=== PATIENT | female | born 1960 | race African-American/Black ===

== ENCOUNTER → 2016-05-07 | Outpatient (CLI) | payer MEDICARE, OTHER ==
[2016-04-24 11:59] VITALS: BP 148/97
[~2016-05-07] MED LIST: AMIT10TA PO; BACL10TA PO; BACL20TA PO; BUTA-14 PO; CYCL10TA2 PO; ETOD400T PO; FENT1PAT17 TD; FENT1PAT19 TP; FLUT1DIS5 IH; GABA800T2 PO; HYDR-2666 PO; IPRA4AER IH; LEVO75TA5 PO; LISI10TA2 PO; LORA10TA68 PO; ONDA8TAB12 PO; OXYC-244 PO; PANT40TA3 PO; POTA20TA4 PO; RANI150T6 PO; TIZA2CAP PO; TOPI-24 PO; VENL150C PO; ZOLP10TA PO
== END | disposition home or self-care (01) ==
LOC: PMGWOUND 13:18
PROVIDERS: ATTEND Surgery
DX: L89.153 Pressure ulcer of sacral region, stage 3 (principal); E03.9 Hypothyroidism, unspecified; J44.9 Chronic obstructive pulmonary disease, unspecified; K21.9 Gastro-esophageal reflux disease without esophagitis; F32.9 Major depressive disorder, single episode, unspecified; F17.210 Nicotine dependence, cigarettes, uncomplicated
CPT/HCPCS: 11042

== ENCOUNTER → 2016-05-14 | Outpatient (CLI) | payer MEDICARE, OTHER ==
[2016-04-24 11:59] VITALS: BP 148/97
== END | disposition home or self-care (01) ==
LOC: PMGWOUND 14:10
PROVIDERS: ATTEND Surgery
DX: L89.153 Pressure ulcer of sacral region, stage 3 (principal); E03.9 Hypothyroidism, unspecified; J44.9 Chronic obstructive pulmonary disease, unspecified; K21.9 Gastro-esophageal reflux disease without esophagitis; F32.9 Major depressive disorder, single episode, unspecified; F17.210 Nicotine dependence, cigarettes, uncomplicated
CPT/HCPCS: 97597

== ENCOUNTER → 2016-05-19 | Outpatient (CLI) | payer OTHER ==
[2016-04-24 11:59] VITALS: BP 148/97
== END | disposition home or self-care (01) ==
LOC: PMGWOUND 12:27
PROVIDERS: ATTEND Emergency Medicine Undersea and Hyperbaric Medicine
DX: L89.153 Pressure ulcer of sacral region, stage 3 (principal); E03.9 Hypothyroidism, unspecified; J44.9 Chronic obstructive pulmonary disease, unspecified; K21.9 Gastro-esophageal reflux disease without esophagitis; F32.9 Major depressive disorder, single episode, unspecified; F17.210 Nicotine dependence, cigarettes, uncomplicated
CPT/HCPCS: 11042

== ENCOUNTER → 2016-06-03 | Outpatient (CLI) | payer OTHER ==
[2016-04-24 11:59] VITALS: BP 148/97
== END | disposition home or self-care (01) ==
LOC: PMGWOUND 11:35
PROVIDERS: ATTEND Emergency Medicine Undersea and Hyperbaric Medicine
DX: L89.153 Pressure ulcer of sacral region, stage 3 (principal); E03.9 Hypothyroidism, unspecified; J44.9 Chronic obstructive pulmonary disease, unspecified; K21.9 Gastro-esophageal reflux disease without esophagitis; F32.9 Major depressive disorder, single episode, unspecified; F17.210 Nicotine dependence, cigarettes, uncomplicated
CPT/HCPCS: 11042

== ENCOUNTER → 2016-06-10 | Outpatient (CLI) | payer OTHER ==
[2016-04-24 11:59] VITALS: BP 148/97
== END | disposition home or self-care (01) ==
LOC: PMGWOUND 11:46
PROVIDERS: ATTEND Emergency Medicine Undersea and Hyperbaric Medicine
DX: L89.153 Pressure ulcer of sacral region, stage 3 (principal); E03.9 Hypothyroidism, unspecified; J44.9 Chronic obstructive pulmonary disease, unspecified; K21.9 Gastro-esophageal reflux disease without esophagitis; F32.9 Major depressive disorder, single episode, unspecified; F17.210 Nicotine dependence, cigarettes, uncomplicated
CPT/HCPCS: 11042

== ENCOUNTER → 2016-06-17 | Outpatient (CLI) | payer OTHER ==
[2016-04-24 11:59] VITALS: BP 148/97
== END | disposition home or self-care (01) ==
LOC: PMGWOUND 10:01
PROVIDERS: ATTEND Emergency Medicine Undersea and Hyperbaric Medicine
DX: L89.153 Pressure ulcer of sacral region, stage 3 (principal); J44.9 Chronic obstructive pulmonary disease, unspecified; K21.9 Gastro-esophageal reflux disease without esophagitis; E03.9 Hypothyroidism, unspecified; F32.9 Major depressive disorder, single episode, unspecified; F17.210 Nicotine dependence, cigarettes, uncomplicated; Z90.710 Acquired absence of both cervix and uterus
CPT/HCPCS: 99214

== ENCOUNTER → 2016-06-24 | Outpatient (CLI) | payer OTHER ==
[2016-04-24 11:59] VITALS: BP 148/97
== END | disposition home or self-care (01) ==
LOC: PMGWOUND 11:41
PROVIDERS: ATTEND Emergency Medicine Undersea and Hyperbaric Medicine
DX: L89.153 Pressure ulcer of sacral region, stage 3 (principal); S60.420D Blister (nonthermal) of right index finger, subsequent encounter; E03.9 Hypothyroidism, unspecified; J44.9 Chronic obstructive pulmonary disease, unspecified; K21.9 Gastro-esophageal reflux disease without esophagitis; F32.9 Major depressive disorder, single episode, unspecified; F17.210 Nicotine dependence, cigarettes, uncomplicated; Z90.710 Acquired absence of both cervix and uterus; X58.XXXD Exposure to other specified factors, subsequent encounter
CPT/HCPCS: 11042

== ENCOUNTER → 2016-07-01 | Outpatient (CLI) | payer OTHER ==
[2016-04-24 11:59] VITALS: BP 148/97
== END | disposition home or self-care (01) ==
LOC: PMGWOUND 11:46
PROVIDERS: ATTEND Emergency Medicine Undersea and Hyperbaric Medicine
DX: S61.200D Unspecified open wound of right index finger without damage to nail, subsequent encounter (principal); L89.153 Pressure ulcer of sacral region, stage 3; L03.011 Cellulitis of right finger; E03.9 Hypothyroidism, unspecified; J44.9 Chronic obstructive pulmonary disease, unspecified; K21.9 Gastro-esophageal reflux disease without esophagitis; F32.9 Major depressive disorder, single episode, unspecified; F17.210 Nicotine dependence, cigarettes, uncomplicated; X58.XXXD Exposure to other specified factors, subsequent encounter
CPT/HCPCS: 99215

== ENCOUNTER → 2016-07-08 | Outpatient (CLI) | payer OTHER ==
[2016-04-24 11:59] VITALS: BP 148/97
== END | disposition home or self-care (01) ==
LOC: PMGWOUND 11:41
PROVIDERS: ATTEND Emergency Medicine Undersea and Hyperbaric Medicine
DX: L89.153 Pressure ulcer of sacral region, stage 3 (principal); S60.420D Blister (nonthermal) of right index finger, subsequent encounter; E03.9 Hypothyroidism, unspecified; J44.9 Chronic obstructive pulmonary disease, unspecified; K21.9 Gastro-esophageal reflux disease without esophagitis; F32.9 Major depressive disorder, single episode, unspecified; F17.210 Nicotine dependence, cigarettes, uncomplicated; Z90.710 Acquired absence of both cervix and uterus; X58.XXXD Exposure to other specified factors, subsequent encounter
CPT/HCPCS: 99214

== ENCOUNTER → 2016-07-15 | Outpatient (CLI) | payer OTHER ==
[2016-04-24 11:59] VITALS: BP 148/97
== END | disposition home or self-care (01) ==
LOC: PMGWOUND 10:59
PROVIDERS: ATTEND Emergency Medicine Undersea and Hyperbaric Medicine
DX: L89.152 Pressure ulcer of sacral region, stage 2 (principal); J44.9 Chronic obstructive pulmonary disease, unspecified; K21.9 Gastro-esophageal reflux disease without esophagitis; E03.9 Hypothyroidism, unspecified; F32.9 Major depressive disorder, single episode, unspecified; F17.210 Nicotine dependence, cigarettes, uncomplicated; Z90.710 Acquired absence of both cervix and uterus
CPT/HCPCS: 99213

== ENCOUNTER 2016-07-27 17:35 | Inpatient (IN) | payer OTHER ==
[~2016-07-27] VITALS: Ht 154.9 cm; Wt 43.6 kg
[~2016-07-27 17:35] MED LIST changes: -HYDR-2666 PO; +HYDR-2758 PO; +NON FORMULARY ITEM SQ SCH; -OXYC-244 PO; +OXYC-327 PO; -TOPI-24 PO; +TOPI25TA7 PO
--- NOTE | 2016-07-27 18:15 | PHYS DOC ---
Adult General Chief Complaint Chief Complaint: SYNCOPE HPI HPI Patient is a 56 year old -[place] who presents with syncopal episode. Primary lateral sclerosis, hypothyroidism, mood disorder and lumbar stenosisAccording to her sister who takes care of her she got her out of the bathroom and cleaned her up in the prone in bed and then she turned around to leave when she started screaming in pain and then all of a sudden urinated although place and was unresponsive. She presents to ER today with tachycardia and no complaints. She denies fevers chills nausea or vomiting. Review of Systems Review of Systems Constitutional: Denies fever or chills [] Eyes: Denies change in visual acuity, redness, or eye pain [] HENT: Denies nasal congestion or sore throat [] Respiratory: Denies cough or shortness of breath [] Cardiovascular: No additional information not addressed in HPI [] GI: Denies abdominal pain, nausea, vomiting, bloody stools or diarrhea [] : Denies dysuria or hematuria [] Musculoskeletal: Denies back pain or joint pain [] Integument: Denies rash or skin lesions [] Neurologic: Denies headache, focal weakness or sensory changes [] Endocrine: Denies polyuria or polydipsia [] Current Medications Current Medications Current Medications Medications (Trade) Dose Ordered Sig/Estelle Start Time Stop Time Status Last Admin Dose Admin Aspirin (Elvis Aspirin) 325 mg 1X ONCE 07/27/16 20:45 07/27/16 20:46 Ondansetron HCl (Zofran) 4 mg PRN Q8HRS PRN 07/27/16 20:45 07/28/16 20:44 Sodium Chloride 1,000 ml @ 1,000 mls/hr 1X ONCE 07/27/16 19:15 07/27/16 20:14 DC 07/27/16 19:28 1,000 MLS/HR Allergies Allergies Allergies Coded Allergies Type Severity Reaction Last Updated Verified cefazolin Allergy Intermediate Rash 12/27/14 Yes ibuprofen Allergy Intermediate Hives 12/27/14 Yes morphine Allergy Intermediate Nausea and Vomiting 12/27/14 Yes Physical Exam Physical Exam Constitutional: Well developed, well nourished, no acute distress, non-toxic appearance. [] HENT: Normocephalic, atraumatic, bilateral external ears normal, oropharynx moist, no oral exudates, nose normal. [] Eyes: PERRLA, EOMI, conjunctiva normal, no discharge. [] Neck: Normal range of motion, no tenderness, supple, no stridor. [] Cardiovascular: Heart rate tachycardic without any murmurs Lungs & Thorax: Bilateral breath sounds clear to auscultation [] Abdomen: Bowel sounds normal, soft, no tenderness, no masses, no pulsatile masses. [] Skin: Warm, dry, no erythema, no rash. [] Back: No tenderness, no CVA tenderness. [] Extremities: Mild tendinosis palpation across the right leg, right hand noted for second digit missing with the wound being wrapped, no cyanosis, no clubbing , ROM intact, no edema. [] Neurologic: Alert and oriented X 3, normal motor function, normal sensory function, no focal deficits noted. [] Psychologic: Affect normal, judgement normal, mood normal. [] Current Patient Data Vital Signs Vital Signs Date Time Temp Pulse Resp B/P (MAP) Pulse Ox O2 Delivery O2 Flow Rate FiO2 07/27/16 18:45 124 20 88/62 (71) 100 Room Air 07/27/16 17:36 98.7 98.7 Lab Values Laboratory Tests Test 07/27/16 18:34 07/27/16 19:27 White Blood Count 10.0 x10^3/uL (4.0-11.0) Red Blood Count 3.60 x10^6/uL (3.50-5.40) Hemoglobin 11.7 g/dL (12.0-15.5) L Hematocrit 35.0 % (36.0-47.0) L Mean Corpuscular Volume 97 fL (79-100) Mean Corpuscular Hemoglobin 32 pg (25-35) Mean Corpuscular Hemoglobin Concent 33 g/dL (31-37) Red Cell Distribution Width 13.2 % (11.5-14.5) Platelet Count 215 x10^3/uL (140-400) Neutrophils (%) (Auto) 74 % (31-73) H Lymphocytes (%) (Auto) 17 % (24-48) L Monocytes (%) (Auto) 8 % (0-9) Eosinophils (%) (Auto) 1 % (0-3) Basophils (%) (Auto) 1 % (0-3) Neutrophils # (Auto) 7.4 x10^3uL (1.8-7.7) Lymphocytes # (Auto) 1.7 x10^3/uL (1.0-4.8) Monocytes # (Auto) 0.8 x10^3/uL (0.0-1.1) Eosinophils # (Auto) 0.1 x10^3/uL (0.0-0.7) Basophils # (Auto) 0.1 x10^3/uL (0.0-0.2) Sodium Level 141 mmol/L (136-145) Potassium Level 4.1 mmol/L (3.5-5.1) Chloride Level 106 mmol/L (98-107) Carbon Dioxide Level 25 mmol/L (21-32) Anion Gap 10 (6-14) Blood Urea Nitrogen 16 mg/dL (7-20) Creatinine 0.9 mg/dL (0.6-1.0) Estimated GFR (Cockcroft-Gault) 78.1 Glucose Level 116 mg/dL (70-99) H Calcium Level 8.8 mg/dL (8.5-10.1) Magnesium Level 2.1 mg/dL (1.8-2.4) Total Bilirubin 0.2 mg/dL (0.2-1.0) Direct Bilirubin 0.1 mg/dL (0.0-0.2) Aspartate Amino Transferase (AST) 18 U/L (15-37) Alanine Aminotransferase (ALT) 16 U/L (14-59) Alkaline Phosphatase 117 U/L (46-116) H Creatine Kinase 110 U/L (26-192) Creatine Kinase MB (Mass) 2.0 ng/mL (0.0-3.6) Creatine Kinase MB Relative Index 1.8 % (0-4) Troponin I Quantitative 0.449 ng/mL (0.000-0.055) PC-Xhh-G-Type Natriuretic Peptide 958 pg/mL (0-124) H Total Protein 8.1 g/dL (6.4-8.2) Albumin 3.2 g/dL (3.4-5.0) L Lipase 53 U/L (73-393) L Thyroid Stimulating Hormone (TSH) 0.885 uIU/mL (0.358-3.74) Lactic Acid Level 1.9 mmol/L (0.4-2.0) Laboratory Tests 07/27/16 18:34 Laboratory Tests 07/27/16 18:34 EKG EKG EKG shows sinus tachycardia with a rate of [address] elevations, QTC 496 ms, left axis deviation, as interpreted by me. Radiology/Procedures Radiology/Procedures One view chest x-ray did not show any focal is elevations, bony abnormalities, pneumothorax, as interpreted by me. Impressions: Syncopal episode Elevated troponin Course & Med Decision Making Course & Med Decision Making Pertinent Labs and Imaging studies reviewed. (See chart for details) Patient doesn't have an elevated lactic acid however should her troponin is 0.4. EKG doesn't show anything acute other than tachycardia. She doesn't have any chest discomfort or abdominal pain. Her white blood cell count is not elevated and she does not have a fever. Urinalysis is pending at this time. I spoke with Dr. Pratt who is agreeable to admitting the patient, however does not want antibiotics or cardiology consulted at this time. We will consult ortho -alvaro as they did the recent amputation of her second digit of her right hand. Patient has received IV fluids and her heart rate has improved slightly. Dr. Pratt noted that recently her vitals were exactly the same in her office. Patient's in stable condition at this time be admitted. I have added on a CRP and ESR and gave the patient 324 mg aspirin. Dragon Disclaimer Dragon Disclaimer This electronic medical record was generated, in whole or in part, using a voice recognition dictation system. Departure Departure Impression: Primary Impression: Elevated troponin Disposition: ADMITTED INPATIENT Admitting Physician: Evelia Pratt Condition: STABLE Referrals: EVELIA PRATT MD (PCP) MOLLY CARLSON MD Jul 27, 2016 18:14
[2016-07-27 18:41] LABS: BASO # 0.1 x10^3/uL (0.0-0.2); BASO % 1 % (0-3); EOS % 1 % (0-3); HEMOGLOBIN 11.7 g/dL (12.0-15.5); LYMPH # 1.7 x10^3/uL (1.0-4.8); LYMPH % 17 % (24-48); MEAN CORPUSCULAR HEMOGLOBIN 32 pg (25-35); MEAN CORPUSCULAR HGB CONC 33 g/dL (31-37); MEAN CORPUSCULAR VOLUME 97 fL (79-100); MONO % 8 % (0-9); NEUT % 74 % (31-73); PLATELET COUNT 215 x10^3/uL (140-400); RED CELL DISTRIBUTION WIDTH 13.2 % (11.5-14.5)
[2016-07-27 18:59] LABS: CALCIUM 8.8 mg/dL (8.5-10.1); CREATININE 0.9 mg/dL (0.6-1.0); GFR 78.1; POTASSIUM 4.1 mmol/L (3.5-5.1)
[2016-07-27 19:03] LABS: ALBUMIN 3.2 g/dL (3.4-5.0); DIRECT BILIRUBIN 0.1 mg/dL (0.0-0.2); MAGNESIUM 2.1 mg/dL (1.8-2.4); TOTAL BILIRUBIN 0.2 mg/dL (0.2-1.0); TOTAL PROTEIN 8.1 g/dL (6.4-8.2)
[2016-07-27] MEDS ORDERED: IV NORMAL SALINE 1000ML BAG 1,000 ML IV ONE (19:15)
[2016-07-27] MEDS ORDERED: ASPIRIN 325 MG TABLET PO ONE (20:45)
[2016-07-27] MEDS ORDERED: ONDANSETRON PF 4 MG/2 ML VIAL. IV PRN (20:45)
[2016-07-27 22:01] VITALS: BP 98/74
[2016-07-27] MEDS ORDERED: XOPENEX HFA15 GM IH (22:43)
[2016-07-27] MEDS ORDERED: OLAN5TAB9 PO (22:43)
[2016-07-27] MEDS ORDERED: MELO7.5T29 PO (22:43)
[2016-07-27] MEDS ORDERED: FLUT16SP NS (22:43)
[2016-07-27] MEDS ORDERED: fentaNYL 75MCG/HR PATCH 1 PATCH PATCH.TD72 TD SCH ×2 (23:00→23:30)
[2016-07-27] MEDS: GABAPENTIN 400 MG CAPSULE. PO SCH (23:30)
[2016-07-27] MEDS ORDERED: OLANZapine 5 MG TABLET PO SCH (23:30)
[2016-07-27] MEDS: AMITRIPTYLINE HCL 10 MG TABLET. PO SCH (23:31)
[2016-07-27] MEDS: FAMOTIDINE 20 MG TABLET. PO SCH (23:31)
[2016-07-27] MEDS: TOPIRAMATE 100 MG TABLET. PO SCH (23:32)
[2016-07-27] MEDS: oxyCODONE/APAP 7.5/325 1 TAB TABLET PO SCH (23:33)
[2016-07-27] MEDS: tiZANidine 4 MG TABLET. PO SCH (23:44)
[2016-07-28 02:38] VITALS: BP 94/65
[2016-07-28 03:05] LABS: BASO # 0.1 x10^3/uL (0.0-0.2); BASO % 1 % (0-3); EOS % 2 % (0-3); HEMATOCRIT 33.4 % (36.0-47.0); HEMOGLOBIN 11.1 g/dL (12.0-15.5); LYMPH # 3.9 x10^3/uL (1.0-4.8); LYMPH % 40 % (24-48); MEAN CORPUSCULAR HEMOGLOBIN 33 pg (25-35); MEAN CORPUSCULAR HGB CONC 33 g/dL (31-37); MEAN CORPUSCULAR VOLUME 98 fL (79-100); MONO % 9 % (0-9); NEUT % 48 % (31-73); PLATELET COUNT 212 x10^3/uL (140-400); RED BLOOD COUNT 3.42 x10^6/uL (3.50-5.40); RED CELL DISTRIBUTION WIDTH 13.2 % (11.5-14.5); WHITE BLOOD COUNT 9.7 x10^3/uL (4.0-11.0)
[2016-07-28 03:06] LABS: CALCIUM 8.6 mg/dL (8.5-10.1); CREATININE 0.8 mg/dL (0.6-1.0); GFR 89.5; POTASSIUM 4.2 mmol/L (3.5-5.1)
[2016-07-28] MEDS: NON FORMULARY ITEM SQ SCH ×7 (03:14→21:00)
[2016-07-28] MEDS ORDERED: oxyCODONE/APAP 7.5/325 1 TAB TABLET PO SCH (06:00)
[2016-07-28] MEDS ORDERED: BUTALB/APAP/CAFEIN 50/325/40MG TABLET. PO PRN (07:30)
--- NOTE | 2016-07-28 07:38 | PDOC ---
PROGRESS NOTES Subjective Subjective Patient denies any chest pain. Denies lightheadedness at present. Objective Objective Vital Signs Date Time Temp Pulse Resp B/P (MAP) Pulse Ox O2 Delivery O2 Flow Rate FiO2 07/28/16 02:38 99.0 108 18 94/65 (75) 93 Room Air 99.0 Intake and Output 07/28/16 07:00 Intake Total 1318 ml Output Total 0 ml Balance 1318 ml Intake Oral 318 ml IV Total 1000 ml Output Urine Total 0 ml Physical Exam Abdomen: Normal bowel sounds, Soft, No tenderness Heart: Regular rate (mildly tachy) Extremities: No edema General: Alert, Oriented X3, No acute distress Lungs: Other (BS mildly decreased throughout but othewise CTA) Assessment Assessment Problems Medical Problems: (1) Elevated troponin Status: Acute Plan Plan of Care 1. Syncope with mildly elevated troponin and tachycardia - Stable overnight, tele with mild sinus tachycardia. BP mildly low but this is usual for her. Await further evaluation per Cardiology. 2. non-healing surgical wound right hand - patient had index finger amputated last month, apparently for ischemia. Wound has not closed and bone is visible at base. Presumed osteomyelitis. Will consult Ortho and ID for tx. 3. primary lateral sclerosis - patient is quite debilitated from this and requires much assistance at home, which her sister Tara provides. At baseline now , continue her usual meds for this and supportive care. 4. hypothyroidism - recent lab in our office showed TSH and T4 WNL on present dose of Levothyroxine, continue. 5. chronic back pain - stable, continue her home meds for this. 6. asthma - stable, continue inhalers. Patient declines nicotine patch at this time. 7. mood disorder - patient had some difficulty with this awhile ago, has been doing better on Zyprexa. Will continue this. Comment Review of Relevant I have reviewed the following items mimi (where applicable) has been applied. Labs Laboratory Tests Test 07/27/16 18:34 07/27/16 18:54 07/27/16 19:27 07/28/16 02:48 White Blood Count 10.0 x10^3/uL (4.0-11.0) 9.7 x10^3/uL (4.0-11.0) Red Blood Count 3.60 x10^6/uL (3.50-5.40) 3.42 x10^6/uL (3.50-5.40) Hemoglobin 11.7 g/dL (12.0-15.5) 11.1 g/dL (12.0-15.5) Hematocrit 35.0 % (36.0-47.0) 33.4 % (36.0-47.0) Mean Corpuscular Volume 97 fL (79-100) 98 fL (79-100) Mean Corpuscular Hemoglobin 32 pg (25-35) 33 pg (25-35) Mean Corpuscular Hemoglobin Concent 33 g/dL (31-37) 33 g/dL (31-37) Red Cell Distribution Width 13.2 % (11.5-14.5) 13.2 % (11.5-14.5) Platelet Count 215 x10^3/uL (140-400) 212 x10^3/uL (140-400) Neutrophils (%) (Auto) 74 % (31-73) 48 % (31-73) Lymphocytes (%) (Auto) 17 % (24-48) 40 % (24-48) Monocytes (%) (Auto) 8 % (0-9) 9 % (0-9) Eosinophils (%) (Auto) 1 % (0-3) 2 % (0-3) Basophils (%) (Auto) 1 % (0-3) 1 % (0-3) Neutrophils # (Auto) 7.4 x10^3uL (1.8-7.7) 4.6 x10^3uL (1.8-7.7) Lymphocytes # (Auto) 1.7 x10^3/uL (1.0-4.8) 3.9 x10^3/uL (1.0-4.8) Monocytes # (Auto) 0.8 x10^3/uL (0.0-1.1) 0.9 x10^3/uL (0.0-1.1) Eosinophils # (Auto) 0.1 x10^3/uL (0.0-0.7) 0.2 x10^3/uL (0.0-0.7) Basophils # (Auto) 0.1 x10^3/uL (0.0-0.2) 0.1 x10^3/uL (0.0-0.2) Sodium Level 141 mmol/L (136-145) 141 mmol/L (136-145) Potassium Level 4.1 mmol/L (3.5-5.1) 4.2 mmol/L (3.5-5.1) Chloride Level 106 mmol/L (98-107) 107 mmol/L (98-107) Carbon Dioxide Level 25 mmol/L (21-32) 25 mmol/L (21-32) Anion Gap 10 (6-14) 9 (6-14) Blood Urea Nitrogen 16 mg/dL (7-20) 18 mg/dL (7-20) Creatinine 0.9 mg/dL (0.6-1.0) 0.8 mg/dL (0.6-1.0) Estimated GFR (Cockcroft-Gault) 78.1 89.5 Glucose Level 116 mg/dL (70-99) 101 mg/dL (70-99) Calcium Level 8.8 mg/dL (8.5-10.1) 8.6 mg/dL (8.5-10.1) Magnesium Level 2.1 mg/dL (1.8-2.4) Total Bilirubin 0.2 mg/dL (0.2-1.0) Direct Bilirubin 0.1 mg/dL (0.0-0.2) Aspartate Amino Transf (AST/SGOT) 18 U/L (15-37) Alanine Aminotransferase (ALT/SGPT) 16 U/L (14-59) Alkaline Phosphatase 117 U/L (46-116) Creatine Kinase 110 U/L (26-192) Creatine Kinase MB (Mass) 2.0 ng/mL (0.0-3.6) Creatine Kinase MB Relative Index 1.8 % (0-4) Troponin I Quantitative 0.449 ng/mL (0.000-0.055) 0.560 ng/mL (0.000-0.055) MP-Bbi-I-Type Natriuretic Peptide 958 pg/mL (0-124) Total Protein 8.1 g/dL (6.4-8.2) Albumin 3.2 g/dL (3.4-5.0) Lipase 53 U/L (73-393) Thyroid Stimulating Hormone (TSH) 0.885 uIU/mL (0.358-3.74) Erythrocyte Sedimentation Rate 32 (0-25) C-Reactive Protein, Quantitative 25.9 mg/L (0-3.3) Lactic Acid Level 1.9 mmol/L (0.4-2.0) Laboratory Tests Test 07/27/16 18:34 07/27/16 18:54 07/27/16 19:27 07/28/16 02:48 White Blood Count 10.0 x10^3/uL (4.0-11.0) 9.7 x10^3/uL (4.0-11.0) Red Blood Count 3.60 x10^6/uL (3.50-5.40) 3.42 x10^6/uL (3.50-5.40) Hemoglobin 11.7 g/dL (12.0-15.5) 11.1 g/dL (12.0-15.5) Hematocrit 35.0 % (36.0-47.0) 33.4 % (36.0-47.0) Mean Corpuscular Volume 97 fL (79-100) 98 fL (79-100) Mean Corpuscular Hemoglobin 32 pg (25-35) 33 pg (25-35) Mean Corpuscular Hemoglobin Concent 33 g/dL (31-37) 33 g/dL (31-37) Red Cell Distribution Width 13.2 % (11.5-14.5) 13.2 % (11.5-14.5) Platelet Count 215 x10^3/uL (140-400) 212 x10^3/uL (140-400) Neutrophils (%) (Auto) 74 % (31-73) 48 % (31-73) Lymphocytes (%) (Auto) 17 % (24-48) 40 % (24-48) Monocytes (%) (Auto) 8 % (0-9) 9 % (0-9) Eosinophils (%) (Auto) 1 % (0-3) 2 % (0-3) Basophils (%) (Auto) 1 % (0-3) 1 % (0-3) Neutrophils # (Auto) 7.4 x10^3uL (1.8-7.7) 4.6 x10^3uL (1.8-7.7) Lymphocytes # (Auto) 1.7 x10^3/uL (1.0-4.8) 3.9 x10^3/uL (1.0-4.8) Monocytes # (Auto) 0.8 x10^3/uL (0.0-1.1) 0.9 x10^3/uL (0.0-1.1) Eosinophils # (Auto) 0.1 x10^3/uL (0.0-0.7) 0.2 x10^3/uL (0.0-0.7) Basophils # (Auto) 0.1 x10^3/uL (0.0-0.2) 0.1 x10^3/uL (0.0-0.2) Sodium Level 141 mmol/L (136-145) 141 mmol/L (136-145) Potassium Level 4.1 mmol/L (3.5-5.1) 4.2 mmol/L (3.5-5.1) Chloride Level 106 mmol/L (98-107) 107 mmol/L (98-107) Carbon Dioxide Level 25 mmol/L (21-32) 25 mmol/L (21-32) Anion Gap 10 (6-14) 9 (6-14) Blood Urea Nitrogen 16 mg/dL (7-20) 18 mg/dL (7-20) Creatinine 0.9 mg/dL (0.6-1.0) 0.8 mg/dL (0.6-1.0) Estimated GFR (Cockcroft-Gault) 78.1 89.5 Glucose Level 116 mg/dL (70-99) 101 mg/dL (70-99) Calcium Level 8.8 mg/dL (8.5-10.1) 8.6 mg/dL (8.5-10.1) Magnesium Level 2.1 mg/dL (1.8-2.4) Total Bilirubin 0.2 mg/dL (0.2-1.0) Direct Bilirubin 0.1 mg/dL (0.0-0.2) Aspartate Amino Transf (AST/SGOT) 18 U/L (15-37) Alanine Aminotransferase (ALT/SGPT) 16 U/L (14-59) Alkaline Phosphatase 117 U/L (46-116) Creatine Kinase 110 U/L (26-192) Creatine Kinase MB (Mass) 2.0 ng/mL (0.0-3.6) Creatine Kinase MB Relative Index 1.8 % (0-4) Troponin I Quantitative 0.449 ng/mL (0.000-0.055) 0.560 ng/mL (0.000-0.055) HO-Yfe-W-Type Natriuretic Peptide 958 pg/mL (0-124) Total Protein 8.1 g/dL (6.4-8.2) Albumin 3.2 g/dL (3.4-5.0) Lipase 53 U/L (73-393) Thyroid Stimulating Hormone (TSH) 0.885 uIU/mL (0.358-3.74) Erythrocyte Sedimentation Rate 32 (0-25) C-Reactive Protein, Quantitative 25.9 mg/L (0-3.3) Lactic Acid Level 1.9 mmol/L (0.4-2.0) Medications Current Medications Sodium Chloride 1,000 ml @ 1,000 mls/hr 1X ONCE IV Last administered on 19:28; Start 07/27/16 at 19:15; Stop 07/27/16 at 20:14; Status DC Ondansetron HCl (Zofran) 4 mg PRN Q8HRS PRN IV NAUSEA/VOMITING; Start 07/27/16 at 20:45; Stop 07/28/16 at 20:44 Aspirin (Elvis Aspirin) 325 mg 1X ONCE PO Last administered on 07/27/16 20:55 ; Start 07/27/16 at 20:45; Stop 07/27/16 at 20:46; Status DC Amitriptyline HCl (Elavil) 10 mg BID PO ; Start 07/28/16 at 09:00; Stop at 09:00; Status DC Fentanyl (Duragesic 75mcg/ Hr Patch) 1 patch Q3DAYS TD ; Start 07/27/16 at 23:00 ; Stop 07/27/16 at 23:08; Status DC Olanzapine (ZyPREXA) 5 mg BID PO ; Start 07/28/16 at 09:00; Stop 07/28/16 at 09: 00; Status DC Oxycodone/ Acetaminophen (Percocet 7.5/ 325) 1 tab Q8HRS PO ; Start 07/28/16 at 06:00; Stop 07/28/16 at 06:00; Status DC Topiramate (Topamax) 100 mg BID PO ; Start 07/28/16 at 09:00; Stop 07/28/16 at 09:00; Status DC Non-Formulary Medication 800 mg TID PO ; Start 07/28/16 at 09:00; Stop 07/28/16 at 09:00; Status DC Non-Formulary Medication 150 mg BID PO ; Start 07/28/16 at 09:00; Stop 07/28/16 at 09:00; Status DC Non-Formulary Medication 2 mg TID PO ; Start 07/28/16 at 09:00; Stop 07/28/16 at 09:00; Status DC Non-Formulary Medication 1 ea Q3HRS SQ Last administered on 07/27/16 22:45; Start 07/27/16 at 00:00; Stop 07/27/16 at 23:40; Status DC Amitriptyline HCl (Elavil) 10 mg BID PO Last administered on 07/27/16 23:31; Start 07/27/16 at 23:30 Fentanyl (Duragesic 75mcg/ Hr Patch) 1 patch Q3DAYS TD Last administered on 23:33; Start 07/27/16 at 23:30 Olanzapine (ZyPREXA) 5 mg BID PO Last administered on 07/27/16 23:32; Start at 23:30 Oxycodone/ Acetaminophen (Percocet 7.5/ 325) 1 tab Q8HRS PO Last administered on 07/27/16 23:33; Start 07/27/16 at 23:30 Topiramate (Topamax) 100 mg BID PO Last administered on 07/27/16 23:32; Start 07/27/16 at 23:30 Gabapentin (Neurontin) 800 mg Q12HR PO Last administered on 07/27/16 23:30; Start 07/27/16 at 23:30 Famotidine (Pepcid) 20 mg BID PO Last administered on 07/27/16 23:31; Start at 23:30 Tizanidine HCl (Zanaflex) 2 mg TID PO Last administered on 07/27/16 23:44; Start 07/27/16 at 23:30 Non-Formulary Medication 1 ea Q3HRS SQ Last administered on 6/12/17at 06:35; Start 07/28/16 at 03:00 Acetaminophen/ Butalbital/ Caffeine (Fioricet) 1 tab PRN Q6HRS PRN PO MIGRAINE HEADACHE; Start 07/28/16 at 07:30 Fluticasone Propionate (Flonase) 2 spray DAILY NS ; Start 07/28/16 at 09:00; Status UNV Levothyroxine Sodium (Synthroid) 75 mcg DAILY PO ; Start 07/28/16 at 09:00; Status UNV Potassium Chloride (Klor-Con) 20 meq DAILY PO ; Start 07/28/16 at 09:00; Status UNV Non-Formulary Medication 1 each BID IH ; Start 07/28/16 at 09:00; Status UNV Non-Formulary Medication 1 tab DAILY PO ; Start 07/28/16 at 09:00; Status UNV Non-Formulary Medication 150 mg DAILY PO ; Start 07/28/16 at 09:00; Status UNV Active Scripts Active Reported Xopenex Hfa (Levalbuterol Tartrate) 15 Gm Hfa.aer.ad 2 Puff IH PRN Q4-6HRS Fluticasone Propionate Nasal [place] (Fluticasone Propionate) 16 Gm [place].susp 2 [place] NS DAILY Olanzapine 5 Mg Tablet 5 Mg PO BID Meloxicam 7.5 Mg Tablet 1 Tab PO DAILY FENTANYL 75mcg/hr (Fentanyl) 1 Each Patch.td72 1 Patch TP Q3DAYS Claritin (Loratadine) 10 Mg Tablet 1 Tab PO DAILY Advair 500-50 Diskus (Fluticasone/Salmeterol) 1 Each Disk.w.dev 1 Each IH BID Amitriptyline Hcl 10 Mg Tablet 10 Mg PO BID Zofran Odt (Ondansetron) 8 Mg Tab.rapdis 8 Mg PO PRN Percocet 7.5-325 Mg Tablet (Oxycodone/Acetaminophen) 1 Each Tablet 1 Each PO Q8HRS Levothyroxine Sodium 75 Mcg Tablet 75 Mcg PO DAILY Fioricet 50-325-40 Mg Tablet (Butalb/Acetaminophen/Caffeine) 1 Each Tablet 1 Each PO Q6HRS PRN Effexor Xr (Venlafaxine Hcl) 150 Mg Cap.er.24h 150 Mg PO DAILY Klor-Con M20 (Potassium Chloride) 20 Meq Tab.er.prt 20 Meq PO DAILY Tizanidine Hcl 2 Mg Capsule 2 Mg PO TID Zantac (Ranitidine Hcl) 150 Mg Tablet 150 Mg PO BID Topiramate 25 Mg Tablet 100 Mg PO BID Gabapentin 800 Mg Tablet 800 Mg PO TID Vitals/I & O Vital Sign - Last 24 Hours 07/27/16 07/27/16 07/27/16 07/27/16 17:36 18:45 19:15 19:45 Temp 98.7 98.7 Pulse 127 124 120 118 Resp 18 20 20 22 B/P (MAP) 91/57 (68) 88/62 (71) 91/64 (73) 83/53 (63) Pulse Ox 92 100 92 92 O2 Delivery Room Air Room Air Room Air Room Air 07/27/16 07/27/16 07/27/16 07/27/16 20:15 20:45 21:15 21:50 Pulse 116 120 120 Resp 16 21 20 B/P (MAP) 103/63 (76) Pulse Ox 92 93 91 O2 Delivery Room Air Room Air Room Air 07/27/16 07/27/16 07/27/16 07/28/16 22:01 22:01 23:33 02:38 Temp 99.2 99.2 99.0 99.2 99.2 99.0 Pulse 114 114 108 Resp 18 18 18 B/P (MAP) 98/74 (82) 98/74 (82) 94/65 (75) Pulse Ox 91 91 93 O2 Delivery Room Air Room Air Room Air Room Air Intake and Output 07/27/16 07/27/16 07/28/16 15:00 23:00 07:00 Intake Total 1000 ml 318 ml Output Total 0 ml Balance 1000 ml 318 ml RISHABH LUNDBERG MD Jul 28, 2016 07:38
[2016-07-28 07:53] VITALS: BP 88/62
--- NOTE | 2016-07-28 08:03 | RAD ---
EXAM: Chest one view. HISTORY: Asthma, syncope. COMPARISON: 05/15/2009. FINDINGS: A frontal view of the chest is obtained. Hyperinflation suggests air trapping. There are no confluent infiltrates. There is no pneumothorax or pleural effusion. The heart is not enlarged. There are atherosclerotic calcifications of the aorta. Instrumented anterior cervical discectomy and fusion changes are noted. IMPRESSION: 1. Mild hyperinflation. Correlate for air trapping.
--- NOTE | 2016-07-28 08:13 | PDOC ---
Infectious Disease Note ROS ROS Vital Sign Vital Signs Vital Signs Date Time Temp Pulse Resp B/P (MAP) Pulse Ox O2 Delivery O2 Flow Rate FiO2 07/28/16 02:38 99.0 108 18 94/65 (75) 93 Room Air 99.0 Labs Lab Laboratory Tests Test 07/27/16 18:34 07/27/16 18:54 07/27/16 19:27 07/28/16 02:48 White Blood Count 10.0 x10^3/uL (4.0-11.0) 9.7 x10^3/uL (4.0-11.0) Red Blood Count 3.60 x10^6/uL (3.50-5.40) 3.42 x10^6/uL (3.50-5.40) Hemoglobin 11.7 g/dL (12.0-15.5) 11.1 g/dL (12.0-15.5) Hematocrit 35.0 % (36.0-47.0) 33.4 % (36.0-47.0) Mean Corpuscular Volume 97 fL (79-100) 98 fL (79-100) Mean Corpuscular Hemoglobin 32 pg (25-35) 33 pg (25-35) Mean Corpuscular Hemoglobin Concent 33 g/dL (31-37) 33 g/dL (31-37) Red Cell Distribution Width 13.2 % (11.5-14.5) 13.2 % (11.5-14.5) Platelet Count 215 x10^3/uL (140-400) 212 x10^3/uL (140-400) Neutrophils (%) (Auto) 74 % (31-73) 48 % (31-73) Lymphocytes (%) (Auto) 17 % (24-48) 40 % (24-48) Monocytes (%) (Auto) 8 % (0-9) 9 % (0-9) Eosinophils (%) (Auto) 1 % (0-3) 2 % (0-3) Basophils (%) (Auto) 1 % (0-3) 1 % (0-3) Neutrophils # (Auto) 7.4 x10^3uL (1.8-7.7) 4.6 x10^3uL (1.8-7.7) Lymphocytes # (Auto) 1.7 x10^3/uL (1.0-4.8) 3.9 x10^3/uL (1.0-4.8) Monocytes # (Auto) 0.8 x10^3/uL (0.0-1.1) 0.9 x10^3/uL (0.0-1.1) Eosinophils # (Auto) 0.1 x10^3/uL (0.0-0.7) 0.2 x10^3/uL (0.0-0.7) Basophils # (Auto) 0.1 x10^3/uL (0.0-0.2) 0.1 x10^3/uL (0.0-0.2) Sodium Level 141 mmol/L (136-145) 141 mmol/L (136-145) Potassium Level 4.1 mmol/L (3.5-5.1) 4.2 mmol/L (3.5-5.1) Chloride Level 106 mmol/L (98-107) 107 mmol/L (98-107) Carbon Dioxide Level 25 mmol/L (21-32) 25 mmol/L (21-32) Anion Gap 10 (6-14) 9 (6-14) Blood Urea Nitrogen 16 mg/dL (7-20) 18 mg/dL (7-20) Creatinine 0.9 mg/dL (0.6-1.0) 0.8 mg/dL (0.6-1.0) Estimated GFR (Cockcroft-Gault) 78.1 89.5 Glucose Level 116 mg/dL (70-99) 101 mg/dL (70-99) Calcium Level 8.8 mg/dL (8.5-10.1) 8.6 mg/dL (8.5-10.1) Magnesium Level 2.1 mg/dL (1.8-2.4) Total Bilirubin 0.2 mg/dL (0.2-1.0) Direct Bilirubin 0.1 mg/dL (0.0-0.2) Aspartate Amino Transf (AST/SGOT) 18 U/L (15-37) Alanine Aminotransferase (ALT/SGPT) 16 U/L (14-59) Alkaline Phosphatase 117 U/L (46-116) Creatine Kinase 110 U/L (26-192) Creatine Kinase MB (Mass) 2.0 ng/mL (0.0-3.6) Creatine Kinase MB Relative Index 1.8 % (0-4) Troponin I Quantitative 0.449 ng/mL (0.000-0.055) 0.560 ng/mL (0.000-0.055) HM-Din-N-Type Natriuretic Peptide 958 pg/mL (0-124) Total Protein 8.1 g/dL (6.4-8.2) Albumin 3.2 g/dL (3.4-5.0) Lipase 53 U/L (73-393) Thyroid Stimulating Hormone (TSH) 0.885 uIU/mL (0.358-3.74) Erythrocyte Sedimentation Rate 32 (0-25) C-Reactive Protein, Quantitative 25.9 mg/L (0-3.3) Lactic Acid Level 1.9 mmol/L (0.4-2.0) Objective Assessment Right index osteomyelitis s/p amputation 18. Sutures removed about 2 weeks post -op now exposed bone Cefazolin allergy - nausea Low grade temps Tobacco abuse Baclofen pump Plan Plan of Care Add Vanc/Zosyn PICC line May need Plastics and a graft/HBO and transfer to F/u labs/cults D/w Dr. Pratt D/w sister Tara [phone] (H) [phone] (C) # [id number] SAMANTHA MCCONNELL MD Jul 28, 2016 08:13
[2016-07-28] MEDS: ALBUTEROL SULFATE 2.5 MG/3 ML NEBU. NEB SCH ×4 (08:20→21:29)
[2016-07-28] MEDS: BUDESONIDE 0.5 MG/2 ML NEBU. NEB SCH ×2 (08:21→21:29)
--- NOTE | 2016-07-28 08:37 | HP ---
ADMIT DATE: 07/27/2016 CHIEF COMPLAINT: Syncope. HISTORY OF PRESENT ILLNESS: The patient is a 56-year-old female with a history of primary lateral sclerosis and significant debility from this. She was brought to the Emergency Room on the evening of admission with the above complaint. Her sister is her caregiver at home and she reported that the patient had a brief episode of syncope on the evening of admission. She had apparently been in bed when this occurred, but she had been unresponsive for a short amount of time. The patient vaguely remembers this. Initial evaluation in the Emergency Room showed the patient to be mildly tachycardic and mildly hypotensive, which is not unusual for her. EKG was reported as showing sinus tachycardia without acute ischemic changes. Chest x-ray is reported as clear. The patient's troponin was mildly elevated at 0.4 and she was admitted for further treatment. PAST MEDICAL HISTORY: Primary lateral sclerosis, lumbar stenosis with chronic back pain, GERD, hypothyroidism, asthma, mood disorder. PAST SURGICAL HISTORY: The patient recently had the amputation of her right index finger apparently due to ischemia, partial hysterectomy, cholecystectomy and cervical laminectomy. ALLERGIES: THE PATIENT IS ALLERGIC OR INTOLERANT TO CEFAZOLIN, IBUPROFEN AND MORPHINE. HOME MEDICATIONS: Olanzapine 5 mg daily, Xopenex p.r.n., tizanidine 2 mg 3 tablets t.i.d., Fioricet p.r.n. headache, gabapentin 800 mg t.i.d., venlafaxine 150 mg daily, Advair 500/50 one puff b.i.d., amitriptyline 10 mg b.i.d., Topamax 25 mg 2 tabs twice a day, ranitidine 150 mg b.i.d., loratadine daily, Flonase daily, Duragesic 75 mcg per hour patch, Percocet 7.5/325 p.r.n., levothyroxine 75 mcg daily, potassium 20 mEq daily. The patient also has a baclofen pump. FAMILY HISTORY: Noncontributory. SOCIAL HISTORY: The patient is . She lives with her sister who provides her care at home. She does continue to smoke cigarettes daily. She does not drink alcohol to excess. REVIEW OF SYSTEMS: The patient denies fever or chills. She has had mild cough recently, which is not productive of sputum and she does not really feel short of air with it. She states she had been using her usual inhalers for her asthma. She denies any chest pain or palpitations. She denies abdominal pain, nausea or vomiting. Her mood has been pretty good with her usual medications. Her pain is fairly well controlled. Her sister administers her pain medication to avoid overuse. The wound from the patient's finger amputation last month has not healed when seen in our office. Last week it was noted to be open with bone exposed at the base of the wound. PHYSICAL EXAMINATION: GENERAL: The patient is alert and oriented x 3, resting comfortably in bed in no acute distress. HEENT: PERRL, EOMI, sclerae clear. Oropharynx: Mucous membranes moist. Poor dentition. NECK: Supple, without lymphadenopathy. CHEST: Breath sounds mildly decreased throughout, but otherwise clear to auscultation. CARDIOVASCULAR: Regular rhythm without murmur, mildly tachycardic. ABDOMEN: Soft, nontender, normoactive bowel sounds are present. EXTREMITIES: Bilateral lower extremities are without edema. A dressing is in place on the right hand. ASSESSMENT AND PLAN: 1. Syncope with mildly elevated troponin and tachycardia. The patient has been stable overnight and continues to be without any chest pain. Her second troponin was very mildly higher than her first one at 0.560. The patient's blood pressure is mildly low, but this is usual for her. We will await further evaluation per Cardiology. 2. Nonhealing surgical wound, right hand. This is presumed to be osteomyelitis with bone visible at the base of the wound. We will consult Ortho and ID for treatment on this and continue wound care. 3. Primary lateral sclerosis. The patient is quite debilitated from this and requires much assistance at home, which her sister has been providing. She is at her baseline now. We will continue her usual medications for this. 4. Hypothyroidism. Recent lab in our office showed TSH and T4 within normal limits on the present dose of levothyroxine and this will be continued. 5. Chronic back pain. This is stable. Continue her usual medications. 6. Asthma. This appears stable. Continue inhalers. The patient declines a nicotine patch at this time. She is well aware of the advice to quit smoking. 7. Mood disorder. The patient had some difficulty with this a while ago, but has been doing better on the current medications. We will continue these. RISHABH LUNDBERG MD DR: Phong JOB#: [id number] / [id number] GELY
[2016-07-28] MEDS ORDERED: AMITRIPTYLINE HCL 10 MG TABLET. PO SCH (09:00)
[2016-07-28] MEDS ORDERED: OLANZapine 5 MG TABLET PO SCH (09:00)
[2016-07-28] MEDS ORDERED: NON FORMULARY ITEM (Fluticasone/Salmeterol (Advair 500-50 Diskus) 1 EACH) IH SCH (09:00)
[2016-07-28] MEDS ORDERED: FLUTICASONE 50MCG/NASAL SPRAY 16GM BOTTLE. NS SCH (09:00)
[2016-07-28] MEDS ORDERED: NON FORMULARY ITEM (Gabapentin 800 MG) PO SCH (09:00)
[2016-07-28] MEDS ORDERED: NON FORMULARY ITEM (Tizanidine Hcl 2 MG) PO SCH (09:00)
[2016-07-28] MEDS ORDERED: TOPIRAMATE 100 MG TABLET. PO SCH (09:00)
[2016-07-28] MEDS ORDERED: NON FORMULARY ITEM (Ranitidine Hcl (Zantac) 150 MG) PO SCH (09:00)
[2016-07-28] MEDS ORDERED: VANCOMYCIN 1.25 GM in IV NORMAL SALINE 250ML 250 ML IV ONE (09:00)
[2016-07-28] MEDS: LEVOTHYROXINE 75 MCG TABLET PO SCH (10:30)
[2016-07-28] MEDS: POTASSIUM CHLORIDE 20 MEQ TABLET.ER. PO SCH (10:31)
[2016-07-28] MEDS: OLANZapine 5 MG TABLET PO SCH (10:31)
[2016-07-28] MEDS: FAMOTIDINE 20 MG TABLET. PO SCH ×2 (10:31→21:57)
[2016-07-28] MEDS: AMITRIPTYLINE HCL 10 MG TABLET. PO SCH ×2 (10:31→21:57)
[2016-07-28] MEDS: TOPIRAMATE 100 MG TABLET. PO SCH ×2 (10:32→21:57)
[2016-07-28] MEDS: tiZANidine 4 MG TABLET. PO SCH ×3 (10:32→21:58)
[2016-07-28] MEDS: CETIRIZINE HCL 10 MG TABLET. PO SCH (10:33)
[2016-07-28] MEDS: VENLAFAXINE XR 37.5 MG CAP.ER.24H. PO SCH (10:33)
[2016-07-28] MEDS: GABAPENTIN 400 MG CAPSULE. PO SCH ×2 (10:33→21:58)
[2016-07-28] MEDS: oxyCODONE/APAP 7.5/325 1 TAB TABLET PO SCH ×2 (10:46→14:00)
[2016-07-28] MEDS: PIPERACILLIN/TAZOBACTAM 3.375 GM in IV NORMAL SALINE 50ML 50 ML IV SCH ×4 (12:00→23:34)
--- NOTE | 2016-07-28 13:05 | CONS ---
DATE OF CONSULTATION: 07/27/2016 LOCATION: The patient is in room 210. REQUESTING PHYSICIAN: Dr. Pratt. REASON FOR CONSULTATION: Osteomyelitis. HISTORY OF PRESENT ILLNESS: The patient is a very pleasant 56-year-old -[place] female. She suffers from primary lateral sclerosis. In talking with her and her sister as the patient is somewhat of a poor historian, she states that she had developed a hangnail at some point on her right index finger and subsequently developed a blister that kind of has ruptured. A second blister developed and wrapped around her finger and shortly after that the finger became red and then became dark. Approximately on 07/03/2016, she underwent amputation of the right index finger and the area was closed. She was feeling ill the week after the procedure and then was unable to followup, but there was concern that the sutures were pulling on the wound. The wound subsequently did open, sutures were removed, but over the past week has been more apparent that the bone has become exposed. Yesterday, her sister had helped the patient to the commode and put her back into bed when she began to scream about pain. Her sister states she is unable to state where the pain was and then she apparently had somewhat of a syncopal episode. The patient has not been on any antibiotics recently. She did receive some clindamycin per her sister. Postoperatively, the patient feels she has been having some low-grade sweats and fevers over the past week, but no sinus issues, no sore throat or cough. Her appetite has been good. No nausea, vomiting or diarrhea. She states that her urine has had somewhat of a stronger odor associated with it, that is what she was told. She has now been admitted to the hospital. In reviewing the pictures available in the chart, she does have an open wound at the base of the amputation site where the index finger is and there is exposed bone. PAST MEDICAL HISTORY: Positive for the primary lateral sclerosis, hypothyroidism, mood disorder and history of lumbar stenosis. She has also had some sacral and buttock wounds in the past. PAST SURGICAL HISTORY: Positive for the above-mentioned finger amputation, partial hysterectomy, cholecystectomy and cervical laminectomy as well as a baclofen pump placement. REVIEW OF SYSTEMS: Otherwise negative, except as mentioned above. ALLERGIES: LISTED CEFAZOLIN. THE PATIENT COULD NOT REMEMBER WHAT HAPPENS WHEN SHE TAKES THIS, BUT IN DISCUSSIONS WITH HER SISTER, SHE STATES IT CAUSED SOME NAUSEA. OTHER ALLERGIES INCLUDE IBUPROFEN AND MORPHINE. SOCIAL HISTORY: She is a smoker, continues to smoke. She has two dogs at home. No other pets or rodents, no alcohol or drug abuse. FAMILY HISTORY: Noncontributory. CURRENT MEDICATIONS: Include albuterol, Elavil, aspirin, Pulmicort, Pepcid, Zyrtec, Neurontin, Synthroid, Zanaflex and Topamax. Other meds are available and have been reviewed in the chart. PHYSICAL EXAMINATION: VITAL SIGNS: T-max 99.2, currently 98.2; pulse 108, respirations 19, blood pressure 88/62, satting 92% on room air. CONSTITUTIONAL: She is very pleasant. She is cooperative. She is in no acute distress. She looks comfortable. HEENT: Pupils look like they have some early cataracts. She has normal conjunctivae. Oral cavity, ____ questionable dentition. NECK: Supple, full range of motion. LUNGS: Clear to auscultation bilaterally. HEART: S1, S2. ABDOMEN: Soft, nontender, nondistended with a baclofen pump on the left lower quadrant without signs of any complications. EXTREMITIES: No clubbing or cyanosis with trace edema bilaterally. SKIN: Warm to touch without signs of generalized rash. NEUROLOGIC: She was pleasant, nonfocal. Her right index finger was wrapped. She has a good radial pulse, ulnar pulse was somewhat decreased, but she does have good capillary refill in her remaining fingers. LABORATORY DATA: White count 9.7, hemoglobin 11.1, platelets of 212, neutrophils 48, lymphs 40, sed rate 32, glucose 101, creatinine is 0.8. DIAGNOSTIC DATA: Chest x-ray was reviewed without acute process. IMPRESSION: 1. Right index osteomyelitis, status post amputation on 07/03/2016. Sutures removed approximately 2 weeks ago postoperatively, but now has exposed bone. 2. Cefazolin allergy, really it just causes nausea only. 3. Low-grade temperatures. 4. Tobacco abuse. 5. Baclofen pump. RECOMMENDATIONS: For now begin vancomycin and Zosyn. I did discuss this with her sister that we will start broad-spectrum Zosyn given the mild nausea that she suffered with the cefazolin, will monitor for this. She will need a PICC line and she may need plastics and a graft, and hyperbaric and may need transfer to . I will follow up on labs and cultures. A urine has been ordered. This was discussed with Dr. Pratt as well as discussed with her sister. Thank you for allowing me to participate in the patient's care. If you have any questions, please do not hesitate to contact me. SAMANTHA MCCONNELL MD DR: GONZALEZ/edwina JOB#: [id number] / [id number]
--- NOTE | 2016-07-28 14:26 | PDOC2 ---
CARDIAC CONSULT DATE OF CONSULT Date of Consult DATE: 07/28/16 TIME: 14:25 REASON FOR CONSULT Reason for Consult: elevated troponin, syncope REFERRING PHYSICIAN Referring Physician: Dr Cristina Pratt SOURCE Source: Chart review HISTORY OF PRESENT ILLNESS HISTORY OF PRESENT ILLNESS 56 year old female with reported syncopal episode on Thursday night. Patient unable to provide any information other than " muggy air." Unclear if other symptoms or events surrounding episode. Family not present. Troponin levels peaked @ 0.560. No EKG for review. Reason for Visit: elevated troponin PAST MEDICAL HISTORY Pulmonary: Asthma CENTRAL NERVOUS SYSTEM: Other (primary lateral sclerosis) GI: GERD Endocrine: Hypothyroidism PAST SURGICAL HISTORY Past Surgical History: Cholecystectomy, Hysterectomy, Other (amputation right index finger; cervical laminectomy) FAMILY HISTORY Family History: Family History Unknown SOCIAL HISTORY Smoke: No ALCOHOL: none Drugs: None Lives: with Family CURRENT MEDICATIONS CURRENT MEDICATIONS Current Medications Medications (Trade) Dose Ordered Sig/Estelle Route PRN Reason Start Time Stop Time Status Last Admin Dose Admin Sodium Chloride 1,000 ml @ 1,000 mls/hr 1X ONCE IV 07/27/16 19:15 07/27/16 20:14 DC 07/27/16 19:28 Aspirin (Elvis Aspirin) 325 mg 1X ONCE PO 07/27/16 20:45 07/27/16 20:46 DC 07/27/16 20:55 Amitriptyline HCl (Elavil) 10 mg BID PO 07/27/16 23:30 07/28/16 10:31 Fentanyl (Duragesic 75mcg/ Hr Patch) 1 patch Q3DAYS TD 07/27/16 23:30 07/27/16 23:33 Olanzapine (ZyPREXA) 5 mg BID PO 07/27/16 23:30 07/28/16 07:30 DC 07/27/16 23:32 Oxycodone/ Acetaminophen (Percocet 7.5/ 325) 1 tab Q8HRS PO 07/27/16 23:30 07/28/16 10:46 Topiramate (Topamax) 100 mg BID PO 07/27/16 23:30 07/28/16 10:32 Gabapentin (Neurontin) 800 mg Q12HR PO 07/27/16 23:30 07/28/16 10:33 Famotidine (Pepcid) 20 mg BID PO 07/27/16 23:30 07/28/16 10:31 Tizanidine HCl (Zanaflex) 2 mg TID PO 07/27/16 23:30 07/28/16 10:32 Non-Formulary Medication 1 ea Q3HRS SQ 07/28/16 03:00 07/28/16 10:35 Levothyroxine Sodium (Synthroid) 75 mcg DAILY06 PO 07/28/16 07:30 07/28/16 10:30 Potassium Chloride (Klor-Con) 20 meq DAILY PO 07/28/16 09:00 07/28/16 10:31 Cetirizine HCl (ZyrTEC) 10 mg DAILY PO 07/28/16 09:00 07/28/16 10:33 Venlafaxine HCl (Effexor Xr) 150 mg DAILY PO 07/28/16 09:00 07/28/16 10:33 Olanzapine (ZyPREXA) 5 mg DAILY PO 07/28/16 09:00 07/28/16 10:31 Budesonide (Pulmicort) 0.5 mg RTBID NEB 07/28/16 08:00 07/28/16 08:21 Albuterol Sulfate (Ventolin Neb Soln) 2.5 mg RTQID NEB 07/28/16 08:00 07/28/16 13:00 ALLERGIES ALLERGIES: Coded Allergies: ibuprofen (Verified Allergy, Intermediate, Hives, 12/27/14) morphine (Verified Allergy, Intermediate, Nausea and Vomiting, 12/27/14) cefazolin (Verified Adverse Reaction, Intermediate, N/V, 07/28/16) ROS Review of System unobtainable - ? oversedated PHYSICAL EXAM General: Cooperative HEENT: Atraumatic, PERRLA Lungs: Clear to auscultation Heart: Normal S1, Normal S2 Abdomen: Normal bowel sounds Extremities: No edema, Normal pulses Neuro: Other (speech unintelligible) MUSCULOSKELETAL: No deformity VITALS VITALS Vital Signs Date Time Temp Pulse Resp B/P (MAP) Pulse Ox O2 Delivery O2 Flow Rate FiO2 07/28/16 13:00 Room Air 07/28/16 11:46 18 94 07/28/16 07:53 98.2 108 88/62 (71) 98.2 LABS Lab: Laboratory Tests Test 07/27/16 18:34 07/27/16 18:54 07/27/16 19:27 07/28/16 02:48 White Blood Count 10.0 x10^3/uL (4.0-11.0) 9.7 x10^3/uL (4.0-11.0) Red Blood Count 3.60 x10^6/uL (3.50-5.40) 3.42 x10^6/uL (3.50-5.40) Hemoglobin 11.7 g/dL (12.0-15.5) 11.1 g/dL (12.0-15.5) Hematocrit 35.0 % (36.0-47.0) 33.4 % (36.0-47.0) Mean Corpuscular Volume 97 fL (79-100) 98 fL (79-100) Mean Corpuscular Hemoglobin 32 pg (25-35) 33 pg (25-35) Mean Corpuscular Hemoglobin Concent 33 g/dL (31-37) 33 g/dL (31-37) Red Cell Distribution Width 13.2 % (11.5-14.5) 13.2 % (11.5-14.5) Platelet Count 215 x10^3/uL (140-400) 212 x10^3/uL (140-400) Neutrophils (%) (Auto) 74 % (31-73) 48 % (31-73) Lymphocytes (%) (Auto) 17 % (24-48) 40 % (24-48) Monocytes (%) (Auto) 8 % (0-9) 9 % (0-9) Eosinophils (%) (Auto) 1 % (0-3) 2 % (0-3) Basophils (%) (Auto) 1 % (0-3) 1 % (0-3) Neutrophils # (Auto) 7.4 x10^3uL (1.8-7.7) 4.6 x10^3uL (1.8-7.7) Lymphocytes # (Auto) 1.7 x10^3/uL (1.0-4.8) 3.9 x10^3/uL (1.0-4.8) Monocytes # (Auto) 0.8 x10^3/uL (0.0-1.1) 0.9 x10^3/uL (0.0-1.1) Eosinophils # (Auto) 0.1 x10^3/uL (0.0-0.7) 0.2 x10^3/uL (0.0-0.7) Basophils # (Auto) 0.1 x10^3/uL (0.0-0.2) 0.1 x10^3/uL (0.0-0.2) Sodium Level 141 mmol/L (136-145) 141 mmol/L (136-145) Potassium Level 4.1 mmol/L (3.5-5.1) 4.2 mmol/L (3.5-5.1) Chloride Level 106 mmol/L (98-107) 107 mmol/L (98-107) Carbon Dioxide Level 25 mmol/L (21-32) 25 mmol/L (21-32) Anion Gap 10 (6-14) 9 (6-14) Blood Urea Nitrogen 16 mg/dL (7-20) 18 mg/dL (7-20) Creatinine 0.9 mg/dL (0.6-1.0) 0.8 mg/dL (0.6-1.0) Estimated GFR (Cockcroft-Gault) 78.1 89.5 Glucose Level 116 mg/dL (70-99) 101 mg/dL (70-99) Calcium Level 8.8 mg/dL (8.5-10.1) 8.6 mg/dL (8.5-10.1) Magnesium Level 2.1 mg/dL (1.8-2.4) Total Bilirubin 0.2 mg/dL (0.2-1.0) Direct Bilirubin 0.1 mg/dL (0.0-0.2) Aspartate Amino Transf (AST/SGOT) 18 U/L (15-37) Alanine Aminotransferase (ALT/SGPT) 16 U/L (14-59) Alkaline Phosphatase 117 U/L (46-116) Creatine Kinase 110 U/L (26-192) Creatine Kinase MB (Mass) 2.0 ng/mL (0.0-3.6) Creatine Kinase MB Relative Index 1.8 % (0-4) Troponin I Quantitative 0.449 ng/mL (0.000-0.055) 0.560 ng/mL (0.000-0.055) XX-Lpg-X-Type Natriuretic Peptide 958 pg/mL (0-124) Total Protein 8.1 g/dL (6.4-8.2) Albumin 3.2 g/dL (3.4-5.0) Lipase 53 U/L (73-393) Thyroid Stimulating Hormone (TSH) 0.885 uIU/mL (0.358-3.74) Erythrocyte Sedimentation Rate 32 (0-25) C-Reactive Protein, Quantitative 25.9 mg/L (0-3.3) Lactic Acid Level 1.9 mmol/L (0.4-2.0) Test 07/28/16 08:50 Troponin I Quantitative 0.368 ng/mL (0.000-0.055) EKG EKG none for review ASSESSMENT/PLAN ASSESSMENT/PLAN 1. NSTEMI ? related to syncope - details unclear echo to evaluate LV function functional ability limits candidacy for aggressive intervention no BB due to hypotension 2. lipid status unknown check FLP 3. right index finger amp per ID and wound care Problems: MAGNOLIA CALDERÓN APRN Jul 28, 2016 14:26
--- NOTE | 2016-07-28 15:34 | RAD ---
EXAM: Chest one view. HISTORY: PICC line placement, shortness of breath. COMPARISON: 07/27/2016. FINDINGS: A frontal view of the chest is obtained. A left arm PICC line has its tip in the superior vena cava. Hyperinflation suggests chronic obstructive pulmonary disease. There are no confluent infiltrates. There is no pneumothorax or pleural effusion. The heart is not enlarged. Instrumented anterior cervical discectomy and fusion changes are noted. There are atherosclerotic calcifications of the aorta. IMPRESSION: 1. Left arm PICC line tip in the superior vena cava. 2. Hyperinflation. Correlate for chronic obstructive pulmonary disease.
[2016-07-28 15:55] VITALS: BP 81/57
[2016-07-28] MEDS: ASPIRIN ENTERIC COATED 81 MG TABLET.DR. PO SCH (18:48)
[2016-07-28 19:16] VITALS: BP 76/53
[2016-07-28 19:22] VITALS: BP 79/60
[2016-07-28] MEDS ORDERED: NALOXONE 0.4 MG/ML VIAL. ONE (19:58)
[2016-07-28] MEDS ORDERED: NALOXONE 0.4 MG/ML VIAL. IV ONE (20:15)
[2016-07-28] MEDS ORDERED: fentaNYL 75MCG/HR PATCH 1 PATCH PATCH.TD72 TD ONE (20:45)
[2016-07-28 23:40] VITALS: BP 97/71
[2016-07-28] MEDS: fentaNYL 75MCG/HR PATCH 1 PATCH PATCH.TD72 TD SCH (23:46)
--- NOTE | 2016-07-28 23:58 | ACF ---
Admission Forms Criteria SYNCOPE Clinical Indications for Admission to Inpatient Care ( Place 'X' for any and all applicable criteria): Admission is indicated for syncope and ANY ONE of the following (1)(2)(3)(4)(5) (6)(7) : [X ]I. Inpatient admission required rather than observation care (Also use Syncope: Observation Care Criteria as appropriate) because of ANY ONE of the following: [ X]a) Hemodynamic instability that is severe or persistent [ ]b) Cardiac arrhythmias of immediate concern identified or strongly suspected (eg, needs electrophysiologic study) [ ]c) Acute coronary syndrome identified (Also use Myocardial Infarction or Angina Criteria form ) [ ]d) Structural cardiac disorder (eg, aortic stenosis) suspected as cause that requires immediate correction [ ]e) Respiratory symptoms (eg, dyspnea, tachypnea) that are severe or persistent [ ]f) Neurologic signs or symptoms that are severe or persistent ( eg, stroke, seizures, altered mental status) [ ]g) Severe electrolyte abnormalities requiring inpatient care [ ]h) Supplemental oxygen or respiratory treatment for over 24 hrs that are performable only in acute inpatient setting [ ]i) IV fluid to replace significant ongoing (eg, for over 24 hrs ) losses (>3 L/m2 per day) [ ]j) Continuous intravenous infusion of anticoagulation, platelet inhibitor, vasoactive, or antiarrhythmic medication(15)(16) [ ]k) Pulmonary artery catheter monitoring [ ]l) Temporary pacemaker placement(17) [ ]m) Emergent cardioversion(18) [ X]n) Other conditions, treatment or monitoring requiring inpatient admission [ ]II. Suspicion of imminently dangerous cause (eg, rare causes like pericardial tamponade, pulmonary embolism) [ ]III. Syncope causing severe injury requiring hospitalization Extended stay beyond goal length of stay may be needed for(28) [ ]a) Dangerous arrhythmia(15)(23)(27)(29) [ ]b) Myocardial ischemia [ ]c) Seizure disorder [ ]d) Syncope-related injuries The original [employer] content created by [employer] [facility] has been revised. The portions of the content which have been revised are identified through the use of italic text or in bold, and [employer] has neither reviewed nor approved the modified material. All other unmodified content is copyright [facility]. Please see references footnoted in the original [facility] edition 2016 Admission Criteria Met?: Yes FAWN MCCANN Jul 28, 2016 23:58
[2016-07-29] VITALS (7 sets, daily range): BP systolic 85–112; BP diastolic 58–69
[2016-07-29] MEDS: oxyCODONE/APAP 7.5/325 1 TAB TABLET PO SCH ×4 (00:25→20:50)
[2016-07-29] MEDS: VANCOMYCIN PER PHARMACY MC PRN ×4 (02:07→16:44)
[2016-07-29] MEDS: NON FORMULARY ITEM SQ SCH ×8 (03:00→21:00)
[2016-07-29] MEDS ORDERED: VANCOMYCIN 750 MG in IV NORMAL SALINE 250ML 250 ML IV SCH (03:30)
[2016-07-29 04:28] LABS: CALCIUM 8.1 mg/dL (8.5-10.1); CREATININE 0.8 mg/dL (0.6-1.0); GFR 89.5; POTASSIUM 3.7 mmol/L (3.5-5.1)
[2016-07-29 04:48] LABS: CHOLESTEROL/HDL RATIO 4.9
[2016-07-29] MEDS: PIPERACILLIN/TAZOBACTAM 3.375 GM in IV NORMAL SALINE 50ML 50 ML IV SCH ×4 (05:33→23:34)
--- NOTE | 2016-07-29 06:20 | EKG ---
[facility] [address] [place] [address] Test Date: 2016-07-27 Test Time: 18:15:05 Pat Name: NAKUL HER Department: Room: 210 1 Gender: F Bumper Operator: WANG : 1960 Requested By: MOLLY CARLSON Order Number: [id number] Reading MD: Jonathan Stevens Measurements Intervals [place] Rate: 126 P: -102 MA: 122 QRS: -43 QRSD: 94 T: 70 QT: 342 QTc: 496 Interpretive Statements SUSPECT SINUS TACHYCARDIA PRIOR ANTERIOR INFARCT POSSIBLE LAD Electronically Signed On 07-29-2016 8:51:41 CDT by Jonathan Stevens
[2016-07-29] MEDS: LEVOTHYROXINE 75 MCG TABLET PO SCH (06:34)
--- NOTE | 2016-07-29 07:22 | CARD ---
APPROVED REPORT EXAM: Two-dimensional and M-mode echocardiogram with Doppler and color Doppler. Other Information Quality : Good INDICATION Abnormal Troponin 2D DIMENSIONS RVDd3.5 (2.9-3.5cm)Left Atrium(2D)2.8 (1.6-4.0cm) IVSd1.3 (0.7-1.1cm)Aortic Root(2D)2.6 (2.0-3.7cm) LVDd3.5 (3.9-5.9cm)LVOT Diameter2.0 (1.8-2.4cm) PWd1.1 (0.7-1.1cm)LVDs2.8 (2.5-4.0cm) FS (%) 18.2 %SV19.1 ml LVEF(%)38.7 (>50%) Aortic Valve AoV Peak Lele.100.5cm/sAoV VTI10.1cm AO Peak GR.4.0mmHgLVOT VTI 9.80cm AO Mean GR.2mmHgAVA (VTI)2.95cm2 Mitral Valve MV E Sacoxsfo34.4cm/sMV DECEL [id number] MV A Kxjiwqaz45.2cm/sE/A Ratio2.0 TDI Lateral E' P. V6.20cm/sMedial E' P. V7.34cm/s E/Lateral E'11.5E/Medial E'9.7 Tricuspid Valve TR P. Sqlloewx665fs/sRAP [id number] TR Peak Gr.28ivPzZKTG26ejCo LEFT VENTRICLE The left ventricle is normal size. There is mild asymmetric septal left ventricular hypertrophy. Mild left ventricle systolic dysfunction. The Ejection Fraction is 40-45%. Septal motion consistent with conduction abnormality. RIGHT VENTRICLE The right ventricle is mildly dilated. The right ventricular systolic function is normal. ATRIA The left atrium size is normal. The right atrium is moderately dilated. The interatrial septum is int act with no evidence for an atrial septal defect or patent foramen ovale as noted on 2-D or Doppler i maging. AORTIC VALVE The aortic valve is calcified but opens well. Doppler and Color Flow revealed no significant aortic r egurgitation. There is no significant aortic valvular stenosis. MITRAL VALVE The mitral valve is normal in structure and function. There is no evidence of mitral valve prolapse. There is no mitral valve stenosis. Doppler and Color-flow revealed trace mitral regurgitation. TRICUSPID VALVE The tricuspid valve is normal in structure and function. Doppler and Color Flow revealed trace tricus pid regurgitation. The PA pressure was estimated at 24 mmHg. There is no tricuspid valve stenosis. PULMONIC VALVE The pulmonary valve is normal in structure and function. Doppler and Color Flow revealed no pulmonic valvular regurgitation. There is no pulmonic valvular stenosis. GREAT VESSELS The aortic root is normal in size. The ascending aorta is normal in size. The IVC is dilated and katina apses <50% with inspiration. PERICARDIAL EFFUSION There is no evidence of significant pericardial effusion. Critical Notification Critical Value: No <Conclusion> Mild left ventricle systolic dysfunction. The Ejection Fraction is 40-45%. Septal motion consistent with conduction abnormality. The right atrium is moderately dilated. Trace mitral regurgitation. Trace tricuspid regurgitation. The PA pressure was estimated at 24 mmHg. There is no evidence of significant pericardial effusion.
[2016-07-29] MEDS: ALBUTEROL SULFATE 2.5 MG/3 ML NEBU. NEB SCH ×4 (08:30→21:05)
[2016-07-29] MEDS: BUDESONIDE 0.5 MG/2 ML NEBU. NEB SCH ×2 (08:30→21:05)
--- NOTE | 2016-07-29 08:47 | PDOC ---
PROGRESS NOTES Subjective Subjective Patient reports pain in her legs. Concerned about not having her Baclofen pump at present. Objective Objective Vital Signs Date Time Temp Pulse Resp B/P (MAP) Pulse Ox O2 Delivery O2 Flow Rate FiO2 07/29/16 07:24 98.0 107 18 112/58 (76) 93 Nasal Cannula 2.0 98.0 Intake and Output 07/29/16 07:00 Intake Total 600 ml Output Total 700 ml Balance -100 ml Intake Oral 600 ml Output Urine Total 700 ml # Bowel Movements 1 Physical Exam Abdomen: Normal bowel sounds, Soft, No tenderness Heart: Regular rate Extremities: No edema General: Alert, Oriented X3 (somewhat forgetful of events of last night), No acute distress Lungs: Clear to auscultation (BS mildly decreased throughout) Assessment Assessment Problems Medical Problems: (1) Elevated troponin Status: Acute Plan Plan of Care 1. Syncope - no further episodes. Troponin mildly elevated but stable. Tele with sinus tachycardia. Echo showed mild systolic dysfunction only. Continue to monitor. 2. non-healing surgical wound with presumed osteomyelitis - appreciate ID input , continue abx and wound care. Awaiting consult from Dr Mcallister also. 3. chronic pain - nursing reports patient was overly sedated last night from Baclofen pump in combination with Percocet and Duragesic patch. Had to call rapid response and administer Narcan x1. Pump is presently out of patient's room. Will consult Dr Duran who manages the pump. Patient may need lower dose to avoid sedation. 4. PLS - at baseline, continue supportive care. 5. asthma - stable, continue nebs. Comment Review of Relevant I have reviewed the following items mimi (where applicable) has been applied. Labs Laboratory Tests Test 07/27/16 18:34 07/27/16 18:54 07/27/16 19:27 07/28/16 02:48 White Blood Count 10.0 x10^3/uL (4.0-11.0) 9.7 x10^3/uL (4.0-11.0) Red Blood Count 3.60 x10^6/uL (3.50-5.40) 3.42 x10^6/uL (3.50-5.40) Hemoglobin 11.7 g/dL (12.0-15.5) 11.1 g/dL (12.0-15.5) Hematocrit 35.0 % (36.0-47.0) 33.4 % (36.0-47.0) Mean Corpuscular Volume 97 fL (79-100) 98 fL (79-100) Mean Corpuscular Hemoglobin 32 pg (25-35) 33 pg (25-35) Mean Corpuscular Hemoglobin Concent 33 g/dL (31-37) 33 g/dL (31-37) Red Cell Distribution Width 13.2 % (11.5-14.5) 13.2 % (11.5-14.5) Platelet Count 215 x10^3/uL (140-400) 212 x10^3/uL (140-400) Neutrophils (%) (Auto) 74 % (31-73) 48 % (31-73) Lymphocytes (%) (Auto) 17 % (24-48) 40 % (24-48) Monocytes (%) (Auto) 8 % (0-9) 9 % (0-9) Eosinophils (%) (Auto) 1 % (0-3) 2 % (0-3) Basophils (%) (Auto) 1 % (0-3) 1 % (0-3) Neutrophils # (Auto) 7.4 x10^3uL (1.8-7.7) 4.6 x10^3uL (1.8-7.7) Lymphocytes # (Auto) 1.7 x10^3/uL (1.0-4.8) 3.9 x10^3/uL (1.0-4.8) Monocytes # (Auto) 0.8 x10^3/uL (0.0-1.1) 0.9 x10^3/uL (0.0-1.1) Eosinophils # (Auto) 0.1 x10^3/uL (0.0-0.7) 0.2 x10^3/uL (0.0-0.7) Basophils # (Auto) 0.1 x10^3/uL (0.0-0.2) 0.1 x10^3/uL (0.0-0.2) Sodium Level 141 mmol/L (136-145) 141 mmol/L (136-145) Potassium Level 4.1 mmol/L (3.5-5.1) 4.2 mmol/L (3.5-5.1) Chloride Level 106 mmol/L (98-107) 107 mmol/L (98-107) Carbon Dioxide Level 25 mmol/L (21-32) 25 mmol/L (21-32) Anion Gap 10 (6-14) 9 (6-14) Blood Urea Nitrogen 16 mg/dL (7-20) 18 mg/dL (7-20) Creatinine 0.9 mg/dL (0.6-1.0) 0.8 mg/dL (0.6-1.0) Estimated GFR (Cockcroft-Gault) 78.1 89.5 Glucose Level 116 mg/dL (70-99) 101 mg/dL (70-99) Calcium Level 8.8 mg/dL (8.5-10.1) 8.6 mg/dL (8.5-10.1) Magnesium Level 2.1 mg/dL (1.8-2.4) Total Bilirubin 0.2 mg/dL (0.2-1.0) Direct Bilirubin 0.1 mg/dL (0.0-0.2) Aspartate Amino Transf (AST/SGOT) 18 U/L (15-37) Alanine Aminotransferase (ALT/SGPT) 16 U/L (14-59) Alkaline Phosphatase 117 U/L (46-116) Creatine Kinase 110 U/L (26-192) Creatine Kinase MB (Mass) 2.0 ng/mL (0.0-3.6) Creatine Kinase MB Relative Index 1.8 % (0-4) Troponin I Quantitative 0.449 ng/mL (0.000-0.055) 0.560 ng/mL (0.000-0.055) IO-Waq-A-Type Natriuretic Peptide 958 pg/mL (0-124) Total Protein 8.1 g/dL (6.4-8.2) Albumin 3.2 g/dL (3.4-5.0) Lipase 53 U/L (73-393) Thyroid Stimulating Hormone (TSH) 0.885 uIU/mL (0.358-3.74) Erythrocyte Sedimentation Rate 32 (0-25) C-Reactive Protein, Quantitative 25.9 mg/L (0-3.3) Lactic Acid Level 1.9 mmol/L (0.4-2.0) Test 07/28/16 08:50 07/29/16 04:00 Troponin I Quantitative 0.368 ng/mL (0.000-0.055) Sodium Level 141 mmol/L (136-145) Potassium Level 3.7 mmol/L (3.5-5.1) Chloride Level 107 mmol/L (98-107) Carbon Dioxide Level 26 mmol/L (21-32) Anion Gap 8 (6-14) Blood Urea Nitrogen 16 mg/dL (7-20) Creatinine 0.8 mg/dL (0.6-1.0) Estimated GFR (Cockcroft-Gault) 89.5 Glucose Level 105 mg/dL (70-99) Calcium Level 8.1 mg/dL (8.5-10.1) Triglycerides Level 55 mg/dL (0-150) Cholesterol Level 152 mg/dL (0-200) LDL Cholesterol, Calculated 110 mg/dL (0-100) VLDL Cholesterol, Calculated 11 mg/dL (0-40) Non-HDL Cholesterol Calculated 121 mg/dL (0-129) HDL Cholesterol 31 mg/dL (40-60) Cholesterol/HDL Ratio 4.9 Laboratory Tests Test 07/28/16 08:50 07/29/16 04:00 Troponin I Quantitative 0.368 ng/mL (0.000-0.055) Sodium Level 141 mmol/L (136-145) Potassium Level 3.7 mmol/L (3.5-5.1) Chloride Level 107 mmol/L (98-107) Carbon Dioxide Level 26 mmol/L (21-32) Anion Gap 8 (6-14) Blood Urea Nitrogen 16 mg/dL (7-20) Creatinine 0.8 mg/dL (0.6-1.0) Estimated GFR (Cockcroft-Gault) 89.5 Glucose Level 105 mg/dL (70-99) Calcium Level 8.1 mg/dL (8.5-10.1) Triglycerides Level 55 mg/dL (0-150) Cholesterol Level 152 mg/dL (0-200) LDL Cholesterol, Calculated 110 mg/dL (0-100) VLDL Cholesterol, Calculated 11 mg/dL (0-40) Non-HDL Cholesterol Calculated 121 mg/dL (0-129) HDL Cholesterol 31 mg/dL (40-60) Cholesterol/HDL Ratio 4.9 Microbiology 07/27/16 Blood Culture - Preliminary, Resulted NO GROWTH AFTER 1 DAY Medications Current Medications Sodium Chloride 1,000 ml @ 1,000 mls/hr 1X ONCE IV Last administered on 19:28; Start 07/27/16 at 19:15; Stop 07/27/16 at 20:14; Status DC Ondansetron HCl (Zofran) 4 mg PRN Q8HRS PRN IV NAUSEA/VOMITING; Start 07/27/16 at 20:45; Stop 07/28/16 at 07:41; Status DC Aspirin (Elvis Aspirin) 325 mg 1X ONCE PO Last administered on 07/27/16 20:55 ; Start 07/27/16 at 20:45; Stop 07/27/16 at 20:46; Status DC Amitriptyline HCl (Elavil) 10 mg BID PO ; Start 07/28/16 at 09:00; Stop at 09:00; Status DC Fentanyl (Duragesic 75mcg/ Hr Patch) 1 patch Q3DAYS TD ; Start 07/27/16 at 23:00 ; Stop 07/27/16 at 23:08; Status DC Olanzapine (ZyPREXA) 5 mg BID PO ; Start 07/28/16 at 09:00; Stop 07/28/16 at 09: 00; Status DC Oxycodone/ Acetaminophen (Percocet 7.5/ 325) 1 tab Q8HRS PO ; Start 07/28/16 at 06:00; Stop 07/28/16 at 06:00; Status DC Topiramate (Topamax) 100 mg BID PO ; Start 07/28/16 at 09:00; Stop 07/28/16 at 09:00; Status DC Non-Formulary Medication 800 mg TID PO ; Start 07/28/16 at 09:00; Stop 07/28/16 at 09:00; Status DC Non-Formulary Medication 150 mg BID PO ; Start 07/28/16 at 09:00; Stop 07/28/16 at 09:00; Status DC Non-Formulary Medication 2 mg TID PO ; Start 07/28/16 at 09:00; Stop 07/28/16 at 09:00; Status DC Non-Formulary Medication 1 ea Q3HRS SQ Last administered on 07/27/16 22:45; Start 07/27/16 at 00:00; Stop 07/27/16 at 23:40; Status DC Amitriptyline HCl (Elavil) 10 mg BID PO Last administered on 07/28/16 21:57; Start 07/27/16 at 23:30 Fentanyl (Duragesic 75mcg/ Hr Patch) 1 patch Q3DAYS TD Last administered on 23:33; Start 07/27/16 at 23:30; Stop 07/28/16 at 20:41; Status DC Olanzapine (ZyPREXA) 5 mg BID PO Last administered on 07/27/16 23:32; Start at 23:30; Stop 07/28/16 at 07:30; Status DC Oxycodone/ Acetaminophen (Percocet 7.5/ 325) 1 tab Q8HRS PO Last administered on 07/29/16 06:36; Start 07/27/16 at 23:30 Topiramate (Topamax) 100 mg BID PO Last administered on 07/28/16 21:57; Start 07/27/16 at 23:30 Gabapentin (Neurontin) 800 mg Q12HR PO Last administered on 07/28/16 21:58; Start 07/27/16 at 23:30 Famotidine (Pepcid) 20 mg BID PO Last administered on 07/28/16 21:57; Start at 23:30 Tizanidine HCl (Zanaflex) 2 mg TID PO Last administered on 07/28/16 21:58; Start 07/27/16 at 23:30 Non-Formulary Medication 1 ea Q3HRS SQ Last administered on 07/28/16 18:00; Start 07/28/16 at 03:00 Acetaminophen/ Butalbital/ Caffeine (Fioricet) 1 tab PRN Q6HRS PRN PO MIGRAINE HEADACHE; Start 07/28/16 at 07:30 Fluticasone Propionate (Flonase) 2 spray DAILY NS ; Start 07/28/16 at 09:00; Status Cancel Levothyroxine Sodium (Synthroid) 75 mcg DAILY06 PO Last administered on 06:34; Start 07/28/16 at 07:30 Potassium Chloride (Klor-Con) 20 meq DAILY PO Last administered on 07/28/16 10 :31; Start 07/28/16 at 09:00 Non-Formulary Medication 1 each BID IH ; Start 07/28/16 at 09:00; Status UNV Cetirizine HCl (ZyrTEC) 10 mg DAILY PO Last administered on 07/28/16 10:33; Start 07/28/16 at 09:00 Venlafaxine HCl (Effexor Xr) 150 mg DAILY PO Last administered on 07/28/16 10: 33; Start 07/28/16 at 09:00 Olanzapine (ZyPREXA) 5 mg DAILY PO Last administered on 07/28/16 10:31; Start 07/28/16 at 09:00 Budesonide (Pulmicort) 0.5 mg RTBID NEB Last administered on 07/28/16 21:29; Start 07/28/16 at 08:00 Albuterol Sulfate (Ventolin Neb Soln) 2.5 mg RTQID NEB Last administered on 21:29; Start 07/28/16 at 08:00 Ondansetron HCl (Zofran) 4 mg PRN Q6HRS PRN IV NAUSEA/VOMITING; Start 07/28/16 at 07:30 Vancomycin HCl (Vanco Per Pharmacy) 1 each PRN DAILY PRN MC SEE COMMENTS Last administered on 07/29/16 02:08; Start 07/28/16 at 08:00 Piperacillin Sod/ Tazobactam Sod 3.375 gm/Sodium Chloride 50 ml @ 100 mls/hr Q6HRS IV Last administered on 07/29/16 05:33; Start 07/28/16 at 08:30 Vancomycin HCl 1.25 gm/Sodium Chloride 250 ml @ 166.667 mls/hr 1X ONCE IV Last administered on 07/28/16 15:18; Start 07/28/16 at 09:00; Stop 07/28/16 at 10:29; Status DC Fluticasone Propionate (Flonase) 2 spray DAILY NS ; Start 07/29/16 at 09:00 Aspirin (Ecotrin) 81 mg DAILYWBKFT PO Last administered on 07/28/16 18:48; Start 07/28/16 at 17:00 Naloxone HCl (Narcan) 0.4 mg STK-MED ONCE .ROUTE ; Start 07/28/16 at 19:58; Stop 07/28/16 at 19:59; Status DC Naloxone HCl (Narcan) 0.4 mg 1X ONCE IV Last administered on 07/28/16 20:10; Start 07/28/16 at 20:15; Stop 07/28/16 at 20:16; Status DC Fentanyl (Duragesic 75mcg/ Hr Patch) 1 patch Q3DAYS TD ; Start 07/31/16 at 09:00 ; Status UNV Fentanyl (Duragesic 75mcg/ Hr Patch) 1 patch 1X ONCE TD ; Start 07/28/16 at 20: 45; Stop 07/28/16 at 20:46; Status UNV Fentanyl (Duragesic 75mcg/ Hr Patch) 1 patch Q3DAYS TD Last administered on 23:46; Start 07/28/16 at 21:00 Lorazepam (Ativan) 0.5 mg PRN Q6HRS PRN IV ANXIETY / AGITATION; Start 07/29/16 at 01:45 Vancomycin HCl 750 mg/Sodium Chloride 250 ml @ 250 mls/hr Q12H IV Last administered on 07/29/16 03:57; Start 07/29/16 at 03:30 Vancomycin HCl 1 each 1X ONCE MC ; Start 07/29/16 at 15:00; Stop 07/29/16 at 15 :01 Active Scripts Active Reported Xopenex Hfa (Levalbuterol Tartrate) 15 Gm Hfa.aer.ad 2 Puff IH PRN Q4-6HRS Fluticasone Propionate Nasal [place] (Fluticasone Propionate) 16 Gm [place].susp 2 [place] NS DAILY Olanzapine 5 Mg Tablet 5 Mg PO BID Meloxicam 7.5 Mg Tablet 1 Tab PO DAILY FENTANYL 75mcg/hr (Fentanyl) 1 Each Patch.td72 1 Patch TP Q3DAYS Claritin (Loratadine) 10 Mg Tablet 1 Tab PO DAILY Advair 500-50 Diskus (Fluticasone/Salmeterol) 1 Each Disk.w.dev 1 Each IH BID Amitriptyline Hcl 10 Mg Tablet 10 Mg PO BID Zofran Odt (Ondansetron) 8 Mg Tab.rapdis 8 Mg PO PRN Percocet 7.5-325 Mg Tablet (Oxycodone/Acetaminophen) 1 Each Tablet 1 Each PO Q8HRS Levothyroxine Sodium 75 Mcg Tablet 75 Mcg PO DAILY Fioricet 50-325-40 Mg Tablet (Butalb/Acetaminophen/Caffeine) 1 Each Tablet 1 Each PO Q6HRS PRN Effexor Xr (Venlafaxine Hcl) 150 Mg Cap.er.24h 150 Mg PO DAILY Klor-Con M20 (Potassium Chloride) 20 Meq Tab.er.prt 20 Meq PO DAILY Tizanidine Hcl 2 Mg Capsule 2 Mg PO TID Zantac (Ranitidine Hcl) 150 Mg Tablet 150 Mg PO BID Topiramate 25 Mg Tablet 100 Mg PO BID Gabapentin 800 Mg Tablet 800 Mg PO TID Vitals/I & O Vital Sign - Last 24 Hours 07/28/16 07/28/16 07/28/16 07/28/16 10:46 11:46 13:00 14:00 Resp 18 18 15 Pulse Ox 94 94 94 O2 Delivery Room Air Room Air Room Air 07/28/16 07/28/16 07/28/16 07/28/16 15:55 16:23 19:16 19:22 Temp 98.1 98.1 98.1 98.1 Pulse 97 103 101 Resp 18 14 B/P (MAP) 81/57 (65) 76/53 (61) 79/60 (66) Pulse Ox 93 91 93 O2 Delivery Room Air Room Air Nasal Cannula Nasal Cannula O2 Flow Rate 2.0 2.0 07/28/16 07/28/16 07/28/16 07/28/16 20:45 21:30 23:40 23:46 Temp 98.4 98.4 Pulse 130 Resp 24 B/P (MAP) 97/71 (80) Pulse Ox 96 100 100 O2 Delivery Nasal Cannula Room Air Nasal Cannula Room Air O2 Flow Rate 2.0 2.0 2.0 07/29/16 07/29/16 07/29/16 07/29/16 00:25 02:07 03:10 03:46 Temp 98.5 98.5 Pulse 106 Resp 18 B/P (MAP) 91/62 (72) Pulse Ox 94 O2 Delivery Nasal Cannula Nasal Cannula Nasal Cannula Nasal Cannula O2 Flow Rate 2.0 2.0 2.0 07/29/16 07/29/16 06:36 07:24 Temp 98.0 98.0 Pulse 107 Resp 18 B/P (MAP) 112/58 (76) Pulse Ox 93 O2 Delivery Nasal Cannula Nasal Cannula O2 Flow Rate 2.0 2.0 Intake and Output 07/28/16 07/28/16 07/29/16 15:00 23:00 07:00 Intake Total 500 ml 100 ml Output Total 700 ml 0 ml Balance -200 ml 100 ml RISHABH LUNDBERG MD Jul 29, 2016 08:47
--- NOTE | 2016-07-29 08:52 | EKG ---
[facility] [address] [place] [address] Test Date: 2016-07-27 Test Time: 20:27:55 Pat Name: NAKUL HER Department: Room: Gender: F Call Center Analyst: : 1960 Requested By: MOLLY CARLSON Order Number: [id number] Reading MD: Jonathan Stevens Measurements Intervals [place] Rate: 115 P: -56 VT: 150 QRS: -34 QRSD: 94 T: 66 QT: 364 QTc: 506 Interpretive Statements SINUS TACHYCARDIA PRIOR ANTERIOR INFARCT POSSIBLE LAD Electronically Signed On 07-29-2016 8:52:05 CDT by Jonathan Stevens
[2016-07-29] MEDS: FLUTICASONE 50MCG/NASAL SPRAY 16GM BOTTLE. NS SCH (09:00)
[2016-07-29] MEDS: GABAPENTIN 400 MG CAPSULE. PO SCH ×2 (09:28→20:50)
[2016-07-29] MEDS: OLANZapine 5 MG TABLET PO SCH (09:29)
[2016-07-29] MEDS: CETIRIZINE HCL 10 MG TABLET. PO SCH (09:29)
[2016-07-29] MEDS: ASPIRIN ENTERIC COATED 81 MG TABLET.DR. PO SCH (09:29)
[2016-07-29] MEDS: TOPIRAMATE 100 MG TABLET. PO SCH ×2 (09:30→20:53)
[2016-07-29] MEDS: AMITRIPTYLINE HCL 10 MG TABLET. PO SCH ×2 (09:30→20:51)
[2016-07-29] MEDS: POTASSIUM CHLORIDE 20 MEQ TABLET.ER. PO SCH (09:30)
[2016-07-29] MEDS: tiZANidine 4 MG TABLET. PO SCH ×3 (09:30→20:51)
[2016-07-29] MEDS: FAMOTIDINE 20 MG TABLET. PO SCH ×2 (09:32→20:53)
[2016-07-29] MEDS: VENLAFAXINE XR 37.5 MG CAP.ER.24H. PO SCH (09:33)
--- NOTE | 2016-07-29 10:47 | PDOC ---
CARDIO Progress Notes Date and Time Date of Service 07/29/16 Time of Evaluation 1040 Subjective Subjective: No Chest Pain, No shortness of breath, No Palpitations Comments: nurse reporting periods of increased agitation Vitals Vitals Vital Signs Date Time Temp Pulse Resp B/P (MAP) Pulse Ox O2 Delivery O2 Flow Rate FiO2 07/29/16 10:13 98.6 127 19 86/64 (71) 98.6 07/29/16 08:34 96 Nasal Cannula 2.0 Weight Weight [ ] Input and Output Intake and Output Intake and Output 07/29/16 07:00 Intake Total 600 ml Output Total 700 ml Balance -100 ml Intake Oral 600 ml Output Urine Total 700 ml # Bowel Movements 1 Laboratory Labs Laboratory Tests Test 07/28/16 12:51 07/28/16 19:55 07/29/16 04:00 Glucose (Fingerstick) 109 mg/dL (70-99) 119 mg/dL (70-99) Sodium Level 141 mmol/L (136-145) Potassium Level 3.7 mmol/L (3.5-5.1) Chloride Level 107 mmol/L (98-107) Carbon Dioxide Level 26 mmol/L (21-32) Anion Gap 8 (6-14) Blood Urea Nitrogen 16 mg/dL (7-20) Creatinine 0.8 mg/dL (0.6-1.0) Estimated GFR (Cockcroft-Gault) 89.5 Glucose Level 105 mg/dL (70-99) Calcium Level 8.1 mg/dL (8.5-10.1) Triglycerides Level 55 mg/dL (0-150) Cholesterol Level 152 mg/dL (0-200) LDL Cholesterol, Calculated 110 mg/dL (0-100) VLDL Cholesterol, Calculated 11 mg/dL (0-40) Non-HDL Cholesterol Calculated 121 mg/dL (0-129) HDL Cholesterol 31 mg/dL (40-60) Cholesterol/HDL Ratio 4.9 Microbiology Micro Microbiology 07/27/16 Blood Culture - Preliminary, Resulted NO GROWTH AFTER 1 DAY Physical Exam HEENT: Neck Supple W Full Motion Chest: Symmetric LUNGS: Clear to Auscultation Heart: S1S2, other (tele ST ) Abdomen: Soft N/T Extremities: No Edema, No Calf Tenderness Neurology: alert, follow commands Assessment Assessment 1. NSTEMI ? related to syncope- details unclear. Concern for narcotic overuse rapid called overnight due to increased sedation; Narcan administered X 1. echo revealed depressed LV function with an EF of 40-45%. CP free. continue medica management as functional ability limits candidacy for aggressive intervention 2. chronic systolic heart failure etiology unknown. Discussed echo findings with patient, son, and sister. Patient would like to defer any further cardiac workup compensated. No SANDRA/ARB with hypotension patient to follow up in our office with Dr. Livingston in 4-6 weeks. 2. sinus tachycardia will add low-dose BB if BP allows. If not, could consider dig. 3. right index finger amp with concern for osteomyelitis per ID and wound care 4. PLS BONNY SANCHEZ APRN Jul 29, 2016 10:47
--- NOTE | 2016-07-29 10:58 | PDOC ---
Infectious Disease Note Subjective Subjective States ok and in her right mind. No pain/itch ROS ROS GEN: Denies fevers, chills, sweats HEENT: Denies blurred vision, sore throat CV: Denies chest pain RESP: Denies shortness of air, cough GI: Denies n/v/d NEURO: Denies confusion, dizziness MSK: Denies weakness, joint pain/swelling Vital Sign Vital Signs Vital Signs Date Time Temp Pulse Resp B/P (MAP) Pulse Ox O2 Delivery O2 Flow Rate FiO2 07/29/16 10:44 98/61 (73) 07/29/16 10:13 98.6 127 19 98.6 07/29/16 08:34 96 Nasal Cannula 2.0 Physical Exam PHYSICAL EXAM GENERAL: NAD, Alert HEENT: PERRL, OC/OP - ? dentition NECK: Supple, no JVD, no LN LUNGS: Clear HEART: S1S2, no gallop, no murmur ABD: Soft, NT, no organomegaly, no rebound EXT: No edema, no cyanosis. Hand dressed CONTACT FINGER ASSEMBLER: Alert, oriented x 3, no focal neurologic deficit SKIN: No rash IV: PICC LUE - clean Labs Lab Laboratory Tests Test 07/28/16 12:51 07/28/16 19:55 07/29/16 04:00 Glucose (Fingerstick) 109 mg/dL (70-99) 119 mg/dL (70-99) Sodium Level 141 mmol/L (136-145) Potassium Level 3.7 mmol/L (3.5-5.1) Chloride Level 107 mmol/L (98-107) Carbon Dioxide Level 26 mmol/L (21-32) Anion Gap 8 (6-14) Blood Urea Nitrogen 16 mg/dL (7-20) Creatinine 0.8 mg/dL (0.6-1.0) Estimated GFR (Cockcroft-Gault) 89.5 Glucose Level 105 mg/dL (70-99) Calcium Level 8.1 mg/dL (8.5-10.1) Triglycerides Level 55 mg/dL (0-150) Cholesterol Level 152 mg/dL (0-200) LDL Cholesterol, Calculated 110 mg/dL (0-100) VLDL Cholesterol, Calculated 11 mg/dL (0-40) Non-HDL Cholesterol Calculated 121 mg/dL (0-129) HDL Cholesterol 31 mg/dL (40-60) Cholesterol/HDL Ratio 4.9 Objective Assessment Right index osteomyelitis s/p amputation 07/03. Sutures removed about 2 weeks post -op now exposed bone Cefazolin allergy - nausea Low grade temps - better NSTEMI Tobacco abuse Baclofen pump Plan Plan of Care Cont Vanc/Zosyn May need Plastics and a graft/HBO and transfer to F/u labs/cults Await further Cardiology w/u Await Ortho eval SAMANTHA MCCONNELL MD Jul 29, 2016 10:58
[2016-07-29] MEDS: METOPROLOL TART IMMED RELEASE 25 MG TABLET. PO SCH ×2 (11:30→20:52)
--- NOTE | 2016-07-29 12:28 | EKG ---
[facility] [address] [place] [address] Test Date: 2016-07-29 Test Time: 11:14:34 Pat Name: NAKUL HER Department: Room: 210 1 Gender: F Cloth Bin Packer: EMILY : 1960 Requested By: MAGNOLIA CALDERÓN Order Number: [id number] Reading MD: Jonathan Stevens Measurements Intervals [place] Rate: 124 P: -109 [place]: 132 QRS: -26 QRSD: 90 T: 78 QT: 346 QTc: 501 Interpretive Statements SUSPECT SINUS TACHYCARDIA POSSIBLE PRIOR KAY-SEPTAL INFARCT NON-SPECIFIC ST/T CHANGES Electronically Signed On 07-29-2016 16:57:29 CDT by Jonathan Stevens
--- NOTE | 2016-07-29 13:42 | PDOC ---
ORTHO PROGRESS NOTES Vitals Vital Signs Date Time Temp Pulse Resp B/P (MAP) Pulse Ox O2 Delivery O2 Flow Rate FiO2 07/29/16 12:14 Nasal Cannula 2.0 07/29/16 10:44 98/61 (73) 07/29/16 10:13 98.6 127 19 98.6 07/29/16 08:34 96 Labs Laboratory Tests Test 07/27/16 18:34 07/27/16 18:54 07/27/16 19:27 07/28/16 02:48 White Blood Count 10.0 x10^3/uL (4.0-11.0) 9.7 x10^3/uL (4.0-11.0) Red Blood Count 3.60 x10^6/uL (3.50-5.40) 3.42 x10^6/uL (3.50-5.40) Hemoglobin 11.7 g/dL (12.0-15.5) 11.1 g/dL (12.0-15.5) Hematocrit 35.0 % (36.0-47.0) 33.4 % (36.0-47.0) Mean Corpuscular Volume 97 fL (79-100) 98 fL (79-100) Mean Corpuscular Hemoglobin 32 pg (25-35) 33 pg (25-35) Mean Corpuscular Hemoglobin Concent 33 g/dL (31-37) 33 g/dL (31-37) Red Cell Distribution Width 13.2 % (11.5-14.5) 13.2 % (11.5-14.5) Platelet Count 215 x10^3/uL (140-400) 212 x10^3/uL (140-400) Neutrophils (%) (Auto) 74 % (31-73) 48 % (31-73) Lymphocytes (%) (Auto) 17 % (24-48) 40 % (24-48) Monocytes (%) (Auto) 8 % (0-9) 9 % (0-9) Eosinophils (%) (Auto) 1 % (0-3) 2 % (0-3) Basophils (%) (Auto) 1 % (0-3) 1 % (0-3) Neutrophils # (Auto) 7.4 x10^3uL (1.8-7.7) 4.6 x10^3uL (1.8-7.7) Lymphocytes # (Auto) 1.7 x10^3/uL (1.0-4.8) 3.9 x10^3/uL (1.0-4.8) Monocytes # (Auto) 0.8 x10^3/uL (0.0-1.1) 0.9 x10^3/uL (0.0-1.1) Eosinophils # (Auto) 0.1 x10^3/uL (0.0-0.7) 0.2 x10^3/uL (0.0-0.7) Basophils # (Auto) 0.1 x10^3/uL (0.0-0.2) 0.1 x10^3/uL (0.0-0.2) Sodium Level 141 mmol/L (136-145) 141 mmol/L (136-145) Potassium Level 4.1 mmol/L (3.5-5.1) 4.2 mmol/L (3.5-5.1) Chloride Level 106 mmol/L (98-107) 107 mmol/L (98-107) Carbon Dioxide Level 25 mmol/L (21-32) 25 mmol/L (21-32) Anion Gap 10 (6-14) 9 (6-14) Blood Urea Nitrogen 16 mg/dL (7-20) 18 mg/dL (7-20) Creatinine 0.9 mg/dL (0.6-1.0) 0.8 mg/dL (0.6-1.0) Estimated GFR (Cockcroft-Gault) 78.1 89.5 Glucose Level 116 mg/dL (70-99) 101 mg/dL (70-99) Calcium Level 8.8 mg/dL (8.5-10.1) 8.6 mg/dL (8.5-10.1) Magnesium Level 2.1 mg/dL (1.8-2.4) Total Bilirubin 0.2 mg/dL (0.2-1.0) Direct Bilirubin 0.1 mg/dL (0.0-0.2) Aspartate Amino Transf (AST/SGOT) 18 U/L (15-37) Alanine Aminotransferase (ALT/SGPT) 16 U/L (14-59) Alkaline Phosphatase 117 U/L (46-116) Creatine Kinase 110 U/L (26-192) Creatine Kinase MB (Mass) 2.0 ng/mL (0.0-3.6) Creatine Kinase MB Relative Index 1.8 % (0-4) Troponin I Quantitative 0.449 ng/mL (0.000-0.055) 0.560 ng/mL (0.000-0.055) JY-Xvw-V-Type Natriuretic Peptide 958 pg/mL (0-124) Total Protein 8.1 g/dL (6.4-8.2) Albumin 3.2 g/dL (3.4-5.0) Lipase 53 U/L (73-393) Thyroid Stimulating Hormone (TSH) 0.885 uIU/mL (0.358-3.74) Erythrocyte Sedimentation Rate 32 (0-25) C-Reactive Protein, Quantitative 25.9 mg/L (0-3.3) Lactic Acid Level 1.9 mmol/L (0.4-2.0) Test 07/28/16 08:50 07/28/16 12:51 07/28/16 19:55 07/29/16 04:00 Troponin I Quantitative 0.368 ng/mL (0.000-0.055) Glucose (Fingerstick) 109 mg/dL (70-99) 119 mg/dL (70-99) Sodium Level 141 mmol/L (136-145) Potassium Level 3.7 mmol/L (3.5-5.1) Chloride Level 107 mmol/L (98-107) Carbon Dioxide Level 26 mmol/L (21-32) Anion Gap 8 (6-14) Blood Urea Nitrogen 16 mg/dL (7-20) Creatinine 0.8 mg/dL (0.6-1.0) Estimated GFR (Cockcroft-Gault) 89.5 Glucose Level 105 mg/dL (70-99) Calcium Level 8.1 mg/dL (8.5-10.1) Triglycerides Level 55 mg/dL (0-150) Cholesterol Level 152 mg/dL (0-200) LDL Cholesterol, Calculated 110 mg/dL (0-100) VLDL Cholesterol, Calculated 11 mg/dL (0-40) Non-HDL Cholesterol Calculated 121 mg/dL (0-129) HDL Cholesterol 31 mg/dL (40-60) Cholesterol/HDL Ratio 4.9 Laboratory Tests Test 07/28/16 19:55 07/29/16 04:00 Glucose (Fingerstick) 119 mg/dL (70-99) Sodium Level 141 mmol/L (136-145) Potassium Level 3.7 mmol/L (3.5-5.1) Chloride Level 107 mmol/L (98-107) Carbon Dioxide Level 26 mmol/L (21-32) Anion Gap 8 (6-14) Blood Urea Nitrogen 16 mg/dL (7-20) Creatinine 0.8 mg/dL (0.6-1.0) Estimated GFR (Cockcroft-Gault) 89.5 Glucose Level 105 mg/dL (70-99) Calcium Level 8.1 mg/dL (8.5-10.1) Triglycerides Level 55 mg/dL (0-150) Cholesterol Level 152 mg/dL (0-200) LDL Cholesterol, Calculated 110 mg/dL (0-100) VLDL Cholesterol, Calculated 11 mg/dL (0-40) Non-HDL Cholesterol Calculated 121 mg/dL (0-129) HDL Cholesterol 31 mg/dL (40-60) Cholesterol/HDL Ratio 4.9 Assessment and Plan please see full note s/p index amp through prox P1 granulating in, no purulent drainage not unreasonable to give this some more time. agree with wound care will follow along, and follow as outpatient JESUS WILLIAMSON II, MD Jul 29, 2016 13:41
--- NOTE | 2016-07-29 15:39 | PDOC ---
SUBJECTIVE Subjective drowsiness OBJECTIVE Objective 56 y.o. with increasing somnolence Vital Signs Vital Signs Date Time Temp Pulse Resp B/P (MAP) Pulse Ox O2 Delivery O2 Flow Rate FiO2 07/29/16 14:40 98.1 109 16 85/60 (68) 91 Nasal Cannula 2.0 98.1 07/29/16 14:12 Room Air 07/29/16 12:14 Nasal Cannula 2.0 07/29/16 11:30 120 88/57 07/29/16 10:44 98/61 (73) 07/29/16 10:13 98.6 127 19 86/64 (71) 98.6 07/29/16 08:34 96 Nasal Cannula 2.0 07/29/16 08:33 96 Nasal Cannula 2.0 07/29/16 07:40 Room Air 07/29/16 07:24 98.0 107 18 112/58 (76) 93 Nasal Cannula 2.0 98.0 07/29/16 06:36 Nasal Cannula 2.0 07/29/16 03:46 Nasal Cannula 07/29/16 03:10 98.5 106 18 91/62 (72) 94 Nasal Cannula 2.0 98.5 07/29/16 02:07 2.0 07/29/16 00:25 Nasal Cannula 2.0 07/28/16 23:46 100 Room Air 2.0 07/28/16 23:40 98.4 130 24 97/71 (80) 100 Nasal Cannula 2.0 98.4 07/28/16 21:30 96 Room Air 07/28/16 20:45 Nasal Cannula 2.0 07/28/16 19:22 101 79/60 (66) 93 Nasal Cannula 2.0 07/28/16 19:16 98.1 103 14 76/53 (61) 91 Nasal Cannula 2.0 98.1 07/28/16 16:23 Room Air 07/28/16 15:55 98.1 97 18 81/57 (65) 93 Room Air 98.1 I & O Intake and Output 07/29/16 07:00 Intake Total 600 ml Output Total 700 ml Balance -100 ml Intake Oral 600 ml Output Urine Total 700 ml # Bowel Movements 1 PHYSICAL EXAM Physical Exam awake and alert, disoriented to time ASSESSMENT/PLAN Assessment/Plan Plan: Decrease baclofen/Prialt rate by 10% Maintain PTM settings Problems: COMMENT Lab Laboratory Tests Test 07/28/16 19:55 07/29/16 04:00 Glucose (Fingerstick) 119 mg/dL (70-99) Sodium Level 141 mmol/L (136-145) Potassium Level 3.7 mmol/L (3.5-5.1) Chloride Level 107 mmol/L (98-107) Carbon Dioxide Level 26 mmol/L (21-32) Anion Gap 8 (6-14) Blood Urea Nitrogen 16 mg/dL (7-20) Creatinine 0.8 mg/dL (0.6-1.0) Estimated GFR (Cockcroft-Gault) 89.5 Glucose Level 105 mg/dL (70-99) Calcium Level 8.1 mg/dL (8.5-10.1) Triglycerides Level 55 mg/dL (0-150) Cholesterol Level 152 mg/dL (0-200) LDL Cholesterol, Calculated 110 mg/dL (0-100) VLDL Cholesterol, Calculated 11 mg/dL (0-40) Non-HDL Cholesterol Calculated 121 mg/dL (0-129) HDL Cholesterol 31 mg/dL (40-60) Cholesterol/HDL Ratio 4.9 MONET MONDRAGON MD Jul 29, 2016 15:39
[2016-07-29] MEDS ORDERED: VANCOMYCIN 1.25 GM in IV NORMAL SALINE 250ML 250 ML IV ONE (17:00)
--- NOTE | 2016-07-29 17:16 | RAD ---
Three-view right hand radiographs 07/29/2016 Clinical history: Post 8 dictation the right second finger. Portable AP, lateral and oblique digital radiographs of the right hand were obtained. The patient is status post amputation of the right second finger at the level of the proximal metaphysis of the proximal phalanx of the right second finger. What appear to be several small bone fragments are seen near the amputation site in the adjacent soft tissues. Mild degenerative changes are seen involving the first MCP joint and first carpometacarpal joint. Impression: Post amputation of the right second finger as outlined above.
[2016-07-29] MEDS ORDERED: DIGOXIN IV 500 MCG/2 ML AMPUL. IV PRN (18:00)
[2016-07-29] MEDS: ACETAMINOPHEN 325 MG TABLET. PO PRN (23:09)
[2016-07-30] VITALS (40 sets, daily range): BP systolic 67–151; BP diastolic 51–90
[2016-07-30] MEDS: VANCOMYCIN 750 MG in IV NORMAL SALINE 250ML 250 ML IV SCH ×3 (01:00→18:21)
[2016-07-30] MEDS: NON FORMULARY ITEM SQ SCH ×8 (03:00→21:00)
[2016-07-30 03:19] LABS: HCO3 ABG 21 mmol/L (21-28); PCO2 ABG 42 mmHg (35-46); PH ABG 7.32 (7.35-7.45); SAT O2 ABG 75 % (92-99)
[2016-07-30 03:42] LABS: PO2 ABG 44 mmHg (75-108)
[2016-07-30 03:43] LABS: FIO2 ABG 36
[2016-07-30] MEDS ORDERED: IV NORMAL SALINE 500ML BAG 500 ML IV ONE ×2 (03:45→05:15)
[2016-07-30] MEDS ORDERED: IOHEXOL 300 MG/ML 75 ML VIAL IV ONE (04:00)
[2016-07-30] MEDS ORDERED: CONTRAST GIVEN MC PRN (04:00)
--- NOTE | 2016-07-30 04:44 | CONS ---
DATE OF CONSULTATION: 07/29/2016 REFERRING PROVIDER: Dr. Pratt. CONSULTING PHYSICIAN: Mike Williamson MD REASON FOR CONSULTATION: Right index finger wound, postoperative. HISTORY OF PRESENT ILLNESS: The patient is a 56-year-old female admitted after a syncopal episode. Per report, she was getting out of her bathroom and then was found unresponsive. She was brought into the Emergency Department. She tells me that she had a right index finger amputation performed after lot of her finger turned black performed by hand surgeon at an outside institution. She has not been back to see him to the best of her ability to recall. She seems a little bit confused today, though. REVIEW OF SYSTEMS: Negative except as per HPI. ALLERGIES: CEFAZOLIN, IBUPROFEN AND MORPHINE. MEDICATIONS: Reviewed, please see MRAD. PAST MEDICAL HISTORY: Hypothyroidism, mood disorder, history of lumbar stenosis. PAST SURGICAL HISTORY: As per HPI. PHYSICAL EXAMINATION: GENERAL: The patient is alert and oriented. She does not answer all questions appropriately and seems to have poor recall. HEENT: Head normocephalic, atraumatic. Extraocular muscles are intact. CARDIOVASCULAR: Regular rate and rhythm. No edema in her lower extremities. LUNGS: Respirations are unlabored with symmetric chest raise. ABDOMEN: Soft, nondistended. EXTREMITIES: Examination of her right upper extremity reveals amputation distal to her MCP joint of her index finger. There is healthy appearing granulation tissue at the base with a mild amount of fibrinous appearing exudate over this. There was no surrounding fluctuance or purulence. IMAGING: X-rays are interpreted by myself. She has a right second index finger amputation with small amount of bone remnant still visible. IMPRESSION: Right second finger amputation. PLAN: I think that it would not be unreasonable to give this some more time to see if it is able to re-epithelialize. There does not appear to be any active infection at this point. I agree with wound care assisting with her care as well. We will see her back as an outpatient as she lives fairly close to here. Should she develop any worsening signs or symptoms regarding this hand, then I think she may need more aggressive care in terms of a repeat I and D and possibly a flap coverage. MIKE WILLIAMSON MD DR: RUTHIE/edwina JOB#: [id number] / [id number] GELY
--- NOTE | 2016-07-30 04:48 | RAD ---
Examination: CT angiography chest HISTORY: History of shortness of breath, chest pain COMPARISON: None available TECHNIQUE: Axial CT angiography images were performed with IV contrast. Coronal and sagittal reformats performed. Findings: Multiple filling defects identified in the right middle lobe, right lower lobe, left upper lobe, left lower lobe pulmonary arterial branches likely multiple pulmonary emboli. Mild cardiomegaly is identified. The caliber of the aorta grossly appears unremarkable. There is airspace opacity identified in the right hilar/infrahilar and left hilar region lobe. Diffuse reticular interstitial lung markings identified in the left upper lobe, right upper lobe, right middle lobe and right lower lobe of the lung. Small bilateral pleural effusions are identified, right greater than left. Emphysematous changes identified in the bilateral lungs. The visualized liver, spleen grossly appears unremarkable. Mild degenerative changes identified in the thoracic spine. Spinal stimulator identified in the thoracic region. Left PICC line is identified. IMPRESSION: 1. Multiple filling defects identified in the right upper lobe, right middle lobe, right lower lobe and left upper lobe and left lower lobe pulmonary artery branches likely multiple pulmonary emboli. 2. Bilateral hilar and right infrahilar airspace opacities. Differential includes hilar lymphadenopathy, pneumonia o/ atelectasis or malignancy. Close interval follow-up examination is recommended. A follow-up PET CT scan can be considered. 3. Diffuse reticular interstitial lung markings identified in the left upper lobe, right upper lobe, right middle lobe and right lower lobe of the lung could be reticular interstitial changes 4. Small bilateral pleural effusions , right greater than left with patchy bibasilar airspace opacities. Patient's nurse Markus was informed at the time of dictation. Electronically signed by: Ryan Renee MD (07/30/2016 4:44 AM)
[2016-07-30] MEDS ORDERED: HEPARIN for IV BOLUS 10,000 UNIT/10 ML VIAL. IV ONE (05:30)
[2016-07-30] MEDS: HEPARIN 25,000UTS/500ML PREMIX 500 ML IV PRN (05:35)
[2016-07-30] MEDS: PIPERACILLIN/TAZOBACTAM 3.375 GM in IV NORMAL SALINE 50ML 50 ML IV SCH ×4 (05:55→23:38)
[2016-07-30] MEDS: oxyCODONE/APAP 7.5/325 1 TAB TABLET PO SCH (06:00)
[2016-07-30] MEDS: LEVOTHYROXINE 75 MCG TABLET PO SCH (06:12)
--- NOTE | 2016-07-30 07:12 | PDOC ---
Infectious Disease Note Subjective Subjective States ok. Occ nausea. No pain/itch ROS ROS GEN: Denies fevers, chills, sweats HEENT: Denies blurred vision, sore throat CV: Denies chest pain RESP: Denies shortness of air, cough GI: Denies n/v/d NEURO: Denies confusion, dizziness MSK: Denies weakness, joint pain/swelling Vital Sign Vital Signs Vital Signs Date Time Temp Pulse Resp B/P (MAP) Pulse Ox O2 Delivery O2 Flow Rate FiO2 07/30/16 05:41 102 18 79/59 (66) 96 Venturi Mask 07/30/16 04:18 98.1 98.1 07/30/16 04:02 10.0 Physical Exam PHYSICAL EXAM GENERAL: NAD, Alert, appears comfortable HEENT: PERRL, OC/OP - ? dentition -dry NECK: Supple, no JVD, no LN LUNGS: Clear, on facemask HEART: S1S2, no gallop, no murmur ABD: Soft, NT, no organomegaly, no rebound EXT: No edema, no cyanosis. Hand dressed THEATER USHER: Alert, oriented to person, no focal neurologic deficit, a little confused SKIN: No rash IV: PICC LUE - clean Labs Lab Laboratory Tests Test 07/29/16 15:45 07/30/16 03:18 Vancomycin Level Trough 9.9 mcg/mL (10.0-20.0) Vancomycin Last Dose Date 06/28/16 Vancomycin Last Dose Time 0330 O2 Saturation 75 % (92-99) Arterial Blood pH 7.32 (7.35-7.45) Arterial Blood pCO2 at Patient Temp 42 mmHg (35-46) Arterial Blood pO2 at Patient Temp 44 mmHg (75-108) Arterial Blood HCO3 21 mmol/L (21-28) Arterial Blood Base Excess -5 mmol/L (-3-3) FiO2 [address] chest am 07/30IMPRESSION: 1. Multiple filling defects identified in the right upper lobe, right middle lobe, right lower lobe and left upper lobe and left lower lobe pulmonary artery branches likely multiple pulmonary emboli. 2. Bilateral hilar and right infrahilar airspace opacities. Differential includes hilar lymphadenopathy, pneumonia o/ atelectasis or malignancy. Close interval follow-up examination is recommended. A follow-up PET CT scan can be considered. 3. Diffuse reticular interstitial lung markings identified in the left upper lobe, right upper lobe, right middle lobe and right lower lobe of the lung could be reticular interstitial changes 4. Small bilateral pleural effusions , right greater than left with patchy bibasilar airspace opacities. Objective Assessment PE - on heparin Fever likely sec to PE Hypotension Interstitial markings on CT - ? 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 Sutures removed about 2 weeks post -op now exposed bone Cefazolin allergy - nausea Low grade temps - better NSTEMI Tobacco abuse Baclofen pump Plan Plan of Care Cont Vanc/Zosyn Add Levophed Labs this am May need Plastics and a graft/HBO and transfer to F/u labs in am/cults Await further Cardiology w/u Await Pulm SAMANTHA MCCONNELL MD Jul 30, 2016 07:12
[2016-07-30] MEDS: NOREPINEPHRIN PREMIX 250 ML IV PRN (07:17)
[2016-07-30 07:34] LABS: BASO # 0.1 x10^3/uL (0.0-0.2); BASO % 1 % (0-3); EOS % 1 % (0-3); HEMATOCRIT 28.3 % (36.0-47.0); HEMOGLOBIN 9.2 g/dL (12.0-15.5); LYMPH # 1.9 x10^3/uL (1.0-4.8); LYMPH % 14 % (24-48); MEAN CORPUSCULAR HEMOGLOBIN 32 pg (25-35); MEAN CORPUSCULAR HGB CONC 32 g/dL (31-37); MEAN CORPUSCULAR VOLUME 100 fL (79-100); MONO % 5 % (0-9); NEUT % 79 % (31-73); PLATELET COUNT 178 x10^3/uL (140-400); RED BLOOD COUNT 2.85 x10^6/uL (3.50-5.40); RED CELL DISTRIBUTION WIDTH 13.4 % (11.5-14.5); WHITE BLOOD COUNT 13.8 x10^3/uL (4.0-11.0)
[2016-07-30] MEDS: BUDESONIDE 0.5 MG/2 ML NEBU. NEB SCH ×2 (07:43→20:21)
[2016-07-30] MEDS: ALBUTEROL SULFATE 2.5 MG/3 ML NEBU. NEB SCH ×4 (07:43→20:21)
[2016-07-30 07:47] LABS: CALCIUM 7.5 mg/dL (8.5-10.1); GFR 69.1; POTASSIUM 3.3 mmol/L (3.5-5.1)
[2016-07-30 07:50] LABS: INR 1.3 (0.8-1.1); PROTHROMBIN TIME PATIENT 15.6 SEC (11.7-14.0)
--- NOTE | 2016-07-30 08:26 | PDOC ---
PROGRESS NOTES Subjective Subjective Patient reports some pain, unable to offer details. Objective Objective Vital Signs Date Time Temp Pulse Resp B/P (MAP) Pulse Ox O2 Delivery O2 Flow Rate FiO2 07/30/16 07:54 Non-Rebreather 10.0 07/30/16 07:49 95 18 77/60 (66) 87 07/30/16 07:00 98.5 98.5 Intake and Output 07/30/16 06:59 Intake Total 1070 ml Output Total 651 ml Balance 419 ml Intake Oral 520 ml IV Total 550 ml Output Urine Total 651 ml Physical Exam Abdomen: Normal bowel sounds, Soft, No tenderness Heart: Regular rate Extremities: No edema General: Alert (oriented to person and place but agitated and not thinking clearly) Lungs: Other (BS mildly decreased but CTA anteriorly) Assessment Assessment Problems Medical Problems: (1) Elevated troponin Status: Acute Plan Plan of Care 1. Acute respiratory failure with PE's - multiple PE's seen on CTA chest this morning. Sats better on mask, started on Heparin gtt, Pulmonary consult pending. BP low, improved on pressors. 2. Agitation - some delirium present due to illness, patient also with history of mood disorder. Will try increasing her Zyprexa. Does have prn Ativan available. 3. non-healing surgical wound right hand - appreciate Orthopedics input. Continue abx per ID and wound care. 4. chronic pain - overly sedated previously. Dr Duran has decreased her Baclofen pump which may be helping. Continue Duragesic patch, change Percocet to prn. 5. PLS - at baseline, continue her home meds and supportive care. Comment Review of Relevant I have reviewed the following items mimi (where applicable) has been applied. Labs Laboratory Tests Test 07/28/16 08:50 07/28/16 12:51 07/28/16 19:55 07/29/16 04:00 Troponin I Quantitative 0.368 ng/mL (0.000-0.055) Glucose (Fingerstick) 109 mg/dL (70-99) 119 mg/dL (70-99) Sodium Level 141 mmol/L (136-145) Potassium Level 3.7 mmol/L (3.5-5.1) Chloride Level 107 mmol/L (98-107) Carbon Dioxide Level 26 mmol/L (21-32) Anion Gap 8 (6-14) Blood Urea Nitrogen 16 mg/dL (7-20) Creatinine 0.8 mg/dL (0.6-1.0) Estimated GFR (Cockcroft-Gault) 89.5 Glucose Level 105 mg/dL (70-99) Calcium Level 8.1 mg/dL (8.5-10.1) Triglycerides Level 55 mg/dL (0-150) Cholesterol Level 152 mg/dL (0-200) LDL Cholesterol, Calculated 110 mg/dL (0-100) VLDL Cholesterol, Calculated 11 mg/dL (0-40) Non-HDL Cholesterol Calculated 121 mg/dL (0-129) HDL Cholesterol 31 mg/dL (40-60) Cholesterol/HDL Ratio 4.9 Test 07/29/16 15:45 07/30/16 03:18 07/30/16 07:30 Vancomycin Level Trough 9.9 mcg/mL (10.0-20.0) Vancomycin Last Dose Date 06/28/16 Vancomycin Last Dose Time 0330 O2 Saturation 75 % (92-99) Arterial Blood pH 7.32 (7.35-7.45) Arterial Blood pCO2 at Patient Temp 42 mmHg (35-46) Arterial Blood pO2 at Patient Temp 44 mmHg (75-108) Arterial Blood HCO3 21 mmol/L (21-28) Arterial Blood Base Excess -5 mmol/L (-3-3) FiO2 36 White Blood Count 13.8 x10^3/uL (4.0-11.0) Red Blood Count 2.85 x10^6/uL (3.50-5.40) Hemoglobin 9.2 g/dL (12.0-15.5) Hematocrit 28.3 % (36.0-47.0) Mean Corpuscular Volume 100 fL (79-100) Mean Corpuscular Hemoglobin 32 pg (25-35) Mean Corpuscular Hemoglobin Concent 32 g/dL (31-37) Red Cell Distribution Width 13.4 % (11.5-14.5) Platelet Count 178 x10^3/uL (140-400) Neutrophils (%) (Auto) 79 % (31-73) Lymphocytes (%) (Auto) 14 % (24-48) Monocytes (%) (Auto) 5 % (0-9) Eosinophils (%) (Auto) 1 % (0-3) Basophils (%) (Auto) 1 % (0-3) Neutrophils # (Auto) 10.9 x10^3uL (1.8-7.7) Lymphocytes # (Auto) 1.9 x10^3/uL (1.0-4.8) Monocytes # (Auto) 0.7 x10^3/uL (0.0-1.1) Eosinophils # (Auto) 0.2 x10^3/uL (0.0-0.7) Basophils # (Auto) 0.1 x10^3/uL (0.0-0.2) Prothrombin Time 15.6 SEC (11.7-14.0) Prothromb Time International Ratio 1.3 (0.8-1.1) Sodium Level 139 mmol/L (136-145) Potassium Level 3.3 mmol/L (3.5-5.1) Chloride Level 109 mmol/L (98-107) Carbon Dioxide Level 24 mmol/L (21-32) Anion Gap 6 (6-14) Blood Urea Nitrogen 18 mg/dL (7-20) Creatinine 1.0 mg/dL (0.6-1.0) Estimated GFR (Cockcroft-Gault) 69.1 Glucose Level 123 mg/dL (70-99) Calcium Level 7.5 mg/dL (8.5-10.1) Laboratory Tests Test 07/29/16 15:45 07/30/16 03:18 07/30/16 07:30 Vancomycin Level Trough 9.9 mcg/mL (10.0-20.0) Vancomycin Last Dose Date 06/28/16 Vancomycin Last Dose Time 0330 O2 Saturation 75 % (92-99) Arterial Blood pH 7.32 (7.35-7.45) Arterial Blood pCO2 at Patient Temp 42 mmHg (35-46) Arterial Blood pO2 at Patient Temp 44 mmHg (75-108) Arterial Blood HCO3 21 mmol/L (21-28) Arterial Blood Base Excess -5 mmol/L (-3-3) FiO2 36 White Blood Count 13.8 x10^3/uL (4.0-11.0) Red Blood Count 2.85 x10^6/uL (3.50-5.40) Hemoglobin 9.2 g/dL (12.0-15.5) Hematocrit 28.3 % (36.0-47.0) Mean Corpuscular Volume 100 fL (79-100) Mean Corpuscular Hemoglobin 32 pg (25-35) Mean Corpuscular Hemoglobin Concent 32 g/dL (31-37) Red Cell Distribution Width 13.4 % (11.5-14.5) Platelet Count 178 x10^3/uL (140-400) Neutrophils (%) (Auto) 79 % (31-73) Lymphocytes (%) (Auto) 14 % (24-48) Monocytes (%) (Auto) 5 % (0-9) Eosinophils (%) (Auto) 1 % (0-3) Basophils (%) (Auto) 1 % (0-3) Neutrophils # (Auto) 10.9 x10^3uL (1.8-7.7) Lymphocytes # (Auto) 1.9 x10^3/uL (1.0-4.8) Monocytes # (Auto) 0.7 x10^3/uL (0.0-1.1) Eosinophils # (Auto) 0.2 x10^3/uL (0.0-0.7) Basophils # (Auto) 0.1 x10^3/uL (0.0-0.2) Prothrombin Time 15.6 SEC (11.7-14.0) Prothromb Time International Ratio 1.3 (0.8-1.1) Sodium Level 139 mmol/L (136-145) Potassium Level 3.3 mmol/L (3.5-5.1) Chloride Level 109 mmol/L (98-107) Carbon Dioxide Level 24 mmol/L (21-32) Anion Gap 6 (6-14) Blood Urea Nitrogen 18 mg/dL (7-20) Creatinine 1.0 mg/dL (0.6-1.0) Estimated GFR (Cockcroft-Gault) 69.1 Glucose Level 123 mg/dL (70-99) Calcium Level 7.5 mg/dL (8.5-10.1) Microbiology 07/27/16 Blood Culture - Preliminary, Resulted NO GROWTH AFTER 2 DAYS Medications Current Medications Sodium Chloride 1,000 ml @ 1,000 mls/hr 1X ONCE IV Last administered on t 19:28; Start 07/27/16 at 19:15; Stop 07/27/16 at 20:14; Status DC Ondansetron HCl (Zofran) 4 mg PRN Q8HRS PRN IV NAUSEA/VOMITING; Start 07/27/16 at 20:45; Stop 07/28/16 at 07:41; Status DC Aspirin (Elvis Aspirin) 325 mg 1X ONCE PO Last administered on 07/27/16 20:55 ; Start 07/27/16 at 20:45; Stop 07/27/16 at 20:46; Status DC Amitriptyline HCl (Elavil) 10 mg BID PO ; Start 07/28/16 at 09:00; Stop at 09:00; Status DC Fentanyl (Duragesic 75mcg/ Hr Patch) 1 patch Q3DAYS TD ; Start 07/27/16 at 23:00 ; Stop 07/27/16 at 23:08; Status DC Olanzapine (ZyPREXA) 5 mg BID PO ; Start 07/28/16 at 09:00; Stop 07/28/16 at 09: 00; Status DC Oxycodone/ Acetaminophen (Percocet 7.5/ 325) 1 tab Q8HRS PO ; Start 07/28/16 at 06:00; Stop 07/28/16 at 06:00; Status DC Topiramate (Topamax) 100 mg BID PO ; Start 07/28/16 at 09:00; Stop 07/28/16 at 09:00; Status DC Non-Formulary Medication 800 mg TID PO ; Start 07/28/16 at 09:00; Stop 07/28/16 at 09:00; Status DC Non-Formulary Medication 150 mg BID PO ; Start 07/28/16 at 09:00; Stop 07/28/16 at 09:00; Status DC Non-Formulary Medication 2 mg TID PO ; Start 07/28/16 at 09:00; Stop 07/28/16 at 09:00; Status DC Non-Formulary Medication 1 ea Q3HRS SQ Last administered on 07/27/16 22:45; Start 07/27/16 at 00:00; Stop 07/27/16 at 23:40; Status DC Amitriptyline HCl (Elavil) 10 mg BID PO Last administered on 07/29/16 20:51; Start 07/27/16 at 23:30 Fentanyl (Duragesic 75mcg/ Hr Patch) 1 patch Q3DAYS TD Last administered on 23:33; Start 07/27/16 at 23:30; Stop 07/28/16 at 20:41; Status DC Olanzapine (ZyPREXA) 5 mg BID PO Last administered on 07/27/16 23:32; Start at 23:30; Stop 07/28/16 at 07:30; Status DC Oxycodone/ Acetaminophen (Percocet 7.5/ 325) 1 tab Q8HRS PO Last administered on 07/29/16 20:50; Start 07/27/16 at 23:30 Topiramate (Topamax) 100 mg BID PO Last administered on 07/29/16 20:53; Start 07/27/16 at 23:30 Gabapentin (Neurontin) 800 mg Q12HR PO Last administered on 07/29/16 20:50; Start 07/27/16 at 23:30 Famotidine (Pepcid) 20 mg BID PO Last administered on 07/29/16 20:53; Start at 23:30 Tizanidine HCl (Zanaflex) 2 mg TID PO Last administered on 07/29/16 20:51; Start 07/27/16 at 23:30 Non-Formulary Medication 1 ea Q3HRS SQ Last administered on 07/28/16 18:00; Start 07/28/16 at 03:00 Acetaminophen/ Butalbital/ Caffeine (Fioricet) 1 tab PRN Q6HRS PRN PO MIGRAINE HEADACHE; Start 07/28/16 at 07:30 Fluticasone Propionate (Flonase) 2 spray DAILY NS ; Start 07/28/16 at 09:00; Status Cancel Levothyroxine Sodium (Synthroid) 75 mcg DAILY06 PO Last administered on 06:12; Start 07/28/16 at 07:30 Potassium Chloride (Klor-Con) 20 meq DAILY PO Last administered on 07/29/16 09 :30; Start 07/28/16 at 09:00 Non-Formulary Medication 1 each BID IH ; Start 07/28/16 at 09:00; Status UNV Cetirizine HCl (ZyrTEC) 10 mg DAILY PO Last administered on 07/29/16 09:29; Start 07/28/16 at 09:00 Venlafaxine HCl (Effexor Xr) 150 mg DAILY PO Last administered on 07/29/16 09: 33; Start 07/28/16 at 09:00 Olanzapine (ZyPREXA) 5 mg DAILY PO Last administered on 07/29/16 09:29; Start 07/28/16 at 09:00 Budesonide (Pulmicort) 0.5 mg RTBID NEB Last administered on 07/30/16 07:43; Start 07/28/16 at 08:00 Albuterol Sulfate (Ventolin Neb Soln) 2.5 mg RTQID NEB Last administered on 07:43; Start 07/28/16 at 08:00 Ondansetron HCl (Zofran) 4 mg PRN Q6HRS PRN IV NAUSEA/VOMITING; Start 07/28/16 at 07:30 Vancomycin HCl (Vanco Per Pharmacy) 1 each PRN DAILY PRN MC SEE COMMENTS Last administered on 07/29/16 16:44; Start 07/28/16 at 08:00 Piperacillin Sod/ Tazobactam Sod 3.375 gm/Sodium Chloride 50 ml @ 100 mls/hr Q6HRS IV Last administered on 07/30/16 05:55; Start 07/28/16 at 08:30 Vancomycin HCl 1.25 gm/Sodium Chloride 250 ml @ 166.667 mls/hr 1X ONCE IV Last administered on 07/28/16 15:18; Start 07/28/16 at 09:00; Stop 07/28/16 at 10:29; Status DC Fluticasone Propionate (Flonase) 2 spray DAILY NS ; Start 07/29/16 at 09:00 Aspirin (Ecotrin) 81 mg DAILYWBKFT PO Last administered on 07/29/16 09:29; Start 07/28/16 at 17:00 Naloxone HCl (Narcan) 0.4 mg STK-MED ONCE .ROUTE ; Start 07/28/16 at 19:58; Stop 07/28/16 at 19:59; Status DC Naloxone HCl (Narcan) 0.4 mg 1X ONCE IV Last administered on 07/28/16 20:10; Start 07/28/16 at 20:15; Stop 07/28/16 at 20:16; Status DC Fentanyl (Duragesic 75mcg/ Hr Patch) 1 patch Q3DAYS TD ; Start 07/31/16 at 09:00 ; Status UNV Fentanyl (Duragesic 75mcg/ Hr Patch) 1 patch 1X ONCE TD ; Start 07/28/16 at 20: 45; Stop 07/28/16 at 20:46; Status UNV Fentanyl (Duragesic 75mcg/ Hr Patch) 1 patch Q3DAYS TD Last administered on 23:46; Start 07/28/16 at 21:00 Lorazepam (Ativan) 0.5 mg PRN Q6HRS PRN IV ANXIETY / AGITATION; Start 07/29/16 at 01:45 Vancomycin HCl 750 mg/Sodium Chloride 250 ml @ 250 mls/hr Q12H IV Last administered on 07/29/16 03:57; Start 07/29/16 at 03:30; Stop 07/29/16 at 16:32 ; Status DC Vancomycin HCl 1 each 1X ONCE MC Last administered on 07/29/16 15:00; Start 07/29/16 at 15:00; Stop 07/29/16 at 15:01; Status DC Metoprolol Tartrate (Lopressor) 12.5 mg BID PO Last administered on 07/29/16 20:52; Start 07/29/16 at 11:30 Vancomycin HCl 1.25 gm/Sodium Chloride 250 ml @ 166.667 mls/hr 1X ONCE IV Last administered on 07/29/16 16:58; Start 07/29/16 at 17:00; Stop 07/29/16 at 18:29; Status DC Vancomycin HCl 750 mg/Sodium Chloride 250 ml @ 250 mls/hr Q8H IV Last administered on 07/30/16 01:00; Start 07/30/16 at 01:00 Vancomycin HCl 1 each 1X ONCE MC ; Start 07/30/16 at 16:30; Stop 07/30/16 at 16 :31 Digoxin (Lanoxin) 250 mcg PRN 1X PRN IV thachycardia; Start 07/29/16 at 18:00 Acetaminophen (Tylenol) 650 mg PRN Q6HRS PRN PO FEVER > 101 Last administered on 07/29/16 23:09; Start 07/29/16 at 23:00 Sodium Chloride 500 ml @ 500 mls/hr 1X ONCE IV Last administered on 03:45; Start 07/30/16 at 03:45; Stop 07/30/16 at 04:44; Status DC Iohexol (Omnipaque 300 Mg/ml) 75 ml 1X ONCE IV Last administered on 07/30/16 04:25; Start 07/30/16 at 04:00; Stop 07/30/16 at 04:01; Status DC Info (Do NOT chart on this entry -- for MONITORING) 1 each PRN DAILY PRN MC SEE COMMENTS; Start 07/30/16 at 04:00; Stop 08/01/16 at 03:59 Heparin Sodium/ Dextrose 500 ml @ 0 mls/hr CONT PRN IV SEE I/O RECORD Last administered on 07/30/16 05:35; Start 07/30/16 at 05:30 Heparin Sodium (Porcine) (Heparin Sodium) 1,500 unit PRN Q6HRS PRN IV FOR UFH LEVEL LESS THAN 0.2; Start 07/30/16 at 05:30 Heparin Sodium (Porcine) (Heparin Sodium) 750 unit PRN Q6HRS PRN IV FOR UFH LEVEL 0.2 - 0.29; Start 07/30/16 at 05:30 Warfarin Sodium (Coumadin Per Pharmacy) 1 each PRN DAILY PRN MC PER PROTOCOL; Start 07/30/16 at 05:00 Sodium Chloride 500 ml @ 500 mls/hr 1X ONCE IV Last administered on 05:15; Start 07/30/16 at 05:15; Stop 07/30/16 at 06:14; Status DC Heparin Sodium (Porcine) (Heparin Sodium) 3,950 unit 1X ONCE IV Last administered on 07/30/16 05:32; Start 07/30/16 at 05:30; Stop 07/30/16 at 05:31 ; Status DC Norepinephrine Bitartrate 250 ml @ 0 mls/hr CONT PRN IV SEE I/O RECORD Last administered on 07/30/16 07:17; Start 07/30/16 at 07:15 Active Scripts Active Reported Xopenex Hfa (Levalbuterol Tartrate) 15 Gm Hfa.aer.ad 2 Puff IH PRN Q4-6HRS Fluticasone Propionate Nasal Basalt (Fluticasone Propionate) 16 Gm Basalt.susp 2 Basalt NS DAILY Olanzapine 5 Mg Tablet 5 Mg PO BID Meloxicam 7.5 Mg Tablet 1 Tab PO DAILY FENTANYL 75mcg/hr (Fentanyl) 1 Each Patch.td72 1 Patch TP Q3DAYS Claritin (Loratadine) 10 Mg Tablet 1 Tab PO DAILY Advair 500-50 Diskus (Fluticasone/Salmeterol) 1 Each Disk.w.dev 1 Each IH BID Amitriptyline Hcl 10 Mg Tablet 10 Mg PO BID Zofran Odt (Ondansetron) 8 Mg Tab.rapdis 8 Mg PO PRN Percocet 7.5-325 Mg Tablet (Oxycodone/Acetaminophen) 1 Each Tablet 1 Each PO Q8HRS Levothyroxine Sodium 75 Mcg Tablet 75 Mcg PO DAILY Fioricet 50-325-40 Mg Tablet (Butalb/Acetaminophen/Caffeine) 1 Each Tablet 1 Each PO Q6HRS PRN Effexor Xr (Venlafaxine Hcl) 150 Mg Cap.er.24h 150 Mg PO DAILY Klor-Con M20 (Potassium Chloride) 20 Meq Tab.er.prt 20 Meq PO DAILY Tizanidine Hcl 2 Mg Capsule 2 Mg PO TID Zantac (Ranitidine Hcl) 150 Mg Tablet 150 Mg PO BID Topiramate 25 Mg Tablet 100 Mg PO BID Gabapentin 800 Mg Tablet 800 Mg PO TID Vitals/I & O Vital Sign - Last 24 Hours 07/29/16 07/29/16 07/29/16 07/29/16 08:33 08:34 10:13 10:44 Temp 98.6 98.6 Pulse 127 Resp 19 B/P (MAP) 86/64 (71) 98/61 (73) Pulse Ox 96 96 O2 Delivery Nasal Cannula Nasal Cannula O2 Flow Rate 2.0 2.0 07/29/16 07/29/16 07/29/16 07/29/16 11:30 12:14 14:12 14:40 Temp 98.1 98.1 Pulse 120 109 Resp 16 B/P (MAP) 88/57 85/60 (68) Pulse Ox 91 O2 Delivery Nasal Cannula Room Air Nasal Cannula O2 Flow Rate 2.0 2.0 07/29/16 07/29/16 07/29/16 07/29/16 15:30 17:02 19:00 19:57 Temp 97.4 97.4 Pulse 113 Resp 18 B/P (MAP) 98/69 (79) Pulse Ox 90 O2 Delivery Room Air Nasal Cannula Nasal Cannula Nasal Cannula O2 Flow Rate 2.0 2.0 2.0 07/29/16 07/29/16 07/29/16 07/29/16 20:50 20:52 21:06 21:06 Pulse 113 Resp 18 B/P (MAP) 98/69 O2 Delivery Nasal Cannula Nasal Cannula Nasal Cannula O2 Flow Rate 2.0 2.0 2.0 07/29/16 07/29/16 07/29/16 07/30/16 21:56 22:50 22:55 03:00 Temp 102.3 100.0 102.3 100.0 Pulse 123 108 Resp 20 20 B/P (MAP) 88/61 (70) Pulse Ox 91 O2 Delivery Nasal Cannula O2 Flow Rate 2.0 07/30/16 07/30/16 07/30/16 07/30/16 04:02 04:18 04:38 05:41 Temp 98.1 98.1 98.1 98.1 Pulse 107 108 105 102 Resp 20 20 16 18 B/P (MAP) 76/55 (62) 78/59 (65) 79/59 (66) Pulse Ox 97 92 92 96 O2 Delivery Venturi Mask Venturi Mask Venturi Mask Venturi Mask O2 Flow Rate 10.0 07/30/16 07/30/16 07/30/16 07/30/16 07:00 07:15 07:30 07:43 Temp 98.5 98.5 Pulse 90 94 86 Resp 20 18 20 B/P (MAP) 67/51 (56) 92/75 (81) 96/74 (81) Pulse Ox 93 93 95 91 O2 Delivery NonRebreather Mask NonRebreather Mask NonRebreather Mask NonRebreather Mask O2 Flow Rate 10.0 10.0 10.0 07/30/16 07/30/16 07:49 07:54 Pulse 95 Resp 18 B/P (MAP) 77/60 (66) Pulse Ox 87 O2 Delivery NonRebreather Mask Non-Rebreather O2 Flow Rate 10.0 10.0 Intake and Output 07/29/16 07/29/16 07/30/16 14:59 22:59 06:59 Intake Total 570 ml 500 ml Output Total 650 ml 1 ml Balance -80 ml 499 ml RISHABH LUNDBERG MD Jul 30, 2016 08:26
[2016-07-30] MEDS: GABAPENTIN 400 MG CAPSULE. PO SCH ×2 (08:30→21:42)
[2016-07-30] MEDS: FAMOTIDINE 20 MG TABLET. PO SCH ×2 (08:31→21:42)
[2016-07-30] MEDS: CETIRIZINE HCL 10 MG TABLET. PO SCH (08:31)
[2016-07-30] MEDS: ASPIRIN ENTERIC COATED 81 MG TABLET.DR. PO SCH (08:31)
[2016-07-30] MEDS: AMITRIPTYLINE HCL 10 MG TABLET. PO SCH ×2 (08:31→21:41)
[2016-07-30] MEDS: tiZANidine 4 MG TABLET. PO SCH ×3 (08:31→21:41)
[2016-07-30] MEDS: POTASSIUM CHLORIDE 20 MEQ TABLET.ER. PO SCH (08:31)
[2016-07-30] MEDS: VENLAFAXINE XR 37.5 MG CAP.ER.24H. PO SCH (08:31)
[2016-07-30] MEDS: TOPIRAMATE 100 MG TABLET. PO SCH ×2 (08:32→21:41)
[2016-07-30] MEDS: METOPROLOL TART IMMED RELEASE 25 MG TABLET. PO SCH ×2 (08:32→21:00)
[2016-07-30] MEDS: OLANZapine 5 MG TABLET PO SCH (08:32)
[2016-07-30] MEDS: IV NORMAL SALINE 1000ML BAG 1,000 ML IV SCH (08:33)
[2016-07-30] MEDS: FLUTICASONE 50MCG/NASAL SPRAY 16GM BOTTLE. NS SCH (09:00)
--- NOTE | 2016-07-30 09:26 | PDOC ---
Provider Note Provider Note dictated DAXA MILAN MD Jul 30, 2016 09:26
--- NOTE | 2016-07-30 10:04 | RAD ---
Portable chest, 07/30/2016: History: Pulmonary Comparison is made to a study from 07/28/2016. A left PICC is in place extending into the superior vena cava. The heart size is normal. Moderate right parahilar infiltrate has developed. There is minimal left perihilar infiltrate, better seen on the current CT study. The patient's known pleural effusions are not radiographically visible. There is no evidence of pneumothorax. IMPRESSION: Interval development of moderate right parahilar infiltrate.
--- NOTE | 2016-07-30 10:25 | PDOC ---
CARDIO Progress Notes Date and Time Date of Service 07/30/2016 Time of Evaluation 1025 Subjective Subjective: Other (disoriented to place and time) Vitals Vitals Vital Signs Date Time Temp Pulse Resp B/P (MAP) Pulse Ox O2 Delivery O2 Flow Rate FiO2 07/30/16 10:00 98 18 88/70 (76) 91 NonRebreather Mask 10.0 07/30/16 07:00 98.5 98.5 Weight Weight [ ] Input and Output Intake and Output Intake and Output 07/30/16 07:00 Intake Total 1070 ml Output Total 651 ml Balance 419 ml Intake Oral 520 ml IV Total 550 ml Output Urine Total 651 ml Laboratory Labs Laboratory Tests Test 07/29/16 15:45 07/30/16 03:18 07/30/16 07:30 Vancomycin Level Trough 9.9 mcg/mL (10.0-20.0) Vancomycin Last Dose Date 06/28/16 Vancomycin Last Dose Time 0330 O2 Saturation 75 % (92-99) Arterial Blood pH 7.32 (7.35-7.45) Arterial Blood pCO2 at Patient Temp 42 mmHg (35-46) Arterial Blood pO2 at Patient Temp 44 mmHg (75-108) Arterial Blood HCO3 21 mmol/L (21-28) Arterial Blood Base Excess -5 mmol/L (-3-3) FiO2 36 White Blood Count 13.8 x10^3/uL (4.0-11.0) Red Blood Count 2.85 x10^6/uL (3.50-5.40) Hemoglobin 9.2 g/dL (12.0-15.5) Hematocrit 28.3 % (36.0-47.0) Mean Corpuscular Volume 100 fL (79-100) Mean Corpuscular Hemoglobin 32 pg (25-35) Mean Corpuscular Hemoglobin Concent 32 g/dL (31-37) Red Cell Distribution Width 13.4 % (11.5-14.5) Platelet Count 178 x10^3/uL (140-400) Neutrophils (%) (Auto) 79 % (31-73) Lymphocytes (%) (Auto) 14 % (24-48) Monocytes (%) (Auto) 5 % (0-9) Eosinophils (%) (Auto) 1 % (0-3) Basophils (%) (Auto) 1 % (0-3) Neutrophils # (Auto) 10.9 x10^3uL (1.8-7.7) Lymphocytes # (Auto) 1.9 x10^3/uL (1.0-4.8) Monocytes # (Auto) 0.7 x10^3/uL (0.0-1.1) Eosinophils # (Auto) 0.2 x10^3/uL (0.0-0.7) Basophils # (Auto) 0.1 x10^3/uL (0.0-0.2) Prothrombin Time 15.6 SEC (11.7-14.0) Prothromb Time International Ratio 1.3 (0.8-1.1) Sodium Level 139 mmol/L (136-145) Potassium Level 3.3 mmol/L (3.5-5.1) Chloride Level 109 mmol/L (98-107) Carbon Dioxide Level 24 mmol/L (21-32) Anion Gap 6 (6-14) Blood Urea Nitrogen 18 mg/dL (7-20) Creatinine 1.0 mg/dL (0.6-1.0) Estimated GFR (Cockcroft-Gault) 69.1 Glucose Level 123 mg/dL (70-99) Calcium Level 7.5 mg/dL (8.5-10.1) Microbiology Micro Microbiology 07/27/16 Blood Culture - Preliminary, Resulted NO GROWTH AFTER 2 DAYS Physical Exam HEENT: Neck Supple W Full Motion Chest: Symmetric LUNGS: Other (decreased anteriorly) Heart: S1S2 Abdomen: Soft N/T Extremities: No Edema Neurology: alert, follow commands Assessment Assessment 1. hypoxia and hypotension overnight multiple bilateral pulmonary emboli Heparin gtt and vasopressors 2. NSTEMI echo revealed depressed LV function with an EF of 40-45%. CP free. continue medical management as functional ability limits candidacy for aggressive intervention 3. chronic systolic heart failure etiology unknown. family has declined further evaluation patient to follow up in our office with Dr. Livingston in 4-6 weeks. 4. right index finger amp with concern for osteomyelitis per ID and wound care 5. primary lateralizing sclerosis MAGNOLIA CALDERÓN APRN Jul 30, 2016 10:25
--- NOTE | 2016-07-30 11:11 | CONS ---
DATE OF CONSULTATION: ATTENDING PHYSICIAN: Dr. Pratt. REASON FOR CONSULTATION: Bilateral pulmonary embolism, shock. HISTORY OF PRESENT ILLNESS: The patient is a 56-year-old -[place] female, who has a history of primary lateral sclerosis and has significant debility from this. She has a history of intrathecal baclofen pump. She was brought into the Emergency Department on the ____ of this month after a syncopal episode. She was unresponsive for a short period of time. She was mildly tachycardic and has sinus tachycardia and also she was hypotensive. EKG shows sinus tachycardia without any ischemic changes and chest x-ray did not reveal any definite infiltrates. Troponin level was mildly elevated. At the time, Cardiology consultation was requested and they did an echo. Her EF was 45%. She had evidence of RV moderate dilatation. Her pulmonary artery pressure was 24. The patient has been on the telemetry floor on a secured entrance monitor. However, her oxygen requirement continued to increase. She remained hypotensive. As a result, a CT angiogram was done early this morning and I was called with abnormal results in a consultation. I had reviewed the CT chest personally and she has multiple filling defects in the right upper lobe, right middle lobe and also right lower lobe and left upper lobe and left lower lobe pulmonary arteries. The main trunk was spared. She also had bilateral hilar and right infrahilar airspace opacities. There were diffuse reticular interstitial markings in the left upper, right upper lobe and also in the right middle lobe and also in the right lower lobe. There were small bilateral pleural effusions. At that time, nurse called me with the consult and I had transferred the patient to the ICU and also started on heparin. At present, she is on 100% nonrebreather mask and in addition, she is also requiring nasal cannula. She is awake, following commands. She has been pretty much bedbound because of her primary lateral sclerosis. She had no history of deep vein thrombosis or pulmonary embolism. She had amputation of her digits a month ago on the . She has an intrathecal baclofen pump. She does meet criteria for ____. However, she has a contraindication with intrathecal baclofen pump placement. PAST MEDICAL HISTORY: Significant for history of primary lateral sclerosis, history of lumbar stenosis, history of chronic back pain, history of GERD, hypothyroidism, history of 44 years of tobacco use and underlying COPD. Unknown FEV1. PAST SURGICAL HISTORY: Amputation of the right index finger due to ischemia. She has a history of partial hysterectomy, cholecystectomy and cervical laminectomy and baclofen pump intrathecal. ALLERGIES: TO CEFAZOLIN, IBUPROFEN AND MORPHINE. MEDICATIONS: All are reviewed as listed in the MRAD including heparin protocol. She is also on vancomycin. Coumadin was initiated. REVIEW OF SYSTEMS: Twelve-point systems were obtained, pertinent positives discussed in my history of present illness, otherwise noncontributory. All systems that were negative were reviewed as well. SOCIAL HISTORY: Smoker for ____ years and continues to smoke cigarettes. She is not on home oxygen. FAMILY HISTORY: Noncontributory to lungs. PHYSICAL EXAMINATION: VITAL SIGNS: Shows a blood pressure of 96 systolic on ____ of Levophed. Saturations are low 90s. On a nonrebreather mask. HEENT: Sclerae nonicteric. NECK: Supple. LUNGS: With diminished breath sounds. CARDIOVASCULAR: Regular rate. ABDOMEN: Soft, nontender. EXTREMITIES: With no pitting edema. LABORATORY DATA: Reviewed. White cell count 13.8, hemoglobin 9.2 and platelets are 178. BUN is 18, creatinine 1.0. Her troponin level ____. ABGs with a pH of 7.32, pCO2 of 42 and a pO2 of 44 with bicarbonate 21 on 36% FiO2 initially. IMPRESSION: 1. Acute hypoxic respiratory failure secondary to bilateral extensive pulmonary embolism. This is a patient who presented 3 days ago with a syncopal episode and most likely had PE at that time. She was hypotensive and had sinus tachycardia. This is now confirmed by CT angiogram. There is sparing of main pulmonary trunk. She does meet the criteria for TPA, but unfortunately she has a contraindication, which is the intrathecal baclofen pump, which carries increased risk for spinal hematoma. 2. Abnormal CT chest with bilateral pulmonary embolism and bilateral interstitial and reticular infiltrates. This could be a combination of pneumonia/interstitial lung disease/possible congestive heart failure. 3. Underlying suspected chronic obstructive pulmonary disease with reduced pulmonary reserve contributing to the severity of hypoxia. 4. 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 5. Need to rule out deep venous thrombosis. 6. Moderate right ventricular dilation on echo and mildly increased troponin level suggesting right ventricular ischemia. 7. Shock RECOMMENDATIONS: 1. Discussed with the patient's sister and discussed with RN as well. We will continue present nonrebreather mask and BiPAP would be an option, if hypoxia worsens. 2. Volume status is tenuous. In the setting of low ejection fraction, would want to avoid further fluid. I need to repeat chest x-ray and if there is any worsening vascularity, we will give diuresis. 3. Continue low dose vasopressor support. 4. Continue broad spectrum antibiotics. It was initiated by Infectious Disease. Currently, she is on vancomycin/Zosyn 5. Bronchodilators. 6. Obtain venous Dopplers to rule out DVT. In case, if her hemoglobin drops, we may consider doing an IVC filter. 7. Smoking cessation counseling provided. 8. Discussed with the patient's sister, discussed with the patient in detail, discussed with RN and RT. We will explain to them, the patient is critical. Unfortunately, TPA cannot be given due to placement of an intrathecal baclofen pump. We will continue aggressive supportive care. Critical care time 45 minutes. DAXA MILAN MD DR: AI/edwina JOB#: [id number] / [id number] GELY
[2016-07-30] MEDS ORDERED: POTASSIUM CHLORIDE 20 MEQ TABLET.ER. PO ONE (12:00)
[2016-07-30] MEDS ORDERED: FUROSEMIDE 20 MG/2 ML VIAL. IVP ONE (14:15)
[2016-07-30] MEDS ORDERED: WARFARIN 5 MG TABLET. PO ONE (16:00)
--- NOTE | 2016-07-30 16:06 | RAD ---
Bilateral lower extremity venous duplex study 07/30/2016 Clinical history: Pulmonary emboli.. Technique: Using a combination of real time ultrasound imaging and color-flow and pulse Doppler imaging techniques along with graded compression and augmentation, duplex evaluation of the deep venous system of the both lower extremities was performed. Multiple images were obtained. Findings: Partially occlusive echogenic thrombus consistent with DVT is seen involving the left common femoral vein. The left superficial femoral and left popliteal veins are patent as are the posterior tibial and peroneal veins within the left calf. There is no sonographic evidence of deep venous thrombosis involving the visualized deep venous structures of the right lower extremity. Impression: Partially occlusive DVT is seen involving the left common femoral vein.
[2016-07-30] MEDS: VANCOMYCIN PER PHARMACY MC PRN (18:16)
[2016-07-30] MEDS: HEPARIN for IV BOLUS 10,000 UNIT/10 ML VIAL. IV PRN ×2 (18:18→21:49)
[2016-07-31] VITALS (24 sets, daily range): BP systolic 90–151; BP diastolic 60–95
[2016-07-31] MEDS: VANCOMYCIN 750 MG in IV NORMAL SALINE 250ML 250 ML IV SCH ×3 (01:33→17:41)
[2016-07-31] MEDS: IV NORMAL SALINE 1000ML BAG 1,000 ML IV SCH ×2 (01:33→11:10)
[2016-07-31] MEDS: NON FORMULARY ITEM SQ SCH ×9 (03:00→23:49)
[2016-07-31] MEDS: oxyCODONE/APAP 7.5/325 1 TAB TABLET PO PRN (03:29)
[2016-07-31 04:37] LABS: BASO % 0 % (0-3); EOS % 3 % (0-3); HEMATOCRIT 27.2 % (36.0-47.0); LYMPH % 14 % (24-48); MEAN CORPUSCULAR HEMOGLOBIN 32 pg (25-35); MEAN CORPUSCULAR HGB CONC 33 g/dL (31-37); MEAN CORPUSCULAR VOLUME 98 fL (79-100); MONO % 6 % (0-9); NEUT % 77 % (31-73); PLATELET COUNT 190 x10^3/uL (140-400); RED BLOOD COUNT 2.77 x10^6/uL (3.50-5.40); RED CELL DISTRIBUTION WIDTH 13.2 % (11.5-14.5); WHITE BLOOD COUNT 14.6 x10^3/uL (4.0-11.0)
[2016-07-31 04:58] LABS: INR 1.4 (0.8-1.1); PROTHROMBIN TIME PATIENT 16.3 SEC (11.7-14.0)
[2016-07-31 05:04] LABS: CREATININE 0.7 mg/dL (0.6-1.0); GFR 104.4; POTASSIUM 3.1 mmol/L (3.5-5.1)
[2016-07-31] MEDS: PIPERACILLIN/TAZOBACTAM 3.375 GM in IV NORMAL SALINE 50ML 50 ML IV SCH ×3 (06:10→17:41)
[2016-07-31] MEDS: LEVOTHYROXINE 75 MCG TABLET PO SCH (06:10)
[2016-07-31] MEDS: HEPARIN 25,000UTS/500ML PREMIX 500 ML IV PRN (06:46)
--- NOTE | 2016-07-31 07:08 | PDOC ---
Infectious Disease Note Subjective Subjective Confused this am. States ok. Occ nausea. No pain/itch ROS ROS She is somewhat confused which makes it questionably reliable GEN: Denies fevers, chills, sweats HEENT: Denies blurred vision, sore throat CV: Denies chest pain RESP: Denies shortness of air, cough GI: Denies n/v/d NEURO: Denies confusion, dizziness MSK: Denies weakness, swelling. States she aches all over Vital Sign Vital Signs Vital Signs Date Time Temp Pulse Resp B/P (MAP) Pulse Ox O2 Delivery O2 Flow Rate FiO2 07/31/16 06:00 125 25 117/81 (93) NonRebreather Mask 10.0 07/31/16 05:00 95 07/31/16 04:00 100.0 100.0 Physical Exam PHYSICAL EXAM GENERAL: NAD, Alert, appears comfortable but is confused. Trying to take her dressing off her hand HEENT: PERRL, OC/OP - ? dentition - moist NECK: Supple, no JVD, no LN LUNGS: Clear, on facemask HEART: S1S2, no gallop, no murmur ABD: Soft, NT, no organomegaly, no rebound EXT: No edema, no cyanosis. Hand dressed REDEVELOPMENT SPECIALIST: Alert, oriented to person, no focal neurologic deficit, a little confused SKIN: No rash IV: PICC LUE - clean Labs Lab Laboratory Tests Test 07/30/16 07:00 07/30/16 07:30 07/30/16 11:55 07/30/16 16:30 Nasal Screen MRSA (PCR) Negative (Negative) White Blood Count 13.8 x10^3/uL (4.0-11.0) Red Blood Count 2.85 x10^6/uL (3.50-5.40) Hemoglobin 9.2 g/dL (12.0-15.5) Hematocrit 28.3 % (36.0-47.0) Mean Corpuscular Volume 100 fL (79-100) Mean Corpuscular Hemoglobin 32 pg (25-35) Mean Corpuscular Hemoglobin Concent 32 g/dL (31-37) Red Cell Distribution Width 13.4 % (11.5-14.5) Platelet Count 178 x10^3/uL (140-400) Neutrophils (%) (Auto) 79 % (31-73) Lymphocytes (%) (Auto) 14 % (24-48) Monocytes (%) (Auto) 5 % (0-9) Eosinophils (%) (Auto) 1 % (0-3) Basophils (%) (Auto) 1 % (0-3) Neutrophils # (Auto) 10.9 x10^3uL (1.8-7.7) Lymphocytes # (Auto) 1.9 x10^3/uL (1.0-4.8) Monocytes # (Auto) 0.7 x10^3/uL (0.0-1.1) Eosinophils # (Auto) 0.2 x10^3/uL (0.0-0.7) Basophils # (Auto) 0.1 x10^3/uL (0.0-0.2) Prothrombin Time 15.6 SEC (11.7-14.0) Prothromb Time International Ratio 1.3 (0.8-1.1) Sodium Level 139 mmol/L (136-145) Potassium Level 3.3 mmol/L (3.5-5.1) Chloride Level 109 mmol/L (98-107) Carbon Dioxide Level 24 mmol/L (21-32) Anion Gap 6 (6-14) Blood Urea Nitrogen 18 mg/dL (7-20) Creatinine 1.0 mg/dL (0.6-1.0) Estimated GFR (Cockcroft-Gault) 69.1 Glucose Level 123 mg/dL (70-99) Calcium Level 7.5 mg/dL (8.5-10.1) Heparin Anti-Xa Act, Unfractionated 0.38 IU/mL (0.30-0.70) Vancomycin Level Trough 19.2 mcg/mL (10.0-20.0) Vancomycin Last Dose Date Vancomycin Last Dose Time Test 07/30/16 17:30 07/31/16 04:30 Heparin Anti-Xa Act, Unfractionated 0.19 IU/mL (0.30-0.70) 0.35 IU/mL (0.30-0.70) White Blood Count 14.6 x10^3/uL (4.0-11.0) Red Blood Count 2.77 x10^6/uL (3.50-5.40) Hemoglobin 9.0 g/dL (12.0-15.5) Hematocrit 27.2 % (36.0-47.0) Mean Corpuscular Volume 98 fL (79-100) Mean Corpuscular Hemoglobin 32 pg (25-35) Mean Corpuscular Hemoglobin Concent 33 g/dL (31-37) Red Cell Distribution Width 13.2 % (11.5-14.5) Platelet Count 190 x10^3/uL (140-400) Neutrophils (%) (Auto) 77 % (31-73) Lymphocytes (%) (Auto) 14 % (24-48) Monocytes (%) (Auto) 6 % (0-9) Eosinophils (%) (Auto) 3 % (0-3) Basophils (%) (Auto) 0 % (0-3) Neutrophils # (Auto) 11.2 x10^3uL (1.8-7.7) Lymphocytes # (Auto) 2.0 x10^3/uL (1.0-4.8) Monocytes # (Auto) 0.9 x10^3/uL (0.0-1.1) Eosinophils # (Auto) 0.4 x10^3/uL (0.0-0.7) Basophils # (Auto) 0.0 x10^3/uL (0.0-0.2) Prothrombin Time 16.3 SEC (11.7-14.0) Prothromb Time International Ratio 1.4 (0.8-1.1) Sodium Level 141 mmol/L (136-145) Potassium Level 3.1 mmol/L (3.5-5.1) Chloride Level 108 mmol/L (98-107) Carbon Dioxide Level 25 mmol/L (21-32) Anion Gap 8 (6-14) Blood Urea Nitrogen 10 mg/dL (7-20) Creatinine 0.7 mg/dL (0.6-1.0) Estimated GFR (Cockcroft-Gault) 104.4 Glucose Level 123 mg/dL (70-99) Calcium Level 8.0 mg/dL (8.5-10.1) Micro CT chest am 07/30IMPRESSION: 1. Multiple filling defects identified in the right upper lobe, right middle lobe, right lower lobe and left upper lobe and left lower lobe pulmonary artery branches likely multiple pulmonary emboli. 2. Bilateral hilar and right infrahilar airspace opacities. Differential includes hilar lymphadenopathy, pneumonia o/ atelectasis or malignancy. Close interval follow-up examination is recommended. A follow-up PET CT scan can be considered. 3. Diffuse reticular interstitial lung markings identified in the left upper lobe, right upper lobe, right middle lobe and right lower lobe of the lung could be reticular interstitial changes 4. Small bilateral pleural effusions , right greater than left with patchy bibasilar airspace opacities. Objective Assessment Encephalopathy - ? med related but also does have a mood disorder PE - on heparin Fever likely sec to PE. Blood cults neg Leukocytosis - likely reactive Hypotension - down to 3 of Levophed Interstitial markings on CT - ? 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 Sutures removed about 2 weeks post -op now exposed bone Left common Fem DVT Cefazolin allergy - nausea Low grade temps - better NSTEMI - family has declined further w/u Tobacco abuse Baclofen pump Primary lateral Sclerosis Plan Plan of Care Check UA C and S CXR Add doxy for potential atypical coverage Cont Vanc/Zosyn Labs this am May need Plastics and a graft/HBO and transfer to [facility] F/u labs in am/cults SAMANTHA MCCONNELL MD Jul 31, 2016 07:08
--- NOTE | 2016-07-31 08:29 | RAD ---
AP portable chest radiograph 07/31/2016 Clinical History: Shortness of breath. Right lung infiltrate. An AP portable erect digital radiograph of the chest was obtained. Comparison study is dated 07/30/2016. An anterior plate and bone screws overlie the mid and lower cervical spine. Left arm PICC is unchanged in position. The cardiac silhouette is borderline enlarged. Atherosclerotic calcification of the thoracic aorta is seen. A right perihilar infiltrate is seen which has not significantly changed. No pneumothorax or pleural effusion is noted. The osseous structures are unchanged. Impression: Right perihilar infiltrate, unchanged.
[2016-07-31] MEDS: METOPROLOL TART IMMED RELEASE 25 MG TABLET. PO SCH ×2 (08:51→21:16)
[2016-07-31] MEDS: FLUTICASONE 50MCG/NASAL SPRAY 16GM BOTTLE. NS SCH (08:52)
[2016-07-31] MEDS: ALBUTEROL SULFATE 2.5 MG/3 ML NEBU. NEB SCH ×4 (08:57→19:30)
[2016-07-31] MEDS: BUDESONIDE 0.5 MG/2 ML NEBU. NEB SCH ×2 (08:57→19:30)
[2016-07-31] MEDS: fentaNYL 75MCG/HR PATCH 1 PATCH PATCH.TD72 TD SCH (09:00)
[2016-07-31] MEDS ORDERED: fentaNYL 75MCG/HR PATCH 1 PATCH PATCH.TD72 TD SCH (09:00)
[2016-07-31] MEDS ORDERED: FUROSEMIDE 20 MG/2 ML VIAL. IVP ONE (09:15)
--- NOTE | 2016-07-31 09:15 | PDOC ---
PROGRESS NOTES Subjective Subjective Patient alert, c/o headache. Objective Objective Vital Signs Date Time Temp Pulse Resp B/P (MAP) Pulse Ox O2 Delivery O2 Flow Rate FiO2 07/31/16 08:00 Non-Rebreather 10.0 07/31/16 06:00 125 25 117/81 (93) 07/31/16 05:00 95 07/31/16 04:00 100.0 100.0 Intake and Output 07/31/16 07:00 Intake Total 4428 ml Balance 4428 ml Intake Oral 500 ml IV Total 3928 ml # Voids 2 Physical Exam Abdomen: Normal bowel sounds, Soft, No tenderness Heart: Regular rate Extremities: No edema General: Alert (oriented to person), No acute distress Lungs: Other (BS decreased throughout, some crackles heard) Assessment Assessment Problems Medical Problems: (1) Elevated troponin Status: Acute Plan Plan of Care 1. PE's with DVT - continue Heparin gtt until INR therapeutic with Coumadin. 2. acute respiratory failure - some improvement, continue O2 per mask. On broad abx coverage per ID. 3. NSTEMI with CHF - not much UO yesterday, will try Lasix x1 today and follow. Diuresis may help respiratory status also. BP's a little low but stable on pressors. 4. hypokalemia - replace IV and follow lab. 5. surgical wound right hand - stable, continue abx and wound care. Dr Villeda recommends treating conservatively to allow for natural healing. 6. metabolic encephalopathy with underlying mood disorder - some agitation intermittently also. Zyprexa was increased yesterday, continue this dose and supportive care. Ativan available for agitation interfering with her care. 7. chronic pain - stable and less sedated, continue Duragesic patch and Baclofen pump. Use po Percocet sparingly. Comment Review of Relevant I have reviewed the following items mimi (where applicable) has been applied. Labs Laboratory Tests Test 07/29/16 15:45 07/30/16 03:18 07/30/16 07:00 07/30/16 07:30 Vancomycin Level Trough 9.9 mcg/mL (10.0-20.0) Vancomycin Last Dose Date 06/28/16 Vancomycin Last Dose Time 0330 O2 Saturation 75 % (92-99) Arterial Blood pH 7.32 (7.35-7.45) Arterial Blood pCO2 at Patient Temp 42 mmHg (35-46) Arterial Blood pO2 at Patient Temp 44 mmHg (75-108) Arterial Blood HCO3 21 mmol/L (21-28) Arterial Blood Base Excess -5 mmol/L (-3-3) FiO2 36 Nasal Screen MRSA (PCR) Negative (Negative) White Blood Count 13.8 x10^3/uL (4.0-11.0) Red Blood Count 2.85 x10^6/uL (3.50-5.40) Hemoglobin 9.2 g/dL (12.0-15.5) Hematocrit 28.3 % (36.0-47.0) Mean Corpuscular Volume 100 fL (79-100) Mean Corpuscular Hemoglobin 32 pg (25-35) Mean Corpuscular Hemoglobin Concent 32 g/dL (31-37) Red Cell Distribution Width 13.4 % (11.5-14.5) Platelet Count 178 x10^3/uL (140-400) Neutrophils (%) (Auto) 79 % (31-73) Lymphocytes (%) (Auto) 14 % (24-48) Monocytes (%) (Auto) 5 % (0-9) Eosinophils (%) (Auto) 1 % (0-3) Basophils (%) (Auto) 1 % (0-3) Neutrophils # (Auto) 10.9 x10^3uL (1.8-7.7) Lymphocytes # (Auto) 1.9 x10^3/uL (1.0-4.8) Monocytes # (Auto) 0.7 x10^3/uL (0.0-1.1) Eosinophils # (Auto) 0.2 x10^3/uL (0.0-0.7) Basophils # (Auto) 0.1 x10^3/uL (0.0-0.2) Prothrombin Time 15.6 SEC (11.7-14.0) Prothromb Time International Ratio 1.3 (0.8-1.1) Sodium Level 139 mmol/L (136-145) Potassium Level 3.3 mmol/L (3.5-5.1) Chloride Level 109 mmol/L (98-107) Carbon Dioxide Level 24 mmol/L (21-32) Anion Gap 6 (6-14) Blood Urea Nitrogen 18 mg/dL (7-20) Creatinine 1.0 mg/dL (0.6-1.0) Estimated GFR (Cockcroft-Gault) 69.1 Glucose Level 123 mg/dL (70-99) Calcium Level 7.5 mg/dL (8.5-10.1) Test 07/30/16 11:55 07/30/16 16:30 07/30/16 17:30 07/31/16 04:30 Heparin Anti-Xa Act, Unfractionated 0.38 IU/mL (0.30-0.70) 0.19 IU/mL (0.30-0.70) 0.35 IU/mL (0.30-0.70) Vancomycin Level Trough 19.2 mcg/mL (10.0-20.0) Vancomycin Last Dose Date Vancomycin Last Dose Time White Blood Count 14.6 x10^3/uL (4.0-11.0) Red Blood Count 2.77 x10^6/uL (3.50-5.40) Hemoglobin 9.0 g/dL (12.0-15.5) Hematocrit 27.2 % (36.0-47.0) Mean Corpuscular Volume 98 fL (79-100) Mean Corpuscular Hemoglobin 32 pg (25-35) Mean Corpuscular Hemoglobin Concent 33 g/dL (31-37) Red Cell Distribution Width 13.2 % (11.5-14.5) Platelet Count 190 x10^3/uL (140-400) Neutrophils (%) (Auto) 77 % (31-73) Lymphocytes (%) (Auto) 14 % (24-48) Monocytes (%) (Auto) 6 % (0-9) Eosinophils (%) (Auto) 3 % (0-3) Basophils (%) (Auto) 0 % (0-3) Neutrophils # (Auto) 11.2 x10^3uL (1.8-7.7) Lymphocytes # (Auto) 2.0 x10^3/uL (1.0-4.8) Monocytes # (Auto) 0.9 x10^3/uL (0.0-1.1) Eosinophils # (Auto) 0.4 x10^3/uL (0.0-0.7) Basophils # (Auto) 0.0 x10^3/uL (0.0-0.2) Prothrombin Time 16.3 SEC (11.7-14.0) Prothromb Time International Ratio 1.4 (0.8-1.1) Sodium Level 141 mmol/L (136-145) Potassium Level 3.1 mmol/L (3.5-5.1) Chloride Level 108 mmol/L (98-107) Carbon Dioxide Level 25 mmol/L (21-32) Anion Gap 8 (6-14) Blood Urea Nitrogen 10 mg/dL (7-20) Creatinine 0.7 mg/dL (0.6-1.0) Estimated GFR (Cockcroft-Gault) 104.4 Glucose Level 123 mg/dL (70-99) Calcium Level 8.0 mg/dL (8.5-10.1) Laboratory Tests Test 07/30/16 11:55 07/30/16 16:30 07/30/16 17:30 07/31/16 04:30 Heparin Anti-Xa Act, Unfractionated 0.38 IU/mL (0.30-0.70) 0.19 IU/mL (0.30-0.70) 0.35 IU/mL (0.30-0.70) Vancomycin Level Trough 19.2 mcg/mL (10.0-20.0) Vancomycin Last Dose Date Vancomycin Last Dose Time White Blood Count 14.6 x10^3/uL (4.0-11.0) Red Blood Count 2.77 x10^6/uL (3.50-5.40) Hemoglobin 9.0 g/dL (12.0-15.5) Hematocrit 27.2 % (36.0-47.0) Mean Corpuscular Volume 98 fL (79-100) Mean Corpuscular Hemoglobin 32 pg (25-35) Mean Corpuscular Hemoglobin Concent 33 g/dL (31-37) Red Cell Distribution Width 13.2 % (11.5-14.5) Platelet Count 190 x10^3/uL (140-400) Neutrophils (%) (Auto) 77 % (31-73) Lymphocytes (%) (Auto) 14 % (24-48) Monocytes (%) (Auto) 6 % (0-9) Eosinophils (%) (Auto) 3 % (0-3) Basophils (%) (Auto) 0 % (0-3) Neutrophils # (Auto) 11.2 x10^3uL (1.8-7.7) Lymphocytes # (Auto) 2.0 x10^3/uL (1.0-4.8) Monocytes # (Auto) 0.9 x10^3/uL (0.0-1.1) Eosinophils # (Auto) 0.4 x10^3/uL (0.0-0.7) Basophils # (Auto) 0.0 x10^3/uL (0.0-0.2) Prothrombin Time 16.3 SEC (11.7-14.0) Prothromb Time International Ratio 1.4 (0.8-1.1) Sodium Level 141 mmol/L (136-145) Potassium Level 3.1 mmol/L (3.5-5.1) Chloride Level 108 mmol/L (98-107) Carbon Dioxide Level 25 mmol/L (21-32) Anion Gap 8 (6-14) Blood Urea Nitrogen 10 mg/dL (7-20) Creatinine 0.7 mg/dL (0.6-1.0) Estimated GFR (Cockcroft-Gault) 104.4 Glucose Level 123 mg/dL (70-99) Calcium Level 8.0 mg/dL (8.5-10.1) Microbiology 07/29/16 Blood Culture - Preliminary, Resulted NO GROWTH AFTER 1 DAY Medications Current Medications Sodium Chloride 1,000 ml @ 1,000 mls/hr 1X ONCE IV Last administered on 19:28; Start 07/27/16 at 19:15; Stop 07/27/16 at 20:14; Status DC Ondansetron HCl (Zofran) 4 mg PRN Q8HRS PRN IV NAUSEA/VOMITING; Start 07/27/16 at 20:45; Stop 07/28/16 at 07:41; Status DC Aspirin ([place]vis Aspirin) 325 mg 1X ONCE PO Last administered on 07/27/16 20:55 ; Start 07/27/16 at 20:45; Stop 07/27/16 at 20:46; Status DC Amitriptyline HCl (Elavil) 10 mg BID PO ; Start 07/28/16 at 09:00; Stop at 09:00; Status DC Fentanyl (Duragesic 75mcg/ Hr Patch) 1 patch Q3DAYS TD ; Start 07/27/16 at 23:00 ; Stop 07/27/16 at 23:08; Status DC Olanzapine (ZyPREXA) 5 mg BID PO ; Start 07/28/16 at 09:00; Stop 07/28/16 at 09: 00; Status DC Oxycodone/ Acetaminophen (Percocet 7.5/ 325) 1 tab Q8HRS PO ; Start 07/28/16 at 06:00; Stop 07/28/16 at 06:00; Status DC Topiramate (Topamax) 100 mg BID PO ; Start 07/28/16 at 09:00; Stop 07/28/16 at 09:00; Status DC Non-Formulary Medication 800 mg TID PO ; Start 07/28/16 at 09:00; Stop 07/28/16 at 09:00; Status DC Non-Formulary Medication 150 mg BID PO ; Start 07/28/16 at 09:00; Stop 07/28/16 at 09:00; Status DC Non-Formulary Medication 2 mg TID PO ; Start 07/28/16 at 09:00; Stop 07/28/16 at 09:00; Status DC Non-Formulary Medication 1 ea Q3HRS SQ Last administered on 07/27/16 22:45; Start 07/27/16 at 00:00; Stop 07/27/16 at 23:40; Status DC Amitriptyline HCl (Elavil) 10 mg BID PO Last administered on 07/30/16 21:41; Start 07/27/16 at 23:30 Fentanyl (Duragesic 75mcg/ Hr Patch) 1 patch Q3DAYS TD Last administered on 23:33; Start 07/27/16 at 23:30; Stop 07/28/16 at 20:41; Status DC Olanzapine (ZyPREXA) 5 mg BID PO Last administered on 07/27/16 23:32; Start at 23:30; Stop 07/28/16 at 07:30; Status DC Oxycodone/ Acetaminophen (Percocet 7.5/ 325) 1 tab Q8HRS PO Last administered on 07/29/16 20:50; Start 07/27/16 at 23:30; Stop 07/30/16 at 08:07; Status DC Topiramate (Topamax) 100 mg BID PO Last administered on 07/30/16 21:41; Start 07/27/16 at 23:30 Gabapentin (Neurontin) 800 mg Q12HR PO Last administered on 07/30/16 21:42; Start 07/27/16 at 23:30 Famotidine (Pepcid) 20 mg BID PO Last administered on 07/30/16 21:42; Start at 23:30 Tizanidine HCl (Zanaflex) 2 mg TID PO Last administered on 07/30/16 21:41; Start 07/27/16 at 23:30 Non-Formulary Medication 1 ea Q3HRS SQ Last administered on 07/28/16 18:00; Start 07/28/16 at 03:00 Acetaminophen/ Butalbital/ Caffeine (Fioricet) 1 tab PRN Q6HRS PRN PO MIGRAINE HEADACHE; Start 07/28/16 at 07:30 Fluticasone Propionate (Flonase) 2 spray DAILY NS ; Start 07/28/16 at 09:00; Status Cancel Levothyroxine Sodium (Synthroid) 75 mcg DAILY06 PO Last administered on 06:10; Start 07/28/16 at 07:30 Potassium Chloride (Klor-Con) 20 meq DAILY PO Last administered on 07/30/16 08 :31; Start 07/28/16 at 09:00 Non-Formulary Medication 1 each BID IH ; Start 07/28/16 at 09:00; Status UNV Cetirizine HCl (ZyrTEC) 10 mg DAILY PO Last administered on 07/30/16 08:31; Start 07/28/16 at 09:00 Venlafaxine HCl (Effexor Xr) 150 mg DAILY PO Last administered on 07/30/16 08: 31; Start 07/28/16 at 09:00 Olanzapine (ZyPREXA) 5 mg DAILY PO Last administered on 07/29/16 09:29; Start 07/28/16 at 09:00; Stop 07/30/16 at 08:17; Status DC Budesonide (Pulmicort) 0.5 mg RTBID NEB Last administered on 07/30/16 20:21; Start 07/28/16 at 08:00 Albuterol Sulfate (Ventolin Neb Soln) 2.5 mg RTQID NEB Last administered on 20:21; Start 07/28/16 at 08:00 Ondansetron HCl (Zofran) 4 mg PRN Q6HRS PRN IV NAUSEA/VOMITING; Start 07/28/16 at 07:30 Vancomycin HCl (Vanco Per Pharmacy) 1 each PRN DAILY PRN MC SEE COMMENTS Last administered on 07/30/16 18:16; Start 07/28/16 at 08:00 Piperacillin Sod/ Tazobactam Sod 3.375 gm/Sodium Chloride 50 ml @ 100 mls/hr Q6HRS IV Last administered on 07/31/16 06:10; Start 07/28/16 at 08:30 Vancomycin HCl 1.25 gm/Sodium Chloride 250 ml @ 166.667 mls/hr 1X ONCE IV Last administered on 07/28/16 15:18; Start 07/28/16 at 09:00; Stop 07/28/16 at 10:29; Status DC Fluticasone Propionate (Flonase) 2 spray DAILY NS ; Start 07/29/16 at 09:00 Aspirin (Ecotrin) 81 mg DAILYWBKFT PO Last administered on 07/30/16 08:31; Start 07/28/16 at 17:00 Naloxone HCl (Narcan) 0.4 mg STK-MED ONCE .ROUTE ; Start 07/28/16 at 19:58; Stop 07/28/16 at 19:59; Status DC Naloxone HCl (Narcan) 0.4 mg 1X ONCE IV Last administered on 07/28/16 20:10; Start 07/28/16 at 20:15; Stop 07/28/16 at 20:16; Status DC Fentanyl (Duragesic 75mcg/ Hr Patch) 1 patch Q3DAYS TD ; Start 07/31/16 at 09:00 ; Status UNV Fentanyl (Duragesic 75mcg/ Hr Patch) 1 patch 1X ONCE TD ; Start 07/28/16 at 20: 45; Stop 07/28/16 at 20:46; Status UNV Fentanyl (Duragesic 75mcg/ Hr Patch) 1 patch Q3DAYS TD Last administered on 23:46; Start 07/28/16 at 21:00 Lorazepam (Ativan) 0.5 mg PRN Q6HRS PRN IV ANXIETY / AGITATION Last administered on 07/31/16 03:32; Start 07/29/16 at 01:45 Vancomycin HCl 750 mg/Sodium Chloride 250 ml @ 250 mls/hr Q12H IV Last administered on 07/29/16 03:57; Start 07/29/16 at 03:30; Stop 07/29/16 at 16:32 ; Status DC Vancomycin HCl 1 each 1X ONCE MC Last administered on 07/29/16 15:00; Start 07/29/16 at 15:00; Stop 07/29/16 at 15:01; Status DC Metoprolol Tartrate (Lopressor) 12.5 mg BID PO Last administered on 07/29/16 20:52; Start 07/29/16 at 11:30 Vancomycin HCl 1.25 gm/Sodium Chloride 250 ml @ 166.667 mls/hr 1X ONCE IV Last administered on 07/29/16 16:58; Start 07/29/16 at 17:00; Stop 07/29/16 at 18:29; Status DC Vancomycin HCl 750 mg/Sodium Chloride 250 ml @ 250 mls/hr Q8H IV Last administered on 07/31/16 01:33; Start 07/30/16 at 01:00 Vancomycin HCl 1 each 1X ONCE MC ; Start 07/30/16 at 16:30; Stop 07/30/16 at 16 :31; Status DC Digoxin (Lanoxin) 250 mcg PRN 1X PRN IV thachycardia; Start 07/29/16 at 18:00 Acetaminophen (Tylenol) 650 mg PRN Q6HRS PRN PO FEVER > 101 Last administered on 07/29/16 23:09; Start 07/29/16 at 23:00 Sodium Chloride 500 ml @ 500 mls/hr 1X ONCE IV Last administered on 03:45; Start 07/30/16 at 03:45; Stop 07/30/16 at 04:44; Status DC Iohexol (Omnipaque 300 Mg/ml) 75 ml 1X ONCE IV Last administered on 07/30/16 04:25; Start 07/30/16 at 04:00; Stop 07/30/16 at 04:01; Status DC Info (Do NOT chart on this entry -- for MONITORING) 1 each PRN DAILY PRN MC SEE COMMENTS; Start 07/30/16 at 04:00; Stop 08/01/16 at 03:59 Heparin Sodium/ Dextrose 500 ml @ 0 mls/hr CONT PRN IV SEE I/O RECORD Last administered on 07/31/16 06:46; Start 07/30/16 at 05:30 Heparin Sodium (Porcine) (Heparin Sodium) 1,500 unit PRN Q6HRS PRN IV FOR UFH LEVEL LESS THAN 0.2 Last administered on 07/30/16 21:49; Start 07/30/16 at 05: 30 Heparin Sodium (Porcine) (Heparin Sodium) 750 unit PRN Q6HRS PRN IV FOR UFH LEVEL 0.2 - 0.29; Start 07/30/16 at 05:30 Warfarin Sodium (Coumadin Per Pharmacy) 1 each PRN DAILY PRN MC PER PROTOCOL Last administered on 07/30/16 11:23; Start 07/30/16 at 05:00 Sodium Chloride 500 ml @ 500 mls/hr 1X ONCE IV Last administered on 05:15; Start 07/30/16 at 05:15; Stop 07/30/16 at 06:14; Status DC Heparin Sodium (Porcine) (Heparin Sodium) 3,950 unit 1X ONCE IV Last administered on 07/30/16 05:32; Start 07/30/16 at 05:30; Stop 07/30/16 at 05:31 ; Status DC Norepinephrine Bitartrate 250 ml @ 0 mls/hr CONT PRN IV SEE I/O RECORD Last administered on 07/30/16 07:17; Start 07/30/16 at 07:15 Oxycodone/ Acetaminophen (Percocet 7.5/ 325) 1 tab PRN Q8HRS PRN PO PAIN Last administered on 07/31/16 03:29; Start 07/30/16 at 08:15 Olanzapine (ZyPREXA) 10 mg DAILY PO Last administered on 07/30/16 08:32; Start 07/30/16 at 09:00 Sodium Chloride 1,000 ml @ 75 mls/hr [id number] IV Last administered on 01:33; Start 07/30/16 at 08:30 Potassium Chloride (Klor-Con) 40 meq 1X ONCE PO Last administered on 12:03; Start 07/30/16 at 12:00; Stop 07/30/16 at 12:01; Status DC Warfarin Sodium (Coumadin) 5 mg 1X WARF ONCE PO Last administered on 16:20; Start 07/30/16 at 16:00; Stop 07/30/16 at 16:01; Status DC Furosemide (Lasix) 20 mg 1X ONCE IVP Last administered on 07/30/16 14:13; Start 07/30/16 at 14:15; Stop 07/30/16 at 14:16; Status DC Doxycycline Hyclate (Vibra-Tab) 100 mg BID PO ; Start 07/31/16 at 09:00 Active Scripts Active Reported Xopenex Hfa (Levalbuterol Tartrate) 15 Gm Hfa.aer.ad 2 Puff IH PRN Q4-6HRS Fluticasone Propionate Nasal [place] (Fluticasone Propionate) 16 Gm [place].susp 2 [place] NS DAILY Olanzapine 5 Mg Tablet 5 Mg PO BID Meloxicam 7.5 Mg Tablet 1 Tab PO DAILY FENTANYL 75mcg/hr (Fentanyl) 1 Each Patch.td72 1 Patch TP Q3DAYS Claritin (Loratadine) 10 Mg Tablet 1 Tab PO DAILY Advair 500-50 Diskus (Fluticasone/Salmeterol) 1 Each Disk.w.dev 1 Each IH BID Amitriptyline Hcl 10 Mg Tablet 10 Mg PO BID Zofran Odt (Ondansetron) 8 Mg Tab.rapdis 8 Mg PO PRN Percocet 7.5-325 Mg Tablet (Oxycodone/Acetaminophen) 1 Each Tablet 1 Each PO Q8HRS Levothyroxine Sodium 75 Mcg Tablet 75 Mcg PO DAILY Fioricet 50-325-40 Mg Tablet (Butalb/Acetaminophen/Caffeine) 1 Each Tablet 1 Each PO Q6HRS PRN Effexor Xr (Venlafaxine Hcl) 150 Mg Cap.er.24h 150 Mg PO DAILY Klor-Con M20 (Potassium Chloride) 20 Meq Tab.er.prt 20 Meq PO DAILY Tizanidine Hcl 2 Mg Capsule 2 Mg PO TID Zantac (Ranitidine Hcl) 150 Mg Tablet 150 Mg PO BID Topiramate 25 Mg Tablet 100 Mg PO BID Gabapentin 800 Mg Tablet 800 Mg PO TID Vitals/I & O Vital Sign - Last 24 Hours 07/30/16 07/30/16 07/30/16 07/30/16 09:15 09:30 09:45 10:00 Pulse 94 90 90 98 Resp 22 20 22 18 B/P (MAP) 100/74 (83) 105/79 (88) 102/71 (81) 88/70 (76) Pulse Ox 92 96 94 91 O2 Delivery NonRebreather Mask NonRebreather Mask NonRebreather Mask NonRebreather Mask O2 Flow Rate 10.0 10.0 10.0 10.0 07/30/16 07/30/16 07/30/16 07/30/16 10:15 10:30 10:45 11:00 Pulse 88 96 90 90 Resp 20 22 22 20 B/P (MAP) 117/78 (91) 91/65 (74) 96/71 (79) 103/73 (83) Pulse Ox 99 94 98 99 O2 Delivery NonRebreather Mask NonRebreather Mask NonRebreather Mask NonRebreather Mask O2 Flow Rate 10.0 10.0 10.0 10.0 07/30/16 07/30/16 07/30/16 07/30/16 11:30 11:48 11:54 12:00 Pulse 90 110 Resp 20 20 B/P (MAP) 98/73 (81) 102/71 (81) Pulse Ox 99 93 O2 Delivery NonRebreather Mask Non-Rebreather NonRebreather Mask NonRebreather Mask O2 Flow Rate 10.0 10.0 10.0 07/30/16 07/30/16 07/30/16 07/30/16 12:30 12:41 13:00 13:30 Temp 97.9 97.9 Pulse 92 114 96 98 Resp 22 22 18 22 B/P (MAP) 118/81 (93) 118/81 (93) 119/83 (95) 86/67 (73) Pulse Ox 99 81 97 97 O2 Delivery NonRebreather Mask NonRebreather Mask NonRebreather Mask NonRebreather Mask O2 Flow Rate 10.0 10.0 10.0 10.0 07/30/16 07/30/16 07/30/16 07/30/16 14:00 15:00 15:45 16:00 Temp 99.6 99.6 Pulse 98 112 110 Resp 18 20 22 B/P (MAP) 95/71 (79) 140/90 (107) 109/78 (88) Pulse Ox 97 94 97 100 O2 Delivery NonRebreather Mask NonRebreather Mask NonRebreather Mask NonRebreather Mask O2 Flow Rate 10.0 10.0 10.0 07/30/16 07/30/16 07/30/16 07/30/16 16:09 17:19 18:08 19:00 Pulse 112 114 116 Resp 22 24 24 B/P (MAP) 90/65 (73) 86/55 (65) 79/58 (65) Pulse Ox 98 96 96 O2 Delivery Non-Rebreather NonRebreather Mask NonRebreather Mask NonRebreather Mask O2 Flow Rate 10.0 10.0 10.0 10.0 07/30/16 07/30/16 07/30/16 07/30/16 19:15 19:30 20:00 20:00 Temp 99.9 99.9 Pulse 108 Resp 24 B/P (MAP) 89/65 (73) 100/69 (79) 106/75 (85) Pulse Ox 95 O2 Delivery NonRebreather Mask Non-Rebreather O2 Flow Rate 10.0 10.0 07/30/16 07/30/16 07/30/16 07/30/16 20:24 20:24 20:30 21:00 Pulse 116 Resp 20 B/P (MAP) 96/61 (73) 104/69 (81) Pulse Ox 95 95 86 O2 Delivery NonRebreather Mask NonRebreather Mask NonRebreather Mask O2 Flow Rate 10.0 07/30/16 07/30/16 07/30/16 07/31/16 21:30 22:00 22:28 00:00 Temp 100.4 100.4 Pulse 116 116 Resp 18 15 B/P (MAP) 109/71 (84) 151/71 (97) 107/69 (82) 120/75 (90) Pulse Ox 94 95 O2 Delivery NonRebreather Mask NonRebreather Mask O2 Flow Rate 10.0 10.0 07/31/16 07/31/16 07/31/16 07/31/16 00:00 01:00 02:00 03:00 Pulse 120 120 116 Resp 21 21 18 B/P (MAP) 127/81 (96) 141/81 (101) 130/83 (99) Pulse Ox 97 97 94 O2 Delivery Non-Rebreather NonRebreather Mask NonRebreather Mask NonRebreather Mask O2 Flow Rate 10.0 10.0 10.0 10.0 07/31/16 07/31/16 07/31/16 07/31/16 04:00 04:00 05:00 06:00 Temp 100.0 100.0 Pulse 111 110 125 Resp 12 18 25 B/P (MAP) 102/66 (78) 98/69 (79) 117/81 (93) Pulse Ox 94 95 O2 Delivery Non-Rebreather NonRebreather Mask NonRebreather Mask NonRebreather Mask O2 Flow Rate 10.0 10.0 10.0 10.0 07/31/16 08:00 O2 Delivery Non-Rebreather O2 Flow Rate 10.0 Intake and Output 07/30/16 07/30/16 07/31/16 15:00 23:00 07:00 Intake Total 700 ml 2177 ml 1551 ml Balance 700 ml 2177 ml 1551 ml RISHABH LUNDBERG MD Jul 31, 2016 09:15
--- NOTE | 2016-07-31 09:36 | PDOC ---
PULMONARY PROGRESS NOTES Subjective better low dose levo BP better on 100%FIO2 Vitals Vital Signs Date Time Temp Pulse Resp B/P (MAP) Pulse Ox O2 Delivery O2 Flow Rate FiO2 07/31/16 08:58 NonRebreather Mask 07/31/16 08:00 10.0 07/31/16 08:00 98.5 114 23 103/70 (81) 96 98.5 General: Alert, No acute distress Lungs: Other (ant rhonchi) Cardiovascular: S1 Abdomen: Soft Neuro Exam: Alert Extremities: Other (trace edema) Labs Laboratory Tests Test 07/29/16 15:45 07/30/16 03:18 07/30/16 07:00 07/30/16 07:30 Vancomycin Level Trough 9.9 mcg/mL (10.0-20.0) Vancomycin Last Dose Date 06/28/16 Vancomycin Last Dose Time 0330 O2 Saturation 75 % (92-99) Arterial Blood pH 7.32 (7.35-7.45) Arterial Blood pCO2 at Patient Temp 42 mmHg (35-46) Arterial Blood pO2 at Patient Temp 44 mmHg (75-108) Arterial Blood HCO3 21 mmol/L (21-28) Arterial Blood Base Excess -5 mmol/L (-3-3) FiO2 36 Nasal Screen MRSA (PCR) Negative (Negative) White Blood Count 13.8 x10^3/uL (4.0-11.0) Red Blood Count 2.85 x10^6/uL (3.50-5.40) Hemoglobin 9.2 g/dL (12.0-15.5) Hematocrit 28.3 % (36.0-47.0) Mean Corpuscular Volume 100 fL (79-100) Mean Corpuscular Hemoglobin 32 pg (25-35) Mean Corpuscular Hemoglobin Concent 32 g/dL (31-37) Red Cell Distribution Width 13.4 % (11.5-14.5) Platelet Count 178 x10^3/uL (140-400) Neutrophils (%) (Auto) 79 % (31-73) Lymphocytes (%) (Auto) 14 % (24-48) Monocytes (%) (Auto) 5 % (0-9) Eosinophils (%) (Auto) 1 % (0-3) Basophils (%) (Auto) 1 % (0-3) Neutrophils # (Auto) 10.9 x10^3uL (1.8-7.7) Lymphocytes # (Auto) 1.9 x10^3/uL (1.0-4.8) Monocytes # (Auto) 0.7 x10^3/uL (0.0-1.1) Eosinophils # (Auto) 0.2 x10^3/uL (0.0-0.7) Basophils # (Auto) 0.1 x10^3/uL (0.0-0.2) Prothrombin Time 15.6 SEC (11.7-14.0) Prothromb Time International Ratio 1.3 (0.8-1.1) Sodium Level 139 mmol/L (136-145) Potassium Level 3.3 mmol/L (3.5-5.1) Chloride Level 109 mmol/L (98-107) Carbon Dioxide Level 24 mmol/L (21-32) Anion Gap 6 (6-14) Blood Urea Nitrogen 18 mg/dL (7-20) Creatinine 1.0 mg/dL (0.6-1.0) Estimated GFR (Cockcroft-Gault) 69.1 Glucose Level 123 mg/dL (70-99) Calcium Level 7.5 mg/dL (8.5-10.1) Test 07/30/16 11:55 07/30/16 16:30 07/30/16 17:30 07/31/16 04:30 Heparin Anti-Xa Act, Unfractionated 0.38 IU/mL (0.30-0.70) 0.19 IU/mL (0.30-0.70) 0.35 IU/mL (0.30-0.70) Vancomycin Level Trough 19.2 mcg/mL (10.0-20.0) Vancomycin Last Dose Date Vancomycin Last Dose Time White Blood Count 14.6 x10^3/uL (4.0-11.0) Red Blood Count 2.77 x10^6/uL (3.50-5.40) Hemoglobin 9.0 g/dL (12.0-15.5) Hematocrit 27.2 % (36.0-47.0) Mean Corpuscular Volume 98 fL (79-100) Mean Corpuscular Hemoglobin 32 pg (25-35) Mean Corpuscular Hemoglobin Concent 33 g/dL (31-37) Red Cell Distribution Width 13.2 % (11.5-14.5) Platelet Count 190 x10^3/uL (140-400) Neutrophils (%) (Auto) 77 % (31-73) Lymphocytes (%) (Auto) 14 % (24-48) Monocytes (%) (Auto) 6 % (0-9) Eosinophils (%) (Auto) 3 % (0-3) Basophils (%) (Auto) 0 % (0-3) Neutrophils # (Auto) 11.2 x10^3uL (1.8-7.7) Lymphocytes # (Auto) 2.0 x10^3/uL (1.0-4.8) Monocytes # (Auto) 0.9 x10^3/uL (0.0-1.1) Eosinophils # (Auto) 0.4 x10^3/uL (0.0-0.7) Basophils # (Auto) 0.0 x10^3/uL (0.0-0.2) Prothrombin Time 16.3 SEC (11.7-14.0) Prothromb Time International Ratio 1.4 (0.8-1.1) Sodium Level 141 mmol/L (136-145) Potassium Level 3.1 mmol/L (3.5-5.1) Chloride Level 108 mmol/L (98-107) Carbon Dioxide Level 25 mmol/L (21-32) Anion Gap 8 (6-14) Blood Urea Nitrogen 10 mg/dL (7-20) Creatinine 0.7 mg/dL (0.6-1.0) Estimated GFR (Cockcroft-Gault) 104.4 Glucose Level 123 mg/dL (70-99) Calcium Level 8.0 mg/dL (8.5-10.1) Laboratory Tests Test 07/30/16 11:55 07/30/16 16:30 07/30/16 17:30 07/31/16 04:30 Heparin Anti-Xa Act, Unfractionated 0.38 IU/mL (0.30-0.70) 0.19 IU/mL (0.30-0.70) 0.35 IU/mL (0.30-0.70) Vancomycin Level Trough 19.2 mcg/mL (10.0-20.0) Vancomycin Last Dose Date Vancomycin Last Dose Time White Blood Count 14.6 x10^3/uL (4.0-11.0) Red Blood Count 2.77 x10^6/uL (3.50-5.40) Hemoglobin 9.0 g/dL (12.0-15.5) Hematocrit 27.2 % (36.0-47.0) Mean Corpuscular Volume 98 fL (79-100) Mean Corpuscular Hemoglobin 32 pg (25-35) Mean Corpuscular Hemoglobin Concent 33 g/dL (31-37) Red Cell Distribution Width 13.2 % (11.5-14.5) Platelet Count 190 x10^3/uL (140-400) Neutrophils (%) (Auto) 77 % (31-73) Lymphocytes (%) (Auto) 14 % (24-48) Monocytes (%) (Auto) 6 % (0-9) Eosinophils (%) (Auto) 3 % (0-3) Basophils (%) (Auto) 0 % (0-3) Neutrophils # (Auto) 11.2 x10^3uL (1.8-7.7) Lymphocytes # (Auto) 2.0 x10^3/uL (1.0-4.8) Monocytes # (Auto) 0.9 x10^3/uL (0.0-1.1) Eosinophils # (Auto) 0.4 x10^3/uL (0.0-0.7) Basophils # (Auto) 0.0 x10^3/uL (0.0-0.2) Prothrombin Time 16.3 SEC (11.7-14.0) Prothromb Time International Ratio 1.4 (0.8-1.1) Sodium Level 141 mmol/L (136-145) Potassium Level 3.1 mmol/L (3.5-5.1) Chloride Level 108 mmol/L (98-107) Carbon Dioxide Level 25 mmol/L (21-32) Anion Gap 8 (6-14) Blood Urea Nitrogen 10 mg/dL (7-20) Creatinine 0.7 mg/dL (0.6-1.0) Estimated GFR (Cockcroft-Gault) 104.4 Glucose Level 123 mg/dL (70-99) Calcium Level 8.0 mg/dL (8.5-10.1) Medications Active Scripts Medications Dose Route/Sig Max Daily Dose Days Date Category Xopenex Hfa (Levalbuterol Tartrate) 15 Gm Hfa.aer.ad 2 Puff IH PRN Q4-6HRS 07/27/16 Reported Fluticasone Propionate Nasal Perrin (Fluticasone Propionate) 16 Gm Perrin.susp 2 Perrin NS DAILY 07/27/16 Reported Olanzapine 5 Mg Tablet 5 Mg PO BID 07/27/16 Reported Meloxicam 7.5 Mg Tablet 1 Tab PO DAILY 07/27/16 Reported FENTANYL 75mcg/hr (Fentanyl) 1 Each Patch.td72 1 Patch TP Q3DAYS 04/28/14 Reported Claritin (Loratadine) 10 Mg Tablet 1 Tab PO DAILY 04/28/14 Reported Advair 500-50 Diskus (Fluticasone/Salmeterol) 1 Each Disk.w.dev 1 Each IH BID 04/14/13 Reported Amitriptyline Hcl 10 Mg Tablet 10 Mg PO BID 04/14/13 Reported Zofran Odt (Ondansetron) 8 Mg Tab.rapdis 8 Mg PO PRN 04/14/13 Reported Percocet 7.5-325 Mg Tablet (Oxycodone/Acetaminophen) 1 Each Tablet 1 Each PO Q8HRS 04/14/13 Reported Levothyroxine Sodium 75 Mcg Tablet 75 Mcg PO DAILY 04/14/13 Reported Fioricet 50-325-40 Mg Tablet (Butalb/Acetaminophen/Caffeine) 1 Each Tablet 1 Each PO Q6HRS PRN 04/14/13 Reported Effexor Xr (Venlafaxine Hcl) 150 Mg Cap.er.24h 150 Mg PO DAILY 04/14/13 Reported Klor-Con M20 (Potassium Chloride) 20 Meq Tab.er.prt 20 Meq PO DAILY 04/14/13 Reported Tizanidine Hcl 2 Mg Capsule 2 Mg PO TID 04/14/13 Reported Zantac (Ranitidine Hcl) 150 Mg Tablet 150 Mg PO BID 04/14/13 Reported Topiramate 25 Mg Tablet 100 Mg PO BID 04/14/13 Reported Gabapentin 800 Mg Tablet 800 Mg PO TID 04/14/13 Reported Impression . 1. Acute hypoxic respiratory failure secondary to bilateral extensive pulmonary embolism. This is a patient who presented 3 days ago with a syncopal episode and most likely had PE at that time. She was hypotensive and had sinus tachycardia. This is now confirmed by CT angiogram. There is sparing of main pulmonary trunk. She does meet the criteria for TPA, but unfortunately she has a contraindication, which is the intrathecal baclofen pump, which carries increased risk for spinal hematoma. 2. Abnormal CT chest with bilateral pulmonary embolism and bilateral interstitial and reticular infiltrates. This could be a combination of pneumonia/interstitial lung disease/possible congestive heart failure. 3. Underlying suspected chronic obstructive pulmonary disease with reduced pulmonary reserve contributing to the severity of hypoxia. 4. 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 5. Need to rule out deep venous thrombosis. 6. Moderate right ventricular dilation on echo and mildly increased troponin level suggesting right ventricular ischemia. 7. Shock Plan . 1. Discussed with the patient's sister and discussed with RN as well. We will continue present nonrebreather mask and BiPAP would be an option, if hypoxia worsens. 2. Volume status is tenuous. In the setting of low ejection fraction, would want to avoid further fluid. repeat chest x-ray with increase infiltrates right hilar area we will give diuresis. 3. Continue low dose vasopressor support. 4. Continue broad spectrum antibiotics. It was initiated by Infectious Disease. Currently, she is on vancomycin/Zosyn 5. Bronchodilators. 6. venous Dopplers with LL extremity DVT 7. Smoking cessation counseling provided. 8. Discussed with the patient's sister, discussed with the patient in detail, discussed with RN. cct 25 min DAXA MILAN MD Jul 31, 2016 09:36
[2016-07-31] MEDS: GABAPENTIN 400 MG CAPSULE. PO SCH ×2 (09:38→21:15)
[2016-07-31] MEDS: FAMOTIDINE 20 MG TABLET. PO SCH ×2 (09:38→21:15)
[2016-07-31] MEDS: TOPIRAMATE 100 MG TABLET. PO SCH ×2 (09:38→21:15)
[2016-07-31] MEDS: DOXYCYCLINE HYCLATE 100 MG TABLET PO SCH ×2 (09:38→21:15)
[2016-07-31] MEDS: OLANZapine 5 MG TABLET PO SCH (09:38)
[2016-07-31] MEDS: POTASSIUM CHLORIDE 20 MEQ TABLET.ER. PO SCH (09:39)
[2016-07-31] MEDS: ASPIRIN ENTERIC COATED 81 MG TABLET.DR. PO SCH (09:39)
[2016-07-31] MEDS: AMITRIPTYLINE HCL 10 MG TABLET. PO SCH ×2 (09:39→21:16)
[2016-07-31] MEDS: CETIRIZINE HCL 10 MG TABLET. PO SCH (09:39)
[2016-07-31] MEDS: tiZANidine 4 MG TABLET. PO SCH ×3 (09:40→21:16)
[2016-07-31] MEDS ORDERED: POTASSIUM CHLORIDE 10MEQ 100 ML IV SCH ×2 (10:00→11:00)
[2016-07-31] MEDS: VENLAFAXINE XR 37.5 MG CAP.ER.24H. PO SCH (11:31)
--- NOTE | 2016-07-31 12:21 | PDOC ---
CARDIO Progress Notes Date and Time Date of Service 07/31/2016 Time of Evaluation 1221 Subjective Subjective: Other (confused this a. m. -- O2 sats in the 50s to 70s as patient removing O2) Vitals Vitals Vital Signs Date Time Temp Pulse Resp B/P (MAP) Pulse Ox O2 Delivery O2 Flow Rate FiO2 07/31/16 08:58 NonRebreather Mask 07/31/16 08:00 10.0 07/31/16 08:00 98.5 114 23 103/70 (81) 96 98.5 Weight Weight [ ] Input and Output Intake and Output Intake and Output 07/31/16 07:00 Intake Total 4428 ml Balance 4428 ml Intake Oral 500 ml IV Total 3928 ml # Voids 2 Laboratory Labs Laboratory Tests Test 07/30/16 16:30 07/30/16 17:30 07/31/16 04:30 Vancomycin Level Trough 19.2 mcg/mL (10.0-20.0) Vancomycin Last Dose Date Vancomycin Last Dose Time Heparin Anti-Xa Act, Unfractionated 0.19 IU/mL (0.30-0.70) 0.35 IU/mL (0.30-0.70) White Blood Count 14.6 x10^3/uL (4.0-11.0) Red Blood Count 2.77 x10^6/uL (3.50-5.40) Hemoglobin 9.0 g/dL (12.0-15.5) Hematocrit 27.2 % (36.0-47.0) Mean Corpuscular Volume 98 fL (79-100) Mean Corpuscular Hemoglobin 32 pg (25-35) Mean Corpuscular Hemoglobin Concent 33 g/dL (31-37) Red Cell Distribution Width 13.2 % (11.5-14.5) Platelet Count 190 x10^3/uL (140-400) Neutrophils (%) (Auto) 77 % (31-73) Lymphocytes (%) (Auto) 14 % (24-48) Monocytes (%) (Auto) 6 % (0-9) Eosinophils (%) (Auto) 3 % (0-3) Basophils (%) (Auto) 0 % (0-3) Neutrophils # (Auto) 11.2 x10^3uL (1.8-7.7) Lymphocytes # (Auto) 2.0 x10^3/uL (1.0-4.8) Monocytes # (Auto) 0.9 x10^3/uL (0.0-1.1) Eosinophils # (Auto) 0.4 x10^3/uL (0.0-0.7) Basophils # (Auto) 0.0 x10^3/uL (0.0-0.2) Prothrombin Time 16.3 SEC (11.7-14.0) Prothromb Time International Ratio 1.4 (0.8-1.1) Sodium Level 141 mmol/L (136-145) Potassium Level 3.1 mmol/L (3.5-5.1) Chloride Level 108 mmol/L (98-107) Carbon Dioxide Level 25 mmol/L (21-32) Anion Gap 8 (6-14) Blood Urea Nitrogen 10 mg/dL (7-20) Creatinine 0.7 mg/dL (0.6-1.0) Estimated GFR (Cockcroft-Gault) 104.4 Glucose Level 123 mg/dL (70-99) Calcium Level 8.0 mg/dL (8.5-10.1) Microbiology Micro Microbiology 07/29/16 Blood Culture - Preliminary, Resulted NO GROWTH AFTER 1 DAY Physical Exam HEENT: Neck Supple W Full Motion Chest: Symmetric LUNGS: Other (coarse) Heart: S1S2, RRR, no jug vein distention, other (tele: ST) Abdomen: Soft N/T Extremities: No Edema Neurology: confused Assessment Assessment 1. bilateral pulmonary emboli remains on heparin gtt 2. NSTEMI echo - mildly depressed LV function with an EF of 40-45% functional capacity precludes aggressive evaluation 3. chronic systolic heart failure etiology unknown - family has declined further evaluation diuretics per PULM 4. right index finger amp with concern for osteomyelitis per ID and wound care 5 hypotension remains on vasopressors Will follow peripherally - please contact for further assistance MAGNOLIA CALDERÓN APRN Jul 31, 2016 12:21
[2016-07-31] MEDS: HEPARIN for IV BOLUS 10,000 UNIT/10 ML VIAL. IV PRN (13:05)
[2016-07-31] MEDS ORDERED: WARFARIN 5 MG TABLET. PO ONE (16:00)
[2016-07-31 16:42] LABS: BILIRUBIN,URINE NEGATIVE (NEG); GLUCOSE,URINE NEGATIVE (NEG); NITRITE,URINE NEGATIVE (NEG); PH,URINE 7.5; PROTEIN,URINE NEGATIVE (NEG-TRACE)
[2016-07-31 17:02] LABS: BACTERIA,URINE 0 /HPF (0-FEW); RBC,URINE TNTC /HPF (0-2); SQUAMOUS EPITHELIAL CELL,UR OCC /LPF; WBC,URINE OCC /HPF (0-4)
[2016-07-31] MEDS ORDERED: POTASSIUM CHLORIDE 20MEQ 50 ML IV SCH (21:00)
[2016-08-01] VITALS (24 sets, daily range): BP systolic 64–131; BP diastolic 45–81
[2016-08-01] MEDS: PIPERACILLIN/TAZOBACTAM 3.375 GM in IV NORMAL SALINE 50ML 50 ML IV SCH ×4 (00:16→18:42)
[2016-08-01] MEDS: IV NORMAL SALINE 1000ML BAG 1,000 ML IV SCH ×2 (00:30→12:32)
[2016-08-01] MEDS: VANCOMYCIN 750 MG in IV NORMAL SALINE 250ML 250 ML IV SCH ×3 (01:47→17:01)
[2016-08-01] MEDS: NON FORMULARY ITEM SQ SCH ×7 (03:00→21:00)
[2016-08-01 05:51] LABS: BASO # 0.1 x10^3/uL (0.0-0.2); BASO % 1 % (0-3); EOS % 3 % (0-3); HEMOGLOBIN 8.7 g/dL (12.0-15.5); LYMPH # 1.9 x10^3/uL (1.0-4.8); LYMPH % 14 % (24-48); MEAN CORPUSCULAR HEMOGLOBIN 32 pg (25-35); MEAN CORPUSCULAR HGB CONC 34 g/dL (31-37); MEAN CORPUSCULAR VOLUME 96 fL (79-100); MONO % 6 % (0-9); NEUT % 78 % (31-73); PLATELET COUNT 216 x10^3/uL (140-400); RED CELL DISTRIBUTION WIDTH 13.4 % (11.5-14.5); WHITE BLOOD COUNT 13.9 x10^3/uL (4.0-11.0)
[2016-08-01 05:53] LABS: INR 1.4 (0.8-1.1); PROTHROMBIN TIME PATIENT 16.6 SEC (11.7-14.0)
[2016-08-01 06:07] LABS: CALCIUM 8.4 mg/dL (8.5-10.1); CREATININE 0.8 mg/dL (0.6-1.0); GFR 89.5; POTASSIUM 3.3 mmol/L (3.5-5.1)
[2016-08-01] MEDS: LEVOTHYROXINE 75 MCG TABLET PO SCH (06:13)
[2016-08-01] MEDS: HEPARIN 25,000UTS/500ML PREMIX 500 ML IV PRN (06:14)
[2016-08-01] MEDS: HEPARIN for IV BOLUS 10,000 UNIT/10 ML VIAL. IV PRN (06:51)
--- NOTE | 2016-08-01 07:56 | PDOC ---
Infectious Disease Note Subjective Subjective States ok. Still occ nausea. Aches a little bit Needs to go to bathroom ROS ROS GEN: Denies fevers, chills, sweats HEENT: Denies blurred vision, sore throat CV: Denies chest pain RESP: Denies shortness of air, cough GI: Denies n/v/d NEURO: Denies confusion, dizziness MSK: Denies weakness, joint pain/swelling Vital Sign Vital Signs Vital Signs Date Time Temp Pulse Resp B/P (MAP) Pulse Ox O2 Delivery O2 Flow Rate FiO2 08/01/16 06:00 111 17 106/69 (81) 97 NonRebreather Mask 15.0 08/01/16 04:00 98.8 98.8 Physical Exam PHYSICAL EXAM GENERAL: NAD, Alert, appears comfortable HEENT: PERRL, OC/OP - ? dentition - moist NECK: Supple, no JVD, no LN LUNGS: Clear, on facemask HEART: S1S2, no gallop, no murmur ABD: Soft, NT, no organomegaly, no rebound Yancey EXT: No edema, no cyanosis. 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: Alert, oriented to person, no focal neurologic deficit, a little less confused SKIN: No rash IV: PICC LUE - clean Labs Lab Laboratory Tests Test 07/31/16 11:52 07/31/16 16:20 07/31/16 17:45 08/01/16 00:15 Heparin Anti-Xa Act, Unfractionated 0.29 IU/mL (0.30-0.70) 0.34 IU/mL (0.30-0.70) 0.37 IU/mL (0.30-0.70) Urine Color Yellow Urine Clarity Clear Urine pH 7.5 Urine Specific Dr[place]gs 1.010 Urine Protein Negative mg/dL (NEG-TRACE) Urine Glucose (UA) Negative mg/dL (NEG) Urine Ketones (Stick) Negative mg/dL (NEG) Urine Blood Large (NEG) Urine Nitrite Negative (NEG) Urine Bilirubin Negative (NEG) Urine Urobilinogen Dipstick 1.0 mg/dL (0.2 mg/dL) Urine Leukocyte Esterase Negative (NEG) Urine RBC Tntc /HPF (0-2) Urine WBC Occ /HPF (0-4) Urine Squamous Epithelial Cells Occ /LPF Urine Bacteria 0 /HPF (0-FEW) Test 08/01/16 05:26 White Blood Count 13.9 x10^3/uL (4.0-11.0) Red Blood Count 2.70 x10^6/uL (3.50-5.40) Hemoglobin 8.7 g/dL (12.0-15.5) Hematocrit 26.0 % (36.0-47.0) Mean Corpuscular Volume 96 fL (79-100) Mean Corpuscular Hemoglobin 32 pg (25-35) Mean Corpuscular Hemoglobin Concent 34 g/dL (31-37) Red Cell Distribution Width 13.4 % (11.5-14.5) Platelet Count 216 x10^3/uL (140-400) Neutrophils (%) (Auto) 78 % (31-73) Lymphocytes (%) (Auto) 14 % (24-48) Monocytes (%) (Auto) 6 % (0-9) Eosinophils (%) (Auto) 3 % (0-3) Basophils (%) (Auto) 1 % (0-3) Neutrophils # (Auto) 10.8 x10^3uL (1.8-7.7) Lymphocytes # (Auto) 1.9 x10^3/uL (1.0-4.8) Monocytes # (Auto) 0.8 x10^3/uL (0.0-1.1) Eosinophils # (Auto) 0.4 x10^3/uL (0.0-0.7) Basophils # (Auto) 0.1 x10^3/uL (0.0-0.2) Prothrombin Time 16.6 SEC (11.7-14.0) Prothromb Time International Ratio 1.4 (0.8-1.1) Heparin Anti-Xa Act, Unfractionated 0.27 IU/mL (0.30-0.70) Sodium Level 142 mmol/L (136-145) Potassium Level 3.3 mmol/L (3.5-5.1) Chloride Level 108 mmol/L (98-107) Carbon Dioxide Level 27 mmol/L (21-32) Anion Gap 7 (6-14) Blood Urea Nitrogen 9 mg/dL (7-20) Creatinine 0.8 mg/dL (0.6-1.0) Estimated GFR (Cockcroft-Gault) 89.5 Glucose Level 123 mg/dL (70-99) Calcium Level 8.4 mg/dL (8.5-10.1) Micro CT chest am 07/30IMPRESSION: 1. Multiple filling defects identified in the right upper lobe, right middle lobe, right lower lobe and left upper lobe and left lower lobe pulmonary artery branches likely multiple pulmonary emboli. 2. Bilateral hilar and right infrahilar airspace opacities. Differential includes hilar lymphadenopathy, pneumonia o/ atelectasis or malignancy. Close interval follow-up examination is recommended. A follow-up PET CT scan can be considered. 3. Diffuse reticular interstitial lung markings identified in the left upper lobe, right upper lobe, right middle lobe and right lower lobe of the lung could be reticular interstitial changes 4. Small bilateral pleural effusions , right greater than left with patchy bibasilar airspace opacities. Objective Assessment Encephalopathy - ? med related but also does have a mood disorder - some better PE - on heparin Fever likely sec to PE. Blood cults neg Leukocytosis - likely reactive - better Hypotension - off Levophed Interstitial markings on CT - ? 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 Sutures removed about 2 weeks post -op now exposed bone Left common Fem DVT Cefazolin allergy - nausea Low grade temps - better NSTEMI - family has declined further w/u Tobacco abuse Baclofen pump Primary lateral Sclerosis Plan Plan of Care Cont Vanc/Zosyn/doxy F/u labs in am/cults D/w nursing SAMANTHA MCCONNELL MD Aug 01, 2016 07:56
[2016-08-01] MEDS: VANCOMYCIN PER PHARMACY MC PRN (08:24)
[2016-08-01] MEDS: FLUTICASONE 50MCG/NASAL SPRAY 16GM BOTTLE. NS SCH (08:31)
[2016-08-01] MEDS ORDERED: FUROSEMIDE 20 MG/2 ML VIAL. IVP ONE (08:45)
--- NOTE | 2016-08-01 09:00 | PDOC ---
PROGRESS NOTES Subjective Subjective Patient denies pain or SOA at this time. Objective Objective Vital Signs Date Time Temp Pulse Resp B/P (MAP) Pulse Ox O2 Delivery O2 Flow Rate FiO2 08/01/16 06:00 111 17 106/69 (81) 97 NonRebreather Mask 15.0 08/01/16 04:00 98.8 98.8 Intake and Output 08/01/16 07:00 Intake Total 1311 ml Output Total 2195 ml Balance -884 ml Intake Oral 120 ml IV Total 1191 ml Output Urine Total 2195 ml # Voids 3 Physical Exam Abdomen: Normal bowel sounds, Soft, No tenderness Heart: Regular rate (mildly tachycardic) Extremities: No edema General: Alert (oriented to person only), No acute distress Lungs: Other (BS mildly decreased throughout) Assessment Assessment Problems Medical Problems: (1) Elevated troponin Status: Acute Plan Plan of Care 1. multiple PE's with DVT - stable. Will change to Lovenox BID from Heparin gtt to decrease IV fluids. Continue Lovenox until Coumadin therapeutic. 2. acute respiratory failure - slowly improving but still needing mask to maintain sats at rest. Continue nebs and broad-spectrum abx. 3. NSTEMI with systolic CHF - good diuresis with Lasix yesterday, will repeat today. BP much better, off Levophed now. Still tachycardic. Low dose Metoprolol ordered, had been on hold due to hypotension but should be able to tolerate now and would help cardiac output to lower heart rate a little. 4. hypokalemia - replace po and follow lab. Renal function remains good. 5. surgical wound right hand - stable, continue wound care and abx. 6. metabolic encephalopathy with underlying mood disorder - less agitated with increased Zyprexa, continue present meds. 7. chronic pain - oversedation improved with decreased Baclofen pump output, continue Duragesic patch and prn po meds. 8. PLS - continue supportive care. Comment Review of Relevant I have reviewed the following items mimi (where applicable) has been applied. Labs Laboratory Tests Test 07/30/16 11:55 07/30/16 16:30 07/30/16 17:30 07/31/16 04:30 Heparin Anti-Xa Act, Unfractionated 0.38 IU/mL (0.30-0.70) 0.19 IU/mL (0.30-0.70) 0.35 IU/mL (0.30-0.70) Vancomycin Level Trough 19.2 mcg/mL (10.0-20.0) Vancomycin Last Dose Date Vancomycin Last Dose Time White Blood Count 14.6 x10^3/uL (4.0-11.0) Red Blood Count 2.77 x10^6/uL (3.50-5.40) Hemoglobin 9.0 g/dL (12.0-15.5) Hematocrit 27.2 % (36.0-47.0) Mean Corpuscular Volume 98 fL (79-100) Mean Corpuscular Hemoglobin 32 pg (25-35) Mean Corpuscular Hemoglobin Concent 33 g/dL (31-37) Red Cell Distribution Width 13.2 % (11.5-14.5) Platelet Count 190 x10^3/uL (140-400) Neutrophils (%) (Auto) 77 % (31-73) Lymphocytes (%) (Auto) 14 % (24-48) Monocytes (%) (Auto) 6 % (0-9) Eosinophils (%) (Auto) 3 % (0-3) Basophils (%) (Auto) 0 % (0-3) Neutrophils # (Auto) 11.2 x10^3uL (1.8-7.7) Lymphocytes # (Auto) 2.0 x10^3/uL (1.0-4.8) Monocytes # (Auto) 0.9 x10^3/uL (0.0-1.1) Eosinophils # (Auto) 0.4 x10^3/uL (0.0-0.7) Basophils # (Auto) 0.0 x10^3/uL (0.0-0.2) Prothrombin Time 16.3 SEC (11.7-14.0) Prothromb Time International Ratio 1.4 (0.8-1.1) Sodium Level 141 mmol/L (136-145) Potassium Level 3.1 mmol/L (3.5-5.1) Chloride Level 108 mmol/L (98-107) Carbon Dioxide Level 25 mmol/L (21-32) Anion Gap 8 (6-14) Blood Urea Nitrogen 10 mg/dL (7-20) Creatinine 0.7 mg/dL (0.6-1.0) Estimated GFR (Cockcroft-Gault) 104.4 Glucose Level 123 mg/dL (70-99) Calcium Level 8.0 mg/dL (8.5-10.1) Test 07/31/16 11:52 07/31/16 16:20 07/31/16 17:45 08/01/16 00:15 Heparin Anti-Xa Act, Unfractionated 0.29 IU/mL (0.30-0.70) 0.34 IU/mL (0.30-0.70) 0.37 IU/mL (0.30-0.70) Urine Color Yellow Urine Clarity Clear Urine pH 7.5 Urine Specific [place] 1.010 Urine Protein Negative mg/dL (NEG-TRACE) Urine Glucose (UA) Negative mg/dL (NEG) Urine Ketones (Stick) Negative mg/dL (NEG) Urine Blood Large (NEG) Urine Nitrite Negative (NEG) Urine Bilirubin Negative (NEG) Urine Urobilinogen Dipstick 1.0 mg/dL (0.2 mg/dL) Urine Leukocyte Esterase Negative (NEG) Urine RBC Tntc /HPF (0-2) Urine WBC Occ /HPF (0-4) Urine Squamous Epithelial Cells Occ /LPF Urine Bacteria 0 /HPF (0-FEW) Test 08/01/16 05:26 White Blood Count 13.9 x10^3/uL (4.0-11.0) Red Blood Count 2.70 x10^6/uL (3.50-5.40) Hemoglobin 8.7 g/dL (12.0-15.5) Hematocrit 26.0 % (36.0-47.0) Mean Corpuscular Volume 96 fL (79-100) Mean Corpuscular Hemoglobin 32 pg (25-35) Mean Corpuscular Hemoglobin Concent 34 g/dL (31-37) Red Cell Distribution Width 13.4 % (11.5-14.5) Platelet Count 216 x10^3/uL (140-400) Neutrophils (%) (Auto) 78 % (31-73) Lymphocytes (%) (Auto) 14 % (24-48) Monocytes (%) (Auto) 6 % (0-9) Eosinophils (%) (Auto) 3 % (0-3) Basophils (%) (Auto) 1 % (0-3) Neutrophils # (Auto) 10.8 x10^3uL (1.8-7.7) Lymphocytes # (Auto) 1.9 x10^3/uL (1.0-4.8) Monocytes # (Auto) 0.8 x10^3/uL (0.0-1.1) Eosinophils # (Auto) 0.4 x10^3/uL (0.0-0.7) Basophils # (Auto) 0.1 x10^3/uL (0.0-0.2) Prothrombin Time 16.6 SEC (11.7-14.0) Prothromb Time International Ratio 1.4 (0.8-1.1) Heparin Anti-Xa Act, Unfractionated 0.27 IU/mL (0.30-0.70) Sodium Level 142 mmol/L (136-145) Potassium Level 3.3 mmol/L (3.5-5.1) Chloride Level 108 mmol/L (98-107) Carbon Dioxide Level 27 mmol/L (21-32) Anion Gap 7 (6-14) Blood Urea Nitrogen 9 mg/dL (7-20) Creatinine 0.8 mg/dL (0.6-1.0) Estimated GFR (Cockcroft-Gault) 89.5 Glucose Level 123 mg/dL (70-99) Calcium Level 8.4 mg/dL (8.5-10.1) Laboratory Tests Test 07/31/16 11:52 07/31/16 16:20 07/31/16 17:45 08/01/16 00:15 Heparin Anti-Xa Act, Unfractionated 0.29 IU/mL (0.30-0.70) 0.34 IU/mL (0.30-0.70) 0.37 IU/mL (0.30-0.70) Urine Color Yellow Urine Clarity Clear Urine pH 7.5 Urine Specific [place] 1.010 Urine Protein Negative mg/dL (NEG-TRACE) Urine Glucose (UA) Negative mg/dL (NEG) Urine Ketones (Stick) Negative mg/dL (NEG) Urine Blood Large (NEG) Urine Nitrite Negative (NEG) Urine Bilirubin Negative (NEG) Urine Urobilinogen Dipstick 1.0 mg/dL (0.2 mg/dL) Urine Leukocyte Esterase Negative (NEG) Urine RBC Tntc /HPF (0-2) Urine WBC Occ /HPF (0-4) Urine Squamous Epithelial Cells Occ /LPF Urine Bacteria 0 /HPF (0-FEW) Test 08/01/16 05:26 White Blood Count 13.9 x10^3/uL (4.0-11.0) Red Blood Count 2.70 x10^6/uL (3.50-5.40) Hemoglobin 8.7 g/dL (12.0-15.5) Hematocrit 26.0 % (36.0-47.0) Mean Corpuscular Volume 96 fL (79-100) Mean Corpuscular Hemoglobin 32 pg (25-35) Mean Corpuscular Hemoglobin Concent 34 g/dL (31-37) Red Cell Distribution Width 13.4 % (11.5-14.5) Platelet Count 216 x10^3/uL (140-400) Neutrophils (%) (Auto) 78 % (31-73) Lymphocytes (%) (Auto) 14 % (24-48) Monocytes (%) (Auto) 6 % (0-9) Eosinophils (%) (Auto) 3 % (0-3) Basophils (%) (Auto) 1 % (0-3) Neutrophils # (Auto) 10.8 x10^3uL (1.8-7.7) Lymphocytes # (Auto) 1.9 x10^3/uL (1.0-4.8) Monocytes # (Auto) 0.8 x10^3/uL (0.0-1.1) Eosinophils # (Auto) 0.4 x10^3/uL (0.0-0.7) Basophils # (Auto) 0.1 x10^3/uL (0.0-0.2) Prothrombin Time 16.6 SEC (11.7-14.0) Prothromb Time International Ratio 1.4 (0.8-1.1) Heparin Anti-Xa Act, Unfractionated 0.27 IU/mL (0.30-0.70) Sodium Level 142 mmol/L (136-145) Potassium Level 3.3 mmol/L (3.5-5.1) Chloride Level 108 mmol/L (98-107) Carbon Dioxide Level 27 mmol/L (21-32) Anion Gap 7 (6-14) Blood Urea Nitrogen 9 mg/dL (7-20) Creatinine 0.8 mg/dL (0.6-1.0) Estimated GFR (Cockcroft-Gault) 89.5 Glucose Level 123 mg/dL (70-99) Calcium Level 8.4 mg/dL (8.5-10.1) Microbiology 07/29/16 Blood Culture - Preliminary, Resulted NO GROWTH AFTER 2 DAYS Medications Current Medications Sodium Chloride 1,000 ml @ 1,000 mls/hr 1X ONCE IV Last administered on 19:28; Start 07/27/16 at 19:15; Stop 07/27/16 at 20:14; Status DC Ondansetron HCl (Zofran) 4 mg PRN Q8HRS PRN IV NAUSEA/VOMITING; Start 07/27/16 at 20:45; Stop 07/28/16 at 07:41; Status DC Aspirin ([place] Aspirin) 325 mg 1X ONCE PO Last administered on 07/27/16 20:55 ; Start 07/27/16 at 20:45; Stop 07/27/16 at 20:46; Status DC Amitriptyline HCl (Elavil) 10 mg BID PO ; Start 07/28/16 at 09:00; Stop at 09:00; Status DC Fentanyl (Duragesic 75mcg/ Hr Patch) 1 patch Q3DAYS TD ; Start 07/27/16 at 23:00 ; Stop 07/27/16 at 23:08; Status DC Olanzapine (ZyPREXA) 5 mg BID PO ; Start 07/28/16 at 09:00; Stop 07/28/16 at 09: 00; Status DC Oxycodone/ Acetaminophen (Percocet 7.5/ 325) 1 tab Q8HRS PO ; Start 07/28/16 at 06:00; Stop 07/28/16 at 06:00; Status DC Topiramate (Topamax) 100 mg BID PO ; Start 07/28/16 at 09:00; Stop 07/28/16 at 09:00; Status DC Non-Formulary Medication 800 mg TID PO ; Start 07/28/16 at 09:00; Stop 07/28/16 at 09:00; Status DC Non-Formulary Medication 150 mg BID PO ; Start 07/28/16 at 09:00; Stop 07/28/16 at 09:00; Status DC Non-Formulary Medication 2 mg TID PO ; Start 07/28/16 at 09:00; Stop 07/28/16 at 09:00; Status DC Non-Formulary Medication 1 ea Q3HRS SQ Last administered on 07/27/16 22:45; Start 07/27/16 at 00:00; Stop 07/27/16 at 23:40; Status DC Amitriptyline HCl (Elavil) 10 mg BID PO Last administered on 07/31/16 21:16; Start 07/27/16 at 23:30 Fentanyl (Duragesic 75mcg/ Hr Patch) 1 patch Q3DAYS TD Last administered on 23:33; Start 07/27/16 at 23:30; Stop 07/28/16 at 20:41; Status DC Olanzapine (ZyPREXA) 5 mg BID PO Last administered on 07/27/16 23:32; Start at 23:30; Stop 07/28/16 at 07:30; Status DC Oxycodone/ Acetaminophen (Percocet 7.5/ 325) 1 tab Q8HRS PO Last administered on 07/29/16 20:50; Start 07/27/16 at 23:30; Stop 07/30/16 at 08:07; Status DC Topiramate (Topamax) 100 mg BID PO Last administered on 07/31/16 21:15; Start 07/27/16 at 23:30 Gabapentin (Neurontin) 800 mg Q12HR PO Last administered on 07/31/16 21:15; Start 07/27/16 at 23:30 Famotidine (Pepcid) 20 mg BID PO Last administered on 07/31/16 21:15; Start at 23:30 Tizanidine HCl (Zanaflex) 2 mg TID PO Last administered on 07/31/16 21:16; Start 07/27/16 at 23:30 Non-Formulary Medication 1 ea Q3HRS SQ Last administered on 08/01/16 06:00; Start 07/28/16 at 03:00 Acetaminophen/ Butalbital/ Caffeine (Fioricet) 1 tab PRN Q6HRS PRN PO MIGRAINE HEADACHE; Start 07/28/16 at 07:30 Fluticasone Propionate (Flonase) 2 spray DAILY NS ; Start 07/28/16 at 09:00; Status Cancel Levothyroxine Sodium (Synthroid) 75 mcg DAILY06 PO Last administered on 06:13; Start 07/28/16 at 07:30 Potassium Chloride (Klor-Con) 20 meq DAILY PO Last administered on 07/31/16 09 :39; Start 07/28/16 at 09:00; Stop 07/31/16 at 14:50; Status DC Non-Formulary Medication 1 each BID IH ; Start 07/28/16 at 09:00; Status UNV Cetirizine HCl (ZyrTEC) 10 mg DAILY PO Last administered on 07/31/16 09:39; Start 07/28/16 at 09:00 Venlafaxine HCl (Effexor Xr) 150 mg DAILY PO Last administered on 07/31/16 11: 31; Start 07/28/16 at 09:00 Olanzapine (ZyPREXA) 5 mg DAILY PO Last administered on 07/29/16 09:29; Start 07/28/16 at 09:00; Stop 07/30/16 at 08:17; Status DC Budesonide (Pulmicort) 0.5 mg RTBID NEB Last administered on 07/31/16 19:30; Start 07/28/16 at 08:00 Albuterol Sulfate (Ventolin Neb Soln) 2.5 mg RTQID NEB Last administered on 19:30; Start 07/28/16 at 08:00 Ondansetron HCl (Zofran) 4 mg PRN Q6HRS PRN IV NAUSEA/VOMITING; Start 07/28/16 at 07:30 Vancomycin HCl (Vanco Per Pharmacy) 1 each PRN DAILY PRN MC SEE COMMENTS Last administered on 08/01/16 08:24; Start 07/28/16 at 08:00 Piperacillin Sod/ Tazobactam Sod 3.375 gm/Sodium Chloride 50 ml @ 100 mls/hr Q6HRS IV Last administered on 08/01/16 06:13; Start 07/28/16 at 08:30 Vancomycin HCl 1.25 gm/Sodium Chloride 250 ml @ 166.667 mls/hr 1X ONCE IV Last administered on 07/28/16 15:18; Start 07/28/16 at 09:00; Stop 07/28/16 at 10:29; Status DC Fluticasone Propionate (Flonase) 2 spray DAILY NS ; Start 07/29/16 at 09:00 Aspirin (Ecotrin) 81 mg DAILYWBKFT PO Last administered on 07/31/16 09:39; Start 07/28/16 at 17:00 Naloxone HCl (Narcan) 0.4 mg STK-MED ONCE .ROUTE ; Start 07/28/16 at 19:58; Stop 07/28/16 at 19:59; Status DC Naloxone HCl (Narcan) 0.4 mg 1X ONCE IV Last administered on 07/28/16 20:10; Start 07/28/16 at 20:15; Stop 07/28/16 at 20:16; Status DC Fentanyl (Duragesic 75mcg/ Hr Patch) 1 patch Q3DAYS TD ; Start 07/31/16 at 09:00 ; Status UNV Fentanyl (Duragesic 75mcg/ Hr Patch) 1 patch 1X ONCE TD ; Start 07/28/16 at 20: 45; Stop 07/28/16 at 20:46; Status UNV Fentanyl (Duragesic 75mcg/ Hr Patch) 1 patch Q3DAYS TD Last administered on 23:46; Start 07/28/16 at 21:00 Lorazepam (Ativan) 0.5 mg PRN Q6HRS PRN IV ANXIETY / AGITATION Last administered on 07/31/16 03:32; Start 07/29/16 at 01:45 Vancomycin HCl 750 mg/Sodium Chloride 250 ml @ 250 mls/hr Q12H IV Last administered on 07/29/16 03:57; Start 07/29/16 at 03:30; Stop 07/29/16 at 16:32 ; Status DC Vancomycin HCl 1 each 1X ONCE MC Last administered on 07/29/16 15:00; Start 07/29/16 at 15:00; Stop 07/29/16 at 15:01; Status DC Metoprolol Tartrate (Lopressor) 12.5 mg BID PO Last administered on 07/31/16 21:16; Start 07/29/16 at 11:30 Vancomycin HCl 1.25 gm/Sodium Chloride 250 ml @ 166.667 mls/hr 1X ONCE IV Last administered on 6/13/17at 16:58; Start 07/29/16 at 17:00; Stop 07/29/16 at 18:29; Status DC Vancomycin HCl 750 mg/Sodium Chloride 250 ml @ 250 mls/hr Q8H IV Last administered on 08/01/16 01:47; Start 07/30/16 at 01:00 Vancomycin HCl 1 each 1X ONCE MC ; Start 07/30/16 at 16:30; Stop 07/30/16 at 16 :31; Status DC Digoxin (Lanoxin) 250 mcg PRN 1X PRN IV thachycardia; Start 07/29/16 at 18:00 Acetaminophen (Tylenol) 650 mg PRN Q6HRS PRN PO FEVER > 101 Last administered on 07/29/16 23:09; Start 07/29/16 at 23:00 Sodium Chloride 500 ml @ 500 mls/hr 1X ONCE IV Last administered on 03:45; Start 07/30/16 at 03:45; Stop 07/30/16 at 04:44; Status DC Iohexol (Omnipaque 300 Mg/ml) 75 ml 1X ONCE IV Last administered on 07/30/16 04:25; Start 07/30/16 at 04:00; Stop 07/30/16 at 04:01; Status DC Info (Do NOT chart on this entry -- for MONITORING) 1 each PRN DAILY PRN MC SEE COMMENTS; Start 07/30/16 at 04:00; Stop 08/01/16 at 03:59; Status DC Heparin Sodium/ Dextrose 500 ml @ 0 mls/hr CONT PRN IV SEE I/O RECORD Last administered on 08/01/16 06:14; Start 07/30/16 at 05:30 Heparin Sodium (Porcine) (Heparin Sodium) 1,500 unit PRN Q6HRS PRN IV FOR UFH LEVEL LESS THAN 0.2 Last administered on 07/30/16 21:49; Start 07/30/16 at 05: 30 Heparin Sodium (Porcine) (Heparin Sodium) 750 unit PRN Q6HRS PRN IV FOR UFH LEVEL 0.2 - 0.29 Last administered on 08/01/16 06:51; Start 07/30/16 at 05:30 Warfarin Sodium (Coumadin Per Pharmacy) 1 each PRN DAILY PRN MC PER PROTOCOL Last administered on 08/01/16 08:22; Start 07/30/16 at 05:00 Sodium Chloride 500 ml @ 500 mls/hr 1X ONCE IV Last administered on 05:15; Start 07/30/16 at 05:15; Stop 07/30/16 at 06:14; Status DC Heparin Sodium (Porcine) (Heparin Sodium) 3,950 unit 1X ONCE IV Last administered on 07/30/16 05:32; Start 07/30/16 at 05:30; Stop 07/30/16 at 05:31 ; Status DC Norepinephrine Bitartrate 250 ml @ 0 mls/hr CONT PRN IV SEE I/O RECORD Last administered on 07/30/16 07:17; Start 07/30/16 at 07:15 Oxycodone/ Acetaminophen (Percocet 7.5/ 325) 1 tab PRN Q8HRS PRN PO PAIN Last administered on 07/31/16 03:29; Start 07/30/16 at 08:15 Olanzapine (ZyPREXA) 10 mg DAILY PO Last administered on 07/31/16 09:38; Start 07/30/16 at 09:00 Sodium Chloride 1,000 ml @ 75 mls/hr [id number] IV Last administered on 01:33; Start 07/30/16 at 08:30 Potassium Chloride (Klor-Con) 40 meq 1X ONCE PO Last administered on 12:03; Start 07/30/16 at 12:00; Stop 07/30/16 at 12:01; Status DC Warfarin Sodium (Coumadin) 5 mg 1X WARF ONCE PO Last administered on 16:20; Start 07/30/16 at 16:00; Stop 07/30/16 at 16:01; Status DC Furosemide (Lasix) 20 mg 1X ONCE IVP Last administered on 07/30/16 14:13; Start 07/30/16 at 14:15; Stop 07/30/16 at 14:16; Status DC Doxycycline Hyclate (Vibra-Tab) 100 mg BID PO Last administered on 07/31/16 21 :15; Start 07/31/16 at 09:00 Furosemide (Lasix) 20 mg 1X ONCE IVP Last administered on 07/31/16 09:40; Start 07/31/16 at 09:15; Stop 07/31/16 at 09:16; Status DC Potassium Chloride 100 ml @ 100 mls/hr Q8H IV Last administered on 07/31/16 10:00; Start 07/31/16 at 10:00; Stop 07/31/16 at 15:00; Status DC Potassium Chloride 100 ml @ 100 mls/hr Q8H IV Last administered on 07/31/16 12:39; Start 07/31/16 at 11:00; Stop 07/31/16 at 15:00; Status DC Warfarin Sodium (Coumadin) 5 mg 1X WARF ONCE PO Last administered on 17:41; Start 07/31/16 at 16:00; Stop 07/31/16 at 16:01; Status DC Potassium Chloride 50 ml @ 50 mls/hr TID IV Last administered on 07/31/16 21: 15; Start 07/31/16 at 21:00; Stop 08/01/16 at 09:59 Warfarin Sodium (Coumadin) 5 mg 1X WARF ONCE PO ; Start 08/01/16 at 16:00; Stop 08/01/16 at 16:01 Active Scripts Active Reported Xopenex Hfa (Levalbuterol Tartrate) 15 Gm Hfa.aer.ad 2 Puff IH PRN Q4-6HRS Fluticasone Propionate Nasal [place] (Fluticasone Propionate) 16 Gm [place].susp 2 [place] NS DAILY Olanzapine 5 Mg Tablet 5 Mg PO BID Meloxicam 7.5 Mg Tablet 1 Tab PO DAILY FENTANYL 75mcg/hr (Fentanyl) 1 Each Patch.td72 1 Patch TP Q3DAYS Claritin (Loratadine) 10 Mg Tablet 1 Tab PO DAILY Advair 500-50 Diskus (Fluticasone/Salmeterol) 1 Each Disk.w.dev 1 Each IH BID Amitriptyline Hcl 10 Mg Tablet 10 Mg PO BID Zofran Odt (Ondansetron) 8 Mg Tab.rapdis 8 Mg PO PRN Percocet 7.5-325 Mg Tablet (Oxycodone/Acetaminophen) 1 Each Tablet 1 Each PO Q8HRS Levothyroxine Sodium 75 Mcg Tablet 75 Mcg PO DAILY Fioricet 50-325-40 Mg Tablet (Butalb/Acetaminophen/Caffeine) 1 Each Tablet 1 Each PO Q6HRS PRN Effexor Xr (Venlafaxine Hcl) 150 Mg Cap.er.24h 150 Mg PO DAILY Klor-Con M20 (Potassium Chloride) 20 Meq Tab.er.prt 20 Meq PO DAILY Tizanidine Hcl 2 Mg Capsule 2 Mg PO TID Zantac (Ranitidine Hcl) 150 Mg Tablet 150 Mg PO BID Topiramate 25 Mg Tablet 100 Mg PO BID Gabapentin 800 Mg Tablet 800 Mg PO TID Vitals/I & O Vital Sign - Last 24 Hours 07/31/16 07/31/16 07/31/16 07/31/16 08:58 09:00 10:00 11:00 Pulse 112 122 128 Resp 24 24 28 B/P (MAP) 122/85 (97) 140/92 (108) 151/95 (113) Pulse Ox 94 90 89 O2 Delivery NonRebreather Mask NonRebreather Mask NonRebreather Mask NonRebreather Mask O2 Flow Rate 10.0 10.0 10.0 07/31/16 07/31/16 07/31/16 07/31/16 12:00 12:00 13:00 13:17 Temp 99.4 99.4 Pulse 130 128 Resp 25 26 B/P (MAP) 139/94 (109) 123/81 (95) Pulse Ox 92 98 96 O2 Delivery Non-Rebreather NonRebreather Mask NonRebreather Mask NonRebreather Mask O2 Flow Rate 10.0 10.0 10.0 10.0 07/31/16 07/31/16 07/31/16 07/31/16 14:00 15:00 16:00 16:00 Temp 100.4 100.4 Pulse 140 130 128 Resp 38 27 28 B/P (MAP) 124/75 (91) 134/82 (99) 124/78 (93) Pulse Ox 89 99 94 O2 Delivery NonRebreather Mask NonRebreather Mask NonRebreather Mask Non- Rebreather O2 Flow Rate 10.0 10.0 10.0 10.0 07/31/16 07/31/16 07/31/16 07/31/16 17:00 17:23 18:00 19:00 Pulse 124 118 118 Resp 27 28 17 B/P (MAP) 113/78 (90) 110/69 (83) 105/71 (82) Pulse Ox 97 85 98 97 O2 Delivery NonRebreather Mask NonRebreather Mask NonRebreather Mask NonRebreather Mask O2 Flow Rate 10.0 10.0 10.0 15.0 07/31/16 07/31/16 07/31/16 07/31/16 19:23 19:23 20:00 20:00 Temp 98.3 98.3 Pulse 122 Resp 19 B/P (MAP) 103/68 (80) Pulse Ox 95 95 100 O2 Delivery NonRebreather Mask NonRebreather Mask NonRebreather Mask Non- Rebreather O2 Flow Rate 10.0 10.0 15.0 10.0 07/31/16 07/31/16 07/31/16 07/31/16 21:00 21:16 22:00 23:00 Pulse 122 127 118 110 Resp 15 18 16 B/P (MAP) 98/65 (76) 98/65 90/60 (70) 102/71 (81) Pulse Ox 100 96 97 O2 Delivery NonRebreather Mask NonRebreather Mask NonRebreather Mask O2 Flow Rate 15.0 15.0 15.0 08/01/16 08/01/16 08/01/16 08/01/16 00:00 00:00 01:00 02:00 Temp 98.5 98.5 Pulse 109 107 111 Resp 18 17 16 B/P (MAP) 98/72 (81) 88/64 (72) 95/68 (77) Pulse Ox 97 99 98 O2 Delivery NonRebreather Mask Non-Rebreather NonRebreather Mask NonRebreather Mask O2 Flow Rate 15.0 10.0 15.0 15.0 08/01/16 08/01/16 08/01/16 08/01/16 03:00 04:00 04:00 05:00 Temp 98.8 98.8 Pulse 105 107 112 Resp 12 16 18 B/P (MAP) 87/54 (65) 85/57 (66) 103/72 (82) Pulse Ox 98 97 97 O2 Delivery NonRebreather Mask NonRebreather Mask Non-Rebreather NonRebreather Mask O2 Flow Rate 15.0 15.0 10.0 15.0 08/01/16 06:00 Pulse 111 Resp 17 B/P (MAP) 106/69 (81) Pulse Ox 97 O2 Delivery NonRebreather Mask O2 Flow Rate 15.0 Intake and Output 07/31/16 07/31/16 08/01/16 15:00 23:00 07:00 Intake Total 34 ml 234 ml 1043 ml Output Total 1825 ml 370 ml Balance 34 ml -1591 ml 673 ml RISHABH LUNDBERG MD Aug 01, 2016 09:00
[2016-08-01] MEDS: ALBUTEROL SULFATE 2.5 MG/3 ML NEBU. NEB SCH ×4 (09:28→20:22)
[2016-08-01] MEDS: BUDESONIDE 0.5 MG/2 ML NEBU. NEB SCH ×2 (09:28→20:22)
[2016-08-01] MEDS: GABAPENTIN 400 MG CAPSULE. PO SCH ×2 (10:12→20:49)
[2016-08-01] MEDS: DOXYCYCLINE HYCLATE 100 MG TABLET PO SCH ×2 (10:12→20:48)
[2016-08-01] MEDS: AMITRIPTYLINE HCL 10 MG TABLET. PO SCH ×2 (10:12→20:48)
[2016-08-01] MEDS: METOPROLOL TART IMMED RELEASE 25 MG TABLET. PO SCH ×2 (10:12→20:51)
[2016-08-01] MEDS: VENLAFAXINE XR 37.5 MG CAP.ER.24H. PO SCH (10:13)
[2016-08-01] MEDS: FAMOTIDINE 20 MG TABLET. PO SCH ×2 (10:13→20:48)
[2016-08-01] MEDS: ASPIRIN ENTERIC COATED 81 MG TABLET.DR. PO SCH (10:13)
[2016-08-01] MEDS: OLANZapine 5 MG TABLET PO SCH (10:13)
[2016-08-01] MEDS: tiZANidine 4 MG TABLET. PO SCH ×3 (10:13→20:49)
[2016-08-01] MEDS: CETIRIZINE HCL 10 MG TABLET. PO SCH (10:13)
[2016-08-01] MEDS: POTASSIUM CHLORIDE 20 MEQ TABLET.ER. PO SCH ×3 (10:14→20:48)
[2016-08-01] MEDS: TOPIRAMATE 100 MG TABLET. PO SCH ×2 (10:14→20:48)
--- NOTE | 2016-08-01 11:13 | PDOC ---
PULMONARY PROGRESS NOTES Subjective off levo BP better still on 100%FIO2 Vitals Vital Signs Date Time Temp Pulse Resp B/P (MAP) Pulse Ox O2 Delivery O2 Flow Rate FiO2 08/01/16 10:12 121 125/78 08/01/16 09:29 97 NonRebreather Mask 15.0 08/01/16 06:00 17 08/01/16 04:00 98.8 98.8 General: No acute distress Lungs: Other (ant rhonchi) Cardiovascular: S1 Abdomen: Soft Neuro Exam: Alert Extremities: Other (trace edema) Skin: Warm Labs Laboratory Tests Test 07/30/16 11:55 07/30/16 16:30 07/30/16 17:30 07/31/16 04:30 Heparin Anti-Xa Act, Unfractionated 0.38 IU/mL (0.30-0.70) 0.19 IU/mL (0.30-0.70) 0.35 IU/mL (0.30-0.70) Vancomycin Level Trough 19.2 mcg/mL (10.0-20.0) Vancomycin Last Dose Date Vancomycin Last Dose Time White Blood Count 14.6 x10^3/uL (4.0-11.0) Red Blood Count 2.77 x10^6/uL (3.50-5.40) Hemoglobin 9.0 g/dL (12.0-15.5) Hematocrit 27.2 % (36.0-47.0) Mean Corpuscular Volume 98 fL (79-100) Mean Corpuscular Hemoglobin 32 pg (25-35) Mean Corpuscular Hemoglobin Concent 33 g/dL (31-37) Red Cell Distribution Width 13.2 % (11.5-14.5) Platelet Count 190 x10^3/uL (140-400) Neutrophils (%) (Auto) 77 % (31-73) Lymphocytes (%) (Auto) 14 % (24-48) Monocytes (%) (Auto) 6 % (0-9) Eosinophils (%) (Auto) 3 % (0-3) Basophils (%) (Auto) 0 % (0-3) Neutrophils # (Auto) 11.2 x10^3uL (1.8-7.7) Lymphocytes # (Auto) 2.0 x10^3/uL (1.0-4.8) Monocytes # (Auto) 0.9 x10^3/uL (0.0-1.1) Eosinophils # (Auto) 0.4 x10^3/uL (0.0-0.7) Basophils # (Auto) 0.0 x10^3/uL (0.0-0.2) Prothrombin Time 16.3 SEC (11.7-14.0) Prothromb Time International Ratio 1.4 (0.8-1.1) Sodium Level 141 mmol/L (136-145) Potassium Level 3.1 mmol/L (3.5-5.1) Chloride Level 108 mmol/L (98-107) Carbon Dioxide Level 25 mmol/L (21-32) Anion Gap 8 (6-14) Blood Urea Nitrogen 10 mg/dL (7-20) Creatinine 0.7 mg/dL (0.6-1.0) Estimated GFR (Cockcroft-Gault) 104.4 Glucose Level 123 mg/dL (70-99) Calcium Level 8.0 mg/dL (8.5-10.1) Test 07/31/16 11:52 07/31/16 16:20 07/31/16 17:45 08/01/16 00:15 Heparin Anti-Xa Act, Unfractionated 0.29 IU/mL (0.30-0.70) 0.34 IU/mL (0.30-0.70) 0.37 IU/mL (0.30-0.70) Urine Color Yellow Urine Clarity Clear Urine pH 7.5 Urine Specific [place] 1.010 Urine Protein Negative mg/dL (NEG-TRACE) Urine Glucose (UA) Negative mg/dL (NEG) Urine Ketones (Stick) Negative mg/dL (NEG) Urine Blood Large (NEG) Urine Nitrite Negative (NEG) Urine Bilirubin Negative (NEG) Urine Urobilinogen Dipstick 1.0 mg/dL (0.2 mg/dL) Urine Leukocyte Esterase Negative (NEG) Urine RBC Tntc /HPF (0-2) Urine WBC Occ /HPF (0-4) Urine Squamous Epithelial Cells Occ /LPF Urine Bacteria 0 /HPF (0-FEW) Test 08/01/16 05:26 White Blood Count 13.9 x10^3/uL (4.0-11.0) Red Blood Count 2.70 x10^6/uL (3.50-5.40) Hemoglobin 8.7 g/dL (12.0-15.5) Hematocrit 26.0 % (36.0-47.0) Mean Corpuscular Volume 96 fL (79-100) Mean Corpuscular Hemoglobin 32 pg (25-35) Mean Corpuscular Hemoglobin Concent 34 g/dL (31-37) Red Cell Distribution Width 13.4 % (11.5-14.5) Platelet Count 216 x10^3/uL (140-400) Neutrophils (%) (Auto) 78 % (31-73) Lymphocytes (%) (Auto) 14 % (24-48) Monocytes (%) (Auto) 6 % (0-9) Eosinophils (%) (Auto) 3 % (0-3) Basophils (%) (Auto) 1 % (0-3) Neutrophils # (Auto) 10.8 x10^3uL (1.8-7.7) Lymphocytes # (Auto) 1.9 x10^3/uL (1.0-4.8) Monocytes # (Auto) 0.8 x10^3/uL (0.0-1.1) Eosinophils # (Auto) 0.4 x10^3/uL (0.0-0.7) Basophils # (Auto) 0.1 x10^3/uL (0.0-0.2) Prothrombin Time 16.6 SEC (11.7-14.0) Prothromb Time International Ratio 1.4 (0.8-1.1) Heparin Anti-Xa Act, Unfractionated 0.27 IU/mL (0.30-0.70) Sodium Level 142 mmol/L (136-145) Potassium Level 3.3 mmol/L (3.5-5.1) Chloride Level 108 mmol/L (98-107) Carbon Dioxide Level 27 mmol/L (21-32) Anion Gap 7 (6-14) Blood Urea Nitrogen 9 mg/dL (7-20) Creatinine 0.8 mg/dL (0.6-1.0) Estimated GFR (Cockcroft-Gault) 89.5 Glucose Level 123 mg/dL (70-99) Calcium Level 8.4 mg/dL (8.5-10.1) Laboratory Tests Test 07/31/16 11:52 07/31/16 16:20 07/31/16 17:45 08/01/16 00:15 Heparin Anti-Xa Act, Unfractionated 0.29 IU/mL (0.30-0.70) 0.34 IU/mL (0.30-0.70) 0.37 IU/mL (0.30-0.70) Urine Color Yellow Urine Clarity Clear Urine pH 7.5 Urine Specific [place] 1.010 Urine Protein Negative mg/dL (NEG-TRACE) Urine Glucose (UA) Negative mg/dL (NEG) Urine Ketones (Stick) Negative mg/dL (NEG) Urine Blood Large (NEG) Urine Nitrite Negative (NEG) Urine Bilirubin Negative (NEG) Urine Urobilinogen Dipstick 1.0 mg/dL (0.2 mg/dL) Urine Leukocyte Esterase Negative (NEG) Urine RBC Tntc /HPF (0-2) Urine WBC Occ /HPF (0-4) Urine Squamous Epithelial Cells Occ /LPF Urine Bacteria 0 /HPF (0-FEW) Test 08/01/16 05:26 White Blood Count 13.9 x10^3/uL (4.0-11.0) Red Blood Count 2.70 x10^6/uL (3.50-5.40) Hemoglobin 8.7 g/dL (12.0-15.5) Hematocrit 26.0 % (36.0-47.0) Mean Corpuscular Volume 96 fL (79-100) Mean Corpuscular Hemoglobin 32 pg (25-35) Mean Corpuscular Hemoglobin Concent 34 g/dL (31-37) Red Cell Distribution Width 13.4 % (11.5-14.5) Platelet Count 216 x10^3/uL (140-400) Neutrophils (%) (Auto) 78 % (31-73) Lymphocytes (%) (Auto) 14 % (24-48) Monocytes (%) (Auto) 6 % (0-9) Eosinophils (%) (Auto) 3 % (0-3) Basophils (%) (Auto) 1 % (0-3) Neutrophils # (Auto) 10.8 x10^3uL (1.8-7.7) Lymphocytes # (Auto) 1.9 x10^3/uL (1.0-4.8) Monocytes # (Auto) 0.8 x10^3/uL (0.0-1.1) Eosinophils # (Auto) 0.4 x10^3/uL (0.0-0.7) Basophils # (Auto) 0.1 x10^3/uL (0.0-0.2) Prothrombin Time 16.6 SEC (11.7-14.0) Prothromb Time International Ratio 1.4 (0.8-1.1) Heparin Anti-Xa Act, Unfractionated 0.27 IU/mL (0.30-0.70) Sodium Level 142 mmol/L (136-145) Potassium Level 3.3 mmol/L (3.5-5.1) Chloride Level 108 mmol/L (98-107) Carbon Dioxide Level 27 mmol/L (21-32) Anion Gap 7 (6-14) Blood Urea Nitrogen 9 mg/dL (7-20) Creatinine 0.8 mg/dL (0.6-1.0) Estimated GFR (Cockcroft-Gault) 89.5 Glucose Level 123 mg/dL (70-99) Calcium Level 8.4 mg/dL (8.5-10.1) Medications Active Scripts Medications Dose Route/Sig Max Daily Dose Days Date Category Xopenex Hfa (Levalbuterol Tartrate) 15 Gm Hfa.aer.ad 2 Puff IH PRN Q4-6HRS 07/27/16 Reported Fluticasone Propionate Nasal [place] (Fluticasone Propionate) 16 Gm [place].susp 2 [place] NS DAILY 07/27/16 Reported Olanzapine 5 Mg Tablet 5 Mg PO BID 07/27/16 Reported Meloxicam 7.5 Mg Tablet 1 Tab PO DAILY 07/27/16 Reported FENTANYL 75mcg/hr (Fentanyl) 1 Each Patch.td72 1 Patch TP Q3DAYS 04/28/14 Reported Claritin (Loratadine) 10 Mg Tablet 1 Tab PO DAILY 04/28/14 Reported Advair 500-50 Diskus (Fluticasone/Salmeterol) 1 Each Disk.w.dev 1 Each IH BID 04/14/13 Reported Amitriptyline Hcl 10 Mg Tablet 10 Mg PO BID 04/14/13 Reported Zofran Odt (Ondansetron) 8 Mg Tab.rapdis 8 Mg PO PRN 04/14/13 Reported Percocet 7.5-325 Mg Tablet (Oxycodone/Acetaminophen) 1 Each Tablet 1 Each PO Q8HRS 04/14/13 Reported Levothyroxine Sodium 75 Mcg Tablet 75 Mcg PO DAILY 04/14/13 Reported Fioricet 50-325-40 Mg Tablet (Butalb/Acetaminophen/Caffeine) 1 Each Tablet 1 Each PO Q6HRS PRN 04/14/13 Reported Effexor Xr (Venlafaxine Hcl) 150 Mg Cap.er.24h 150 Mg PO DAILY 04/14/13 Reported Klor-Con M20 (Potassium Chloride) 20 Meq Tab.er.prt 20 Meq PO DAILY 04/14/13 Reported Tizanidine Hcl 2 Mg Capsule 2 Mg PO TID 04/14/13 Reported Zantac (Ranitidine Hcl) 150 Mg Tablet 150 Mg PO BID 04/14/13 Reported Topiramate 25 Mg Tablet 100 Mg PO BID 04/14/13 Reported Gabapentin 800 Mg Tablet 800 Mg PO TID 04/14/13 Reported Impression . 1. Acute hypoxic respiratory failure secondary to bilateral extensive pulmonary embolism. This is a patient who presented 3 days ago with a syncopal episode and most likely had PE at that time. She was hypotensive and had sinus tachycardia. PE confirmed by CT angiogram. There is sparing of main pulmonary trunk. She does meet the criteria for TPA, but unfortunately she has a contraindication, which is the intrathecal baclofen pump, which carries increased risk for spinal hematoma. 2. Abnormal CT chest with bilateral pulmonary embolism and bilateral interstitial and reticular infiltrates. This could be a combination of pneumonia/interstitial lung disease/possible congestive heart failure. 3. Underlying suspected chronic obstructive pulmonary disease with reduced pulmonary reserve contributing to the severity of hypoxia. 4. 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 5. Need to rule out deep venous thrombosis. 6. Moderate right ventricular dilation on echo and mildly increased troponin level suggesting right ventricular ischemia. 7. Shock, off pressor Plan . 1. Discussed with the patient's sister and discussed with RN as well. Will try high flow canula BiPAP would be an option, if hypoxia worsens. 2. suspect mild superimposed VHF./ mild CMP .avoid further fluid. repeat chest x-ray with increase infiltrates right hilar area on prn diuresis. 3. off vasopressor support. 4. Continue broad spectrum antibiotics. Currently, she is on vancomycin/Zosyn 5. Bronchodilators. 6. venous Dopplers with LL extremity DVT. Monitor Hb closely. May need IVC filter if Hb continues to drop 7. Smoking cessation counseling provided. 8. Discussed with the patient's sister, cct 25 min DAXA MILAN MD Aug 01, 2016 11:13
[2016-08-01] MEDS: NOREPINEPHRIN PREMIX 250 ML IV PRN (15:38)
[2016-08-01] MEDS ORDERED: WARFARIN 5 MG TABLET. PO ONE (16:00)
[2016-08-02] VITALS (28 sets, daily range): BP systolic 80–135; BP diastolic 52–83
[2016-08-02] MEDS: PIPERACILLIN/TAZOBACTAM 3.375 GM in IV NORMAL SALINE 50ML 50 ML IV SCH ×4 (00:04→17:17)
[2016-08-02] MEDS: VANCOMYCIN 750 MG in IV NORMAL SALINE 250ML 250 ML IV SCH ×3 (00:55→15:58)
[2016-08-02] MEDS: NON FORMULARY ITEM SQ SCH ×8 (03:00→20:54)
[2016-08-02] MEDS: LEVOTHYROXINE 75 MCG TABLET PO SCH (05:53)
[2016-08-02 06:11] LABS: HEMATOCRIT 26.2 % (36.0-47.0); HEMOGLOBIN 8.9 g/dL (12.0-15.5); RED BLOOD COUNT 2.74 x10^6/uL (3.50-5.40); RED CELL DISTRIBUTION WIDTH 13.3 % (11.5-14.5); WHITE BLOOD COUNT 12.4 x10^3/uL (4.0-11.0)
[2016-08-02 06:34] LABS: CALCIUM 8.3 mg/dL (8.5-10.1); CREATININE 0.7 mg/dL (0.6-1.0); GFR 104.4; POTASSIUM 3.7 mmol/L (3.5-5.1)
[2016-08-02 06:45] LABS: INR 1.6 (0.8-1.1); PROTHROMBIN TIME PATIENT 18.2 SEC (11.7-14.0)
[2016-08-02] MEDS: BUDESONIDE 0.5 MG/2 ML NEBU. NEB SCH ×2 (07:02→20:44)
[2016-08-02] MEDS: ALBUTEROL SULFATE 2.5 MG/3 ML NEBU. NEB SCH ×4 (07:02→20:44)
--- NOTE | 2016-08-02 08:56 | PDOC ---
PULMONARY PROGRESS NOTES Subjective off levo, fever 100.4 BP better still on 100%FIO2 but her sat is 99%. has more cough and sputum Vitals Vital Signs Date Time Temp Pulse Resp B/P (MAP) Pulse Ox O2 Delivery O2 Flow Rate FiO2 08/02/16 08:00 Non-Rebreather 15.0 08/02/16 07:03 98 08/02/16 07:00 118 18 114/75 (88) 08/02/16 03:00 98.4 98.4 Comments ros as mentioned as above other sys otherwise neg ROS: No Nausea, No Abdominal Pain General: Alert HEENT: Other (nc at perrl, nose throat clear, neck no lap, no thyromegaly) Lungs: Other (ant rhonchi) Cardiovascular: S1, S2 Abdomen: Soft, Non-tender, Other Neuro Exam: Alert, Oriented Extremities: Other (trace edema) Skin: Warm Labs Laboratory Tests Test 07/31/16 11:52 07/31/16 16:20 07/31/16 17:45 08/01/16 00:15 Heparin Anti-Xa Act, Unfractionated 0.29 IU/mL (0.30-0.70) 0.34 IU/mL (0.30-0.70) 0.37 IU/mL (0.30-0.70) Urine Color Yellow Urine Clarity Clear Urine pH 7.5 Urine Specific [place] 1.010 Urine Protein Negative mg/dL (NEG-TRACE) Urine Glucose (UA) Negative mg/dL (NEG) Urine Ketones (Stick) Negative mg/dL (NEG) Urine Blood Large (NEG) Urine Nitrite Negative (NEG) Urine Bilirubin Negative (NEG) Urine Urobilinogen Dipstick 1.0 mg/dL (0.2 mg/dL) Urine Leukocyte Esterase Negative (NEG) Urine RBC Tntc /HPF (0-2) Urine WBC Occ /HPF (0-4) Urine Squamous Epithelial Cells Occ /LPF Urine Bacteria 0 /HPF (0-FEW) Test 08/01/16 05:26 08/02/16 06:00 White Blood Count 13.9 x10^3/uL (4.0-11.0) 12.4 x10^3/uL (4.0-11.0) Red Blood Count 2.70 x10^6/uL (3.50-5.40) 2.74 x10^6/uL (3.50-5.40) Hemoglobin 8.7 g/dL (12.0-15.5) 8.9 g/dL (12.0-15.5) Hematocrit 26.0 % (36.0-47.0) 26.2 % (36.0-47.0) Mean Corpuscular Volume 96 fL (79-100) 96 fL (79-100) Mean Corpuscular Hemoglobin 32 pg (25-35) 33 pg (25-35) Mean Corpuscular Hemoglobin Concent 34 g/dL (31-37) 34 g/dL (31-37) Red Cell Distribution Width 13.4 % (11.5-14.5) 13.3 % (11.5-14.5) Platelet Count 216 x10^3/uL (140-400) 262 x10^3/uL (140-400) Neutrophils (%) (Auto) 78 % (31-73) Lymphocytes (%) (Auto) 14 % (24-48) Monocytes (%) (Auto) 6 % (0-9) Eosinophils (%) (Auto) 3 % (0-3) Basophils (%) (Auto) 1 % (0-3) Neutrophils # (Auto) 10.8 x10^3uL (1.8-7.7) Lymphocytes # (Auto) 1.9 x10^3/uL (1.0-4.8) Monocytes # (Auto) 0.8 x10^3/uL (0.0-1.1) Eosinophils # (Auto) 0.4 x10^3/uL (0.0-0.7) Basophils # (Auto) 0.1 x10^3/uL (0.0-0.2) Prothrombin Time 16.6 SEC (11.7-14.0) Prothromb Time International Ratio 1.4 (0.8-1.1) Heparin Anti-Xa Act, Unfractionated 0.27 IU/mL (0.30-0.70) Sodium Level 142 mmol/L (136-145) 144 mmol/L (136-145) Potassium Level 3.3 mmol/L (3.5-5.1) 3.7 mmol/L (3.5-5.1) Chloride Level 108 mmol/L (98-107) 110 mmol/L (98-107) Carbon Dioxide Level 27 mmol/L (21-32) 25 mmol/L (21-32) Anion Gap 7 (6-14) 9 (6-14) Blood Urea Nitrogen 9 mg/dL (7-20) 12 mg/dL (7-20) Creatinine 0.8 mg/dL (0.6-1.0) 0.7 mg/dL (0.6-1.0) Estimated GFR (Cockcroft-Gault) 89.5 104.4 Glucose Level 123 mg/dL (70-99) 117 mg/dL (70-99) Calcium Level 8.4 mg/dL (8.5-10.1) 8.3 mg/dL (8.5-10.1) Laboratory Tests Test 08/02/16 06:00 White Blood Count 12.4 x10^3/uL (4.0-11.0) Red Blood Count 2.74 x10^6/uL (3.50-5.40) Hemoglobin 8.9 g/dL (12.0-15.5) Hematocrit 26.2 % (36.0-47.0) Mean Corpuscular Volume 96 fL (79-100) Mean Corpuscular Hemoglobin 33 pg (25-35) Mean Corpuscular Hemoglobin Concent 34 g/dL (31-37) Red Cell Distribution Width 13.3 % (11.5-14.5) Platelet Count 262 x10^3/uL (140-400) Sodium Level 144 mmol/L (136-145) Potassium Level 3.7 mmol/L (3.5-5.1) Chloride Level 110 mmol/L (98-107) Carbon Dioxide Level 25 mmol/L (21-32) Anion Gap 9 (6-14) Blood Urea Nitrogen 12 mg/dL (7-20) Creatinine 0.7 mg/dL (0.6-1.0) Estimated GFR (Cockcroft-Gault) 104.4 Glucose Level 117 mg/dL (70-99) Calcium Level 8.3 mg/dL (8.5-10.1) Medications Active Scripts Medications Dose Route/Sig Max Daily Dose Days Date Category Xopenex Hfa (Levalbuterol Tartrate) 15 Gm Hfa.aer.ad 2 Puff IH PRN Q4-6HRS 07/27/16 Reported Fluticasone Propionate Nasal [place] (Fluticasone Propionate) 16 Gm [place].susp 2 [place] NS DAILY 07/27/16 Reported Olanzapine 5 Mg Tablet 5 Mg PO BID 07/27/16 Reported Meloxicam 7.5 Mg Tablet 1 Tab PO DAILY 07/27/16 Reported FENTANYL 75mcg/hr (Fentanyl) 1 Each Patch.td72 1 Patch TP Q3DAYS 04/28/14 Reported Claritin (Loratadine) 10 Mg Tablet 1 Tab PO DAILY 04/28/14 Reported Advair 500-50 Diskus (Fluticasone/Salmeterol) 1 Each Disk.w.dev 1 Each IH BID 04/14/13 Reported Amitriptyline Hcl 10 Mg Tablet 10 Mg PO BID 04/14/13 Reported Zofran Odt (Ondansetron) 8 Mg Tab.rapdis 8 Mg PO PRN 04/14/13 Reported Percocet 7.5-325 Mg Tablet (Oxycodone/Acetaminophen) 1 Each Tablet 1 Each PO Q8HRS 04/14/13 Reported Levothyroxine Sodium 75 Mcg Tablet 75 Mcg PO DAILY 04/14/13 Reported Fioricet 50-325-40 Mg Tablet (Butalb/Acetaminophen/Caffeine) 1 Each Tablet 1 Each PO Q6HRS PRN 04/14/13 Reported Effexor Xr (Venlafaxine Hcl) 150 Mg Cap.er.24h 150 Mg PO DAILY 04/14/13 Reported Klor-Con M20 (Potassium Chloride) 20 Meq Tab.er.prt 20 Meq PO DAILY 04/14/13 Reported Tizanidine Hcl 2 Mg Capsule 2 Mg PO TID 04/14/13 Reported Zantac (Ranitidine Hcl) 150 Mg Tablet 150 Mg PO BID 04/14/13 Reported Topiramate 25 Mg Tablet 100 Mg PO BID 04/14/13 Reported Gabapentin 800 Mg Tablet 800 Mg PO TID 04/14/[address] reviewed, 1. Multiple filling defects identified in the right upper lobe, right middle lobe, right lower lobe and left upper lobe and left lower lobe pulmonary artery branches likely multiple pulmonary emboli. 2. Bilateral hilar and right infrahilar airspace opacities. Differential includes hilar lymphadenopathy, pneumonia o/ atelectasis or malignancy. Close interval follow-up examination is recommended. A follow-up PET CT scan can be considered. 3. Diffuse reticular interstitial lung markings identified in the left upper lobe, right upper lobe, right middle lobe and right lower lobe of the lung could be reticular interstitial changes 4. Small bilateral pleural effusions , right greater than left with patchy bibasilar airspace opacities. Impression . 1. Acute hypoxic respiratory failure secondary to bilateral extensive pulmonary embolism. She does not meet the criteria for TPA, she has a contraindication, which is the intrathecal baclofen pump, which carries increased risk for spinal hematoma. 2. Abnormal CT chest with bilateral pulmonary embolism and bilateral interstitial and reticular infiltrates. This could be a combination of pneumonia/interstitial lung disease/possible congestive heart failure. 3. Underlying suspected chronic obstructive pulmonary disease with reduced pulmonary reserve contributing to the severity of hypoxia. 4. 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 5. Partially occlusive DVT is seen involving the left common femoral vein. 6. Moderate right ventricular dilation on echo and mildly increased troponin level suggesting right ventricular ischemia. 7. Shock, off pressor Plan . 1. 02 titration, to keep sat 91%. 2. suspect mild superimposed VHF./ mild CMP .avoid further fluid. repeat chest x-ray with increase infiltrates right hilar area on prn diuresis. 3. off vasopressor support. 4. Continue broad spectrum antibiotics. Currently, she is on vancomycin/Zosyn 5. Bronchodilators. 6. venous Dopplers with LL extremity DVT. Monitor Hb closely. May need IVC filter if Hb continues to drop 7. Smoking cessation counseling provided. 8. monitor fever Discussed with the patient, TRINA Watts MD Aug 02, 2016 08:56
[2016-08-02] MEDS: FLUTICASONE 50MCG/NASAL SPRAY 16GM BOTTLE. NS SCH (09:00)
[2016-08-02] MEDS: METOPROLOL TART IMMED RELEASE 25 MG TABLET. PO SCH ×2 (09:00→20:52)
[2016-08-02] MEDS: POTASSIUM CHLORIDE 20 MEQ TABLET.ER. PO SCH ×3 (09:17→20:51)
[2016-08-02] MEDS: AMITRIPTYLINE HCL 10 MG TABLET. PO SCH ×2 (09:17→20:52)
[2016-08-02] MEDS: VENLAFAXINE XR 37.5 MG CAP.ER.24H. PO SCH (09:18)
[2016-08-02] MEDS: ASPIRIN ENTERIC COATED 81 MG TABLET.DR. PO SCH (09:18)
[2016-08-02] MEDS: GABAPENTIN 400 MG CAPSULE. PO SCH ×2 (09:18→20:52)
[2016-08-02] MEDS: ACETAMINOPHEN 325 MG TABLET. PO PRN ×2 (09:18→14:29)
[2016-08-02] MEDS: FAMOTIDINE 20 MG TABLET. PO SCH ×2 (09:18→20:55)
[2016-08-02] MEDS: CETIRIZINE HCL 10 MG TABLET. PO SCH (09:18)
[2016-08-02] MEDS: tiZANidine 4 MG TABLET. PO SCH ×3 (09:18→20:52)
[2016-08-02] MEDS: DOXYCYCLINE HYCLATE 100 MG TABLET PO SCH ×2 (09:18→20:51)
[2016-08-02] MEDS: TOPIRAMATE 100 MG TABLET. PO SCH ×2 (09:18→20:52)
[2016-08-02] MEDS: OLANZapine 5 MG TABLET PO SCH (09:44)
--- NOTE | 2016-08-02 09:53 | PDOC ---
Infectious Disease Note Subjective Subjective Feels little achy Fever 100.4 High flow supplemental O2 14 L ROS ROS GEN: Denies chills, sweats CV: Denies chest pain RESP: Denies shortness of air, cough GI: Denies n/v/dNEURO: Denies confusion, dizziness MSK: Denies weakness, joint pain/swelling Vital Sign Vital Signs Vital Signs Date Time Temp Pulse Resp B/P (MAP) Pulse Ox O2 Delivery O2 Flow Rate FiO2 08/02/16 08:00 Non-Rebreather 15.0 08/02/16 08:00 100.4 114 19 105/71 (82) 98 100.4 Physical Exam PHYSICAL EXAM GENERAL: NAD HEENT: Pupils round, Oral cavity pink, moist LUNGS: Clear anteriorly, nonlabored HEART: S1S2 ABD: Soft, NT : [place] EXT: No edema, no cyanosis SCREW REMOVER: Alert, answers appropriately and follows commands SKIN: No rash LUE-PICC. clean Labs Lab Laboratory Tests Test 08/02/16 06:00 White Blood Count 12.4 x10^3/uL (4.0-11.0) Red Blood Count 2.74 x10^6/uL (3.50-5.40) Hemoglobin 8.9 g/dL (12.0-15.5) Hematocrit 26.2 % (36.0-47.0) Mean Corpuscular Volume 96 fL (79-100) Mean Corpuscular Hemoglobin 33 pg (25-35) Mean Corpuscular Hemoglobin Concent 34 g/dL (31-37) Red Cell Distribution Width 13.3 % (11.5-14.5) Platelet Count 262 x10^3/uL (140-400) Sodium Level 144 mmol/L (136-145) Potassium Level 3.7 mmol/L (3.5-5.1) Chloride Level 110 mmol/L (98-107) Carbon Dioxide Level 25 mmol/L (21-32) Anion Gap 9 (6-14) Blood Urea Nitrogen 12 mg/dL (7-20) Creatinine 0.7 mg/dL (0.6-1.0) Estimated GFR (Cockcroft-Gault) 104.4 Glucose Level 117 mg/dL (70-99) Calcium Level 8.3 mg/dL (8.5-10.1) Micro 07/29. BLOOD CULTURE Preliminary NO GROWTH AFTER 3 DAYS Objective Assessment Encephalopathy - ? med related but also does have a mood disorder - some better PE - now on warfarin Fever likely sec to PE. Blood cults neg Leukocytosis - likely reactive, trending down Hypotension - off Levophed Interstitial markings on CT - ? 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 Sutures removed about 2 weeks post -op now exposed bone Left common Fem DVT Cefazolin allergy - nausea NSTEMI - family has declined further w/u Tobacco abuse Baclofen pump Primary lateral Sclerosis Plan Plan of Care ashley, Denishasyn and jannie for now F/u labs in am/cults Supportive care Attending Co-Sign The patient was seen and interviewed as well as examined at the bedside. The chart was reviewed. The case was discussed. Agree with the plan of care. KYLE TRIVEDI APRN Aug 02, 2016 09:53 KELLY SALGUERO MD Aug 02, 2016 14:04
[2016-08-02] MEDS: VANCOMYCIN PER PHARMACY MC PRN (14:51)
--- NOTE | 2016-08-02 15:05 | PN ---
DATE: 08/02/2016 SUBJECTIVE: The patient is seen in the intensive care unit room. She is awake and alert and asks when she will be going home. She has provided some history into the events leading to her hospitalization including a syncopal episode prompted by pulmonary emboli that caused acute respiratory failure and she was noted to have acute renal failure, non-STEMI and metabolic encephalopathy. She seemed unaware of most of that. Her medications are noted. PHYSICAL EXAMINATION: VITAL SIGNS: She does have a fever this morning of 100.4, heart rate at that time of 114 and has remained tachycardic. Her respiratory rate has been 19-20, oxygen saturation has been in the 98%. She is off her nonrebreather mask currently. GENERAL: she is alert. She is talking. She is weakened from her amyotrophic lateral sclerosis. HEART: Tachycardic on auscultation, but regular. Monitor showing sinus rhythm. LUNGS: Clear anteriorly. ABDOMEN: Soft, nondistended, nontender. I's and O's are noted. LABORATORY DATA: Her white count has gone down slightly from 13.9-12.4, hemoglobin has gone up slightly from 8.7 to 8.9. Chemistries are unremarkable other than a low calcium of 8.3, blood cultures have remained negative. Chest x-ray from 2 days ago showed a right perihilar infiltrate. Lower extremity ultrasound showed partially occlusive DVT involving the left common femoral vein. ASSESSMENT: 1. Multiple pulmonary emboli secondary to deep venous thrombosis. She is now on Lovenox and off heparin and is being started on Coumadin. 2. Acute respiratory failure, improved. She is currently on some nasal cannula oxygen. 3. Pneumonia, followed by Infectious Disease on broad spectrum antibiotics. 4. Non-ST elevation myocardial infarction with systolic heart failure. She is still tachycardic, but that may have been from fever. She is off Levophed. 5. ____ with chronic weakness and deconditioning. PLAN: Continue her oxygen, her neb treatments and wound care. Lovenox while waiting on therapeutic warfarin. Infectious Disease is following and she is on vancomycin, Zosyn and doxycycline for now. Her right index osteomyelitis, status post amputation from 07/03/2016, sutures have been removed a couple of weeks ago. There is exposed bone, but her hand is wrapped and dressing is dry. Wound care is also following. W Jose Guadalupe WHITING MD DR: MALCOLM/edwina JOB#: [id number] / [id number]
[2016-08-02] MEDS ORDERED: WARFARIN 6 MG TABLET. PO ONE (16:00)
[2016-08-03] VITALS (18 sets, daily range): BP systolic 109–141; BP diastolic 72–92
[2016-08-03] MEDS: PIPERACILLIN/TAZOBACTAM 3.375 GM in IV NORMAL SALINE 50ML 50 ML IV SCH ×5 (00:05→23:32)
[2016-08-03] MEDS: VANCOMYCIN 750 MG in IV NORMAL SALINE 250ML 250 ML IV SCH ×3 (01:43→17:00)
[2016-08-03] MEDS: NON FORMULARY ITEM SQ SCH ×9 (03:00→23:32)
[2016-08-03] MEDS: LEVOTHYROXINE 75 MCG TABLET PO SCH (05:30)
[2016-08-03] MEDS: ACETAMINOPHEN 325 MG TABLET. PO PRN (05:30)
[2016-08-03 05:55] LABS: HEMATOCRIT 26.8 % (36.0-47.0); HEMOGLOBIN 9.2 g/dL (12.0-15.5); RED BLOOD COUNT 2.8 x10^6/uL (3.50-5.40); RED CELL DISTRIBUTION WIDTH 13.5 % (11.5-14.5); WHITE BLOOD COUNT 10.6 x10^3/uL (4.0-11.0)
[2016-08-03 06:10] LABS: PROTHROMBIN TIME PATIENT 21.5 SEC (11.7-14.0)
[2016-08-03] MEDS: ALBUTEROL SULFATE 2.5 MG/3 ML NEBU. NEB SCH ×4 (08:33→19:40)
[2016-08-03] MEDS: BUDESONIDE 0.5 MG/2 ML NEBU. NEB SCH ×2 (08:34→19:40)
--- NOTE | 2016-08-03 08:37 | PDOC ---
PULMONARY PROGRESS NOTES Subjective off levo, on 02, 12 lpm, but sat 98%, no pain, sob is better, has cough Vitals Vital Signs Date Time Temp Pulse Resp B/P (MAP) Pulse Ox O2 Delivery O2 Flow Rate FiO2 08/03/16 07:00 97.9 116 18 127/76 (93) 96 High Flow Nasal Cannula 8.0 97.9 Comments ros as mentioned as above other sys otherwise neg ROS: No Nausea, No Abdominal Pain General: Alert HEENT: Other (nc at perrl, nose throat clear, neck no lap, no thyromegaly) Lungs: Other (ant rhonchi) Cardiovascular: S1, S2 Abdomen: Soft, Non-tender, Other Neuro Exam: Alert, Oriented Extremities: Other (trace edema) Skin: Warm Labs Laboratory Tests Test 08/02/16 06:00 08/03/16 05:00 White Blood Count 12.4 x10^3/uL (4.0-11.0) 10.6 x10^3/uL (4.0-11.0) Red Blood Count 2.74 x10^6/uL (3.50-5.40) 2.80 x10^6/uL (3.50-5.40) Hemoglobin 8.9 g/dL (12.0-15.5) 9.2 g/dL (12.0-15.5) Hematocrit 26.2 % (36.0-47.0) 26.8 % (36.0-47.0) Mean Corpuscular Volume 96 fL (79-100) 96 fL (79-100) Mean Corpuscular Hemoglobin 33 pg (25-35) 33 pg (25-35) Mean Corpuscular Hemoglobin Concent 34 g/dL (31-37) 34 g/dL (31-37) Red Cell Distribution Width 13.3 % (11.5-14.5) 13.5 % (11.5-14.5) Platelet Count 262 x10^3/uL (140-400) 291 x10^3/uL (140-400) Prothrombin Time 18.2 SEC (11.7-14.0) 21.5 SEC (11.7-14.0) Prothromb Time International Ratio 1.6 (0.8-1.1) 2.0 (0.8-1.1) Sodium Level 144 mmol/L (136-145) Potassium Level 3.7 mmol/L (3.5-5.1) Chloride Level 110 mmol/L (98-107) Carbon Dioxide Level 25 mmol/L (21-32) Anion Gap 9 (6-14) Blood Urea Nitrogen 12 mg/dL (7-20) Creatinine 0.7 mg/dL (0.6-1.0) Estimated GFR (Cockcroft-Gault) 104.4 Glucose Level 117 mg/dL (70-99) Calcium Level 8.3 mg/dL (8.5-10.1) Laboratory Tests Test 08/03/16 05:00 White Blood Count 10.6 x10^3/uL (4.0-11.0) Red Blood Count 2.80 x10^6/uL (3.50-5.40) Hemoglobin 9.2 g/dL (12.0-15.5) Hematocrit 26.8 % (36.0-47.0) Mean Corpuscular Volume 96 fL (79-100) Mean Corpuscular Hemoglobin 33 pg (25-35) Mean Corpuscular Hemoglobin Concent 34 g/dL (31-37) Red Cell Distribution Width 13.5 % (11.5-14.5) Platelet Count 291 x10^3/uL (140-400) Prothrombin Time 21.5 SEC (11.7-14.0) Prothromb Time International Ratio 2.0 (0.8-1.1) Medications Active Scripts Medications Dose Route/Sig Max Daily Dose Days Date Category Xopenex Hfa (Levalbuterol Tartrate) 15 Gm Hfa.aer.ad 2 Puff IH PRN Q4-6HRS 07/27/16 Reported Fluticasone Propionate Nasal [place] (Fluticasone Propionate) 16 Gm [place].susp 2 [place] NS DAILY 07/27/16 Reported Olanzapine 5 Mg Tablet 5 Mg PO BID 07/27/16 Reported Meloxicam 7.5 Mg Tablet 1 Tab PO DAILY 07/27/16 Reported FENTANYL 75mcg/hr (Fentanyl) 1 Each Patch.td72 1 Patch TP Q3DAYS 04/28/14 Reported Claritin (Loratadine) 10 Mg Tablet 1 Tab PO DAILY 04/28/14 Reported Advair 500-50 Diskus (Fluticasone/Salmeterol) 1 Each Disk.w.dev 1 Each IH BID 04/14/13 Reported Amitriptyline Hcl 10 Mg Tablet 10 Mg PO BID 04/14/13 Reported Zofran Odt (Ondansetron) 8 Mg Tab.rapdis 8 Mg PO PRN 04/14/13 Reported Percocet 7.5-325 Mg Tablet (Oxycodone/Acetaminophen) 1 Each Tablet 1 Each PO Q8HRS 04/14/13 Reported Levothyroxine Sodium 75 Mcg Tablet 75 Mcg PO DAILY 04/14/13 Reported Fioricet 50-325-40 Mg Tablet (Butalb/Acetaminophen/Caffeine) 1 Each Tablet 1 Each PO Q6HRS PRN 04/14/13 Reported Effexor Xr (Venlafaxine Hcl) 150 Mg Cap.er.24h 150 Mg PO DAILY 04/14/13 Reported Klor-Con M20 (Potassium Chloride) 20 Meq Tab.er.prt 20 Meq PO DAILY 04/14/13 Reported Tizanidine Hcl 2 Mg Capsule 2 Mg PO TID 04/14/13 Reported Zantac (Ranitidine Hcl) 150 Mg Tablet 150 Mg PO BID 04/14/13 Reported Topiramate 25 Mg Tablet 100 Mg PO BID 04/14/13 Reported Gabapentin 800 Mg Tablet 800 Mg PO TID 04/14/[address] reviewed, 1. Multiple filling defects identified in the right upper lobe, right middle lobe, right lower lobe and left upper lobe and left lower lobe pulmonary artery branches likely multiple pulmonary emboli. 2. Bilateral hilar and right infrahilar airspace opacities. Differential includes hilar lymphadenopathy, pneumonia o/ atelectasis or malignancy. Close interval follow-up examination is recommended. A follow-up PET CT scan can be considered. 3. Diffuse reticular interstitial lung markings identified in the left upper lobe, right upper lobe, right middle lobe and right lower lobe of the lung could be reticular interstitial changes 4. Small bilateral pleural effusions , right greater than left with patchy bibasilar airspace opacities. Impression . 1. Acute hypoxic respiratory failure secondary to bilateral extensive pulmonary embolism. She does not meet the criteria for TPA, she has a contraindication, which is the intrathecal baclofen pump, which carries increased risk for spinal hematoma. 2. Abnormal CT chest with bilateral pulmonary embolism and bilateral interstitial and reticular infiltrates. This could be a combination of pneumonia/interstitial lung disease/possible congestive heart failure. 3. Underlying suspected chronic obstructive pulmonary disease with reduced pulmonary reserve contributing to the severity of hypoxia. 4. 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 5. Partially occlusive DVT is seen involving the left common femoral vein. 6. Moderate right ventricular dilation on echo and mildly increased troponin level suggesting right ventricular ischemia. 7. Shock, off pressor Plan . 1. 02 titration, to keep sat 91%. oxygenation improving. 2. keep I<O, on prn diuresis. 3. lovenox coumadin. monitor for bleeding, hb stable. adjust coumadin dose per inr 4. Continue broad spectrum antibiotics. Currently, she is on vancomycin/Zosyn 5. Bronchodilators. 6. venous Dopplers with LL extremity DVT. Monitor Hb closely. 7. Smoking cessation counseling provided. 8. fever resolved Discussed with the patient, TRINA Watts MD Aug 03, 2016 08:37
[2016-08-03] MEDS: ASPIRIN ENTERIC COATED 81 MG TABLET.DR. PO SCH (08:50)
[2016-08-03] MEDS: FLUTICASONE 50MCG/NASAL SPRAY 16GM BOTTLE. NS SCH (08:55)
[2016-08-03] MEDS: VENLAFAXINE XR 37.5 MG CAP.ER.24H. PO SCH (08:55)
[2016-08-03] MEDS: AMITRIPTYLINE HCL 10 MG TABLET. PO SCH ×2 (08:56→21:11)
[2016-08-03] MEDS: POTASSIUM CHLORIDE 20 MEQ TABLET.ER. PO SCH ×3 (08:56→21:12)
[2016-08-03] MEDS: METOPROLOL TART IMMED RELEASE 25 MG TABLET. PO SCH ×2 (08:57→21:10)
[2016-08-03] MEDS: GABAPENTIN 400 MG CAPSULE. PO SCH ×2 (08:57→21:10)
[2016-08-03] MEDS: FAMOTIDINE 20 MG TABLET. PO SCH ×2 (08:58→21:11)
[2016-08-03] MEDS: DOXYCYCLINE HYCLATE 100 MG TABLET PO SCH ×2 (08:58→21:10)
[2016-08-03] MEDS: TOPIRAMATE 100 MG TABLET. PO SCH ×2 (08:58→21:11)
[2016-08-03] MEDS: tiZANidine 4 MG TABLET. PO SCH ×3 (08:59→21:11)
--- NOTE | 2016-08-03 09:16 | PDOC ---
Infectious Disease Note Subjective Subjective Feels ok Less high flow supplemental O2, now on 5 L No fever last 24 hours ROS ROS GEN: Denies chills CV: Denies chest pain RESP: Denies shortness of air, cough GI: Denies n/v/d Vital Sign Vital Signs Vital Signs Date Time Temp Pulse Resp B/P (MAP) Pulse Ox O2 Delivery O2 Flow Rate FiO2 08/03/16 08:57 116 130/80 08/03/16 08:40 99 High Flow Nasal Cannula 12.0 08/03/16 08:00 28 08/03/16 07:00 97.9 97.9 Physical Exam PHYSICAL EXAM GENERAL: Propped up in bed, calm, NAD LUNGS: Clear anteriorly, nonlabored HEART: S1S2 ABD: BS present, soft, NT. implantable pump. : Yancey EXT: No edema, no cyanosis [employer]BT [employer]ICER: Alert, answers appropriately and follows commands SKIN: No rash LUE-PICC. clean Labs Lab Laboratory Tests Test 08/03/16 05:00 White Blood Count 10.6 x10^3/uL (4.0-11.0) Red Blood Count 2.80 x10^6/uL (3.50-5.40) Hemoglobin 9.2 g/dL (12.0-15.5) Hematocrit 26.8 % (36.0-47.0) Mean Corpuscular Volume 96 fL (79-100) Mean Corpuscular Hemoglobin 33 pg (25-35) Mean Corpuscular Hemoglobin Concent 34 g/dL (31-37) Red Cell Distribution Width 13.5 % (11.5-14.5) Platelet Count 291 x10^3/uL (140-400) Prothrombin Time 21.5 SEC (11.7-14.0) Prothromb Time International Ratio 2.0 (0.8-1.1) Micro 07/29. BLOOD CULTURE Preliminary NO GROWTH AFTER 4 DAYS Objective Assessment Encephalopathy - ? med related but also does have a mood disorder, improving PE - now on warfarin Fever likely sec to PE. Blood cults neg Leukocytosis - likely reactive, improved Hypotension - off Levophed Interstitial markings on CT - ? 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 Sutures removed about 2 weeks post -op now exposed bone Left common Fem DVT Cefazolin allergy - nausea NSTEMI - family has declined further w/u Tobacco abuse Baclofen pump Primary lateral Sclerosis Plan Plan of Care Violette ramirez and jannie for now Supportive care Attending Co-Sign The patient was seen and interviewed as well as examined at the bedside. The chart was reviewed. The case was discussed. Agree with the plan of care. KYLE TRIVEDI APRN Aug 03, 2016 09:16 KELLY SALGUERO MD Aug 03, 2016 12:08
[2016-08-03] MEDS: CETIRIZINE HCL 10 MG TABLET. PO SCH (09:21)
[2016-08-03] MEDS: fentaNYL 75MCG/HR PATCH 1 PATCH PATCH.TD72 TD SCH (09:23)
[2016-08-03] MEDS: OLANZapine 5 MG TABLET PO SCH (12:21)
[2016-08-03] MEDS: VANCOMYCIN PER PHARMACY MC PRN (13:51)
--- NOTE | 2016-08-03 14:18 | PN ---
DATE: 08/03/2016 HISTORY: She has been awake and more alert today. Less tachycardic. She is off Levophed and maintaining her blood pressure. She is breathing easier overall. She does not have any swelling or pain in her legs. OBJECTIVE: VITAL SIGNS: Temperature 97.9, pulse 99, blood pressure 110/73, pulse ox 93% on 4-5 liters nasal cannula oxygen. GENERAL: She is awake and alert and able to communicate, but really has no recollection of her prior hospital days. HEENT: Ocular muscles are intact. Mucous membranes are moist. NECK: Supple. HEART: Borderline tachycardic, but sinus. LUNGS: Clear anteriorly. ABDOMEN: Nondistended, nontender. Bowel sounds are present. EXTREMITIES: Lower extremities without edema. She has her baseline weakness. LABORATORY DATA: Her white count is normal at 10.6, hemoglobin is up to 9.2, platelets are normal. INR is 2.0. ASSESSMENT: 1. Multiple pulmonary emboli secondary to deep venous thrombosis causing acute respiratory failure. She is now adequately anticoagulated on warfarin. 2. Acute respiratory failure, resolved, requiring nasal cannula oxygen. 3. Pneumonia followed by Infectious Disease on broad spectrum antibiotics. 4. Non-ST elevation myocardial infarction with systolic heart failure and no longer requiring Levophed. 5. PLS with chronic weakness and deconditioning. 6. Recent right index finger osteomyelitis, status post amputation on 07/03/2016. 7. Chronic pain, controlled with fentanyl patch. PLAN: She is medically stable for transfer from the ICU to Med/Surg bed. We will have PT, OT assess her. She may need penitentiary. Gabriella WHITING MD DR: MALCOLM/edwina JOB#: [id number] / [id number]
[2016-08-03] MEDS ORDERED: WARFARIN 5 MG TABLET. PO ONE (16:00)
[2016-08-04] MEDS: VANCOMYCIN 750 MG in IV NORMAL SALINE 250ML 250 ML IV SCH ×3 (00:33→17:23)
[2016-08-04 02:41] VITALS: BP 130/84
[2016-08-04] MEDS: ONDANSETRON PF 4 MG/2 ML VIAL. IV PRN ×2 (02:43→10:27)
[2016-08-04] MEDS: NON FORMULARY ITEM SQ SCH ×8 (03:00→23:36)
[2016-08-04] MEDS: LEVOTHYROXINE 75 MCG TABLET PO SCH (06:00)
[2016-08-04] MEDS: PIPERACILLIN/TAZOBACTAM 3.375 GM in IV NORMAL SALINE 50ML 50 ML IV SCH ×4 (06:01→23:35)
[2016-08-04 06:31] LABS: INR 2.6 (0.8-1.1); PROTHROMBIN TIME PATIENT 26.4 SEC (11.7-14.0)
[2016-08-04] MEDS: ALBUTEROL SULFATE 2.5 MG/3 ML NEBU. NEB SCH ×4 (07:43→20:12)
[2016-08-04] MEDS: BUDESONIDE 0.5 MG/2 ML NEBU. NEB SCH ×2 (07:43→20:12)
[2016-08-04 07:58] VITALS: BP 104/71
--- NOTE | 2016-08-04 08:05 | PDOC ---
PROGRESS NOTES Subjective Subjective Patient awake and alert, denies pain or SOA. Objective Objective Vital Signs Date Time Temp Pulse Resp B/P (MAP) Pulse Ox O2 Delivery O2 Flow Rate FiO2 08/04/16 07:46 91 High Flow Nasal Cannula 5.0 08/04/16 02:41 97.4 93 18 130/84 (99) 97.4 Intake and Output 08/04/16 07:00 Intake Total 970 ml Output Total 2825 ml Balance -1855 ml Intake Oral 970 ml Output Urine Total 2825 ml # Bowel Movements 2 Physical Exam Abdomen: Normal bowel sounds, Soft, No tenderness Heart: Regular rate Extremities: No edema General: Alert, Oriented X3 (to person and place), No acute distress Lungs: Clear to auscultation Assessment Assessment Problems Medical Problems: (1) Elevated troponin Status: Acute Plan Plan of Care 1. PE's with DVT - stable, continue Coumadin. 2. acute respiratory failure with pneumonia - sats much improved, continue O2, nebs and abx. 3. NSTEMI with CHF - stable. Tachycardia improving, continue present meds. 4. surgical wound - continue wound care and abx. 5. metabolic encephalopathy with mood disorder - getting back to baseline. Continue present meds. 6. chronic pain - appears stable with her usual Duragesic patch and Percocet. On decreased dose in intrathecal pump. 7. PLS with debility - resuming PT and OT now that condition is stable. Unclear whether she will be able to return home at discharge or would benefit from a little time in detention. SW consulted to help with this. Should be ready for discharge soon if she remains stable. Comment Review of Relevant I have reviewed the following items mimi (where applicable) has been applied. Labs Laboratory Tests Test 08/03/16 05:00 08/04/16 06:15 White Blood Count 10.6 x10^3/uL (4.0-11.0) Red Blood Count 2.80 x10^6/uL (3.50-5.40) Hemoglobin 9.2 g/dL (12.0-15.5) Hematocrit 26.8 % (36.0-47.0) Mean Corpuscular Volume 96 fL (79-100) Mean Corpuscular Hemoglobin 33 pg (25-35) Mean Corpuscular Hemoglobin Concent 34 g/dL (31-37) Red Cell Distribution Width 13.5 % (11.5-14.5) Platelet Count 291 x10^3/uL (140-400) Prothrombin Time 21.5 SEC (11.7-14.0) 26.4 SEC (11.7-14.0) Prothromb Time International Ratio 2.0 (0.8-1.1) 2.6 (0.8-1.1) Laboratory Tests Test 08/04/16 06:15 Prothrombin Time 26.4 SEC (11.7-14.0) Prothromb Time International Ratio 2.6 (0.8-1.1) Microbiology 07/29/16 Blood Culture - Final, Complete NO GROWTH AFTER 5 DAYS Medications Current Medications Sodium Chloride 1,000 ml @ 1,000 mls/hr 1X ONCE IV Last administered on 19:28; Start 07/27/16 at 19:15; Stop 07/27/16 at 20:14; Status DC Ondansetron HCl (Zofran) 4 mg PRN Q8HRS PRN IV NAUSEA/VOMITING; Start 07/27/16 at 20:45; Stop 07/28/16 at 07:41; Status DC Aspirin (Elvis Aspirin) 325 mg 1X ONCE PO Last administered on 07/27/16 20:55 ; Start 07/27/16 at 20:45; Stop 07/27/16 at 20:46; Status DC Amitriptyline HCl (Elavil) 10 mg BID PO ; Start 07/28/16 at 09:00; Stop at 09:00; Status DC Fentanyl (Duragesic 75mcg/ Hr Patch) 1 patch Q3DAYS TD ; Start 07/27/16 at 23:00 ; Stop 07/27/16 at 23:08; Status DC Olanzapine (ZyPREXA) 5 mg BID PO ; Start 07/28/16 at 09:00; Stop 07/28/16 at 09: 00; Status DC Oxycodone/ Acetaminophen (Percocet 7.5/ 325) 1 tab Q8HRS PO ; Start 07/28/16 at 06:00; Stop 07/28/16 at 06:00; Status DC Topiramate (Topamax) 100 mg BID PO ; Start 07/28/16 at 09:00; Stop 07/28/16 at 09:00; Status DC Non-Formulary Medication 800 mg TID PO ; Start 07/28/16 at 09:00; Stop 07/28/16 at 09:00; Status DC Non-Formulary Medication 150 mg BID PO ; Start 07/28/16 at 09:00; Stop 07/28/16 at 09:00; Status DC Non-Formulary Medication 2 mg TID PO ; Start 07/28/16 at 09:00; Stop 07/28/16 at 09:00; Status DC Non-Formulary Medication 1 ea Q3HRS SQ Last administered on 07/27/16 22:45; Start 07/27/16 at 00:00; Stop 07/27/16 at 23:40; Status DC Amitriptyline HCl (Elavil) 10 mg BID PO Last administered on 08/03/16 21:11; Start 07/27/16 at 23:30 Fentanyl (Duragesic 75mcg/ Hr Patch) 1 patch Q3DAYS TD Last administered on 23:33; Start 07/27/16 at 23:30; Stop 07/28/16 at 20:41; Status DC Olanzapine (ZyPREXA) 5 mg BID PO Last administered on 07/27/16 23:32; Start at 23:30; Stop 07/28/16 at 07:30; Status DC Oxycodone/ Acetaminophen (Percocet 7.5/ 325) 1 tab Q8HRS PO Last administered on 07/29/16 20:50; Start 07/27/16 at 23:30; Stop 07/30/16 at 08:07; Status DC Topiramate (Topamax) 100 mg BID PO Last administered on 08/03/16 21:11; Start 07/27/16 at 23:30 Gabapentin (Neurontin) 800 mg Q12HR PO Last administered on 08/03/16 21:10; Start 07/27/16 at 23:30 Famotidine (Pepcid) 20 mg BID PO Last administered on 08/03/16 21:11; Start at 23:30 Tizanidine HCl (Zanaflex) 2 mg TID PO Last administered on 08/03/16 21:11; Start 07/27/16 at 23:30 Non-Formulary Medication 1 ea Q3HRS SQ Last administered on 08/04/16 06:03; Start 07/28/16 at 03:00 Acetaminophen/ Butalbital/ Caffeine (Fioricet) 1 tab PRN Q6HRS PRN PO MIGRAINE HEADACHE; Start 07/28/16 at 07:30 Fluticasone Propionate (Flonase) 2 spray DAILY NS ; Start 07/28/16 at 09:00; Status Cancel Levothyroxine Sodium (Synthroid) 75 mcg DAILY06 PO Last administered on 06:00; Start 07/28/16 at 07:30 Potassium Chloride (Klor-Con) 20 meq DAILY PO Last administered on 07/31/16 09 :39; Start 07/28/16 at 09:00; Stop 07/31/16 at 14:50; Status DC Non-Formulary Medication 1 each BID IH ; Start 07/28/16 at 09:00; Status UNV Cetirizine HCl (ZyrTEC) 10 mg DAILY PO Last administered on 08/03/16 09:21; Start 07/28/16 at 09:00 Venlafaxine HCl (Effexor Xr) 150 mg DAILY PO Last administered on 08/03/16 08: 55; Start 07/28/16 at 09:00 Olanzapine (ZyPREXA) 5 mg DAILY PO Last administered on 07/29/16 09:29; Start 07/28/16 at 09:00; Stop 07/30/16 at 08:17; Status DC Budesonide (Pulmicort) 0.5 mg RTBID NEB Last administered on 08/04/16 07:43; Start 07/28/16 at 08:00 Albuterol Sulfate (Ventolin Neb Soln) 2.5 mg RTQID NEB Last administered on 07:43; Start 07/28/16 at 08:00 Ondansetron HCl (Zofran) 4 mg PRN Q6HRS PRN IV NAUSEA/VOMITING Last administered on 08/04/16 02:43; Start 07/28/16 at 07:30 Vancomycin HCl (Vanco Per Pharmacy) 1 each PRN DAILY PRN MC SEE COMMENTS Last administered on 08/03/16 13:51; Start 07/28/16 at 08:00 Piperacillin Sod/ Tazobactam Sod 3.375 gm/Sodium Chloride 50 ml @ 100 mls/hr Q6HRS IV Last administered on 08/04/16 06:01; Start 07/28/16 at 08:30 Vancomycin HCl 1.25 gm/Sodium Chloride 250 ml @ 166.667 mls/hr 1X ONCE IV Last administered on 07/28/16 15:18; Start 07/28/16 at 09:00; Stop 07/28/16 at 10:29; Status DC Fluticasone Propionate (Flonase) 2 spray DAILY NS Last administered on 08:55; Start 07/29/16 at 09:00 Aspirin (Ecotrin) 81 mg DAILYWBKFT PO Last administered on 08/03/16 08:50; Start 07/28/16 at 17:00 Naloxone HCl (Narcan) 0.4 mg STK-MED ONCE .ROUTE ; Start 07/28/16 at 19:58; Stop 07/28/16 at 19:59; Status DC Naloxone HCl (Narcan) 0.4 mg 1X ONCE IV Last administered on 07/28/16 20:10; Start 07/28/16 at 20:15; Stop 07/28/16 at 20:16; Status DC Fentanyl (Duragesic 75mcg/ Hr Patch) 1 patch Q3DAYS TD ; Start 07/31/16 at 09:00 ; Status UNV Fentanyl (Duragesic 75mcg/ Hr Patch) 1 patch 1X ONCE TD ; Start 07/28/16 at 20: 45; Stop 07/28/16 at 20:46; Status UNV Fentanyl (Duragesic 75mcg/ Hr Patch) 1 patch Q3DAYS TD Last administered on 09:23; Start 07/28/16 at 21:00 Lorazepam (Ativan) 0.5 mg PRN Q6HRS PRN IV ANXIETY / AGITATION Last administered on 08/03/16 07:12; Start 07/29/16 at 01:45 Vancomycin HCl 750 mg/Sodium Chloride 250 ml @ 250 mls/hr Q12H IV Last administered on 07/29/16 03:57; Start 07/29/16 at 03:30; Stop 07/29/16 at 16:32 ; Status DC Vancomycin HCl 1 each 1X ONCE MC Last administered on 07/29/16 15:00; Start 07/29/16 at 15:00; Stop 07/29/16 at 15:01; Status DC Metoprolol Tartrate (Lopressor) 12.5 mg BID PO Last administered on 08/03/16 21:10; Start 07/29/16 at 11:30 Vancomycin HCl 1.25 gm/Sodium Chloride 250 ml @ 166.667 mls/hr 1X ONCE IV Last administered on 07/29/16 16:58; Start 07/29/16 at 17:00; Stop 07/29/16 at 18:29; Status DC Vancomycin HCl 750 mg/Sodium Chloride 250 ml @ 250 mls/hr Q8H IV Last administered on 08/04/16 00:33; Start 07/30/16 at 01:00 Vancomycin HCl 1 each 1X ONCE MC ; Start 07/30/16 at 16:30; Stop 07/30/16 at 16 :31; Status DC Digoxin (Lanoxin) 250 mcg PRN 1X PRN IV thachycardia; Start 07/29/16 at 18:00 Acetaminophen (Tylenol) 650 mg PRN Q6HRS PRN PO FEVER > 101 Last administered on 08/03/16 05:30; Start 07/29/16 at 23:00 Sodium Chloride 500 ml @ 500 mls/hr 1X ONCE IV Last administered on 03:45; Start 07/30/16 at 03:45; Stop 07/30/16 at 04:44; Status DC Iohexol (Omnipaque 300 Mg/ml) 75 ml 1X ONCE IV Last administered on 07/30/16 04:25; Start 07/30/16 at 04:00; Stop 07/30/16 at 04:01; Status DC Info (Do NOT chart on this entry -- for MONITORING) 1 each PRN DAILY PRN MC SEE COMMENTS; Start 07/30/16 at 04:00; Stop 08/01/16 at 03:59; Status DC Heparin Sodium/ Dextrose 500 ml @ 0 mls/hr CONT PRN IV SEE I/O RECORD Last administered on 08/01/16 06:14; Start 07/30/16 at 05:30; Stop 08/03/16 at 13:27 ; Status DC Heparin Sodium (Porcine) (Heparin Sodium) 1,500 unit PRN Q6HRS PRN IV FOR UFH LEVEL LESS THAN 0.2 Last administered on 07/30/16 21:49; Start 07/30/16 at 05: 30; Stop 08/01/16 at 08:49; Status DC Heparin Sodium (Porcine) (Heparin Sodium) 750 unit PRN Q6HRS PRN IV FOR UFH LEVEL 0.2 - 0.29 Last administered on 08/01/16 06:51; Start 07/30/16 at 05:30; Stop 08/01/16 at 08:49; Status DC Warfarin Sodium (Coumadin Per Pharmacy) 1 each PRN DAILY PRN MC PER PROTOCOL Last administered on 08/03/16 13:57; Start 07/30/16 at 05:00 Sodium Chloride 500 ml @ 500 mls/hr 1X ONCE IV Last administered on 05:15; Start 07/30/16 at 05:15; Stop 07/30/16 at 06:14; Status DC Heparin Sodium (Porcine) (Heparin Sodium) 3,950 unit 1X ONCE IV Last administered on 07/30/16 05:32; Start 07/30/16 at 05:30; Stop 07/30/16 at 05:31 ; Status DC Norepinephrine Bitartrate 250 ml @ 0 mls/hr CONT PRN IV SEE I/O RECORD Last administered on 08/01/16 15:38; Start 07/30/16 at 07:15; Stop 08/03/16 at 13:27 ; Status DC Oxycodone/ Acetaminophen (Percocet 7.5/ 325) 1 tab PRN Q8HRS PRN PO PAIN Last administered on 07/31/16 03:29; Start 07/30/16 at 08:15 Olanzapine (ZyPREXA) 10 mg DAILY PO Last administered on 08/03/16 12:21; Start 07/30/16 at 09:00 Sodium Chloride 1,000 ml @ 75 mls/hr [id number] IV Last administered on 01:33; Start 07/30/16 at 08:30; Stop 08/01/16 at 12:33; Status DC Potassium Chloride (Klor-Con) 40 meq 1X ONCE PO Last administered on 12:03; Start 07/30/16 at 12:00; Stop 07/30/16 at 12:01; Status DC Warfarin Sodium (Coumadin) 5 mg 1X WARF ONCE PO Last administered on 16:20; Start 07/30/16 at 16:00; Stop 07/30/16 at 16:01; Status DC Furosemide (Lasix) 20 mg 1X ONCE IVP Last administered on 07/30/16 14:13; Start 07/30/16 at 14:15; Stop 07/30/16 at 14:16; Status DC Doxycycline Hyclate (Vibra-Tab) 100 mg BID PO Last administered on 08/03/16 21 :10; Start 07/31/16 at 09:00 Furosemide (Lasix) 20 mg 1X ONCE IVP Last administered on 07/31/16 09:40; Start 07/31/16 at 09:15; Stop 07/31/16 at 09:16; Status DC Potassium Chloride 100 ml @ 100 mls/hr Q8H IV Last administered on 07/31/16 10:00; Start 07/31/16 at 10:00; Stop 07/31/16 at 15:00; Status DC Potassium Chloride 100 ml @ 100 mls/hr Q8H IV Last administered on 07/31/16 12:39; Start 07/31/16 at 11:00; Stop 07/31/16 at 15:00; Status DC Warfarin Sodium (Coumadin) 5 mg 1X WARF ONCE PO Last administered on 17:41; Start 07/31/16 at 16:00; Stop 07/31/16 at 16:01; Status DC Potassium Chloride 50 ml @ 50 mls/hr TID IV Last administered on 07/31/16 21: 15; Start 07/31/16 at 21:00; Stop 08/01/16 at 08:49; Status DC Warfarin Sodium (Coumadin) 5 mg 1X WARF ONCE PO Last administered on 15:28; Start 08/01/16 at 16:00; Stop 08/01/16 at 16:01; Status DC Enoxaparin Sodium (Lovenox Per Pharmacy Treatment Dosing) 1 each PRN DAILY PRN MC SEE COMMENTS; Start 08/01/16 at 08:45; Stop 08/03/16 at 13:27; Status DC Furosemide (Lasix) 20 mg 1X ONCE IVP Last administered on 08/01/16 10:12; Start 08/01/16 at 08:45; Stop 08/01/16 at 08:51; Status DC Enoxaparin Sodium (Lovenox 60mg Syringe) 50 mg Q12HR SQ Last administered on 09:22; Start 08/01/16 at 09:00; Stop 08/03/16 at 13:27; Status DC Potassium Chloride (Klor-Con) 20 meq TID PO Last administered on 08/03/16 21: 12; Start 08/01/16 at 09:00 Warfarin Sodium (Coumadin) 6 mg 1X WARF ONCE PO Last administered on 15:57; Start 08/02/16 at 16:00; Stop 08/02/16 at 16:01; Status DC Vancomycin HCl 1 each 1X ONCE MC ; Start 08/04/16 at 08:30; Stop 08/04/16 at 08 :31 Warfarin Sodium (Coumadin) 5 mg 1X WARF ONCE PO Last administered on 17:01; Start 08/03/16 at 16:00; Stop 08/03/16 at 16:01; Status DC Active Scripts Active Reported Xopenex Hfa (Levalbuterol Tartrate) 15 Gm Hfa.aer.ad 2 Puff IH PRN Q4-6HRS Fluticasone Propionate Nasal Bynum (Fluticasone Propionate) 16 Gm Bynum.susp 2 Bynum NS DAILY Olanzapine 5 Mg Tablet 5 Mg PO BID Meloxicam 7.5 Mg Tablet 1 Tab PO DAILY FENTANYL 75mcg/hr (Fentanyl) 1 Each Patch.td72 1 Patch TP Q3DAYS Claritin (Loratadine) 10 Mg Tablet 1 Tab PO DAILY Advair 500-50 Diskus (Fluticasone/Salmeterol) 1 Each Disk.w.dev 1 Each IH BID Amitriptyline Hcl 10 Mg Tablet 10 Mg PO BID Zofran Odt (Ondansetron) 8 Mg Tab.rapdis 8 Mg PO PRN Percocet 7.5-325 Mg Tablet (Oxycodone/Acetaminophen) 1 Each Tablet 1 Each PO Q8HRS Levothyroxine Sodium 75 Mcg Tablet 75 Mcg PO DAILY Fioricet 50-325-40 Mg Tablet (Butalb/Acetaminophen/Caffeine) 1 Each Tablet 1 Each PO Q6HRS PRN Effexor Xr (Venlafaxine Hcl) 150 Mg Cap.er.24h 150 Mg PO DAILY Klor-Con M20 (Potassium Chloride) 20 Meq Tab.er.prt 20 Meq PO DAILY Tizanidine Hcl 2 Mg Capsule 2 Mg PO TID Zantac (Ranitidine Hcl) 150 Mg Tablet 150 Mg PO BID Topiramate 25 Mg Tablet 100 Mg PO BID Gabapentin 800 Mg Tablet 800 Mg PO TID Vitals/I & O Vital Sign - Last 24 Hours 08/03/16 08/03/16 08/03/16 08/03/16 08:38 08:40 08:57 09:00 Pulse 116 116 Resp 28 B/P (MAP) 130/80 140/88 (105) Pulse Ox 99 99 94 O2 Delivery High Flow Nasal Cannula High Flow Nasal Cannula High Flow Nasal Cannula O2 Flow Rate 12.0 12.0 5.0 08/03/16 08/03/16 08/03/16 08/03/16 09:23 10:00 11:00 12:00 Temp 97.9 97.9 Pulse 99 105 106 Resp 16 19 29 B/P (MAP) 110/73 (85) 121/72 (88) 131/86 (101) Pulse Ox 95 93 93 100 O2 Delivery High Flow Nasal Cannula High Flow Nasal Cannula High Flow Nasal Cannula O2 Flow Rate 5.0 5.0 4.0 4.0 08/03/16 08/03/16 08/03/16 08/03/16 12:00 12:38 13:00 13:23 Pulse 113 Resp 32 B/P (MAP) 119/79 (92) Pulse Ox 99 100 100 O2 Delivery Nasal Cannula High Flow Nasal Cannula High Flow Nasal Cannula Nasal Cannula O2 Flow Rate 8.0 12.0 4.0 4.0 08/03/16 08/03/16 08/03/16 08/03/16 13:30 15:00 16:15 16:51 Temp 97.7 97.5 97.7 97.5 Pulse 117 119 Resp 31 20 B/P (MAP) 118/92 (101) 116/79 (91) Pulse Ox 91 94 95 O2 Delivery Nasal Cannula High Flow Nasal Cannula Nasal Cannula High Flow Nasal Cannula O2 Flow Rate 4.0 4.0 4.0 4.0 6/08/03/16 08/03/16 08/03/16 19:33 19:41 19:46 20:00 Temp 97.1 97.1 Pulse 112 Resp 18 B/P (MAP) 109/75 (86) Pulse Ox 93 89 89 O2 Delivery Nasal Cannula High Flow Nasal Cannula High Flow Nasal Cannula Nasal Cannula O2 Flow Rate 4.0 4.0 4.0 4.0 08/03/16 08/03/16 08/04/16 08/04/16 21:10 23:28 02:41 07:46 Temp 97.3 97.4 97.3 97.4 Pulse 112 90 93 Resp 18 18 B/P (MAP) 109/75 115/79 (91) 130/84 (99) Pulse Ox 93 91 91 O2 Delivery Nasal Cannula Nasal Cannula High Flow Nasal Cannula O2 Flow Rate 4.0 5.0 Intake and Output 08/03/16 08/03/16 08/04/16 15:00 23:00 07:00 Intake Total 490 ml 240 ml 240 ml Output Total 900 ml 525 ml 1400 ml Balance -410 ml -285 ml -1160 ml RISHABH LUNDBERG MD Aug 04, 2016 08:05
--- NOTE | 2016-08-04 08:38 | PDOC ---
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 Blood cults neg Leukocytosis - likely reactive, improved Hypotension - off Levophed Interstitial markings on CT - ? 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 Sutures removed about 2 weeks post -op now exposed bone Left common Fem DVT Cefazolin allergy - nausea NSTEMI - family has declined further w/u Tobacco abuse Baclofen pump Primary lateral Sclerosis Plan Plan of Care Violette ramirez Supportive care KELLY SALGUERO MD Aug 04, 2016 08:38
[2016-08-04] MEDS: AMITRIPTYLINE HCL 10 MG TABLET. PO SCH ×2 (09:00→21:11)
[2016-08-04] MEDS: GABAPENTIN 400 MG CAPSULE. PO SCH ×3 (09:00→21:10)
[2016-08-04] MEDS: tiZANidine 4 MG TABLET. PO SCH ×3 (09:00→21:11)
[2016-08-04] MEDS: VENLAFAXINE XR 37.5 MG CAP.ER.24H. PO SCH (09:03)
[2016-08-04] MEDS: OLANZapine 5 MG TABLET PO SCH (09:03)
[2016-08-04] MEDS: METOPROLOL TART IMMED RELEASE 25 MG TABLET. PO SCH ×2 (09:03→21:10)
[2016-08-04] MEDS: CETIRIZINE HCL 10 MG TABLET. PO SCH (09:03)
[2016-08-04] MEDS: POTASSIUM CHLORIDE 20 MEQ TABLET.ER. PO SCH ×3 (09:04→21:10)
[2016-08-04] MEDS: ASPIRIN ENTERIC COATED 81 MG TABLET.DR. PO SCH (09:04)
[2016-08-04] MEDS: FAMOTIDINE 20 MG TABLET. PO SCH ×2 (09:04→21:10)
[2016-08-04] MEDS: TOPIRAMATE 100 MG TABLET. PO SCH ×2 (09:05→21:10)
[2016-08-04] MEDS: FLUTICASONE 50MCG/NASAL SPRAY 16GM BOTTLE. NS SCH (09:06)
[2016-08-04] MEDS: VANCOMYCIN PER PHARMACY MC PRN (10:27)
[2016-08-04 11:00] VITALS: BP 109/74
[2016-08-04 15:00] VITALS: BP 88/56
--- NOTE | 2016-08-04 15:14 | PDOC ---
PULMONARY PROGRESS NOTES Subjective Pt less soa Vitals Vital Signs Date Time Temp Pulse Resp B/P (MAP) Pulse Ox O2 Delivery O2 Flow Rate FiO2 08/04/16 12:34 91 High Flow Nasal Cannula 5.0 08/04/16 11:00 98.5 101 22 109/74 (86) 98.5 ROS: No Nausea, No Chest Pain, No Abdominal Pain, No Increase Cough General: Alert HEENT: Other (nc at perrl, nose throat clear, neck no lap, no thyromegaly) Lungs: Clear Cardiovascular: S1, S2 Abdomen: Soft, Non-tender, Other Neuro Exam: Alert, Oriented Extremities: No Edema, Other (trace edema) Skin: Warm Labs Laboratory Tests Test 08/03/16 05:00 08/04/16 06:15 08/04/16 09:15 White Blood Count 10.6 x10^3/uL (4.0-11.0) Red Blood Count 2.80 x10^6/uL (3.50-5.40) Hemoglobin 9.2 g/dL (12.0-15.5) Hematocrit 26.8 % (36.0-47.0) Mean Corpuscular Volume 96 fL (79-100) Mean Corpuscular Hemoglobin 33 pg (25-35) Mean Corpuscular Hemoglobin Concent 34 g/dL (31-37) Red Cell Distribution Width 13.5 % (11.5-14.5) Platelet Count 291 x10^3/uL (140-400) Prothrombin Time 21.5 SEC (11.7-14.0) 26.4 SEC (11.7-14.0) Prothromb Time International Ratio 2.0 (0.8-1.1) 2.6 (0.8-1.1) Vancomycin Level Trough 18.7 mcg/mL (10.0-20.0) Vancomycin Last Dose Date 08/04/16 Vancomycin Last Dose Time 99 Laboratory Tests Test 08/04/16 06:15 08/04/16 09:15 Prothrombin Time 26.4 SEC (11.7-14.0) Prothromb Time International Ratio 2.6 (0.8-1.1) Vancomycin Level Trough 18.7 mcg/mL (10.0-20.0) Vancomycin Last Dose Date 08/04/16 Vancomycin Last Dose Time 0100 Medications Active Scripts Medications Dose Route/Sig Max Daily Dose Days Date Category Xopenex Hfa (Levalbuterol Tartrate) 15 Gm Hfa.aer.ad 2 Puff IH PRN Q4-6HRS 07/27/16 Reported Fluticasone Propionate Nasal [place] (Fluticasone Propionate) 16 Gm Heber.susp 2 [place] NS DAILY 07/27/16 Reported Olanzapine 5 Mg Tablet 5 Mg PO BID 07/27/16 Reported Meloxicam 7.5 Mg Tablet 1 Tab PO DAILY 07/27/16 Reported FENTANYL 75mcg/hr (Fentanyl) 1 Each Patch.td72 1 Patch TP Q3DAYS 04/28/14 Reported Claritin (Loratadine) 10 Mg Tablet 1 Tab PO DAILY 04/28/14 Reported Advair 500-50 Diskus (Fluticasone/Salmeterol) 1 Each Disk.w.dev 1 Each IH BID 04/14/13 Reported Amitriptyline Hcl 10 Mg Tablet 10 Mg PO BID 04/14/13 Reported Zofran Odt (Ondansetron) 8 Mg Tab.rapdis 8 Mg PO PRN 04/14/13 Reported Percocet 7.5-325 Mg Tablet (Oxycodone/Acetaminophen) 1 Each Tablet 1 Each PO Q8HRS 04/14/13 Reported Levothyroxine Sodium 75 Mcg Tablet 75 Mcg PO DAILY 04/14/13 Reported Fioricet 50-325-40 Mg Tablet (Butalb/Acetaminophen/Caffeine) 1 Each Tablet 1 Each PO Q6HRS PRN 04/14/13 Reported Effexor Xr (Venlafaxine Hcl) 150 Mg Cap.er.24h 150 Mg PO DAILY 04/14/13 Reported Klor-Con M20 (Potassium Chloride) 20 Meq Tab.er.prt 20 Meq PO DAILY 04/14/13 Reported Tizanidine Hcl 2 Mg Capsule 2 Mg PO TID 04/14/13 Reported Zantac (Ranitidine Hcl) 150 Mg Tablet 150 Mg PO BID 04/14/13 Reported Topiramate 25 Mg Tablet 100 Mg PO BID 04/14/13 Reported Gabapentin 800 Mg Tablet 800 Mg PO TID 04/14/[address] reviewed, 1. Multiple filling defects identified in the right upper lobe, right middle lobe, right lower lobe and left upper lobe and left lower lobe pulmonary artery branches likely multiple pulmonary emboli. 2. Bilateral hilar and right infrahilar airspace opacities. Differential includes hilar lymphadenopathy, pneumonia o/ atelectasis or malignancy. Close interval follow-up examination is recommended. A follow-up PET CT scan can be considered. 3. Diffuse reticular interstitial lung markings identified in the left upper lobe, right upper lobe, right middle lobe and right lower lobe of the lung could be reticular interstitial changes 4. Small bilateral pleural effusions , right greater than left with patchy bibasilar airspace opacities. Impression . 1. Acute hypoxic respiratory failure secondary to bilateral extensive pulmonary embolism. 2. Abnormal CT chest with bilateral pulmonary embolism and bilateral interstitial and reticular infiltrates. Pneumonia 3. 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 5. Partially occlusive DVT is seen involving the left common femoral vein. 6. Moderate right ventricular dilation on echo 7. Encephalopathy seems to be improving Plan . 1. 02 titration, to keep sat 91%. oxygenation improving. 2. 6 min walk prior to d/c 3. on Coumadin INR 2.6 4. Antibx per ID vancomycin/Zosyn 5. Bronchodilators. LUIS M TERRY MD Aug 04, 2016 15:14
[2016-08-04] MEDS ORDERED: WARFARIN 5 MG TABLET. PO ONE (16:00)
[2016-08-04 19:00] VITALS: BP 100/64
[2016-08-04 23:00] VITALS: BP 103/65
[2016-08-05] MEDS: VANCOMYCIN 750 MG in IV NORMAL SALINE 250ML 250 ML IV SCH ×2 (00:11→09:29)
[2016-08-05 03:00] VITALS: BP 109/76
[2016-08-05] MEDS: NON FORMULARY ITEM SQ SCH ×7 (03:17→20:43)
[2016-08-05] MEDS: PIPERACILLIN/TAZOBACTAM 3.375 GM in IV NORMAL SALINE 50ML 50 ML IV SCH (06:20)
[2016-08-05] MEDS: LEVOTHYROXINE 75 MCG TABLET PO SCH (06:21)
[2016-08-05 07:00] VITALS: BP 111/73
[2016-08-05 07:07] LABS: INR 3.8 (0.8-1.1); PROTHROMBIN TIME PATIENT 35.1 SEC (11.7-14.0)
[2016-08-05 07:25] LABS: CREATININE 0.7 mg/dL (0.6-1.0); GFR 104.4; POTASSIUM 4.1 mmol/L (3.5-5.1)
[2016-08-05] MEDS: ALBUTEROL SULFATE 2.5 MG/3 ML NEBU. NEB SCH ×4 (07:25→20:19)
[2016-08-05] MEDS: BUDESONIDE 0.5 MG/2 ML NEBU. NEB SCH ×2 (07:25→20:19)
[2016-08-05 07:41] LABS: HEMOGLOBIN 11.8 g/dL (12.0-15.5); RED BLOOD COUNT 3.7 x10^6/uL (3.50-5.40); RED CELL DISTRIBUTION WIDTH 13.8 % (11.5-14.5); WHITE BLOOD COUNT 6.3 x10^3/uL (4.0-11.0)
[2016-08-05 07:43] LABS: HEMATOCRIT 36.3 % (36.0-47.0)
--- NOTE | 2016-08-05 08:58 | PDOC ---
PULMONARY PROGRESS NOTES Subjective Pt less soa Vitals Vital Signs Date Time Temp Pulse Resp B/P (MAP) Pulse Ox O2 Delivery O2 Flow Rate FiO2 08/05/16 07:30 96 High Flow Nasal Cannula 3.0 08/05/16 07:00 97.6 79 20 111/73 (86) 97.6 ROS: No Nausea, No Chest Pain, No Abdominal Pain, No Increase Cough General: Alert HEENT: Other (nc at perrl, nose throat clear, neck no lap, no thyromegaly) Lungs: Clear Cardiovascular: S1, S2 Abdomen: Soft, Non-tender, Other Neuro Exam: Alert, Oriented Extremities: No Edema, Other (trace edema) Skin: Warm Labs Laboratory Tests Test 08/04/16 06:15 08/04/16 09:15 08/05/16 05:05 Prothrombin Time 26.4 SEC (11.7-14.0) 35.1 SEC (11.7-14.0) Prothromb Time International Ratio 2.6 (0.8-1.1) 3.8 (0.8-1.1) Vancomycin Level Trough 18.7 mcg/mL (10.0-20.0) Vancomycin Last Dose Date 08/04/16 Vancomycin Last Dose Time 0100 White Blood Count 6.3 x10^3/uL (4.0-11.0) Red Blood Count 3.70 x10^6/uL (3.50-5.40) Hemoglobin 11.8 g/dL (12.0-15.5) Hematocrit 36.3 % (36.0-47.0) Mean Corpuscular Volume 98 fL (79-100) Mean Corpuscular Hemoglobin 32 pg (25-35) Mean Corpuscular Hemoglobin Concent 32 g/dL (31-37) Red Cell Distribution Width 13.8 % (11.5-14.5) Platelet Count 235 x10^3/uL (140-400) Sodium Level 143 mmol/L (136-145) Potassium Level 4.1 mmol/L (3.5-5.1) Chloride Level 110 mmol/L (98-107) Carbon Dioxide Level 27 mmol/L (21-32) Anion Gap 6 (6-14) Blood Urea Nitrogen 7 mg/dL (7-20) Creatinine 0.7 mg/dL (0.6-1.0) Estimated GFR (Cockcroft-Gault) 104.4 Glucose Level 93 mg/dL (70-99) Calcium Level 9.0 mg/dL (8.5-10.1) Laboratory Tests Test 08/04/16 09:15 08/05/16 05:05 Vancomycin Level Trough 18.7 mcg/mL (10.0-20.0) Vancomycin Last Dose Date 08/04/16 Vancomycin Last Dose Time 0100 White Blood Count 6.3 x10^3/uL (4.0-11.0) Red Blood Count 3.70 x10^6/uL (3.50-5.40) Hemoglobin 11.8 g/dL (12.0-15.5) Hematocrit 36.3 % (36.0-47.0) Mean Corpuscular Volume 98 fL (79-100) Mean Corpuscular Hemoglobin 32 pg (25-35) Mean Corpuscular Hemoglobin Concent 32 g/dL (31-37) Red Cell Distribution Width 13.8 % (11.5-14.5) Platelet Count 235 x10^3/uL (140-400) Prothrombin Time 35.1 SEC (11.7-14.0) Prothromb Time International Ratio 3.8 (0.8-1.1) Sodium Level 143 mmol/L (136-145) Potassium Level 4.1 mmol/L (3.5-5.1) Chloride Level 110 mmol/L (98-107) Carbon Dioxide Level 27 mmol/L (21-32) Anion Gap 6 (6-14) Blood Urea Nitrogen 7 mg/dL (7-20) Creatinine 0.7 mg/dL (0.6-1.0) Estimated GFR (Cockcroft-Gault) 104.4 Glucose Level 93 mg/dL (70-99) Calcium Level 9.0 mg/dL (8.5-10.1) Medications Active Scripts Medications Dose Route/Sig Max Daily Dose Days Date Category Xopenex Hfa (Levalbuterol Tartrate) 15 Gm Hfa.aer.ad 2 Puff IH PRN Q4-6HRS 07/27/16 Reported Fluticasone Propionate Nasal [place] (Fluticasone Propionate) 16 Gm [place].susp 2 [place] NS DAILY 07/27/16 Reported Olanzapine 5 Mg Tablet 5 Mg PO BID 07/27/16 Reported Meloxicam 7.5 Mg Tablet 1 Tab PO DAILY 07/27/16 Reported FENTANYL 75mcg/hr (Fentanyl) 1 Each Patch.td72 1 Patch TP Q3DAYS 04/28/14 Reported Claritin (Loratadine) 10 Mg Tablet 1 Tab PO DAILY 04/28/14 Reported Advair 500-50 Diskus (Fluticasone/Salmeterol) 1 Each Disk.w.dev 1 Each IH BID 04/14/13 Reported Amitriptyline Hcl 10 Mg Tablet 10 Mg PO BID 04/14/13 Reported Zofran Odt (Ondansetron) 8 Mg Tab.rapdis 8 Mg PO PRN 04/14/13 Reported Percocet 7.5-325 Mg Tablet (Oxycodone/Acetaminophen) 1 Each Tablet 1 Each PO Q8HRS 04/14/13 Reported Levothyroxine Sodium 75 Mcg Tablet 75 Mcg PO DAILY 04/14/13 Reported Fioricet 50-325-40 Mg Tablet (Butalb/Acetaminophen/Caffeine) 1 Each Tablet 1 Each PO Q6HRS PRN 04/14/13 Reported Effexor Xr (Venlafaxine Hcl) 150 Mg Cap.er.24h 150 Mg PO DAILY 04/14/13 Reported Klor-Con M20 (Potassium Chloride) 20 Meq Tab.er.prt 20 Meq PO DAILY 04/14/13 Reported Tizanidine Hcl 2 Mg Capsule 2 Mg PO TID 04/14/13 Reported Zantac (Ranitidine Hcl) 150 Mg Tablet 150 Mg PO BID 04/14/13 Reported Topiramate 25 Mg Tablet 100 Mg PO BID 04/14/13 Reported Gabapentin 800 Mg Tablet 800 Mg PO TID 04/14/[address] reviewed, 1. Multiple filling defects identified in the right upper lobe, right middle lobe, right lower lobe and left upper lobe and left lower lobe pulmonary artery branches likely multiple pulmonary emboli. 2. Bilateral hilar and right infrahilar airspace opacities. Differential includes hilar lymphadenopathy, pneumonia o/ atelectasis or malignancy. Close interval follow-up examination is recommended. A follow-up PET CT scan can be considered. 3. Diffuse reticular interstitial lung markings identified in the left upper lobe, right upper lobe, right middle lobe and right lower lobe of the lung could be reticular interstitial changes 4. Small bilateral pleural effusions , right greater than left with patchy bibasilar airspace opacities. Impression . 1. Acute hypoxic respiratory failure secondary to bilateral extensive pulmonary embolism. 2. Abnormal CT chest with bilateral pulmonary embolism and bilateral interstitial and reticular infiltrates. Pneumonia 3. 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 5. Partially occlusive DVT is seen involving the left common femoral vein. 6. Moderate right ventricular dilation on echo 7. Encephalopathy seems to be improving Plan . transfer in am ok follow up in office in [address] chest 1. 02 titration, to keep sat 91%. oxygenation improving. 2. 6 min walk prior to d/c 3. on Coumadin INR 2.6 4. Antibx per ID vancomycin/Zosyn 5. Bronchodilators. LUIS M TERRY MD Aug 05, 2016 08:58
--- NOTE | 2016-08-05 09:01 | PDOC ---
PROGRESS NOTES Subjective Subjective Patient without complaint, pleased to be heading towards discharge. Objective Objective Vital Signs Date Time Temp Pulse Resp B/P (MAP) Pulse Ox O2 Delivery O2 Flow Rate FiO2 08/05/16 07:30 96 High Flow Nasal Cannula 3.0 08/05/16 03:00 97.5 85 18 109/76 (87) 97.5 Intake and Output 08/05/16 07:00 Intake Total 550 ml Output Total 600 ml Balance -50 ml Intake Oral 200 ml IV Total 350 ml Output Urine Total 600 ml # Voids 1 Physical Exam Abdomen: Normal bowel sounds, Soft, No tenderness Heart: Regular rate Extremities: No edema General: Alert, Oriented X3, No acute distress (smiling and appropriate) Lungs: Clear to auscultation (BS mildly decreased throughout) Assessment Assessment Problems Medical Problems: (1) Elevated troponin Status: Acute Plan Plan of Care 1. PE's with DVT - stable, O2 needs decreasing. INR too high so Coumadin on hold. 2. acute respiratory failure with pneumonia - much improved, continue nebs and O2. 3. osteomyelitis right hand - stable, continue at least 2 more weeks of IV abx per ID. Continue wound care. 4. mood disorder - metabolic encephalopathy has resolved. Continue her usual meds for her mood, including the higher dose of Zyprexa started last week. 5. NSTEMI - stable, tachycardia resolving, continue present meds. 6. PLS with debility - continue therapies. 7. discharge planning - anticipate transfer to [facility] if arrangements can be made. Discussed with patient, sister Tara and ODILIA Frazier. Comment Review of Relevant I have reviewed the following items mimi (where applicable) has been applied. Labs Laboratory Tests Test 08/04/16 06:15 08/04/16 09:15 08/05/16 05:05 Prothrombin Time 26.4 SEC (11.7-14.0) 35.1 SEC (11.7-14.0) Prothromb Time International Ratio 2.6 (0.8-1.1) 3.8 (0.8-1.1) Vancomycin Level Trough 18.7 mcg/mL (10.0-20.0) Vancomycin Last Dose Date 08/04/16 Vancomycin Last Dose Time 0100 White Blood Count 6.3 x10^3/uL (4.0-11.0) Red Blood Count 3.70 x10^6/uL (3.50-5.40) Hemoglobin 11.8 g/dL (12.0-15.5) Hematocrit 36.3 % (36.0-47.0) Mean Corpuscular Volume 98 fL (79-100) Mean Corpuscular Hemoglobin 32 pg (25-35) Mean Corpuscular Hemoglobin Concent 32 g/dL (31-37) Red Cell Distribution Width 13.8 % (11.5-14.5) Platelet Count 235 x10^3/uL (140-400) Sodium Level 143 mmol/L (136-145) Potassium Level 4.1 mmol/L (3.5-5.1) Chloride Level 110 mmol/L (98-107) Carbon Dioxide Level 27 mmol/L (21-32) Anion Gap 6 (6-14) Blood Urea Nitrogen 7 mg/dL (7-20) Creatinine 0.7 mg/dL (0.6-1.0) Estimated GFR (Cockcroft-Gault) 104.4 Glucose Level 93 mg/dL (70-99) Calcium Level 9.0 mg/dL (8.5-10.1) Laboratory Tests Test 08/04/16 09:15 08/05/16 05:05 Vancomycin Level Trough 18.7 mcg/mL (10.0-20.0) Vancomycin Last Dose Date 08/04/16 Vancomycin Last Dose Time 0100 White Blood Count 6.3 x10^3/uL (4.0-11.0) Red Blood Count 3.70 x10^6/uL (3.50-5.40) Hemoglobin 11.8 g/dL (12.0-15.5) Hematocrit 36.3 % (36.0-47.0) Mean Corpuscular Volume 98 fL (79-100) Mean Corpuscular Hemoglobin 32 pg (25-35) Mean Corpuscular Hemoglobin Concent 32 g/dL (31-37) Red Cell Distribution Width 13.8 % (11.5-14.5) Platelet Count 235 x10^3/uL (140-400) Prothrombin Time 35.1 SEC (11.7-14.0) Prothromb Time International Ratio 3.8 (0.8-1.1) Sodium Level 143 mmol/L (136-145) Potassium Level 4.1 mmol/L (3.5-5.1) Chloride Level 110 mmol/L (98-107) Carbon Dioxide Level 27 mmol/L (21-32) Anion Gap 6 (6-14) Blood Urea Nitrogen 7 mg/dL (7-20) Creatinine 0.7 mg/dL (0.6-1.0) Estimated GFR (Cockcroft-Gault) 104.4 Glucose Level 93 mg/dL (70-99) Calcium Level 9.0 mg/dL (8.5-10.1) Microbiology 07/29/16 Blood Culture - Final, Complete NO GROWTH AFTER 5 DAYS Medications Current Medications Sodium Chloride 1,000 ml @ 1,000 mls/hr 1X ONCE IV Last administered on 19:28; Start 07/27/16 at 19:15; Stop 07/27/16 at 20:14; Status DC Ondansetron HCl (Zofran) 4 mg PRN Q8HRS PRN IV NAUSEA/VOMITING; Start 07/27/16 at 20:45; Stop 07/28/16 at 07:41; Status DC Aspirin ([place] Aspirin) 325 mg 1X ONCE PO Last administered on 07/27/16 20:55 ; Start 07/27/16 at 20:45; Stop 07/27/16 at 20:46; Status DC Amitriptyline HCl (Elavil) 10 mg BID PO ; Start 07/28/16 at 09:00; Stop at 09:00; Status DC Fentanyl (Duragesic 75mcg/ Hr Patch) 1 patch Q3DAYS TD ; Start 07/27/16 at 23:00 ; Stop 07/27/16 at 23:08; Status DC Olanzapine (ZyPREXA) 5 mg BID PO ; Start 07/28/16 at 09:00; Stop 07/28/16 at 09: 00; Status DC Oxycodone/ Acetaminophen (Percocet 7.5/ 325) 1 tab Q8HRS PO ; Start 07/28/16 at 06:00; Stop 07/28/16 at 06:00; Status DC Topiramate (Topamax) 100 mg BID PO ; Start 07/28/16 at 09:00; Stop 07/28/16 at 09:00; Status DC Non-Formulary Medication 800 mg TID PO ; Start 07/28/16 at 09:00; Stop 07/28/16 at 09:00; Status DC Non-Formulary Medication 150 mg BID PO ; Start 07/28/16 at 09:00; Stop 07/28/16 at 09:00; Status DC Non-Formulary Medication 2 mg TID PO ; Start 07/28/16 at 09:00; Stop 07/28/16 at 09:00; Status DC Non-Formulary Medication 1 ea Q3HRS SQ Last administered on 07/27/16 22:45; Start 07/27/16 at 00:00; Stop 07/27/16 at 23:40; Status DC Amitriptyline HCl (Elavil) 10 mg BID PO Last administered on 08/04/16 21:11; Start 07/27/16 at 23:30 Fentanyl (Duragesic 75mcg/ Hr Patch) 1 patch Q3DAYS TD Last administered on 23:33; Start 07/27/16 at 23:30; Stop 07/28/16 at 20:41; Status DC Olanzapine (ZyPREXA) 5 mg BID PO Last administered on 07/27/16 23:32; Start at 23:30; Stop 07/28/16 at 07:30; Status DC Oxycodone/ Acetaminophen (Percocet 7.5/ 325) 1 tab Q8HRS PO Last administered on 07/29/16 20:50; Start 07/27/16 at 23:30; Stop 07/30/16 at 08:07; Status DC Topiramate (Topamax) 100 mg BID PO Last administered on 08/04/16 21:10; Start 07/27/16 at 23:30 Gabapentin (Neurontin) 800 mg Q12HR PO Last administered on 08/03/16 21:10; Start 07/27/16 at 23:30; Stop 08/04/16 at 10:38; Status DC Famotidine (Pepcid) 20 mg BID PO Last administered on 08/04/16 21:10; Start at 23:30 Tizanidine HCl (Zanaflex) 2 mg TID PO Last administered on 08/04/16 21:11; Start 07/27/16 at 23:30 Non-Formulary Medication 1 ea Q3HRS SQ Last administered on 08/05/16 06:21; Start 07/28/16 at 03:00 Acetaminophen/ Butalbital/ Caffeine (Fioricet) 1 tab PRN Q6HRS PRN PO MIGRAINE HEADACHE; Start 07/28/16 at 07:30 Fluticasone Propionate (Flonase) 2 spray DAILY NS ; Start 07/28/16 at 09:00; Status Cancel Levothyroxine Sodium (Synthroid) 75 mcg DAILY06 PO Last administered on 06:21; Start 07/28/16 at 07:30 Potassium Chloride (Klor-Con) 20 meq DAILY PO Last administered on 07/31/16 09 :39; Start 07/28/16 at 09:00; Stop 07/31/16 at 14:50; Status DC Non-Formulary Medication 1 each BID IH ; Start 07/28/16 at 09:00; Status UNV Cetirizine HCl (ZyrTEC) 10 mg DAILY PO Last administered on 08/04/16 09:03; Start 07/28/16 at 09:00 Venlafaxine HCl (Effexor Xr) 150 mg DAILY PO Last administered on 08/04/16 09: 03; Start 07/28/16 at 09:00 Olanzapine (ZyPREXA) 5 mg DAILY PO Last administered on 07/29/16 09:29; Start 07/28/16 at 09:00; Stop 07/30/16 at 08:17; Status DC Budesonide (Pulmicort) 0.5 mg RTBID NEB Last administered on 08/05/16 07:25; Start 07/28/16 at 08:00 Albuterol Sulfate (Ventolin Neb Soln) 2.5 mg RTQID NEB Last administered on 07:25; Start 07/28/16 at 08:00 Ondansetron HCl (Zofran) 4 mg PRN Q6HRS PRN IV NAUSEA/VOMITING Last administered on 08/04/16 10:27; Start 07/28/16 at 07:30 Vancomycin HCl (Vanco Per Pharmacy) 1 each PRN DAILY PRN MC SEE COMMENTS Last administered on 08/04/16 10:27; Start 07/28/16 at 08:00 Piperacillin Sod/ Tazobactam Sod 3.375 gm/Sodium Chloride 50 ml @ 100 mls/hr Q6HRS IV Last administered on 08/05/16 06:20; Start 07/28/16 at 08:30 Vancomycin HCl 1.25 gm/Sodium Chloride 250 ml @ 166.667 mls/hr 1X ONCE IV Last administered on 07/28/16 15:18; Start 07/28/16 at 09:00; Stop 07/28/16 at 10:29; Status DC Fluticasone Propionate (Flonase) 2 spray DAILY NS Last administered on 09:06; Start 07/29/16 at 09:00 Aspirin (Ecotrin) 81 mg DAILYWBKFT PO Last administered on 08/04/16 09:04; Start 07/28/16 at 17:00 Naloxone HCl (Narcan) 0.4 mg STK-MED ONCE .ROUTE ; Start 07/28/16 at 19:58; Stop 07/28/16 at 19:59; Status DC Naloxone HCl (Narcan) 0.4 mg 1X ONCE IV Last administered on 07/28/16 20:10; Start 07/28/16 at 20:15; Stop 07/28/16 at 20:16; Status DC Fentanyl (Duragesic 75mcg/ Hr Patch) 1 patch Q3DAYS TD ; Start 07/31/16 at 09:00 ; Status UNV Fentanyl (Duragesic 75mcg/ Hr Patch) 1 patch 1X ONCE TD ; Start 07/28/16 at 20: 45; Stop 07/28/16 at 20:46; Status UNV Fentanyl (Duragesic 75mcg/ Hr Patch) 1 patch Q3DAYS TD Last administered on 09:23; Start 07/28/16 at 21:00 Lorazepam (Ativan) 0.5 mg PRN Q6HRS PRN IV ANXIETY / AGITATION Last administered on 08/03/16 07:12; Start 07/29/16 at 01:45 Vancomycin HCl 750 mg/Sodium Chloride 250 ml @ 250 mls/hr Q12H IV Last administered on 07/29/16 03:57; Start 07/29/16 at 03:30; Stop 07/29/16 at 16:32 ; Status DC Vancomycin HCl 1 each 1X ONCE MC Last administered on 07/29/16 15:00; Start 07/29/16 at 15:00; Stop 07/29/16 at 15:01; Status DC Metoprolol Tartrate (Lopressor) 12.5 mg BID PO Last administered on 08/04/16 21:10; Start 07/29/16 at 11:30 Vancomycin HCl 1.25 gm/Sodium Chloride 250 ml @ 166.667 mls/hr 1X ONCE IV Last administered on 07/29/16 16:58; Start 07/29/16 at 17:00; Stop 07/29/16 at 18:29; Status DC Vancomycin HCl 750 mg/Sodium Chloride 250 ml @ 250 mls/hr Q8H IV Last administered on 08/05/16 00:11; Start 07/30/16 at 01:00 Vancomycin HCl 1 each 1X ONCE MC ; Start 07/30/16 at 16:30; Stop 07/30/16 at 16 :31; Status DC Digoxin (Lanoxin) 250 mcg PRN 1X PRN IV thachycardia; Start 07/29/16 at 18:00 Acetaminophen (Tylenol) 650 mg PRN Q6HRS PRN PO FEVER > 101 Last administered on 08/03/16 05:30; Start 07/29/16 at 23:00 Sodium Chloride 500 ml @ 500 mls/hr 1X ONCE IV Last administered on 03:45; Start 07/30/16 at 03:45; Stop 07/30/16 at 04:44; Status DC Iohexol (Omnipaque 300 Mg/ml) 75 ml 1X ONCE IV Last administered on 07/30/16 04:25; Start 07/30/16 at 04:00; Stop 07/30/16 at 04:01; Status DC Info (Do NOT chart on this entry -- for MONITORING) 1 each PRN DAILY PRN MC SEE COMMENTS; Start 07/30/16 at 04:00; Stop 08/01/16 at 03:59; Status DC Heparin Sodium/ Dextrose 500 ml @ 0 mls/hr CONT PRN IV SEE I/O RECORD Last administered on 08/01/16 06:14; Start 07/30/16 at 05:30; Stop 08/03/16 at 13:27 ; Status DC Heparin Sodium (Porcine) (Heparin Sodium) 1,500 unit PRN Q6HRS PRN IV FOR UFH LEVEL LESS THAN 0.2 Last administered on 07/30/16 21:49; Start 07/30/16 at 05: 30; Stop 08/01/16 at 08:49; Status DC Heparin Sodium (Porcine) (Heparin Sodium) 750 unit PRN Q6HRS PRN IV FOR UFH LEVEL 0.2 - 0.29 Last administered on 08/01/16 06:51; Start 07/30/16 at 05:30; Stop 08/01/16 at 08:49; Status DC Warfarin Sodium (Coumadin Per Pharmacy) 1 each PRN DAILY PRN MC PER PROTOCOL Last administered on 08/04/16 10:36; Start 07/30/16 at 05:00 Sodium Chloride 500 ml @ 500 mls/hr 1X ONCE IV Last administered on 05:15; Start 07/30/16 at 05:15; Stop 07/30/16 at 06:14; Status DC Heparin Sodium (Porcine) (Heparin Sodium) 3,950 unit 1X ONCE IV Last administered on 07/30/16 05:32; Start 07/30/16 at 05:30; Stop 07/30/16 at 05:31 ; Status DC Norepinephrine Bitartrate 250 ml @ 0 mls/hr CONT PRN IV SEE I/O RECORD Last administered on 08/01/16 15:38; Start 07/30/16 at 07:15; Stop 08/03/16 at 13:27 ; Status DC Oxycodone/ Acetaminophen (Percocet 7.5/ 325) 1 tab PRN Q8HRS PRN PO PAIN Last administered on 07/31/16 03:29; Start 07/30/16 at 08:15 Olanzapine (ZyPREXA) 10 mg DAILY PO Last administered on 08/04/16 09:03; Start 07/30/16 at 09:00 Sodium Chloride 1,000 ml @ 75 mls/hr [id number] IV Last administered on 01:33; Start 07/30/16 at 08:30; Stop 08/01/16 at 12:33; Status DC Potassium Chloride (Klor-Con) 40 meq 1X ONCE PO Last administered on 12:03; Start 07/30/16 at 12:00; Stop 07/30/16 at 12:01; Status DC Warfarin Sodium (Coumadin) 5 mg 1X WARF ONCE PO Last administered on 16:20; Start 07/30/16 at 16:00; Stop 07/30/16 at 16:01; Status DC Furosemide (Lasix) 20 mg 1X ONCE IVP Last administered on 07/30/16 14:13; Start 07/30/16 at 14:15; Stop 07/30/16 at 14:16; Status DC Doxycycline Hyclate (Vibra-Tab) 100 mg BID PO Last administered on 08/03/16 21 :10; Start 07/31/16 at 09:00; Stop 08/04/16 at 08:39; Status DC Furosemide (Lasix) 20 mg 1X ONCE IVP Last administered on 07/31/16 09:40; Start 07/31/16 at 09:15; Stop 07/31/16 at 09:16; Status DC Potassium Chloride 100 ml @ 100 mls/hr Q8H IV Last administered on 07/31/16 10:00; Start 07/31/16 at 10:00; Stop 07/31/16 at 15:00; Status DC Potassium Chloride 100 ml @ 100 mls/hr Q8H IV Last administered on 07/31/16 12:39; Start 07/31/16 at 11:00; Stop 07/31/16 at 15:00; Status DC Warfarin Sodium (Coumadin) 5 mg 1X [place]AR[place] ONCE PO Last administered on 17:41; Start 07/31/16 at 16:00; Stop 07/31/16 at 16:01; Status DC Potassium Chloride 50 ml @ 50 mls/hr TID IV Last administered on 07/31/16 21: 15; Start 07/31/16 at 21:00; Stop 08/01/16 at 08:49; Status DC Warfarin Sodium (Coumadin) 5 mg 1X WARF ONCE PO Last administered on 15:28; Start 08/01/16 at 16:00; Stop 08/01/16 at 16:01; Status DC Enoxaparin Sodium (Lovenox Per Pharmacy Treatment Dosing) 1 each PRN DAILY PRN MC SEE COMMENTS; Start 08/01/16 at 08:45; Stop 08/03/16 at 13:27; Status DC Furosemide (Lasix) 20 mg 1X ONCE IVP Last administered on 08/01/16 10:12; Start 08/01/16 at 08:45; Stop 08/01/16 at 08:51; Status DC Enoxaparin Sodium (Lovenox 60mg Syringe) 50 mg Q12HR SQ Last administered on 09:22; Start 08/01/16 at 09:00; Stop 08/03/16 at 13:27; Status DC Potassium Chloride (Klor-Con) 20 meq TID PO Last administered on 08/04/16 21: 10; Start 08/01/16 at 09:00 Warfarin Sodium (Coumadin) 6 mg 1X WARF ONCE PO Last administered on 15:57; Start 08/02/16 at 16:00; Stop 08/02/16 at 16:01; Status DC Vancomycin HCl 1 each 1X ONCE MC Last administered on 08/04/16 08:30; Start 08/04/16 at 08:30; Stop 08/04/16 at 08:31; Status DC Warfarin Sodium (Coumadin) 5 mg 1X WARF ONCE PO Last administered on 17:01; Start 08/03/16 at 16:00; Stop 08/03/16 at 16:01; Status DC Warfarin Sodium (Coumadin) 5 mg 1X WARF ONCE PO Last administered on 17:23; Start 08/04/16 at 16:00; Stop 08/04/16 at 16:01; Status DC Gabapentin (Neurontin) 800 mg TID PO Last administered on 08/04/16 21:10; Start 08/04/16 at 14:00 Active Scripts Active Reported Xopenex Hfa (Levalbuterol Tartrate) 15 Gm Hfa.aer.ad 2 Puff IH PRN Q4-6HRS Fluticasone Propionate Nasal [place] (Fluticasone Propionate) 16 Gm [place].susp 2 [place] NS DAILY Olanzapine 5 Mg Tablet 5 Mg PO BID Meloxicam 7.5 Mg Tablet 1 Tab PO DAILY FENTANYL 75mcg/hr (Fentanyl) 1 Each Patch.td72 1 Patch TP Q3DAYS Claritin (Loratadine) 10 Mg Tablet 1 Tab PO DAILY Advair 500-50 Diskus (Fluticasone/Salmeterol) 1 Each Disk.w.dev 1 Each IH BID Amitriptyline Hcl 10 Mg Tablet 10 Mg PO BID Zofran Odt (Ondansetron) 8 Mg Tab.rapdis 8 Mg PO PRN Percocet 7.5-325 Mg Tablet (Oxycodone/Acetaminophen) 1 Each Tablet 1 Each PO Q8HRS Levothyroxine Sodium 75 Mcg Tablet 75 Mcg PO DAILY Fioricet 50-325-40 Mg Tablet (Butalb/Acetaminophen/Caffeine) 1 Each Tablet 1 Each PO Q6HRS PRN Effexor Xr (Venlafaxine Hcl) 150 Mg Cap.er.24h 150 Mg PO DAILY Klor-Con M20 (Potassium Chloride) 20 Meq Tab.er.prt 20 Meq PO DAILY Tizanidine Hcl 2 Mg Capsule 2 Mg PO TID Zantac (Ranitidine Hcl) 150 Mg Tablet 150 Mg PO BID Topiramate 25 Mg Tablet 100 Mg PO BID Gabapentin 800 Mg Tablet 800 Mg PO TID Vitals/I & O Vital Sign - Last 24 Hours 08/04/16 08/04/16 08/04/16 08/04/16 09:03 11:00 12:34 15:00 Temp 98.5 97.3 98.5 97.3 Pulse 91 101 97 Resp 22 22 B/P (MAP) 104/71 109/74 (86) 88/56 (67) Pulse Ox 92 91 98 O2 Delivery Nasal Cannula High Flow Nasal Cannula Nasal Cannula O2 Flow Rate 4.0 5.0 4.0 08/04/16 08/04/16 08/04/16 08/04/16 15:44 19:00 19:00 20:13 Temp 97.3 97.3 Pulse 96 Resp 20 B/P (MAP) 100/64 (76) Pulse Ox 91 95 94 O2 Delivery High Flow Nasal Cannula Nasal Cannula High Flow Nasal Cannula O2 Flow Rate 5.0 4.0 4.0 08/04/16 08/04/16 08/05/16 08/05/16 21:10 23:00 03:00 07:27 Temp 98.2 97.5 98.2 97.5 Pulse 96 107 85 Resp 18 18 B/P (MAP) 100/64 103/65 (78) 109/76 (87) Pulse Ox 97 98 96 O2 Delivery High Flow Nasal Cannula O2 Flow Rate 3.0 08/05/16 07:30 Pulse Ox 96 O2 Delivery High Flow Nasal Cannula O2 Flow Rate 3.0 Intake and Output 08/04/16 08/04/16 08/05/16 15:00 23:00 07:00 Intake Total 50 ml 500 ml Output Total 600 ml Balance -550 ml 500 ml RISHABH LUNDBERG MD Aug 05, 2016 09:01
[2016-08-05] MEDS: FLUTICASONE 50MCG/NASAL SPRAY 16GM BOTTLE. NS SCH (09:20)
[2016-08-05] MEDS: ASPIRIN ENTERIC COATED 81 MG TABLET.DR. PO SCH (09:21)
[2016-08-05] MEDS: CETIRIZINE HCL 10 MG TABLET. PO SCH (09:22)
[2016-08-05] MEDS: FAMOTIDINE 20 MG TABLET. PO SCH ×2 (09:22→20:42)
[2016-08-05] MEDS: GABAPENTIN 400 MG CAPSULE. PO SCH ×3 (09:22→20:39)
[2016-08-05] MEDS: VENLAFAXINE XR 37.5 MG CAP.ER.24H. PO SCH (09:22)
[2016-08-05] MEDS: METOPROLOL TART IMMED RELEASE 25 MG TABLET. PO SCH ×2 (09:23→20:42)
[2016-08-05] MEDS: POTASSIUM CHLORIDE 20 MEQ TABLET.ER. PO SCH ×2 (09:23→16:38)
[2016-08-05] MEDS: OLANZapine 5 MG TABLET PO SCH (09:23)
[2016-08-05] MEDS: TOPIRAMATE 100 MG TABLET. PO SCH ×2 (09:24→20:42)
[2016-08-05] MEDS: AMITRIPTYLINE HCL 10 MG TABLET. PO SCH ×2 (09:24→20:42)
[2016-08-05] MEDS: tiZANidine 4 MG TABLET. PO SCH ×3 (09:24→20:42)
[2016-08-05 11:00] VITALS: BP 100/70
--- NOTE | 2016-08-05 11:28 | PDOC ---
Infectious Disease Note Subjective Subjective Feels good ROS ROS GEN: Denies fevers, chills, sweats HEENT: Denies blurred vision, sore throat CV: Denies chest pain RESP: Denies shortness of air, cough GI: Denies n/v/d NEURO: Denies confusion, dizziness MSK: Denies weakness, joint pain/swelling Vital Sign Vital Signs Vital Signs Date Time Temp Pulse Resp B/P (MAP) Pulse Ox O2 Delivery O2 Flow Rate FiO2 08/05/16 11:20 High Flow Nasal Cannula 3.0 08/05/16 09:23 79 111/73 08/05/16 07:30 96 08/05/16 07:00 97.6 20 97.6 Physical Exam PHYSICAL EXAM GENERAL: NAD, Alert HEENT: PERRL, OC/OP NECK: Supple, no JVD, no LN LUNGS: Clear HEART: S1S2, no gallop, no murmur ABD: Soft, NT, no organomegaly, no rebound EXT: No edema, no cyanosis, hand wound seen, looks good ACTIVITIES CONCIERGE: Alert, oriented x 3, no focal neurologic deficit SKIN: No rash IV: ok Labs Lab Laboratory Tests Test 08/05/16 05:05 White Blood Count 6.3 x10^3/uL (4.0-11.0) Red Blood Count 3.70 x10^6/uL (3.50-5.40) Hemoglobin 11.8 g/dL (12.0-15.5) Hematocrit 36.3 % (36.0-47.0) Mean Corpuscular Volume 98 fL (79-100) Mean Corpuscular Hemoglobin 32 pg (25-35) Mean Corpuscular Hemoglobin Concent 32 g/dL (31-37) Red Cell Distribution Width 13.8 % (11.5-14.5) Platelet Count 235 x10^3/uL (140-400) Prothrombin Time 35.1 SEC (11.7-14.0) Prothromb Time International Ratio 3.8 (0.8-1.1) Sodium Level 143 mmol/L (136-145) Potassium Level 4.1 mmol/L (3.5-5.1) Chloride Level 110 mmol/L (98-107) Carbon Dioxide Level 27 mmol/L (21-32) Anion Gap 6 (6-14) Blood Urea Nitrogen 7 mg/dL (7-20) Creatinine 0.7 mg/dL (0.6-1.0) Estimated GFR (Cockcroft-Gault) 104.4 Glucose Level 93 mg/dL (70-99) Calcium Level 9.0 mg/dL (8.5-10.1) Objective Assessment Encephalopathy - improving PE - now on warfarin Fever likely sec to PE. Blood cults neg Leukocytosis - likely reactive, improved Hypotension - off Levophed Interstitial markings on CT - ? 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 Sutures removed about 2 weeks post -op now exposed bone Left common Fem DVT Cefazolin allergy - nausea NSTEMI - family has declined further w/u Tobacco abuse Baclofen pump Primary lateral Sclerosis Plan Plan of Care change antibiotics to iv invanz Supportive care KELLY SALGUERO MD Aug 05, 2016 11:28
[2016-08-05] MEDS: ERTAPENEM 1 GM in IV NORMAL SALINE 50ML 50 ML IV SCH (12:16)
[2016-08-05] MEDS: oxyCODONE/APAP 7.5/325 1 TAB TABLET PO PRN (16:39)
[2016-08-05 19:30] VITALS: BP 73/47
[2016-08-05 23:30] VITALS: BP 111/79
[2016-08-06] MEDS: NON FORMULARY ITEM SQ SCH ×8 (00:15→22:25)
[2016-08-06 03:05] VITALS: BP 116/76
[2016-08-06 05:12] LABS: INR 2.5 (0.8-1.1); PROTHROMBIN TIME PATIENT 25.3 SEC (11.7-14.0)
[2016-08-06] MEDS: LEVOTHYROXINE 75 MCG TABLET PO SCH (06:18)
[2016-08-06 07:00] VITALS: BP 120/83
[2016-08-06] MEDS: BUDESONIDE 0.5 MG/2 ML NEBU. NEB SCH (07:11)
[2016-08-06] MEDS: ALBUTEROL SULFATE 2.5 MG/3 ML NEBU. NEB SCH ×4 (07:11→19:38)
[2016-08-06] MEDS ORDERED: ONDANSETRON ODT 4 MG TAB.RAPDIS. PO PRN (08:00)
--- NOTE | 2016-08-06 08:14 | PDOC ---
PROGRESS NOTES Subjective Subjective Patient without complaint, agreeable to transfer to nursing home today. Objective Objective Vital Signs Date Time Temp Pulse Resp B/P (MAP) Pulse Ox O2 Delivery O2 Flow Rate FiO2 08/06/16 07:14 Nasal Cannula 3.0 08/06/16 07:00 98.1 99 18 120/83 (95) 95 98.1 Intake and Output 08/06/16 06:59 Intake Total 1440 ml Output Total 2150 ml Balance -710 ml Intake Oral 1440 ml Output Urine Total 2150 ml # Voids 11 # Bowel Movements 4 Physical Exam Abdomen: Normal bowel sounds, Soft, No tenderness Heart: Regular rate Extremities: No edema General: Alert, Oriented X3, No acute distress Lungs: Other (BS mildly decreased throughout but CTA) Assessment Assessment Problems Medical Problems: (1) Elevated troponin Status: Acute Plan Plan of Care 1. PE's with DVT - stable, O2 needs decreasing. INR too high on 5mg Coumadin daily, will decrease to 4mg daily. 2. acute respiratory failure with pneumonia, COPD and asthma - much improved. Continue nebs and O2. 3. NSTEMI - cardiac status stable, continue ASA and low dose B corinna per Cardiology recommendations. 4. osteomyelitis right hand - slowly healing. Continue Invanz for 2 weeks per ID , then follow up with Dr Villeda. Continue wound care. 5. hypothyroidism - recent lab at our office was good, continue present dose of Levothyroxine. 6. spinal stenosis with chronic pain - stable, sedation improved with decrease in rate of Baclofen pump per Dr Duran. Continue her usual Duragesic patch and prn Percocet. 7. mood disorder - acute metabolic encephalopathy has resolved and patient is at her baseline mental status. Zyprexa was increased during this hospitalization , other home meds were continued unchanged. 8. PLS with debility - patient will benefit from therapies at nursing home to regain some strength and limited mobility. Transfer to nursing home today. Patient and family in agreement. Comment Review of Relevant I have reviewed the following items mimi (where applicable) has been applied. Labs Laboratory Tests Test 08/04/16 09:15 08/05/16 05:05 08/06/16 03:10 Vancomycin Level Trough 18.7 mcg/mL (10.0-20.0) Vancomycin Last Dose Date 08/04/16 Vancomycin Last Dose Time 0100 White Blood Count 6.3 x10^3/uL (4.0-11.0) Red Blood Count 3.70 x10^6/uL (3.50-5.40) Hemoglobin 11.8 g/dL (12.0-15.5) Hematocrit 36.3 % (36.0-47.0) Mean Corpuscular Volume 98 fL (79-100) Mean Corpuscular Hemoglobin 32 pg (25-35) Mean Corpuscular Hemoglobin Concent 32 g/dL (31-37) Red Cell Distribution Width 13.8 % (11.5-14.5) Platelet Count 235 x10^3/uL (140-400) Prothrombin Time 35.1 SEC (11.7-14.0) 25.3 SEC (11.7-14.0) Prothromb Time International Ratio 3.8 (0.8-1.1) 2.5 (0.8-1.1) Sodium Level 143 mmol/L (136-145) Potassium Level 4.1 mmol/L (3.5-5.1) Chloride Level 110 mmol/L (98-107) Carbon Dioxide Level 27 mmol/L (21-32) Anion Gap 6 (6-14) Blood Urea Nitrogen 7 mg/dL (7-20) Creatinine 0.7 mg/dL (0.6-1.0) Estimated GFR (Cockcroft-Gault) 104.4 Glucose Level 93 mg/dL (70-99) Calcium Level 9.0 mg/dL (8.5-10.1) Laboratory Tests Test 08/06/16 03:10 Prothrombin Time 25.3 SEC (11.7-14.0) Prothromb Time International Ratio 2.5 (0.8-1.1) Microbiology 07/29/16 Blood Culture - Final, Complete NO GROWTH AFTER 5 DAYS Medications Current Medications Sodium Chloride 1,000 ml @ 1,000 mls/hr 1X ONCE IV Last administered on t 19:28; Start 07/27/16 at 19:15; Stop 07/27/16 at 20:14; Status DC Ondansetron HCl (Zofran) 4 mg PRN Q8HRS PRN IV NAUSEA/VOMITING; Start 07/27/16 at 20:45; Stop 07/28/16 at 07:41; Status DC Aspirin (Elvis Aspirin) 325 mg 1X ONCE PO Last administered on 07/27/16 20:55 ; Start 07/27/16 at 20:45; Stop 07/27/16 at 20:46; Status DC Amitriptyline HCl (Elavil) 10 mg BID PO ; Start 07/28/16 at 09:00; Stop at 09:00; Status DC Fentanyl (Duragesic 75mcg/ Hr Patch) 1 patch Q3DAYS TD ; Start 07/27/16 at 23:00 ; Stop 07/27/16 at 23:08; Status DC Olanzapine (ZyPREXA) 5 mg BID PO ; Start 07/28/16 at 09:00; Stop 07/28/16 at 09: 00; Status DC Oxycodone/ Acetaminophen (Percocet 7.5/ 325) 1 tab Q8HRS PO ; Start 07/28/16 at 06:00; Stop 07/28/16 at 06:00; Status DC Topiramate (Topamax) 100 mg BID PO ; Start 07/28/16 at 09:00; Stop 07/28/16 at 09:00; Status DC Non-Formulary Medication 800 mg TID PO ; Start 07/28/16 at 09:00; Stop 07/28/16 at 09:00; Status DC Non-Formulary Medication 150 mg BID PO ; Start 07/28/16 at 09:00; Stop 07/28/16 at 09:00; Status DC Non-Formulary Medication 2 mg TID PO ; Start 07/28/16 at 09:00; Stop 07/28/16 at 09:00; Status DC Non-Formulary Medication 1 ea Q3HRS SQ Last administered on 07/27/16 22:45; Start 07/27/16 at 00:00; Stop 07/27/16 at 23:40; Status DC Amitriptyline HCl (Elavil) 10 mg BID PO Last administered on 08/05/16 20:42; Start 07/27/16 at 23:30 Fentanyl (Duragesic 75mcg/ Hr Patch) 1 patch Q3DAYS TD Last administered on 23:33; Start 07/27/16 at 23:30; Stop 07/28/16 at 20:41; Status DC Olanzapine (ZyPREXA) 5 mg BID PO Last administered on 07/27/16 23:32; Start at 23:30; Stop 07/28/16 at 07:30; Status DC Oxycodone/ Acetaminophen (Percocet 7.5/ 325) 1 tab Q8HRS PO Last administered on 07/29/16 20:50; Start 07/27/16 at 23:30; Stop 07/30/16 at 08:07; Status DC Topiramate (Topamax) 100 mg BID PO Last administered on 08/05/16 20:42; Start 07/27/16 at 23:30 Gabapentin (Neurontin) 800 mg Q12HR PO Last administered on 08/03/16 21:10; Start 07/27/16 at 23:30; Stop 08/04/16 at 10:38; Status DC Famotidine (Pepcid) 20 mg BID PO Last administered on 08/05/16 20:42; Start at 23:30 Tizanidine HCl (Zanaflex) 2 mg TID PO Last administered on 08/05/16 20:42; Start 07/27/16 at 23:30 Non-Formulary Medication 1 ea Q3HRS SQ Last administered on 08/06/16 06:18; Start 07/28/16 at 03:00 Acetaminophen/ Butalbital/ Caffeine (Fioricet) 1 tab PRN Q6HRS PRN PO MIGRAINE HEADACHE; Start 07/28/16 at 07:30 Fluticasone Propionate (Flonase) 2 spray DAILY NS ; Start 07/28/16 at 09:00; Status Cancel Levothyroxine Sodium (Synthroid) 75 mcg DAILY06 PO Last administered on 06:18; Start 07/28/16 at 07:30 Potassium Chloride (Klor-Con) 20 meq DAILY PO Last administered on 07/31/16 09 :39; Start 07/28/16 at 09:00; Stop 07/31/16 at 14:50; Status DC Non-Formulary Medication 1 each BID IH ; Start 07/28/16 at 09:00; Status UNV Cetirizine HCl (ZyrTEC) 10 mg DAILY PO Last administered on 08/05/16 09:22; Start 07/28/16 at 09:00 Venlafaxine HCl (Effexor Xr) 150 mg DAILY PO Last administered on 08/05/16 09: 22; Start 07/28/16 at 09:00 Olanzapine (ZyPREXA) 5 mg DAILY PO Last administered on 07/29/16 09:29; Start 07/28/16 at 09:00; Stop 07/30/16 at 08:17; Status DC Budesonide (Pulmicort) 0.5 mg RTBID NEB Last administered on 08/06/16 07:11; Start 07/28/16 at 08:00 Albuterol Sulfate (Ventolin Neb Soln) 2.5 mg RTQID NEB Last administered on 07:11; Start 07/28/16 at 08:00 Ondansetron HCl (Zofran) 4 mg PRN Q6HRS PRN IV NAUSEA/VOMITING Last administered on 08/04/16 10:27; Start 07/28/16 at 07:30 Vancomycin HCl (Vanco Per Pharmacy) 1 each PRN DAILY PRN MC SEE COMMENTS Last administered on 08/04/16 10:27; Start 07/28/16 at 08:00; Stop 08/05/16 at 11:29 ; Status DC Piperacillin Sod/ Tazobactam Sod 3.375 gm/Sodium Chloride 50 ml @ 100 mls/hr Q6HRS IV Last administered on 08/05/16 06:20; Start 07/28/16 at 08:30; Stop at 11:29; Status DC Vancomycin HCl 1.25 gm/Sodium Chloride 250 ml @ 166.667 mls/hr 1X ONCE IV Last administered on 07/28/16 15:18; Start 07/28/16 at 09:00; Stop 07/28/16 at 10:29; Status DC Fluticasone Propionate (Flonase) 2 spray DAILY NS Last administered on 09:20; Start 07/29/16 at 09:00 Aspirin (Ecotrin) 81 mg DAILYWBKFT PO Last administered on 08/05/16 09:21; Start 07/28/16 at 17:00 Naloxone HCl (Narcan) 0.4 mg STK-MED ONCE .ROUTE ; Start 07/28/16 at 19:58; Stop 07/28/16 at 19:59; Status DC Naloxone HCl (Narcan) 0.4 mg 1X ONCE IV Last administered on 07/28/16 20:10; Start 07/28/16 at 20:15; Stop 07/28/16 at 20:16; Status DC Fentanyl (Duragesic 75mcg/ Hr Patch) 1 patch Q3DAYS TD ; Start 07/31/16 at 09:00 ; Status UNV Fentanyl (Duragesic 75mcg/ Hr Patch) 1 patch 1X ONCE TD ; Start 07/28/16 at 20: 45; Stop 07/28/16 at 20:46; Status UNV Fentanyl (Duragesic 75mcg/ Hr Patch) 1 patch Q3DAYS TD Last administered on 09:23; Start 07/28/16 at 21:00 Lorazepam (Ativan) 0.5 mg PRN Q6HRS PRN IV ANXIETY / AGITATION Last administered on 08/03/16 07:12; Start 07/29/16 at 01:45; Stop 08/05/16 at 08:50 ; Status DC Vancomycin HCl 750 mg/Sodium Chloride 250 ml @ 250 mls/hr Q12H IV Last administered on 07/29/16 03:57; Start 07/29/16 at 03:30; Stop 07/29/16 at 16:32 ; Status DC Vancomycin HCl 1 each 1X ONCE MC Last administered on 07/29/16 15:00; Start 07/29/16 at 15:00; Stop 07/29/16 at 15:01; Status DC Metoprolol Tartrate (Lopressor) 12.5 mg BID PO Last administered on 08/05/16 09:23; Start 07/29/16 at 11:30 Vancomycin HCl 1.25 gm/Sodium Chloride 250 ml @ 166.667 mls/hr 1X ONCE IV Last administered on 07/29/16 16:58; Start 07/29/16 at 17:00; Stop 07/29/16 at 18:29; Status DC Vancomycin HCl 750 mg/Sodium Chloride 250 ml @ 250 mls/hr Q8H IV Last administered on 08/05/16 09:29; Start 07/30/16 at 01:00; Stop 08/05/16 at 11:29 ; Status DC Vancomycin HCl 1 each 1X ONCE MC ; Start 07/30/16 at 16:30; Stop 07/30/16 at 16 :31; Status DC Digoxin (Lanoxin) 250 mcg PRN 1X PRN IV thachycardia; Start 07/29/16 at 18:00 Acetaminophen (Tylenol) 650 mg PRN Q6HRS PRN PO FEVER > 101 Last administered on 08/03/16 05:30; Start 07/29/16 at 23:00 Sodium Chloride 500 ml @ 500 mls/hr 1X ONCE IV Last administered on 03:45; Start 07/30/16 at 03:45; Stop 07/30/16 at 04:44; Status DC Iohexol (Omnipaque 300 Mg/ml) 75 ml 1X ONCE IV Last administered on 07/30/16 04:25; Start 07/30/16 at 04:00; Stop 07/30/16 at 04:01; Status DC Info (Do NOT chart on this entry -- for MONITORING) 1 each PRN DAILY PRN MC SEE COMMENTS; Start 07/30/16 at 04:00; Stop 08/01/16 at 03:59; Status DC Heparin Sodium/ Dextrose 500 ml @ 0 mls/hr CONT PRN IV SEE I/O RECORD Last administered on 08/01/16 06:14; Start 07/30/16 at 05:30; Stop 08/03/16 at 13:27 ; Status DC Heparin Sodium (Porcine) (Heparin Sodium) 1,500 unit PRN Q6HRS PRN IV FOR UFH LEVEL LESS THAN 0.2 Last administered on 07/30/16 21:49; Start 07/30/16 at 05: 30; Stop 08/01/16 at 08:49; Status DC Heparin Sodium (Porcine) (Heparin Sodium) 750 unit PRN Q6HRS PRN IV FOR UFH LEVEL 0.2 - 0.29 Last administered on 08/01/16 06:51; Start 07/30/16 at 05:30; Stop 08/01/16 at 08:49; Status DC Warfarin Sodium (Coumadin Per Pharmacy) 1 each PRN DAILY PRN MC PER PROTOCOL Last administered on 08/05/16 14:19; Start 07/30/16 at 05:00 Sodium Chloride 500 ml @ 500 mls/hr 1X ONCE IV Last administered on 05:15; Start 07/30/16 at 05:15; Stop 07/30/16 at 06:14; Status DC Heparin Sodium (Porcine) (Heparin Sodium) 3,950 unit 1X ONCE IV Last administered on 07/30/16 05:32; Start 07/30/16 at 05:30; Stop 07/30/16 at 05:31 ; Status DC Norepinephrine Bitartrate 250 ml @ 0 mls/hr CONT PRN IV SEE I/O RECORD Last administered on 08/01/16 15:38; Start 07/30/16 at 07:15; Stop 08/03/16 at 13:27 ; Status DC Oxycodone/ Acetaminophen (Percocet 7.5/ 325) 1 tab PRN Q8HRS PRN PO PAIN Last administered on 08/05/16 16:39; Start 07/30/16 at 08:15 Olanzapine (ZyPREXA) 10 mg DAILY PO Last administered on 08/05/16 09:23; Start 07/30/16 at 09:00 Sodium Chloride 1,000 ml @ 75 mls/hr [id number] IV Last administered on 01:33; Start 07/30/16 at 08:30; Stop 08/01/16 at 12:33; Status DC Potassium Chloride (Klor-Con) 40 meq 1X ONCE PO Last administered on 12:03; Start 07/30/16 at 12:00; Stop 07/30/16 at 12:01; Status DC Warfarin Sodium (Coumadin) 5 mg 1X WARF ONCE PO Last administered on 16:20; Start 07/30/16 at 16:00; Stop 07/30/16 at 16:01; Status DC Furosemide (Lasix) 20 mg 1X ONCE IVP Last administered on 07/30/16 14:13; Start 07/30/16 at 14:15; Stop 07/30/16 at 14:16; Status DC Doxycycline Hyclate (Vibra-Tab) 100 mg BID PO Last administered on 08/03/16 21 :10; Start 07/31/16 at 09:00; Stop 08/04/16 at 08:39; Status DC Furosemide (Lasix) 20 mg 1X ONCE IVP Last administered on 07/31/16 09:40; Start 07/31/16 at 09:15; Stop 07/31/16 at 09:16; Status DC Potassium Chloride 100 ml @ 100 mls/hr Q8H IV Last administered on 07/31/16 10:00; Start 07/31/16 at 10:00; Stop 07/31/16 at 15:00; Status DC Potassium Chloride 100 ml @ 100 mls/hr Q8H IV Last administered on 07/31/16 12:39; Start 07/31/16 at 11:00; Stop 07/31/16 at 15:00; Status DC Warfarin Sodium (Coumadin) 5 mg 1X WARF ONCE PO Last administered on 17:41; Start 07/31/16 at 16:00; Stop 07/31/16 at 16:01; Status DC Potassium Chloride 50 ml @ 50 mls/hr TID IV Last administered on 07/31/16 21: 15; Start 07/31/16 at 21:00; Stop 08/01/16 at 08:49; Status DC Warfarin Sodium (Coumadin) 5 mg 1X WARF ONCE PO Last administered on 15:28; Start 08/01/16 at 16:00; Stop 08/01/16 at 16:01; Status DC Enoxaparin Sodium (Lovenox Per Pharmacy Treatment Dosing) 1 each PRN DAILY PRN MC SEE COMMENTS; Start 08/01/16 at 08:45; Stop 08/03/16 at 13:27; Status DC Furosemide (Lasix) 20 mg 1X ONCE IVP Last administered on 08/01/16 10:12; Start 08/01/16 at 08:45; Stop 08/01/16 at 08:51; Status DC Enoxaparin Sodium (Lovenox 60mg Syringe) 50 mg Q12HR SQ Last administered on 09:22; Start 08/01/16 at 09:00; Stop 08/03/16 at 13:27; Status DC Potassium Chloride (Klor-Con) 20 meq TID PO Last administered on 08/04/16 21: 10; Start 08/01/16 at 09:00; Stop 08/05/16 at 08:50; Status DC Warfarin Sodium (Coumadin) 6 mg 1X WARF ONCE PO Last administered on 15:57; Start 08/02/16 at 16:00; Stop 08/02/16 at 16:01; Status DC Vancomycin HCl 1 each 1X ONCE MC Last administered on 08/04/16 08:30; Start 08/04/16 at 08:30; Stop 08/04/16 at 08:31; Status DC Warfarin Sodium (Coumadin) 5 mg 1X WARF ONCE PO Last administered on 17:01; Start 08/03/16 at 16:00; Stop 08/03/16 at 16:01; Status DC Warfarin Sodium (Coumadin) 5 mg 1X WARF ONCE PO Last administered on 17:23; Start 08/04/16 at 16:00; Stop 08/04/16 at 16:01; Status DC Gabapentin (Neurontin) 800 mg TID PO Last administered on 08/05/16 20:39; Start 08/04/16 at 14:00 Potassium Chloride (Klor-Con) 20 meq BIDWMEALS PO Last administered on 16:38; Start 08/05/16 at 09:00 Ertapenem 1 gm/ Sodium Chloride 50 ml @ 100 mls/hr Q24H IV Last administered on 08/05/16 12:16; Start 08/05/16 at 12:00 Warfarin Sodium (Coumadin - No Dose Today) 1 each 1X WARF ONCE MC Last administered on 08/05/16 16:34; Start 08/05/16 at 16:00; Stop 08/05/16 at 16:01 ; Status DC Active Scripts Active Reported Xopenex Hfa (Levalbuterol Tartrate) 15 Gm Hfa.aer.ad 2 Puff IH PRN Q4-6HRS Fluticasone Propionate Nasal Mart (Fluticasone Propionate) 16 Gm Mart.susp 2 Mart NS DAILY Olanzapine 5 Mg Tablet 5 Mg PO BID Meloxicam 7.5 Mg Tablet 1 Tab PO DAILY FENTANYL 75mcg/hr (Fentanyl) 1 Each Patch.td72 1 Patch TP Q3DAYS Claritin (Loratadine) 10 Mg Tablet 1 Tab PO DAILY Advair 500-50 Diskus (Fluticasone/Salmeterol) 1 Each Disk.w.dev 1 Each IH BID Amitriptyline Hcl 10 Mg Tablet 10 Mg PO BID Zofran Odt (Ondansetron) 8 Mg Tab.rapdis 8 Mg PO PRN Percocet 7.5-325 Mg Tablet (Oxycodone/Acetaminophen) 1 Each Tablet 1 Each PO Q8HRS Levothyroxine Sodium 75 Mcg Tablet 75 Mcg PO DAILY Fioricet 50-325-40 Mg Tablet (Butalb/Acetaminophen/Caffeine) 1 Each Tablet 1 Each PO Q6HRS PRN Effexor Xr (Venlafaxine Hcl) 150 Mg Cap.er.24h 150 Mg PO DAILY Klor-Con M20 (Potassium Chloride) 20 Meq Tab.er.prt 20 Meq PO DAILY Tizanidine Hcl 2 Mg Capsule 2 Mg PO TID Zantac (Ranitidine Hcl) 150 Mg Tablet 150 Mg PO BID Topiramate 25 Mg Tablet 100 Mg PO BID Gabapentin 800 Mg Tablet 800 Mg PO TID Vitals/I & O Vital Sign - Last 24 Hours 08/05/16 08/05/16 08/05/16 08/05/16 09:23 11:00 11:20 16:29 Temp 97.4 97.4 Pulse 79 78 Resp 20 B/P (MAP) 111/73 100/70 (80) Pulse Ox 96 O2 Delivery Room Air High Flow Nasal Cannula High Flow Nasal Cannula O2 Flow Rate 3.0 3.0 08/05/16 08/05/16 08/05/16 08/05/16 16:39 18:07 19:30 20:00 Temp 98.9 98.9 Pulse 100 Resp 14 B/P (MAP) 73/47 (56) Pulse Ox 96 88 O2 Delivery Nasal Cannula Nasal Cannula Room Air Nasal Cannula O2 Flow Rate 3.0 3.0 08/05/16 08/05/16 08/05/16 08/05/16 20:21 20:25 20:42 23:30 Temp 98.6 98.6 Pulse 94 83 Resp 13 B/P (MAP) 91/53 111/79 (90) Pulse Ox 88 98 89 O2 Delivery High Flow Nasal Cannula Room Air O2 Flow Rate 3.0 3.0 08/06/16 08/06/16 08/06/16 03:05 07:00 07:14 Temp 98.6 98.1 98.6 98.1 Pulse 80 99 Resp 14 18 B/P (MAP) 116/76 (89) 120/83 (95) Pulse Ox 90 95 O2 Delivery Room Air Nasal Cannula Nasal Cannula O2 Flow Rate 4.0 3.0 Intake and Output 08/05/16 08/05/16 08/06/16 14:59 22:59 06:59 Intake Total 600 ml 840 ml Output Total 2150 ml Balance -1550 ml 840 ml RISHABH LUNDBERG MD Aug 06, 2016 08:13
[2016-08-06] MEDS ORDERED: ACET325T9 PO (08:24)
[2016-08-06] MEDS ORDERED: ASPI-612 PO (08:24)
[2016-08-06] MEDS ORDERED: WARF4TAB68 PO (08:24)
[2016-08-06] MEDS ORDERED: POTA20TA4 PO (08:24)
[2016-08-06] MEDS ORDERED: METO25TA4 PO (08:24)
[2016-08-06] MEDS: VENLAFAXINE XR 37.5 MG CAP.ER.24H. PO SCH (09:50)
[2016-08-06] MEDS: POTASSIUM CHLORIDE 20 MEQ TABLET.ER. PO SCH ×2 (09:50→15:47)
[2016-08-06] MEDS: GABAPENTIN 400 MG CAPSULE. PO SCH ×3 (09:50→20:33)
[2016-08-06] MEDS: FLUTICASONE 50MCG/NASAL SPRAY 16GM BOTTLE. NS SCH (09:50)
[2016-08-06] MEDS: FAMOTIDINE 20 MG TABLET. PO SCH ×2 (09:51→20:32)
[2016-08-06] MEDS: TOPIRAMATE 100 MG TABLET. PO SCH ×2 (09:51→20:33)
[2016-08-06] MEDS: tiZANidine 4 MG TABLET. PO SCH ×3 (09:51→20:33)
[2016-08-06] MEDS: AMITRIPTYLINE HCL 10 MG TABLET. PO SCH ×2 (09:51→20:32)
[2016-08-06] MEDS: fentaNYL 75MCG/HR PATCH 1 PATCH PATCH.TD72 TD SCH (09:51)
[2016-08-06] MEDS: OLANZapine 5 MG TABLET PO SCH (09:51)
[2016-08-06] MEDS: ASPIRIN ENTERIC COATED 81 MG TABLET.DR. PO SCH (09:52)
[2016-08-06] MEDS: CETIRIZINE HCL 10 MG TABLET. PO SCH (09:52)
[2016-08-06] MEDS: METOPROLOL TART IMMED RELEASE 25 MG TABLET. PO SCH ×2 (09:52→21:00)
--- NOTE | 2016-08-06 10:10 | PDOC ---
PULMONARY PROGRESS NOTES Subjective Pt less soa Vitals Vital Signs Date Time Temp Pulse Resp B/P (MAP) Pulse Ox O2 Delivery O2 Flow Rate FiO2 08/06/16 09:52 99 120/83 08/06/16 09:51 95 Nasal Cannula 3.0 08/06/16 07:00 98.1 18 98.1 ROS: No Nausea, No Chest Pain, No Abdominal Pain, No Increase Cough General: Alert HEENT: Other (nc at perrl, nose throat clear, neck no lap, no thyromegaly) Lungs: Clear Cardiovascular: S1, S2 Abdomen: Soft, Non-tender, Other Neuro Exam: Alert, Oriented Extremities: No Edema, Other (trace edema) Skin: Warm Labs Laboratory Tests Test 08/05/16 05:05 08/06/16 03:10 White Blood Count 6.3 x10^3/uL (4.0-11.0) Red Blood Count 3.70 x10^6/uL (3.50-5.40) Hemoglobin 11.8 g/dL (12.0-15.5) Hematocrit 36.3 % (36.0-47.0) Mean Corpuscular Volume 98 fL (79-100) Mean Corpuscular Hemoglobin 32 pg (25-35) Mean Corpuscular Hemoglobin Concent 32 g/dL (31-37) Red Cell Distribution Width 13.8 % (11.5-14.5) Platelet Count 235 x10^3/uL (140-400) Prothrombin Time 35.1 SEC (11.7-14.0) 25.3 SEC (11.7-14.0) Prothromb Time International Ratio 3.8 (0.8-1.1) 2.5 (0.8-1.1) Sodium Level 143 mmol/L (136-145) Potassium Level 4.1 mmol/L (3.5-5.1) Chloride Level 110 mmol/L (98-107) Carbon Dioxide Level 27 mmol/L (21-32) Anion Gap 6 (6-14) Blood Urea Nitrogen 7 mg/dL (7-20) Creatinine 0.7 mg/dL (0.6-1.0) Estimated GFR (Cockcroft-Gault) 104.4 Glucose Level 93 mg/dL (70-99) Calcium Level 9.0 mg/dL (8.5-10.1) Laboratory Tests Test 08/06/16 03:10 Prothrombin Time 25.3 SEC (11.7-14.0) Prothromb Time International Ratio 2.5 (0.8-1.1) Medications Active Scripts Medications Dose Route/Sig Max Daily Dose Days Date Category Xopenex Hfa (Levalbuterol Tartrate) 15 Gm Hfa.aer.ad 2 Puff IH PRN Q4-6HRS 07/27/16 Reported Fluticasone Propionate Nasal [place] (Fluticasone Propionate) 16 Gm [place].susp 2 [place] NS DAILY 07/27/16 Reported Olanzapine 5 Mg Tablet 5 Mg PO BID 07/27/16 Reported Meloxicam 7.5 Mg Tablet 1 Tab PO DAILY 07/27/16 Reported FENTANYL 75mcg/hr (Fentanyl) 1 Each Patch.td72 1 Patch TP Q3DAYS 04/28/14 Reported Claritin (Loratadine) 10 Mg Tablet 1 Tab PO DAILY 04/28/14 Reported Advair 500-50 Diskus (Fluticasone/Salmeterol) 1 Each Disk.w.dev 1 Each IH BID 04/14/13 Reported Amitriptyline Hcl 10 Mg Tablet 10 Mg PO BID 04/14/13 Reported Zofran Odt (Ondansetron) 8 Mg Tab.rapdis 8 Mg PO PRN 04/14/13 Reported Percocet 7.5-325 Mg Tablet (Oxycodone/Acetaminophen) 1 Each Tablet 1 Each PO Q8HRS 04/14/13 Reported Levothyroxine Sodium 75 Mcg Tablet 75 Mcg PO DAILY 04/14/13 Reported Fioricet 50-325-40 Mg Tablet (Butalb/Acetaminophen/Caffeine) 1 Each Tablet 1 Each PO Q6HRS PRN 04/14/13 Reported Effexor Xr (Venlafaxine Hcl) 150 Mg Cap.er.24h 150 Mg PO DAILY 04/14/13 Reported Klor-Con M20 (Potassium Chloride) 20 Meq Tab.er.prt 20 Meq PO DAILY 04/14/13 Reported Tizanidine Hcl 2 Mg Capsule 2 Mg PO TID 04/14/13 Reported Zantac (Ranitidine Hcl) 150 Mg Tablet 150 Mg PO BID 04/14/13 Reported Topiramate 25 Mg Tablet 100 Mg PO BID 04/14/13 Reported Gabapentin 800 Mg Tablet 800 Mg PO TID 04/14/[address] reviewed, 1. Multiple filling defects identified in the right upper lobe, right middle lobe, right lower lobe and left upper lobe and left lower lobe pulmonary artery branches likely multiple pulmonary emboli. 2. Bilateral hilar and right infrahilar airspace opacities. Differential includes hilar lymphadenopathy, pneumonia o/ atelectasis or malignancy. Close interval follow-up examination is recommended. A follow-up PET CT scan can be considered. 3. Diffuse reticular interstitial lung markings identified in the left upper lobe, right upper lobe, right middle lobe and right lower lobe of the lung could be reticular interstitial changes 4. Small bilateral pleural effusions , right greater than left with patchy bibasilar airspace opacities. Impression . 1. Acute hypoxic respiratory failure secondary to bilateral extensive pulmonary embolism. 2. Abnormal CT chest with bilateral pulmonary embolism and bilateral interstitial and reticular infiltrates. Pneumonia 3. 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 5. Partially occlusive DVT is seen involving the left common femoral vein. 6. Moderate right ventricular dilation on echo 7. Encephalopathy seems to be improving Plan . D/C HOME WITH HH AND PT follow up in office in [address] chest ANTIBX PER LUIS M YATES MD Aug 06, 2016 10:10
--- NOTE | 2016-08-06 10:39 | PDOC ---
Infectious Disease Note Subjective Subjective Feels good ROS ROS GEN: Denies fevers, chills, sweats HEENT: Denies blurred vision, sore throat CV: Denies chest pain RESP: Denies shortness of air, cough GI: Denies n/v/d NEURO: Denies confusion, dizziness MSK: Denies weakness, joint pain/swelling Vital Sign Vital Signs Vital Signs Date Time Temp Pulse Resp B/P (MAP) Pulse Ox O2 Delivery O2 Flow Rate FiO2 08/06/16 09:52 99 120/83 08/06/16 09:51 95 Nasal Cannula 3.0 08/06/16 07:00 98.1 18 98.1 Physical Exam PHYSICAL EXAM GENERAL: NAD, Alert HEENT: PERRL, OC/OP NECK: Supple, no JVD, no LN LUNGS: Clear HEART: S1S2, no gallop, no murmur ABD: Soft, NT, no organomegaly, no rebound EXT: No edema, no cyanosis AMBULATORY SERVICE REPRESENTATIVE: Alert, oriented x 3, no focal neurologic deficit SKIN: No rash IV: ok Labs Lab Laboratory Tests Test 08/06/16 03:10 Prothrombin Time 25.3 SEC (11.7-14.0) Prothromb Time International Ratio 2.5 (0.8-1.1) Objective Assessment Encephalopathy - improving PE - now on warfarin Fever likely sec to PE. Blood cults neg Leukocytosis - likely reactive, improved Hypotension - off Levophed Interstitial markings on CT - ? 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 Sutures removed about 2 weeks post -op now exposed bone Left common Fem DVT Cefazolin allergy - nausea NSTEMI - family has declined further w/u Tobacco abuse Baclofen pump Primary lateral Sclerosis Plan Plan of Care change antibiotics to iv invanz Supportive care ok to d/c f/u with us in 2 wks KELLY SALGUERO MD Aug 06, 2016 10:39
[2016-08-06 10:46] VITALS: BP 122/80
[2016-08-06] MEDS: oxyCODONE/APAP 7.5/325 1 TAB TABLET PO PRN ×2 (11:15→22:29)
[2016-08-06] MEDS: ERTAPENEM 1 GM in IV NORMAL SALINE 50ML 50 ML IV SCH (12:37)
[2016-08-06 15:00] VITALS: BP 111/58
[2016-08-06] MEDS ORDERED: WARFARIN 4 MG TABLET. PO SCH (16:00)
[2016-08-06 19:00] VITALS: BP 80/52
--- NOTE | 2016-08-06 19:59 | DS ---
DATE OF DISCHARGE: 08/06/2016 CHIEF COMPLAINT: Syncope. HISTORY OF PRESENT ILLNESS: The patient is a 56-year-old female with a history of primary lateral sclerosis and significant debility from this. She was brought to the Emergency Room on the evening of admission with the above complaint. Her sister is her caregiver at home and she reported that the patient had a brief episode of syncope on the evening of admission. She had apparently been in bed when this occurred, but she had been unresponsive for a short amount of time. Initial evaluation in the Emergency Room showed the patient to be mildly tachycardic and mildly hypotensive. EKG was reported to showing sinus tachycardia without acute ischemic change. The patient's troponin was mildly elevated at 0.4 and she was admitted for further treatment. HOSPITAL COURSE: The patient was admitted and placed on telemetry where she remained in sinus rhythm. Her troponin remained mildly elevated, although the patient did not complain of chest pain. She was seen in consultation by Cardiology. She was felt to have sustained a non-ST elevated myocardial infarction. She became more hypoxic and her tachycardia slightly worsened. She began to have some respiratory distress. She was transferred to the ICU and was seen in consultation by Pulmonary Medicine. A CT angiogram of the chest showed multiple pulmonary emboli and also a possible new infiltrate in her lungs. She was immediately started on a heparin drip for anticoagulation. Venous Dopplers did show DVT in the left common femoral vein. The patient had no previous history of DVT's. The patient's respiratory condition improved and she did not require intubation or mechanical ventilation. She was changed to Lovenox and Coumadin and the Lovenox was continued until the INR was therapeutic with the Coumadin. An echocardiogram was done and showed a mildly decreased ejection fraction of 40-45% with no significant valvular abnormalities. Cardiology felt that she had experienced an [place] probably as a result of the strain from the multiple pulmonary emboli. More intense cardiac testing was declined by the family, but can be reconsidered as an outpatient. The patient had an amputation of her right hand index finger in June due to ischemia. The wound had unfortunately dehisced prior to this admission. There was a bone visible in the base of the wound and it was felt that the patient had a presumed osteomyelitis. She was seen by Infectious Disease and started on broad-spectrum antibiotics for treatment of this. Dr. Villeda was consulted for further management of this wound. He was not the surgeon that had performed the amputation; however, that surgeon does not make rounds at the hospital, so Dr. Villeda was good enough to take over care of this. He feels that the wound can indeed heal with antibiotics and good wound care and this course will be pursued. Dr. Lucas has changed her to Invanz and advised 2 more weeks of IV antibiotics. She will then need to see Dr. Villeda for further management. The patient has a long history of mood disorder with some psychotic features at times. The patient also has chronic back and extremity pain from spinal stenosis. She takes oral pain medicine for this and uses a Duragesic patch. She also has an intrathecal pump that Dr. Dillan Duran manages. It contains baclofen and a narcotic medication. When the patient seemed too sedated early in her hospital stay, Dr. Duran was consulted and he did decrease the rate of the pump by 10%. Her Duragesic patch was continued and her Percocet was given more sparingly and she had much improvement in her mental status. She was somewhat confused and disoriented when she was in the intensive care unit, but this has improved and she now appears at her baseline mental status on her home medications. She has taken Fioricet chronically for headache but has not received any while hospitalized and has not requested it; therefore it will be discontinued. She is advised OTC meds for headache as needed and this was discussed with her. The patient has hypothyroidism and her recent lab in our office was good; therefore, her same dose of levothyroxine was continued. She has a stage 3 sacral decubitus ulcer, which she had at admission and wound care was provided on this. The patient has significant debility from her primary lateral sclerosis and also from her hospital stay. Physical therapy has been resumed for her and she will benefit from ongoing therapy to regain her limited mobility. She was to transfer to shelter for 2 weeks of IV antibiotics and physical and occupational therapy but her insurance declined to pay for this. She will be discharged to home today with home health to help her family manage the IV Invanz at home. PT and OT will also be ordered. FINAL DIAGNOSES: 1. Multiple pulmonary emboli. 2. Deep venous thrombosis. 3. Acute respiratory failure. 4. Chronic obstructive pulmonary disease. 5. Asthma. 6. Non-ST elevated myocardial infarction with systolic dysfunction. 7. Osteomyelitis of the right hand. 8. Hypothyroidism. 9. Spinal stenosis with chronic pain. 10. Mood disorder. 11. Primary lateral sclerosis. DISCHARGE MEDICATIONS: Tylenol p.r.n., aspirin 81 mg daily, Invanz 1 g IV q. 24 hours, metoprolol tartrate 12.5 mg b.i.d., intrathecal pump with baclofen and Prialt, potassium chloride 20 mEq b.i.d., Coumadin 4 mg daily, amitriptyline 10 mg b.i.d., Duragesic patch 75 mcg per hour, Flonase nasal spray daily, Advair 500/50 mcg 1 puff b.i.d., gabapentin 800 mg t.i.d., albuterol 2 puffs q.i.d. p.r.n., levothyroxine 75 mcg daily, Claritin 10 mg daily, olanzapine 5 mg b.i.d., Zofran p.r.n., Percocet 7.5/325 mg 1 q. 8 hours p.r.n. pain, ranitidine 150 mg b.i.d., tizanidine 2 mg t.i.d., Topamax 100 mg b.i.d., and venlafaxine 150 mg daily. FOLLOWUP: Followup is with Dr. Villeda in 2 weeks. Follow up with Dr. Livingston in 4 weeks. Follow up with Dr. Pratt within two weeks. Follow up with Dr Lanier in 8 weeks. RISHABH PRATT MD DR: AUTUMN/edwina JOB#: [id number] / [id number] [facility]
[2016-08-06 23:00] VITALS: BP 89/62
[2016-08-07] MEDS: NON FORMULARY ITEM SQ SCH ×5 (01:18→11:26)
[2016-08-07 03:00] VITALS: BP 90/64
[2016-08-07 04:05] LABS: INR 2.1 (0.8-1.1)
[2016-08-07] MEDS: LEVOTHYROXINE 75 MCG TABLET PO SCH (05:49)
[2016-08-07 07:00] VITALS: BP 107/69
[2016-08-07] MEDS: ALBUTEROL SULFATE 2.5 MG/3 ML NEBU. NEB SCH ×2 (07:36→11:12)
[2016-08-07] MEDS: VENLAFAXINE XR 37.5 MG CAP.ER.24H. PO SCH (08:06)
[2016-08-07] MEDS: OLANZapine 5 MG TABLET PO SCH (08:07)
[2016-08-07] MEDS: FAMOTIDINE 20 MG TABLET. PO SCH (08:07)
[2016-08-07] MEDS: TOPIRAMATE 100 MG TABLET. PO SCH (08:07)
[2016-08-07] MEDS: GABAPENTIN 400 MG CAPSULE. PO SCH (08:07)
[2016-08-07] MEDS: ACETAMINOPHEN 325 MG TABLET. PO PRN (08:07)
[2016-08-07] MEDS: POTASSIUM CHLORIDE 20 MEQ TABLET.ER. PO SCH (08:08)
[2016-08-07] MEDS: CETIRIZINE HCL 10 MG TABLET. PO SCH (08:08)
[2016-08-07] MEDS: tiZANidine 4 MG TABLET. PO SCH (08:08)
[2016-08-07] MEDS: ASPIRIN ENTERIC COATED 81 MG TABLET.DR. PO SCH (08:08)
[2016-08-07] MEDS: AMITRIPTYLINE HCL 10 MG TABLET. PO SCH (08:09)
--- NOTE | 2016-08-07 08:13 | PDOC ---
PROGRESS NOTES Subjective Subjective Patient without complaint. Objective Objective Vital Signs Date Time Temp Pulse Resp B/P (MAP) Pulse Ox O2 Delivery O2 Flow Rate FiO2 08/07/16 07:38 96 Nasal Cannula 3.0 08/07/16 07:00 97.9 96 18 107/69 (82) 97.9 Intake and Output 08/07/16 07:00 Intake Total 2100 ml Balance 2100 ml Intake Oral 2100 ml # Voids 3 # Bowel Movements 2 Physical Exam Abdomen: Normal bowel sounds, Soft, No tenderness Heart: Regular rate Extremities: No edema General: Alert, Oriented X3, No acute distress (cheerful) Lungs: Other (BS decreased throughout but otherwise CTA) Assessment Assessment Problems Medical Problems: (1) Elevated troponin Status: Acute Plan Plan of Care 1. PE's with DVT - stable, no longer hypoxic on RA. INR good, continue present Coumadin. 2. acute respiratory failure with asthma, pneumonia and COPD - much improved. No O2 needed now. OV with Dr Lanier in [address] chest. 3. osteomyelitis - insurance will not cover patient at [facility] so will discharge home with home health and Invanz daily for 2 weeks. Continue wound care to right hand. Follow up with Orthopedics in 2 weeks to assess need for further IV abx. 4. NSTEMI - stable, home on ASA and low dose B corinna. 5. chronic pain - appears well controlled, home on present meds. Fioricet for chronic headaches has been d/c as patient did not need it at all during hospitalization. Discussed with patient, advised OTC pain meds as needed instead. 6. mood disorder - doing well now with her usual meds. 7. PLS with debility - could benefit from continued PT, will have this through home health. Comment Review of Relevant I have reviewed the following items mimi (where applicable) has been applied. Labs Laboratory Tests Test 08/06/16 03:10 08/07/16 03:26 Prothrombin Time 25.3 SEC (11.7-14.0) 22.0 SEC (11.7-14.0) Prothromb Time International Ratio 2.5 (0.8-1.1) 2.1 (0.8-1.1) Laboratory Tests Test 08/07/16 03:26 Prothrombin Time 22.0 SEC (11.7-14.0) Prothromb Time International Ratio 2.1 (0.8-1.1) Microbiology 07/29/16 Blood Culture - Final, Complete NO GROWTH AFTER 5 DAYS Medications Current Medications Sodium Chloride 1,000 ml @ 1,000 mls/hr 1X ONCE IV Last administered on 19:28; Start 07/27/16 at 19:15; Stop 07/27/16 at 20:14; Status DC Ondansetron HCl (Zofran) 4 mg PRN Q8HRS PRN IV NAUSEA/VOMITING; Start 07/27/16 at 20:45; Stop 07/28/16 at 07:41; Status DC Aspirin (Elvis Aspirin) 325 mg 1X ONCE PO Last administered on 07/27/16 20:55 ; Start 07/27/16 at 20:45; Stop 07/27/16 at 20:46; Status DC Amitriptyline HCl (Elavil) 10 mg BID PO ; Start 07/28/16 at 09:00; Stop at 09:00; Status DC Fentanyl (Duragesic 75mcg/ Hr Patch) 1 patch Q3DAYS TD ; Start 07/27/16 at 23:00 ; Stop 07/27/16 at 23:08; Status DC Olanzapine (ZyPREXA) 5 mg BID PO ; Start 07/28/16 at 09:00; Stop 07/28/16 at 09: 00; Status DC Oxycodone/ Acetaminophen (Percocet 7.5/ 325) 1 tab Q8HRS PO ; Start 07/28/16 at 06:00; Stop 07/28/16 at 06:00; Status DC Topiramate (Topamax) 100 mg BID PO ; Start 07/28/16 at 09:00; Stop 07/28/16 at 09:00; Status DC Non-Formulary Medication 800 mg TID PO ; Start 07/28/16 at 09:00; Stop 07/28/16 at 09:00; Status DC Non-Formulary Medication 150 mg BID PO ; Start 07/28/16 at 09:00; Stop 07/28/16 at 09:00; Status DC Non-Formulary Medication 2 mg TID PO ; Start 07/28/16 at 09:00; Stop 07/28/16 at 09:00; Status DC Non-Formulary Medication 1 ea Q3HRS SQ Last administered on 07/27/16 22:45; Start 07/27/16 at 00:00; Stop 07/27/16 at 23:40; Status DC Amitriptyline HCl (Elavil) 10 mg BID PO Last administered on 08/06/16 20:32; Start 07/27/16 at 23:30 Fentanyl (Duragesic 75mcg/ Hr Patch) 1 patch Q3DAYS TD Last administered on 23:33; Start 07/27/16 at 23:30; Stop 07/28/16 at 20:41; Status DC Olanzapine (ZyPREXA) 5 mg BID PO Last administered on 07/27/16 23:32; Start at 23:30; Stop 07/28/16 at 07:30; Status DC Oxycodone/ Acetaminophen (Percocet 7.5/ 325) 1 tab Q8HRS PO Last administered on 07/29/16 20:50; Start 07/27/16 at 23:30; Stop 07/30/16 at 08:07; Status DC Topiramate (Topamax) 100 mg BID PO Last administered on 08/06/16 20:33; Start 07/27/16 at 23:30 Gabapentin (Neurontin) 800 mg Q12HR PO Last administered on 08/03/16 21:10; Start 07/27/16 at 23:30; Stop 08/04/16 at 10:38; Status DC Famotidine (Pepcid) 20 mg BID PO Last administered on 08/06/16 20:32; Start at 23:30 Tizanidine HCl (Zanaflex) 2 mg TID PO Last administered on 08/06/16 20:33; Start 07/27/16 at 23:30 Non-Formulary Medication 1 ea Q3HRS SQ Last administered on 08/07/16 04:43; Start 07/28/16 at 03:00 Acetaminophen/ Butalbital/ Caffeine (Fioricet) 1 tab PRN Q6HRS PRN PO MIGRAINE HEADACHE; Start 07/28/16 at 07:30; Stop 08/06/16 at 07:59; Status DC Fluticasone Propionate (Flonase) 2 spray DAILY NS ; Start 07/28/16 at 09:00; Status Cancel Levothyroxine Sodium (Synthroid) 75 mcg DAILY06 PO Last administered on 05:49; Start 07/28/16 at 07:30 Potassium Chloride (Klor-Con) 20 meq DAILY PO Last administered on 07/31/16 09 :39; Start 07/28/16 at 09:00; Stop 07/31/16 at 14:50; Status DC Non-Formulary Medication 1 each BID IH ; Start 07/28/16 at 09:00; Status UNV Cetirizine HCl (ZyrTEC) 10 mg DAILY PO Last administered on 08/06/16 09:52; Start 07/28/16 at 09:00 Venlafaxine HCl (Effexor Xr) 150 mg DAILY PO Last administered on 08/06/16 09: 50; Start 07/28/16 at 09:00 Olanzapine (ZyPREXA) 5 mg DAILY PO Last administered on 07/29/16 09:29; Start 07/28/16 at 09:00; Stop 07/30/16 at 08:17; Status DC Budesonide (Pulmicort) 0.5 mg RTBID NEB Last administered on 08/06/16 07:11; Start 07/28/16 at 08:00; Stop 08/06/16 at 07:59; Status DC Albuterol Sulfate (Ventolin Neb Soln) 2.5 mg RTQID NEB Last administered on 07:36; Start 07/28/16 at 08:00 Ondansetron HCl (Zofran) 4 mg PRN Q6HRS PRN IV NAUSEA/VOMITING Last administered on 08/04/16 10:27; Start 07/28/16 at 07:30; Stop 08/06/16 at 07:59 ; Status DC Vancomycin HCl (Vanco Per Pharmacy) 1 each PRN DAILY PRN MC SEE COMMENTS Last administered on 08/04/16 10:27; Start 07/28/16 at 08:00; Stop 08/05/16 at 11:29 ; Status DC Piperacillin Sod/ Tazobactam Sod 3.375 gm/Sodium Chloride 50 ml @ 100 mls/hr Q6HRS IV Last administered on 08/05/16 06:20; Start 07/28/16 at 08:30; Stop at 11:29; Status DC Vancomycin HCl 1.25 gm/Sodium Chloride 250 ml @ 166.667 mls/hr 1X ONCE IV Last administered on 07/28/16 15:18; Start 07/28/16 at 09:00; Stop 07/28/16 at 10:29; Status DC Fluticasone Propionate (Flonase) 2 spray DAILY NS Last administered on 09:50; Start 07/29/16 at 09:00 Aspirin (Ecotrin) 81 mg DAILYWBKFT PO Last administered on 08/06/16 09:52; Start 07/28/16 at 17:00 Naloxone HCl (Narcan) 0.4 mg STK-MED ONCE .ROUTE ; Start 07/28/16 at 19:58; Stop 07/28/16 at 19:59; Status DC Naloxone HCl (Narcan) 0.4 mg 1X ONCE IV Last administered on 07/28/16 20:10; Start 07/28/16 at 20:15; Stop 07/28/16 at 20:16; Status DC Fentanyl (Duragesic 75mcg/ Hr Patch) 1 patch Q3DAYS TD ; Start 07/31/16 at 09:00 ; Status UNV Fentanyl (Duragesic 75mcg/ Hr Patch) 1 patch 1X ONCE TD ; Start 07/28/16 at 20: 45; Stop 07/28/16 at 20:46; Status UNV Fentanyl (Duragesic 75mcg/ Hr Patch) 1 patch Q3DAYS TD Last administered on 09:51; Start 07/28/16 at 21:00 Lorazepam (Ativan) 0.5 mg PRN Q6HRS PRN IV ANXIETY / AGITATION Last administered on 08/03/16 07:12; Start 07/29/16 at 01:45; Stop 08/05/16 at 08:50 ; Status DC Vancomycin HCl 750 mg/Sodium Chloride 250 ml @ 250 mls/hr Q12H IV Last administered on 07/29/16 03:57; Start 07/29/16 at 03:30; Stop 07/29/16 at 16:32 ; Status DC Vancomycin HCl 1 each 1X ONCE MC Last administered on 07/29/16 15:00; Start 07/29/16 at 15:00; Stop 07/29/16 at 15:01; Status DC Metoprolol Tartrate (Lopressor) 12.5 mg BID PO Last administered on 08/06/16 09:52; Start 07/29/16 at 11:30 Vancomycin HCl 1.25 gm/Sodium Chloride 250 ml @ 166.667 mls/hr 1X ONCE IV Last administered on 07/29/16 16:58; Start 07/29/16 at 17:00; Stop 07/29/16 at 18:29; Status DC Vancomycin HCl 750 mg/Sodium Chloride 250 ml @ 250 mls/hr Q8H IV Last administered on 08/05/16 09:29; Start 07/30/16 at 01:00; Stop 08/05/16 at 11:29 ; Status DC Vancomycin HCl 1 each 1X ONCE MC ; Start 07/30/16 at 16:30; Stop 07/30/16 at 16 :31; Status DC Digoxin (Lanoxin) 250 mcg PRN 1X PRN IV thachycardia; Start 07/29/16 at 18:00; Stop 08/06/16 at 07:59; Status DC Acetaminophen (Tylenol) 650 mg PRN Q6HRS PRN PO FEVER > 101 Last administered on 08/03/16 05:30; Start 07/29/16 at 23:00 Sodium Chloride 500 ml @ 500 mls/hr 1X ONCE IV Last administered on 03:45; Start 07/30/16 at 03:45; Stop 07/30/16 at 04:44; Status DC Iohexol (Omnipaque 300 Mg/ml) 75 ml 1X ONCE IV Last administered on 07/30/16 04:25; Start 07/30/16 at 04:00; Stop 07/30/16 at 04:01; Status DC Info (Do NOT chart on this entry -- for MONITORING) 1 each PRN DAILY PRN MC SEE COMMENTS; Start 07/30/16 at 04:00; Stop 08/01/16 at 03:59; Status DC Heparin Sodium/ Dextrose 500 ml @ 0 mls/hr CONT PRN IV SEE I/O RECORD Last administered on 08/01/16 06:14; Start 07/30/16 at 05:30; Stop 08/03/16 at 13:27 ; Status DC Heparin Sodium (Porcine) (Heparin Sodium) 1,500 unit PRN Q6HRS PRN IV FOR UFH LEVEL LESS THAN 0.2 Last administered on 07/30/16 21:49; Start 07/30/16 at 05: 30; Stop 08/01/16 at 08:49; Status DC Heparin Sodium (Porcine) (Heparin Sodium) 750 unit PRN Q6HRS PRN IV FOR UFH LEVEL 0.2 - 0.29 Last administered on 08/01/16 06:51; Start 07/30/16 at 05:30; Stop 08/01/16 at 08:49; Status DC Warfarin Sodium (Coumadin Per Pharmacy) 1 each PRN DAILY PRN MC PER PROTOCOL Last administered on 08/05/16 14:19; Start 07/30/16 at 05:00; Stop 08/06/16 at 07:59; Status DC Sodium Chloride 500 ml @ 500 mls/hr 1X ONCE IV Last administered on 05:15; Start 07/30/16 at 05:15; Stop 07/30/16 at 06:14; Status DC Heparin Sodium (Porcine) (Heparin Sodium) 3,950 unit 1X ONCE IV Last administered on 07/30/16 05:32; Start 07/30/16 at 05:30; Stop 07/30/16 at 05:31 ; Status DC Norepinephrine Bitartrate 250 ml @ 0 mls/hr CONT PRN IV SEE I/O RECORD Last administered on 08/01/16 15:38; Start 07/30/16 at 07:15; Stop 08/03/16 at 13:27 ; Status DC Oxycodone/ Acetaminophen (Percocet 7.5/ 325) 1 tab PRN Q8HRS PRN PO PAIN Last administered on 08/06/16 22:29; Start 07/30/16 at 08:15 Olanzapine (ZyPREXA) 10 mg DAILY PO Last administered on 08/06/16 09:51; Start 07/30/16 at 09:00 Sodium Chloride 1,000 ml @ 75 mls/hr [id number] IV Last administered on 01:33; Start 07/30/16 at 08:30; Stop 08/01/16 at 12:33; Status DC Potassium Chloride (Klor-Con) 40 meq 1X ONCE PO Last administered on 12:03; Start 07/30/16 at 12:00; Stop 07/30/16 at 12:01; Status DC Warfarin Sodium (Coumadin) 5 mg 1X WARF ONCE PO Last administered on 16:20; Start 07/30/16 at 16:00; Stop 07/30/16 at 16:01; Status DC Furosemide (Lasix) 20 mg 1X ONCE IVP Last administered on 07/30/16 14:13; Start 07/30/16 at 14:15; Stop 07/30/16 at 14:16; Status DC Doxycycline Hyclate (Vibra-Tab) 100 mg BID PO Last administered on 08/03/16 21 :10; Start 07/31/16 at 09:00; Stop 08/04/16 at 08:39; Status DC Furosemide (Lasix) 20 mg 1X ONCE IVP Last administered on 07/31/16 09:40; Start 07/31/16 at 09:15; Stop 07/31/16 at 09:16; Status DC Potassium Chloride 100 ml @ 100 mls/hr Q8H IV Last administered on 07/31/16 10:00; Start 07/31/16 at 10:00; Stop 07/31/16 at 15:00; Status DC Potassium Chloride 100 ml @ 100 mls/hr Q8H IV Last administered on 07/31/16 12:39; Start 07/31/16 at 11:00; Stop 07/31/16 at 15:00; Status DC Warfarin Sodium (Coumadin) 5 mg 1X WARF ONCE PO Last administered on 17:41; Start 07/31/16 at 16:00; Stop 07/31/16 at 16:01; Status DC Potassium Chloride 50 ml @ 50 mls/hr TID IV Last administered on 07/31/16 21: 15; Start 07/31/16 at 21:00; Stop 08/01/16 at 08:49; Status DC Warfarin Sodium (Coumadin) 5 mg 1X WARF ONCE PO Last administered on 15:28; Start 08/01/16 at 16:00; Stop 08/01/16 at 16:01; Status DC Enoxaparin Sodium (Lovenox Per Pharmacy Treatment Dosing) 1 each PRN DAILY PRN MC SEE COMMENTS; Start 08/01/16 at 08:45; Stop 08/03/16 at 13:27; Status DC Furosemide (Lasix) 20 mg 1X ONCE IVP Last administered on 08/01/16 10:12; Start 08/01/16 at 08:45; Stop 08/01/16 at 08:51; Status DC Enoxaparin Sodium (Lovenox 60mg Syringe) 50 mg Q12HR SQ Last administered on 09:22; Start 08/01/16 at 09:00; Stop 08/03/16 at 13:27; Status DC Potassium Chloride (Klor-Con) 20 meq TID PO Last administered on 08/04/16 21: 10; Start 08/01/16 at 09:00; Stop 08/05/16 at 08:50; Status DC Warfarin Sodium (Coumadin) 6 mg 1X WARF ONCE PO Last administered on 15:57; Start 08/02/16 at 16:00; Stop 08/02/16 at 16:01; Status DC Vancomycin HCl 1 each 1X ONCE MC Last administered on 08/04/16 08:30; Start 08/04/16 at 08:30; Stop 08/04/16 at 08:31; Status DC Warfarin Sodium (Coumadin) 5 mg 1X WARF ONCE PO Last administered on 17:01; Start 08/03/16 at 16:00; Stop 08/03/16 at 16:01; Status DC Warfarin Sodium (Coumadin) 5 mg 1X WARF ONCE PO Last administered on 17:23; Start 08/04/16 at 16:00; Stop 08/04/16 at 16:01; Status DC Gabapentin (Neurontin) 800 mg TID PO Last administered on 08/06/16 20:33; Start 08/04/16 at 14:00 Potassium Chloride (Klor-Con) 20 meq BIDWMEALS PO Last administered on 15:47; Start 08/05/16 at 09:00 Ertapenem 1 gm/ Sodium Chloride 50 ml @ 100 mls/hr Q24H IV Last administered on 08/06/16 12:37; Start 08/05/16 at 12:00 Warfarin Sodium (Coumadin - No Dose Today) 1 each 1X WARF ONCE MC Last administered on 08/05/16 16:34; Start 08/05/16 at 16:00; Stop 08/05/16 at 16:01 ; Status DC Warfarin Sodium (Coumadin) 4 mg DAILY16 PO Last administered on 08/06/16 15:46 ; Start 08/06/16 at 16:00 Ondansetron HCl (Zofran Odt) 4 mg PRN Q6HRS PRN PO NAUSEA/VOMITING; Start 08/06 at 08:00 Warfarin Sodium (Coumadin Per Physician) 1 each PRN DAILY PRN MC SEE COMMENTS Last administered on 08/06/16 14:43; Start 08/06/16 at 08:15 Active Scripts Active Reported Xopenex Hfa (Levalbuterol Tartrate) 15 Gm Hfa.aer.ad 2 Puff IH PRN Q4-6HRS Fluticasone Propionate Nasal [place] (Fluticasone Propionate) 16 Gm [place].susp 2 [place] NS DAILY Olanzapine 5 Mg Tablet 5 Mg PO BID Meloxicam 7.5 Mg Tablet 1 Tab PO DAILY FENTANYL 75mcg/hr (Fentanyl) 1 Each Patch.td72 1 Patch TP Q3DAYS Claritin (Loratadine) 10 Mg Tablet 1 Tab PO DAILY Advair 500-50 Diskus (Fluticasone/Salmeterol) 1 Each Disk.w.dev 1 Each IH BID Amitriptyline Hcl 10 Mg Tablet 10 Mg PO BID Zofran Odt (Ondansetron) 8 Mg Tab.rapdis 8 Mg PO PRN Percocet 7.5-325 Mg Tablet (Oxycodone/Acetaminophen) 1 Each Tablet 1 Each PO Q8HRS Levothyroxine Sodium 75 Mcg Tablet 75 Mcg PO DAILY Fioricet 50-325-40 Mg Tablet (Butalb/Acetaminophen/Caffeine) 1 Each Tablet 1 Each PO Q6HRS PRN Effexor Xr (Venlafaxine Hcl) 150 Mg Cap.er.24h 150 Mg PO DAILY Klor-Con M20 (Potassium Chloride) 20 Meq Tab.er.prt 20 Meq PO DAILY Tizanidine Hcl 2 Mg Capsule 2 Mg PO TID Zantac (Ranitidine Hcl) 150 Mg Tablet 150 Mg PO BID Topiramate 25 Mg Tablet 100 Mg PO BID Gabapentin 800 Mg Tablet 800 Mg PO TID Vitals/I & O Vital Sign - Last 24 Hours 08/06/16 08/06/16 08/06/16 08/06/16 09:51 09:52 10:46 12:37 Temp 97.9 97.9 Pulse 99 98 Resp 18 B/P (MAP) 120/83 122/80 (94) Pulse Ox 95 95 95 O2 Delivery Nasal Cannula Nasal Cannula Nasal Cannula O2 Flow Rate 3.0 4.0 4.0 08/06/16 08/06/16 08/06/16 08/06/16 14:06 15:00 17:07 19:00 Temp 97.9 98.1 97.9 98.1 Pulse 80 83 Resp 18 20 B/P (MAP) 111/58 (75) 80/52 (61) Pulse Ox 95 98 95 100 O2 Delivery Nasal Cannula Nasal Cannula Nasal Cannula Nasal Cannula O2 Flow Rate 4.0 4.0 3.0 3.0 08/06/16 08/06/16 08/06/16 08/06/16 19:39 20:00 21:00 22:29 Pulse 76 B/P (MAP) 89/62 Pulse Ox 98 98 O2 Delivery Nasal Cannula Nasal Cannula Nasal Cannula O2 Flow Rate 3.0 3.0 3.0 08/06/16 08/07/16 08/07/16 08/07/16 23:00 03:00 07:00 07:38 Temp 97.6 97.8 97.9 97.6 97.8 97.9 Pulse 76 96 96 Resp 20 20 18 B/P (MAP) 89/62 (71) 90/64 (73) 107/69 (82) Pulse Ox 100 100 92 96 O2 Delivery Nasal Cannula Nasal Cannula Nasal Cannula Nasal Cannula O2 Flow Rate 3.0 3.0 4.0 3.0 Intake and Output 08/06/16 08/06/16 08/07/16 15:00 23:00 07:00 Intake Total 600 ml 1100 ml 400 ml Balance 600 ml 1100 ml 400 ml RISHABH LUNDBERG MD Aug 07, 2016 08:13
[2016-08-07] MEDS: FLUTICASONE 50MCG/NASAL SPRAY 16GM BOTTLE. NS SCH (09:00)
[2016-08-07] MEDS: METOPROLOL TART IMMED RELEASE 25 MG TABLET. PO SCH (09:00)
--- NOTE | 2016-08-07 09:04 | PDOC ---
Infectious Disease Note Subjective Subjective Feels good ROS ROS no n/v/d/pain Vital Sign Vital Signs Vital Signs Date Time Temp Pulse Resp B/P (MAP) Pulse Ox O2 Delivery O2 Flow Rate FiO2 08/07/16 08:00 Room Air 08/07/16 07:38 96 3.0 08/07/16 07:00 97.9 96 18 107/69 (82) 97.9 Physical Exam PHYSICAL EXAM GENERAL: NAD, Alert HEENT: PERRL, OC/OP NECK: Supple, no JVD, no LN LUNGS: Clear HEART: S1S2, no gallop, no murmur ABD: Soft, NT, no organomegaly, no rebound EXT: No edema, no cyanosis,, amp site looks good DECK MOLDER: Alert, oriented x 3, no focal neurologic deficit SKIN: No rash IV: ok Labs Lab Laboratory Tests Test 08/07/16 03:26 Prothrombin Time 22.0 SEC (11.7-14.0) Prothromb Time International Ratio 2.1 (0.8-1.1) Objective Assessment Encephalopathy - improving PE - now on warfarin Fever likely sec to PE. Blood cults neg Leukocytosis - likely reactive, improved Hypotension - off Levophed Interstitial markings on CT - ? 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 Sutures removed about 2 weeks post -op now exposed bone Left common Fem DVT Cefazolin allergy - nausea NSTEMI - family has declined further w/u Tobacco abuse Baclofen pump Primary lateral Sclerosis Plan Plan of Care iv invanz Supportive care ok to d/c f/u with us in 2 wks KELLY SALGUERO MD Aug 07, 2016 09:04
--- NOTE | 2016-08-07 10:00 | PDOC ---
PULMONARY PROGRESS NOTES Subjective Pt less soa Vitals Vital Signs Date Time Temp Pulse Resp B/P (MAP) Pulse Ox O2 Delivery O2 Flow Rate FiO2 08/07/16 09:00 96 107/69 08/07/16 08:00 Room Air 08/07/16 07:38 96 3.0 08/07/16 07:00 97.9 18 97.9 ROS: No Nausea, No Chest Pain, No Abdominal Pain, No Increase Cough General: Alert HEENT: Other (nc at perrl, nose throat clear, neck no lap, no thyromegaly) Lungs: Clear Cardiovascular: S1, S2 Abdomen: Soft, Non-tender, Other Neuro Exam: Alert, Oriented Extremities: No Edema, Other (trace edema) Skin: Warm Labs Laboratory Tests Test 08/06/16 03:10 08/07/16 03:26 Prothrombin Time 25.3 SEC (11.7-14.0) 22.0 SEC (11.7-14.0) Prothromb Time International Ratio 2.5 (0.8-1.1) 2.1 (0.8-1.1) Laboratory Tests Test 08/07/16 03:26 Prothrombin Time 22.0 SEC (11.7-14.0) Prothromb Time International Ratio 2.1 (0.8-1.1) Medications Active Scripts Medications Dose Route/Sig Max Daily Dose Days Date Category Xopenex Hfa (Levalbuterol Tartrate) 15 Gm Hfa.aer.ad 2 Puff IH PRN Q4-6HRS 07/27/16 Reported Fluticasone Propionate Nasal Dysart (Fluticasone Propionate) 16 Gm Dysart.susp 2 Dysart NS DAILY 07/27/16 Reported Olanzapine 5 Mg Tablet 5 Mg PO BID 07/27/16 Reported Meloxicam 7.5 Mg Tablet 1 Tab PO DAILY 07/27/16 Reported FENTANYL 75mcg/hr (Fentanyl) 1 Each Patch.td72 1 Patch TP Q3DAYS 04/28/14 Reported Claritin (Loratadine) 10 Mg Tablet 1 Tab PO DAILY 04/28/14 Reported Advair 500-50 Diskus (Fluticasone/Salmeterol) 1 Each Disk.w.dev 1 Each IH BID 04/14/13 Reported Amitriptyline Hcl 10 Mg Tablet 10 Mg PO BID 04/14/13 Reported Zofran Odt (Ondansetron) 8 Mg Tab.rapdis 8 Mg PO PRN 04/14/13 Reported Percocet 7.5-325 Mg Tablet (Oxycodone/Acetaminophen) 1 Each Tablet 1 Each PO Q8HRS 04/14/13 Reported Levothyroxine Sodium 75 Mcg Tablet 75 Mcg PO DAILY 04/14/13 Reported Fioricet 50-325-40 Mg Tablet (Butalb/Acetaminophen/Caffeine) 1 Each Tablet 1 Each PO Q6HRS PRN 04/14/13 Reported Effexor Xr (Venlafaxine Hcl) 150 Mg Cap.er.24h 150 Mg PO DAILY 04/14/13 Reported Klor-Con M20 (Potassium Chloride) 20 Meq Tab.er.prt 20 Meq PO DAILY 04/14/13 Reported Tizanidine Hcl 2 Mg Capsule 2 Mg PO TID 04/14/13 Reported Zantac (Ranitidine Hcl) 150 Mg Tablet 150 Mg PO BID 04/14/13 Reported Topiramate 25 Mg Tablet 100 Mg PO BID 04/14/13 Reported Gabapentin 800 Mg Tablet 800 Mg PO TID 04/14/[address] reviewed, 1. Multiple filling defects identified in the right upper lobe, right middle lobe, right lower lobe and left upper lobe and left lower lobe pulmonary artery branches likely multiple pulmonary emboli. 2. Bilateral hilar and right infrahilar airspace opacities. Differential includes hilar lymphadenopathy, pneumonia o/ atelectasis or malignancy. Close interval follow-up examination is recommended. A follow-up PET CT scan can be considered. 3. Diffuse reticular interstitial lung markings identified in the left upper lobe, right upper lobe, right middle lobe and right lower lobe of the lung could be reticular interstitial changes 4. Small bilateral pleural effusions , right greater than left with patchy bibasilar airspace opacities. Impression . 1. Acute hypoxic respiratory failure secondary to bilateral extensive pulmonary embolism. 2. Abnormal CT chest with bilateral pulmonary embolism and bilateral interstitial and reticular infiltrates. Pneumonia 3. 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 5. Partially occlusive DVT is seen involving the left common femoral vein. 6. Moderate right ventricular dilation on echo 7. Encephalopathy seems to be improving Plan . D/C HOME WITH HH AND PT follow up in office in [address] chest ANTIBX PER LUIS M YATES MD Aug 07, 2016 10:00
[2016-08-07 11:01] VITALS: BP 102/69
[2016-08-07] MEDS: ERTAPENEM 1 GM in IV NORMAL SALINE 50ML 50 ML IV SCH (11:25)
== END 2016-08-07 13:42 | disposition home health service (06) | DRG 280 ==
LOC: ER 17:35 → 2 NORTH 20:30 → OBSVTOIN 07-29 08:33 → 1 WEST ICU 07-30 06:27 → 2 NORTH 08-03 16:15 → 5 SOUTH 08-04 11:48
PROVIDERS: ADMIT Family Medicine; ATTEND Family Medicine
PROC: 02HV33Z Insertion of Infusion Device into Superior Vena Cava, Percutaneous Approach (ICD-10-PCS; principal; 2016-07-30)
DX: I21.4 Non-ST elevation (NSTEMI) myocardial infarction (principal); I26.99 Other pulmonary embolism without acute cor pulmonale; J18.9 Pneumonia, unspecified organism; J96.01 Acute respiratory failure with hypoxia; G93.41 Metabolic encephalopathy; L89.153 Pressure ulcer of sacral region, stage 3; I82.412 Acute embolism and thrombosis of left femoral vein; I50.22 Chronic systolic (congestive) heart failure; J44.0 Chronic obstructive pulmonary disease with (acute) lower respiratory infection; G12.29 Other motor neuron disease; R57.9 Shock, unspecified; M86.8X4 Other osteomyelitis, hand; M48.00 Spinal stenosis, site unspecified; E03.9 Hypothyroidism, unspecified; F17.210 Nicotine dependence, cigarettes, uncomplicated; G89.29 Other chronic pain; K21.9 Gastro-esophageal reflux disease without esophagitis; M54.9 Dorsalgia, unspecified; D72.829 Elevated white blood cell count, unspecified; F39 Unspecified mood [affective] disorder; Z90.49 Acquired absence of other specified parts of digestive tract; Z79.01 Long term (current) use of anticoagulants; Z86.711 Personal history of pulmonary embolism; Z90.710 Acquired absence of both cervix and uterus; I25.2 Old myocardial infarction; Z88.5 Allergy status to narcotic agent; Z88.8 Allergy status to other drugs, medicaments and biological substances; Z88.1 Allergy status to other antibiotic agents
CPT/HCPCS: 36415; 36600; 71010; 71275; 73130; 80048; 80061; 80076; 80202; 81001; 82553; 82805; 82962; 83605; 83690; 83735; 83880; 84443; 84484; 85027; 85520; 85610; 85651; 86140; 87040; 87641; 93005; 93306; 93970; 94250; 94640; 94760; 96360; 99406; G0378; G0379; J1335; J1650; J2060; J2310; J2405; J2543; J3370; J3480; J7030; J7040; J7050; Q9967; 97110; 97530; 99285-25

== ENCOUNTER → 2016-08-18 | Outpatient (CLI) | payer OTHER ==
[2016-08-07 11:01] VITALS: BP 102/69
[~2016-08-18] MED LIST changes: +ACET325T9 PO; +ASPI-612 PO; +FLUT16SP NS; +MELO7.5T29 PO; +METO25TA4 PO; -NON FORMULARY ITEM SQ SCH; +OLAN5TAB9 PO; +WARF4TAB68 PO; +XOPENEX HFA15 GM IH
== END | disposition home or self-care (01) ==
LOC: PMGWOUND 09:11
PROVIDERS: ATTEND Emergency Medicine Undersea and Hyperbaric Medicine
DX: T87.81 Dehiscence of amputation stump (principal); J44.9 Chronic obstructive pulmonary disease, unspecified; E03.9 Hypothyroidism, unspecified; K21.9 Gastro-esophageal reflux disease without esophagitis; F32.9 Major depressive disorder, single episode, unspecified; M86.8X4 Other osteomyelitis, hand; I25.2 Old myocardial infarction; I50.22 Chronic systolic (congestive) heart failure; F17.210 Nicotine dependence, cigarettes, uncomplicated; Z86.711 Personal history of pulmonary embolism; Z79.01 Long term (current) use of anticoagulants; Z87.01 Personal history of pneumonia (recurrent); Z90.710 Acquired absence of both cervix and uterus; Y83.5 Amputation of limb(s) as the cause of abnormal reaction of the patient, or of later complication, without mention of misadventure at the time of the procedure
CPT/HCPCS: 99214

== ENCOUNTER → 2016-08-25 | Outpatient (CLI) | payer OTHER ==
[2016-08-07 11:01] VITALS: BP 102/69
== END | disposition home or self-care (01) ==
LOC: PMGWOUND 13:17
PROVIDERS: ATTEND Emergency Medicine Undersea and Hyperbaric Medicine
DX: T81.31XD Disruption of external operation (surgical) wound, not elsewhere classified, subsequent encounter (principal); J44.9 Chronic obstructive pulmonary disease, unspecified; E03.9 Hypothyroidism, unspecified; F32.9 Major depressive disorder, single episode, unspecified; I21.4 Non-ST elevation (NSTEMI) myocardial infarction; M86.8X4 Other osteomyelitis, hand; K21.9 Gastro-esophageal reflux disease without esophagitis; I50.22 Chronic systolic (congestive) heart failure; F17.210 Nicotine dependence, cigarettes, uncomplicated; Z86.711 Personal history of pulmonary embolism; Z87.01 Personal history of pneumonia (recurrent); Z90.710 Acquired absence of both cervix and uterus; Z79.01 Long term (current) use of anticoagulants; Y83.8 Other surgical procedures as the cause of abnormal reaction of the patient, or of later complication, without mention of misadventure at the time of the procedure
CPT/HCPCS: 17250

== ENCOUNTER → 2016-09-01 | Outpatient (CLI) | payer OTHER ==
[2016-08-07 11:01] VITALS: BP 102/69
== END | disposition home or self-care (01) ==
LOC: PMGWOUND 13:44
PROVIDERS: ATTEND Emergency Medicine Undersea and Hyperbaric Medicine
DX: T87.89 Other complications of amputation stump (principal); L89.152 Pressure ulcer of sacral region, stage 2; E03.9 Hypothyroidism, unspecified; J44.9 Chronic obstructive pulmonary disease, unspecified; K21.9 Gastro-esophageal reflux disease without esophagitis; F32.9 Major depressive disorder, single episode, unspecified; F17.210 Nicotine dependence, cigarettes, uncomplicated; M86.68 Other chronic osteomyelitis, other site; I25.2 Old myocardial infarction; I50.22 Chronic systolic (congestive) heart failure; Z86.711 Personal history of pulmonary embolism; Z90.710 Acquired absence of both cervix and uterus; Y83.5 Amputation of limb(s) as the cause of abnormal reaction of the patient, or of later complication, without mention of misadventure at the time of the procedure
CPT/HCPCS: 99214

== ENCOUNTER → 2016-09-08 | Outpatient (CLI) | payer OTHER | END | disposition home or self-care (01) | LOC: PMGWOUND 12:43 | PROVIDERS: ATTEND Emergency Medicine Undersea and Hyperbaric Medicine | DX: T81.31XD Disruption of external operation (surgical) wound, not elsewhere classified, subsequent encounter (principal); J44.9 Chronic obstructive pulmonary disease, unspecified; K21.9 Gastro-esophageal reflux disease without esophagitis; E03.9 Hypothyroidism, unspecified; F32.9 Major depressive disorder, single episode, unspecified; I25.2 Old myocardial infarction; E78.5 Hyperlipidemia, unspecified; M86.68 Other chronic osteomyelitis, other site; I50.22 Chronic systolic (congestive) heart failure; M86.8X4 Other osteomyelitis, hand; Z86.711 Personal history of pulmonary embolism; Z87.01 Personal history of pneumonia (recurrent); Z86.718 Personal history of other venous thrombosis and embolism; F17.210 Nicotine dependence, cigarettes, uncomplicated; Z79.01 Long term (current) use of anticoagulants; Z90.710 Acquired absence of both cervix and uterus; Z88.8 Allergy status to other drugs, medicaments and biological substances; Z88.1 Allergy status to other antibiotic agents; Z88.5 Allergy status to narcotic agent; Y83.8 Other surgical procedures as the cause of abnormal reaction of the patient, or of later complication, without mention of misadventure at the time of the procedure | CPT/HCPCS: 99214 ==

== ENCOUNTER → 2016-09-12 | Outpatient (CLI) | payer OTHER ==
[~2016-09-12] MED LIST changes: +CONTRAST GIVEN MC PRN; +IOHEXOL 300 MG/ML 75 ML VIAL IV ONE
--- NOTE | 2016-09-12 11:10 | RAD ---
CTA chest 09/12/2016 Clinical indication: Chest pain and concern for pulmonary embolus. Comparison: CTA chest 07/30/2016. Technique: CT helical acquisition of the chest in the angiographic phase for optimization of the pulmonary arteries. MIPS were obtained. Coronal and sagittal reformations were obtained. 75 mL Omnipaque 300 intravenously. PQRS Compliance Statement: One or more of the following individualized dose reduction techniques were utilized for this examination: 1. Automated exposure control 2. Adjustment of the mA and/or kV according to patient size 3. Use of iterative reconstruction technique CTA chest: Heart size is normal without significant pericardial effusion. The thoracic aorta is normal in caliber with mild calcified atheromatous disease at the arch and origin of the great vessels which remain patent. There is near complete resolution of central and subsegmental pulmonary artery filling defects. There is residual minimal linear filling defect at the origin of the left upper lobe pulmonary artery best seen on series 5/image 22. There there are mildly prominent right hilar lymph nodes measuring 7 mm. No axillary or mediastinal lymphadenopathy. The central airways are patent. There is severe centrilobular pulmonary emphysema. There a 9 mm noncalcified pulmonary nodule in the right lower lobe (series 3/image 76). There is irregular, linear opacity in the subpleural left lower lobe measuring 9 mm (series 3/image 97). 3 mm subpleural noncalcified nodule in the apical right upper lobe (series 3/image 32). Additional sub-5 mm nodules in the right upper lobe (series 3/image 58). No pleural effusion or pneumothorax. There is rightward curvature of the thoracic spine with no destructive osseous lesions. There is a spinal catheter terminating posterior to superior aspect of T1. Partial visualization of anterior instrumented lower cervical spinal hardware. Limited images of the upper abdomen: Prior cholecystectomy. 3.6 cm left renal cyst. Impression: 1. Near complete resolution of pulmonary artery filling defects with minimal nonflow-limiting linear filling defect at the origin of the left upper lobe pulmonary artery may represent residual nonocclusive pulmonary embolism. 2. Bilateral noncalcified pulmonary nodules with the largest in the right lower lobe measuring 9 mm, indeterminate for primary pulmonary malignancy versus infectious/inflammatory nodule. Consideration for percutaneous biopsy of suspicious right lower lobe nodule. 3. Mildly prominent right hilar lymph nodes, indeterminate between reactive and helio metastatic disease. 4. Marked pulmonary emphysema.
== END | disposition home or self-care (01) ==
LOC: CT 09:09
PROVIDERS: ATTEND Internal Medicine Pulmonary Disease
DX: I26.99 Other pulmonary embolism without acute cor pulmonale (principal); J43.9 Emphysema, unspecified
CPT/HCPCS: 71275; Q9967

== ENCOUNTER → 2016-09-19 | Outpatient (CLI) | payer OTHER ==
[~2016-09-19] MED LIST changes: -CONTRAST GIVEN MC PRN; -IOHEXOL 300 MG/ML 75 ML VIAL IV ONE
== END | disposition home or self-care (01) ==
LOC: PMGWOUND 10:24
PROVIDERS: ATTEND Preventive Medicine Undersea and Hyperbaric Medicine
DX: T87.89 Other complications of amputation stump (principal); L89.152 Pressure ulcer of sacral region, stage 2; E03.9 Hypothyroidism, unspecified; F39 Unspecified mood [affective] disorder; K21.9 Gastro-esophageal reflux disease without esophagitis; F32.9 Major depressive disorder, single episode, unspecified; J43.9 Emphysema, unspecified; E78.5 Hyperlipidemia, unspecified; M86.8X4 Other osteomyelitis, hand; I25.2 Old myocardial infarction; F17.210 Nicotine dependence, cigarettes, uncomplicated; Z90.710 Acquired absence of both cervix and uterus; Z86.718 Personal history of other venous thrombosis and embolism; Z87.01 Personal history of pneumonia (recurrent); Y83.5 Amputation of limb(s) as the cause of abnormal reaction of the patient, or of later complication, without mention of misadventure at the time of the procedure
CPT/HCPCS: 99214

== ENCOUNTER → 2016-09-30 | Outpatient (CLI) | payer OTHER | END | disposition home or self-care (01) | LOC: PMGWOUND 13:09 | PROVIDERS: ATTEND Emergency Medicine Undersea and Hyperbaric Medicine | DX: T87.89 Other complications of amputation stump (principal); K21.9 Gastro-esophageal reflux disease without esophagitis; E78.5 Hyperlipidemia, unspecified; E03.9 Hypothyroidism, unspecified; F32.9 Major depressive disorder, single episode, unspecified; I25.2 Old myocardial infarction; J43.9 Emphysema, unspecified; M86.68 Other chronic osteomyelitis, other site; M86.8X4 Other osteomyelitis, hand; I50.22 Chronic systolic (congestive) heart failure; Z86.711 Personal history of pulmonary embolism; F17.210 Nicotine dependence, cigarettes, uncomplicated; Z86.718 Personal history of other venous thrombosis and embolism; Z87.01 Personal history of pneumonia (recurrent); Z88.1 Allergy status to other antibiotic agents; Z88.5 Allergy status to narcotic agent; Z88.8 Allergy status to other drugs, medicaments and biological substances; Z90.710 Acquired absence of both cervix and uterus; Z79.01 Long term (current) use of anticoagulants; Y83.5 Amputation of limb(s) as the cause of abnormal reaction of the patient, or of later complication, without mention of misadventure at the time of the procedure | CPT/HCPCS: 97597 ==

== ENCOUNTER → 2016-11-12 | Outpatient (CLI) | payer OTHER ==
[2016-11-12 11:55] LABS: BASO # 0.1 x10^3/uL (0.0-0.2); BASO % 1 % (0-3); EOS % 3 % (0-3); HEMATOCRIT 34.1 % (36.0-47.0); HEMOGLOBIN 11.2 g/dL (12.0-15.5); LYMPH # 2.6 x10^3/uL (1.0-4.8); LYMPH % 29 % (24-48); MEAN CORPUSCULAR HEMOGLOBIN 31 pg (25-35); MEAN CORPUSCULAR HGB CONC 33 g/dL (31-37); MEAN CORPUSCULAR VOLUME 95 fL (79-100); MONO % 11 % (0-9); NEUT % 57 % (31-73); PLATELET COUNT 359 x10^3/uL (140-400); RED BLOOD COUNT 3.61 x10^6/uL (3.50-5.40); RED CELL DISTRIBUTION WIDTH 14.8 % (11.5-14.5)
== END | disposition home or self-care (01) ==
LOC: SPEC 11:43
PROVIDERS: ATTEND Student in an Organized Health Care Education/Training Program
DX: Z28.29 Immunization not carried out because of patient decision for other reason (principal)
CPT/HCPCS: 36415; 85025

== ENCOUNTER → 2016-11-25 | Outpatient (CLI) | payer OTHER | END | disposition home or self-care (01) | LOC: PMGWOUND 13:43 | PROVIDERS: ATTEND Emergency Medicine Undersea and Hyperbaric Medicine | DX: T81.31XD Disruption of external operation (surgical) wound, not elsewhere classified, subsequent encounter (principal); J43.9 Emphysema, unspecified; K21.9 Gastro-esophageal reflux disease without esophagitis; E78.5 Hyperlipidemia, unspecified; E03.9 Hypothyroidism, unspecified; F32.9 Major depressive disorder, single episode, unspecified; I50.22 Chronic systolic (congestive) heart failure; I25.2 Old myocardial infarction; M86.8X4 Other osteomyelitis, hand; M86.60 Other chronic osteomyelitis, unspecified site; Z86.718 Personal history of other venous thrombosis and embolism; F17.210 Nicotine dependence, cigarettes, uncomplicated; Z87.01 Personal history of pneumonia (recurrent); Z86.711 Personal history of pulmonary embolism; Z90.710 Acquired absence of both cervix and uterus; Z79.01 Long term (current) use of anticoagulants; Y83.8 Other surgical procedures as the cause of abnormal reaction of the patient, or of later complication, without mention of misadventure at the time of the procedure | CPT/HCPCS: 99214 ==

== ENCOUNTER → 2016-12-31 | Outpatient (CLI) | payer OTHER ==
--- NOTE | 2017-01-01 02:05 | PAIN ---
DATE OF SERVICE: 12/31/2016 PROGRESS NOTE FOR PAIN CLINIC DIAGNOSES: 1. Primary lateral sclerosis with spasticity. 2. Chronic pain syndrome. 3. Cervical spondylosis. 4. Lumbar spinal stenosis. HISTORY OF PRESENT ILLNESS: The patient is a 56-year-old female who returns for followup, status post intrathecal pump management and PTM management for pump refill today. The patient had been having her pump refilled at home with the refill service; however, she has recently been transferred to a new residential and they were unable to obtain privileges to perform this for her at her new residential. She is having still significant pain at base of the neck, shoulders, bilateral upper extremities, back and lower extremities as well. She had previously some spasticity, but very well controlled with the intrathecal medications at this time. The patient reports pain is 9 on a scale of 10 at the most, ____. It is aching, sharp, dull, tight, shooting, tingling, cramping and spastic in quality. The patient reports no new motor or sensory deficits. No new changes, but having some significant spasticity as previously and is due for intrathecal pump refill today. PHYSICAL EXAMINATION: VITAL SIGNS: The patient's blood pressure is 91/55, pulse 81, respirations 20 and temperature is 98.7 degrees Fahrenheit. GENERAL: The patient is awake, alert, oriented, appropriate, very pleasant demeanor. HEENT: Shows normocephalic and atraumatic. Extraocular movements are intact and symmetrical. Oral cavity: Mucous membranes are moist and pink. NECK: Shows anterior throat supple. CHEST: Shows normal on inspection. Breath sounds clear to auscultation bilaterally. HEART: Shows S1 and S2 clear. No murmurs auscultated. ABDOMEN: Soft, nontender and nondistended. Easily palpable intrathecal pump in left lower quadrant is noted, which is palpable, but nontender with displacement. EXTREMITIES: The patient's extremities show some good movement with approximately 3-4 on a scale 5 dorsiflexion and extension bilaterally as well as quadriceps and hamstring flexion with some spasticity with further extension of the hips. Options were discussed with the patient. The patient's old chart was reviewed as her current medication regimen updated. Current review of systems is updated today as well. We will refill patient's intrathecal pump and reprogramming for the pump and the PTM handheld device. The patient's pump was re-programmed. We will have refill date of 01/30 at this time of Prialt and baclofen. The patient will either return to the clinic or we will re-establish privileges for her home therapy company to visit her at her new residential. Once this privileges are established, she will be able to do this, say for the mobility, transport and movement for coming to the office every refill opportunity. We will follow up as scheduled. DIAGNOSES: Primary lateral sclerosis with spasticity, chronic pain syndrome, cervical spondylosis and lumbar spinal stenosis. PROCEDURE: Intrathecal pump refill and reprogramming under sterile prep and drape using local anesthetic topical. Using a 22-gauge non-cutting [employer] needle, pump was entered without difficulty. 2 mL of old medication was aspirated and discarded and 30 mL of the new medication containing baclofen and Prialt was then replaced into the pump. Sterile bandage was applied after needle was withdrawn. No difficulty. The patient's condition at discharge is stable without complications. MONET MONDRAGON MD DR: GARRETT/edwina JOB#: [id number] / [id number]
== END | disposition home or self-care (01) ==
LOC: PNCL 13:05
PROVIDERS: ATTEND Anesthesiology
DX: M47.812 Spondylosis without myelopathy or radiculopathy, cervical region (principal); M48.061 Spinal stenosis, lumbar region without neurogenic claudication; G12.23 Primary lateral sclerosis; J44.9 Chronic obstructive pulmonary disease, unspecified; K21.9 Gastro-esophageal reflux disease without esophagitis; E03.9 Hypothyroidism, unspecified; F32.9 Major depressive disorder, single episode, unspecified; Z87.39 Personal history of other diseases of the musculoskeletal system and connective tissue; Z90.49 Acquired absence of other specified parts of digestive tract; Z86.69 Personal history of other diseases of the nervous system and sense organs; Z88.6 Allergy status to analgesic agent; Z90.710 Acquired absence of both cervix and uterus; Z88.3 Allergy status to other anti-infective agents
CPT/HCPCS: 62370; 95991

== ENCOUNTER 2017-03-19 14:24 | Emergency (ER) | payer MEDICARE, OTHER, MEDICAID ==
[2017-03-19] MEDS: DIPHTH,PERTUSS(ACELL),TET TOX 0.5 ML DISP.SYRIN. VAX IM ×2 (17:16)
== END 2017-03-19 17:35 | disposition home or self-care (01) ==
LOC: ER 14:24
DX: M25.551 Pain in right hip (principal); S01.21XA Laceration without foreign body of nose, initial encounter; J45.909 Unspecified asthma, uncomplicated; E05.90 Thyrotoxicosis, unspecified without thyrotoxic crisis or storm; Z98.1 Arthrodesis status; Z23 Encounter for immunization; W06.XXXA Fall from bed, initial encounter; Y93.89 Activity, other specified; Y92.89 Other specified places as the place of occurrence of the external cause; Y99.8 Other external cause status
CPT/HCPCS: 70450; 72125; 73502; 90471; 90715; 99284-25

== ENCOUNTER 2017-08-07 17:18 | Emergency (ER) | payer MEDICARE, OTHER ==
[2017-08-07 19:36] LABS: BILIRUBIN,URINE NEGATIVE (NEG); CLARITY,URINE CLOUDY; COLOR,URINE YELLOW; GLUCOSE,URINE NEGATIVE (NEG); NITRITE,URINE NEGATIVE (NEG); PH,URINE 7.5; PROTEIN,URINE 30 mg/dL (NEG-TRACE); UROBILINOGEN,URINE 0.2 mg/dL (0.2 mg/dL)
[2017-08-07 19:51] LABS: BACTERIA,URINE MODERATE /HPF (0-FEW); RBC,URINE >40 /HPF (0-2); WBC,URINE >40 /HPF (0-4)
[2017-08-07 19:52] LABS: HYALINE CASTS, URINE MODERATE /HPF; SQUAMOUS EPITHELIAL CELL,UR FEW /LPF
[2017-08-07] MEDS: CIPROFLOXACIN HCL 250 MG TABLET. PO (21:00)
== END 2017-08-07 21:15 | disposition home or self-care (01) ==
LOC: ER 21:15
DX: S00.03XA Contusion of scalp, initial encounter (principal); M79.605 Pain in left leg; G89.29 Other chronic pain; N39.0 Urinary tract infection, site not specified; K04.7 Periapical abscess without sinus; K02.9 Dental caries, unspecified; J45.909 Unspecified asthma, uncomplicated; G43.909 Migraine, unspecified, not intractable, without status migrainosus; E05.90 Thyrotoxicosis, unspecified without thyrotoxic crisis or storm; Z90.49 Acquired absence of other specified parts of digestive tract; Z90.710 Acquired absence of both cervix and uterus; Z88.1 Allergy status to other antibiotic agents; Z88.6 Allergy status to analgesic agent; Z88.5 Allergy status to narcotic agent; W06.XXXA Fall from bed, initial encounter; Y93.89 Activity, other specified; Y92.129 Unspecified place in nursing home as the place of occurrence of the external cause; Y99.8 Other external cause status
CPT/HCPCS: 70450; 70486; 72125; 73502; 81001; 87086; 99285-25

== ENCOUNTER 2018-02-27 00:48 | Inpatient (IN) | payer MEDICARE, MEDICAID ==
[~2018-02-27] VITALS: Ht 154.9 cm; Wt 51.8 kg
[2018-02-27] VITALS (7 sets, daily range): BP systolic 79–126; BP diastolic 51–78
[~2018-02-27 00:48] MED LIST changes: +CIPR500T94 PO; -GABA800T2 PO; +GABA800T5 PO; -HYDR-2758 PO; +HYDR-2761 PO; -OXYC-327 PO; +OXYC1TAB19 PO; -PANT40TA3 PO; +PANT40TA77 PO; +RANI-376 PO; -RANI150T6 PO
[2018-02-27] MEDS ORDERED: IV NORMAL SALINE 1000ML BAG 1,000 ML IV ONE ×2 (01:00→09:15)
[2018-02-27 01:13] LABS: BASO % 1 % (0-3); EOS # 0.1 x10^3/uL (0.0-0.7); EOS % 2 % (0-3); HEMATOCRIT 35.1 % (36.0-47.0); HEMOGLOBIN 11.4 g/dL (12.0-15.5); LYMPH # 1.7 x10^3/uL (1.0-4.8); LYMPH % 26 % (24-48); MEAN CORPUSCULAR HEMOGLOBIN 33 pg (25-35); MEAN CORPUSCULAR HGB CONC 32 g/dL (31-37); MEAN CORPUSCULAR VOLUME 102 fL (79-100); MONO # 0.4 x10^3/uL (0.0-1.1); MONO % 7 % (0-9); NEUT # 4.1 x10^3uL (1.8-7.7); NEUT % 64 % (31-73); PLATELET COUNT 215 x10^3/uL (140-400); RED BLOOD COUNT 3.45 x10^6/uL (3.50-5.40); WHITE BLOOD COUNT 6.5 x10^3/uL (4.0-11.0)
[2018-02-27 01:15] LABS: BILIRUBIN,URINE SMALL (NEG); CLARITY,URINE CLOUDY; COLOR,URINE AMBER; NITRITE,URINE POSITIVE (NEG); PROTEIN,URINE 100 mg/dL (NEG-TRACE); UROBILINOGEN,URINE 0.2 mg/dL (0.2 mg/dL)
--- NOTE | 2018-02-27 01:19 | PHYS DOC ---
Past Medical History Past Medical History: Asthma, Hyperthyroid, Migraines, Other Additional Past Medical Histor: PLS, BACLOFEN PUMP Past Surgical History: Cholecystectomy, Hysterectomy Alcohol Use: None Drug Use: None Adult General Chief Complaint Chief Complaint: SEIZURE HPI HPI Patient is a 58-year-old female who presents via EMS with report of altered mental status and seizure. custodial that patient resides at reports that patient was last seen normal at 8 PM. Patient was being reassessed and plan was to provide evening dose of pain medication when nursing staff found the patient was with decreased mental status. EMS reports that upon their arrival patient was responsive only to painful stimuli. Prior to departing nursing facility patient had what appeared to be seizure-like activity that lasted approximately a minute. EMS did not provide any medications. Patient reportedly is full code. Additional history is limited due to patient's mental status. Review of Systems Review of Systems Constitutional: Denies fever or chills [] Cardiovascular: No additional information not addressed in HPI [] Neurologic: Positive mental status change with seizure-like activity [] Unable to fully assess review of systems due to patient's middle status. Current Medications Current Medications Current Medications Medications (Trade) Dose Ordered Sig/Estelle Start Time Stop Time Status Last Admin Dose Admin Ciprofloxacin/ Dextrose 200 ml @ 200 mls/hr 1X ONCE 02/27/18 02:00 02/27/18 02:59 DC 02/27/18 02:23 200 MLS/HR Lorazepam (Ativan) 2 mg 1X ONCE 02/27/18 01:45 02/27/18 01:46 DC 02/27/18 01:49 2 MG Sodium Chloride 1,000 ml @ 1,000 mls/hr 1X ONCE 02/27/18 01:00 02/27/18 01:59 DC 02/27/18 00:50 1,000 MLS/HR Allergies Allergies Allergies Coded Allergies Type Severity Reaction Last Updated Verified ibuprofen Allergy Intermediate Hives 07/28/16 Yes morphine Allergy Intermediate Nausea and Vomiting 12/27/14 Yes cefazolin Adverse Reaction Intermediate N/V 07/28/16 Yes Physical Exam Physical Exam Constitutional: Unresponsive to verbal stimuli, minimally responsive to sternal rub, non-toxic appearance. [] HENT: Normocephalic, atraumatic, bilateral external ears normal, oropharynx dry , no oral exudates, nose normal. [] Eyes: PERRLA, conjunctiva normal, no discharge. [] Neck: Supple with no lymphadenopathy, no stridor. [] Cardiovascular: Regular rate and rhythm [] Lungs & Thorax: Bilateral breath sounds clear to auscultation [] Abdomen: Bowel sounds normal, soft, no tenderness. [] Skin: Warm, dry, no erythema, no rash. [] Extremities: No cyanosis, no clubbing, ROM intact, no edema. [] Neurologic: Unresponsive, unable to fully assess neurological status due to mental state. [] Current Patient Data Vital Signs Vital Signs Date Time Temp Pulse Resp B/P (MAP) Pulse Ox O2 Delivery O2 Flow Rate FiO2 02/27/18 00:50 98.7 101 14 78/49 (59) 100 Nasal Cannula 0.5 98.7 Lab Values Laboratory Tests Test 02/27/18 00:55 02/27/18 01:00 White Blood Count 6.5 x10^3/uL (4.0-11.0) Red Blood Count 3.45 x10^6/uL (3.50-5.40) L Hemoglobin 11.4 g/dL (12.0-15.5) L Hematocrit 35.1 % (36.0-47.0) L Mean Corpuscular Volume 102 fL (79-100) H Mean Corpuscular Hemoglobin 33 pg (25-35) Mean Corpuscular Hemoglobin Concent 32 g/dL (31-37) Red Cell Distribution Width 14.0 % (11.5-14.5) Platelet Count 215 x10^3/uL (140-400) Neutrophils (%) (Auto) 64 % (31-73) Lymphocytes (%) (Auto) 26 % (24-48) Monocytes (%) (Auto) 7 % (0-9) Eosinophils (%) (Auto) 2 % (0-3) Basophils (%) (Auto) 1 % (0-3) Neutrophils # (Auto) 4.1 x10^3uL (1.8-7.7) Lymphocytes # (Auto) 1.7 x10^3/uL (1.0-4.8) Monocytes # (Auto) 0.4 x10^3/uL (0.0-1.1) Eosinophils # (Auto) 0.1 x10^3/uL (0.0-0.7) Basophils # (Auto) 0.0 x10^3/uL (0.0-0.2) Prothrombin Time 21.3 SEC (11.7-14.0) H Prothrombin Time INR 1.9 (0.8-1.1) H Sodium Level 141 mmol/L (136-145) Potassium Level 4.3 mmol/L (3.5-5.1) Chloride Level 106 mmol/L (98-107) Carbon Dioxide Level 27 mmol/L (21-32) Anion Gap 8 (6-14) Blood Urea Nitrogen 18 mg/dL (7-20) Creatinine 1.6 mg/dL (0.6-1.0) H Estimated GFR (Cockcroft-Gault) 39.9 BUN/Creatinine Ratio 11 (6-20) Glucose Level 88 mg/dL (70-99) Calcium Level 9.1 mg/dL (8.5-10.1) Magnesium Level 1.9 mg/dL (1.8-2.4) Total Bilirubin 0.2 mg/dL (0.2-1.0) Aspartate Amino Transferase (AST) 23 U/L (15-37) Alanine Aminotransferase (ALT) 15 U/L (14-59) Alkaline Phosphatase 122 U/L (46-116) H Ammonia 35 mcmol/L (11-34) H Troponin I Quantitative < 0.017 ng/mL (0.000-0.055) LE-Nbo-O-Type Natriuretic Peptide 425 pg/mL (0-124) H Total Protein 7.1 g/dL (6.4-8.2) Albumin 2.9 g/dL (3.4-5.0) L Albumin/Globulin Ratio 0.7 (1.0-1.7) L Urine Collection Type Unknown Urine Color Sofya Urine Clarity Cloudy Urine pH 6.0 Urine Specific Custer 1.025 Urine Protein 100 mg/dL (NEG-TRACE) Urine Glucose (UA) Negative mg/dL (NEG) Urine Ketones (Stick) Negative mg/dL (NEG) Urine Blood Large (NEG) Urine Nitrite Positive (NEG) Urine Bilirubin Small (NEG) Urine Urobilinogen Dipstick 0.2 mg/dL (0.2 mg/dL) Urine Leukocyte Esterase Large (NEG) Urine RBC Tntc /HPF (0-2) Urine WBC Tntc /HPF (0-4) Urine Squamous Epithelial Cells None /LPF Urine Bacteria Many /HPF (0-FEW) Urine Hyaline Casts Few /HPF Urine Mucus Mod /LPF Urine Opiates Screen Pos (NEG) Urine Methadone Screen Neg (NEG) Urine Barbiturates Neg (NEG) Urine Phencyclidine Screen Neg (NEG) Urine Amphetamine/Methamphetamine Neg (NEG) Urine Benzodiazepines Screen Neg (NEG) Urine Cocaine Screen Neg (NEG) Urine Cannabinoids Screen Neg (NEG) Urine Ethyl Alcohol Neg (NEG) Laboratory Tests 02/27/18 00:55 Laboratory Tests 02/27/18 00:55 EKG EKG [] Interpretation Time: EKG demonstrates normal sinus rhythm with rate of 87. Radiology/Procedures Radiology/Procedures [] Impressions: CT brain without contrast. HISTORY: Altered mental status, seizure CT scan of the brain was done without contrast. Comparison is made with a study from July 2017. Ventricles are normal in size. There is no mass or shift of the midline. There is no intracranial hemorrhage. An acute CVA is not identified. Sinuses are clear. IMPRESSION: 1. No intracranial hemorrhage or acute finding noted. Electronically signed by: Jovi Franks MD (02/27/2018 1:43 AM) [facility] Course & Med Decision Making Course & Med Decision Making Pertinent Labs and Imaging studies reviewed. (See chart for details) [] Dragon Disclaimer Dragon Disclaimer This electronic medical record was generated, in whole or in part, using a voice recognition dictation system. Departure Departure Impression: Primary Impression: New onset seizure Additional Impressions: Altered mental state Postictal state UTI (urinary tract infection) Disposition: 09 ADMITTED INPATIENT Admitting Physician: Evelia Pratt Condition: IMPROVED Referrals: EVELIA PRATT MD (PCP) Problem Qualifiers Additional Impressions: Altered mental state Altered mental status type: unspecified Qualified Codes: R41.82 - Altered mental status, unspecified UTI (urinary tract infection) Urinary tract infection type: site unspecified Hematuria presence: with hematuria Qualified Codes: N39.0 - Urinary tract infection, site not specified ; R31.9 - Hematuria, unspecified COLE HADLEY Jr. DO Feb 27, 2018 01:19
[2018-02-27 01:26] LABS: PROTHROMBIN TIME PATIENT 21.3 SEC (11.7-14.0)
[2018-02-27 01:27] LABS: BACTERIA,URINE MANY /HPF (0-FEW); HYALINE CASTS, URINE FEW /HPF; RBC,URINE TNTC /HPF (0-2); WBC,URINE TNTC /HPF (0-4)
[2018-02-27 01:28] LABS: BARBITURATES NEG (NEG); BENZODIAZEPINES NEG (NEG); CANNABINOIDS NEG (NEG); COCAINE NEG (NEG); METHADONE NEG (NEG); OPIATES POS (NEG); PHENCYCLIDINE NEG (NEG)
[2018-02-27 01:36] LABS: AMPHETAMINE/METHAMPHETAMINE NEG (NEG)
[2018-02-27 01:42] LABS: ALBUMIN 2.9 g/dL (3.4-5.0); ALBUMIN/GLOBULIN RATIO 0.7 (1.0-1.7); CALCIUM 9.1 mg/dL (8.5-10.1); CREATININE 1.6 mg/dL (0.6-1.0); GFR 39.9; MAGNESIUM 1.9 mg/dL (1.8-2.4); POTASSIUM 4.3 mmol/L (3.5-5.1); TOTAL BILIRUBIN 0.2 mg/dL (0.2-1.0); TOTAL PROTEIN 7.1 g/dL (6.4-8.2)
--- NOTE | 2018-02-27 01:45 | RAD ---
AP chest. HISTORY: Altered mental status, seizure AP view was taken of the chest. Heart is within normal limits in size. The patient's had previous cervical fusion. There is mild left lower lobe atelectasis or infiltrate. Lungs are otherwise clear. IMPRESSION: 1. Left basilar atelectasis or infiltrate. Electronically signed by: Jovi Franks MD (02/27/2018 1:40 AM) [facility]
--- NOTE | 2018-02-27 01:47 | RAD ---
CT brain without contrast. HISTORY: Altered mental status, seizure CT scan of the brain was done without contrast. Comparison is made with a study from July 2017. Ventricles are normal in size. There is no mass or shift of the midline. There is no intracranial hemorrhage. An acute CVA is not identified. Sinuses are clear. IMPRESSION: 1. No intracranial hemorrhage or acute finding noted. Electronically signed by: Jovi Franks MD (02/27/2018 1:43 AM) [facility]
[2018-02-27] MEDS ORDERED: CIPROFLOXACIN 400MG PREMIX 200 ML IV ONE (02:00)
[2018-02-27] MEDS ORDERED: ONDANSETRON PF 4 MG/2 ML VIAL. IV PRN (03:15)
[2018-02-27] MEDS ORDERED: INFLUENZA VAX SCREEN BY RX. MC ONE (05:30)
[2018-02-27] MEDS ORDERED: RIVA10TA PO (06:46)
[2018-02-27] MEDS ORDERED: SULF1TAB23 PO (06:46)
[2018-02-27] MEDS ORDERED: OXYC1TAB19 PO (06:46)
[2018-02-27] MEDS ORDERED: POLY17PO29 PO (06:46)
[2018-02-27] MEDS ORDERED: POTA10TA12 PO (06:46)
[2018-02-27] MEDS ORDERED: BACL10TA PO (06:46)
[2018-02-27] MEDS ORDERED: LEVO75TA PO (06:46)
[2018-02-27] MEDS ORDERED: HYOS0.1265 SL (06:46)
[2018-02-27] MEDS ORDERED: QUET50TA5 PO (06:46)
[2018-02-27] MEDS ORDERED: QUET100T4 PO (06:46)
[2018-02-27] MEDS ORDERED: oxyCODONE/APAP 7.5/325 1 TAB TABLET PO PRN ×2 (08:45→13:30)
[2018-02-27] MEDS ORDERED: NON FORMULARY ITEM (Quetiapine Fumarate (Seroquel) 1 TAB) PO SCH (08:45)
[2018-02-27] MEDS ORDERED: ANTI-COAG MONITOR BY PHARMACY. MC PRN (09:00)
[2018-02-27] MEDS: METOPROLOL TART IMMED RELEASE 25 MG TABLET. PO SCH ×2 (09:00→20:06)
[2018-02-27] MEDS: FLUTICASONE 50MCG/NASAL SPRAY 16GM BOTTLE. NS SCH (09:00)
[2018-02-27] MEDS ORDERED: HYOSCYAMINE 0.125 MG TAB.RAPDIS PO PRN (09:00)
[2018-02-27] MEDS ORDERED: ALBUTEROL SULFATE 2.5 MG/3 ML NEBU. NEB PRN (09:15)
[2018-02-27] MEDS ORDERED: SMZ/TMP 800/160MG TABLET. PO SCH (10:00)
[2018-02-27] MEDS: GABAPENTIN 400 MG CAPSULE. PO SCH ×3 (10:02→20:07)
[2018-02-27] MEDS: AMITRIPTYLINE HCL 10 MG TABLET. PO SCH ×2 (10:02→20:06)
[2018-02-27] MEDS: LEVOTHYROXINE 75 MCG TABLET PO SCH (10:02)
[2018-02-27] MEDS: VENLAFAXINE 75 MG TABLET. PO SCH ×3 (10:03→20:06)
[2018-02-27] MEDS ORDERED: VANCOMYCIN PER PHARMACY MC PRN (11:30)
[2018-02-27] MEDS ORDERED: VANCOMYCIN 1.5 GM in IV NORMAL SALINE 500ML BAG 500 ML IV ONE (11:45)
[2018-02-27] MEDS: ALBUTEROL SULFATE 2.5 MG/3 ML NEBU. NEB SCH ×3 (11:48→19:37)
--- NOTE | 2018-02-27 12:05 | PDOC1 ---
History and Physical Date of Admission Date of Admission 02/27/18 Identification/Chief Complaint Chief Complaint seizure Source Source: Caregiver, Chart review History of Present Illness History of Present Illness 58 yo AAF with ALS and baclofen pump, resident of [facility] for the past year, recently started on Bactrim for UTI, has indwelling catheter, had psych meds started recently for hallucinations. No history of schizophrenia, no history of prior seizures. Seizure was witnessed by EMS. Since admission she has been hypotensive and minimally responsive but is improving with a fluid challenge. No reports of fevers, no cough, she has not been eating well recently per family but does not seem to be choking, she did have a likely infiltrate on CXR Past Medical History Pulmonary: Asthma, COPD CENTRAL NERVOUS SYSTEM: Other (ALS) GI: GERD Heme/Onc: Anemia NOS Psych: Depression, Psychosis Infectious disease: Other (UTI) ENT: No pertinent hx Renal/: Acute renal failure, UTI Endocrine: Hypothyroidism Past Surgical History Past Surgical History: Cholecystectomy, , Hysterectomy, Other Family History Family History: Hypertension, Obesity, Osteo Arthiritis Social History Smoke: # pack years (40) ALCOHOL: none Drugs: None Current Problem List Problem List Problems Medical Problems: (1) Altered mental state Status: Acute (2) New onset seizure Status: Acute (3) Postictal state Status: Acute (4) UTI (urinary tract infection) Status: Acute Current Medications Current Medications Current Medications Medications (Trade) Dose Ordered Sig/Estelle Start Time Stop Time Status Last Admin Dose Admin Acetaminophen (Tylenol) 650 mg PRN Q6HRS PRN 02/27/18 08:45 Albuterol Sulfate (Ventolin Neb Soln) 2.5 mg RTQID 02/27/18 12:00 Amitriptyline HCl (Elavil) 10 mg BID 02/27/18 09:00 02/27/18 10:02 10 MG Baclofen (Lioresal) 10 mg HS 02/27/18 21:00 Budesonide (Pulmicort) 0.5 mg RTBID 02/27/18 20:00 Ciprofloxacin/ Dextrose 200 ml @ 200 mls/hr 1X ONCE 02/27/18 02:00 02/27/18 02:59 DC 02/27/18 02:23 200 MLS/HR Famotidine (Pepcid) 20 mg QHS 02/27/18 09:00 Fluticasone Propionate (Flonase) 2 spray DAILY 02/27/18 09:00 Gabapentin (Neurontin) 800 mg TID 02/27/18 09:00 02/27/18 10:02 800 MG Hyoscyamine (Anaspaz) 0.125 mg PRN Q4HRS PRN 02/27/18 09:00 Influenza Virus Vaccine (Afluria Trivalent [id number] Syringe) 0.5 ml ONCE ONCE 02/27/18 09:00 02/27/18 09:01 DC Info (Anti-Coagulation Monitoring By Pharmacy) 1 each PRN DAILY PRN 02/27/18 09:00 Info (FLU VACCINE SCREEN per RX) 1 each 1X ONCE 02/27/18 05:30 02/27/18 05:31 UNV Levothyroxine Sodium (Synthroid) 75 mcg DAILY07 02/27/18 09:00 02/27/18 10:02 75 MCG Lorazepam (Ativan) 2 mg 1X ONCE 02/27/18 01:45 02/27/18 01:46 DC 02/27/18 01:49 2 MG Metoprolol Tartrate (Lopressor) 12.5 mg BID 02/27/18 09:00 Non-Formulary Medication (Quetiapine Fumarate (Seroquel)) 1 tab DAILY13 02/27/18 08:45 UNV Ondansetron HCl (Zofran) 4 mg PRN Q8HRS PRN 02/27/18 03:15 02/28/18 03:14 Oxycodone/ Acetaminophen (Percocet 7.5/ 325) 1 tab PRN Q6HRS PRN 02/27/18 08:45 02/27/18 10:04 1 TAB Polyethylene Glycol (miraLAX PACKET) 17 gm TID 02/27/18 09:30 Potassium Chloride (Klor-Con) 10 meq DAILY08 02/27/18 09:00 Quetiapine Fumarate (SEROquel) 150 mg DAILY@1300 02/27/18 13:00 Rivaroxaban (Xarelto) 20 mg DAILY@1700 02/27/18 17:00 Sodium Chloride 1,000 ml @ 100 mls/hr 1X ONCE 02/27/18 09:15 02/27/18 19:14 02/27/18 09:15 100 MLS/HR Tizanidine HCl (Zanaflex) 4 mg TID 02/27/18 09:30 Trimethoprim/ Sulfamethoxazole (Bactrim Ds) 2 tab BID 02/27/18 10:00 02/27/18 11:23 DC Vancomycin HCl (Vanco Per Pharmacy) 1 each PRN DAILY PRN 02/27/18 11:30 UNV Vancomycin HCl 1.5 gm/Sodium Chloride 500 ml @ 250 mls/hr 1X ONCE 02/27/18 11:45 02/27/18 13:44 Venlafaxine HCl (Effexor) 75 mg TID 02/27/18 09:15 02/27/18 10:03 75 MG Allergies Allergies Allergies Coded Allergies Type Severity Reaction Last Updated Verified ibuprofen Allergy Intermediate Hives 07/28/16 Yes morphine Allergy Intermediate Nausea and Vomiting 12/27/14 Yes cefazolin Adverse Reaction Intermediate N/V 07/28/16 Yes ROS Review of System CONSTITUTIONAL: No fever or chills, recent poor appetite EYES: No recent changes SKIN: No rash or itching CARDIOVASCULAR: No chest pain, syncope, palpitations, or edema RESPIRATORY: No SOB or cough GASTROINTESTINAL: No vomiting or abdominal pain NEUROLOGICAL: No hx of prior seizures ENDOCRINE: No cold or heat intolerance GENITOURINARY: Has indwelling catheter MUSCULOSKELETAL: contractures LYMPHATICS: No enlarged lymph nodes PSYCHIATRIC: recent psychosis symptoms Physical Exam Physical Exam GEN.: eyes open but not alert HEENT: Head is normocephalic, atraumatic NECK: Supple. LUNGS: Clear to auscultation. HEART: RRR, S1, S2 present. Peripheral pulses intact ABDOMEN: Soft, nontender. Positive bowel sounds. EXTREMITIES: Without any cyanosis. NEUROLOGIC: fists clenched, contractures present PSYCHIATRIC: post ictal SKIN: No ulcerations Vitals Vitals Vital Signs Date Time Temp Pulse Resp B/P (MAP) Pulse Ox O2 Delivery O2 Flow Rate FiO2 02/27/18 10:04 98 Nasal Cannula 2.0 02/27/18 09:00 71 86/52 02/27/18 07:20 97.8 16 97.8 Labs Labs Laboratory Tests Test 02/27/18 00:55 02/27/18 01:00 White Blood Count 6.5 x10^3/uL (4.0-11.0) Red Blood Count 3.45 x10^6/uL (3.50-5.40) Hemoglobin 11.4 g/dL (12.0-15.5) Hematocrit 35.1 % (36.0-47.0) Mean Corpuscular Volume 102 fL (79-100) Mean Corpuscular Hemoglobin 33 pg (25-35) Mean Corpuscular Hemoglobin Concent 32 g/dL (31-37) Red Cell Distribution Width 14.0 % (11.5-14.5) Platelet Count 215 x10^3/uL (140-400) Neutrophils (%) (Auto) 64 % (31-73) Lymphocytes (%) (Auto) 26 % (24-48) Monocytes (%) (Auto) 7 % (0-9) Eosinophils (%) (Auto) 2 % (0-3) Basophils (%) (Auto) 1 % (0-3) Neutrophils # (Auto) 4.1 x10^3uL (1.8-7.7) Lymphocytes # (Auto) 1.7 x10^3/uL (1.0-4.8) Monocytes # (Auto) 0.4 x10^3/uL (0.0-1.1) Eosinophils # (Auto) 0.1 x10^3/uL (0.0-0.7) Basophils # (Auto) 0.0 x10^3/uL (0.0-0.2) Prothrombin Time 21.3 SEC (11.7-14.0) Prothromb Time International Ratio 1.9 (0.8-1.1) Sodium Level 141 mmol/L (136-145) Potassium Level 4.3 mmol/L (3.5-5.1) Chloride Level 106 mmol/L (98-107) Carbon Dioxide Level 27 mmol/L (21-32) Anion Gap 8 (6-14) Blood Urea Nitrogen 18 mg/dL (7-20) Creatinine 1.6 mg/dL (0.6-1.0) Estimated GFR (Cockcroft-Gault) 39.9 BUN/Creatinine Ratio 11 (6-20) Glucose Level 88 mg/dL (70-99) Calcium Level 9.1 mg/dL (8.5-10.1) Magnesium Level 1.9 mg/dL (1.8-2.4) Total Bilirubin 0.2 mg/dL (0.2-1.0) Aspartate Amino Transf (AST/SGOT) 23 U/L (15-37) Alanine Aminotransferase (ALT/SGPT) 15 U/L (14-59) Alkaline Phosphatase 122 U/L (46-116) Ammonia 35 mcmol/L (11-34) Troponin I Quantitative < 0.017 ng/mL (0.000-0.055) DA-Ijc-U-Type Natriuretic Peptide 425 pg/mL (0-124) Total Protein 7.1 g/dL (6.4-8.2) Albumin 2.9 g/dL (3.4-5.0) Albumin/Globulin Ratio 0.7 (1.0-1.7) Urine Collection Type Unknown Urine Color Sofya Urine Clarity Cloudy Urine pH 6.0 Urine Specific [place] 1.025 Urine Protein 100 mg/dL (NEG-TRACE) Urine Glucose (UA) Negative mg/dL (NEG) Urine Ketones (Stick) Negative mg/dL (NEG) Urine Blood Large (NEG) Urine Nitrite Positive (NEG) Urine Bilirubin Small (NEG) Urine Urobilinogen Dipstick 0.2 mg/dL (0.2 mg/dL) Urine Leukocyte Esterase Large (NEG) Urine RBC Tntc /HPF (0-2) Urine WBC Tntc /HPF (0-4) Urine Squamous Epithelial Cells None /LPF Urine Bacteria Many /HPF (0-FEW) Urine Hyaline Casts Few /HPF Urine Mucus Mod /LPF Urine Opiates Screen Pos (NEG) Urine Methadone Screen Neg (NEG) Urine Barbiturates Neg (NEG) Urine Phencyclidine Screen Neg (NEG) Urine Amphetamine/Methamphetamine Neg (NEG) Urine Benzodiazepines Screen Neg (NEG) Urine Cocaine Screen Neg (NEG) Urine Cannabinoids Screen Neg (NEG) Urine Ethyl Alcohol Neg (NEG) Laboratory Tests Test 02/27/18 00:55 02/27/18 01:00 White Blood Count 6.5 x10^3/uL (4.0-11.0) Red Blood Count 3.45 x10^6/uL (3.50-5.40) Hemoglobin 11.4 g/dL (12.0-15.5) Hematocrit 35.1 % (36.0-47.0) Mean Corpuscular Volume 102 fL (79-100) Mean Corpuscular Hemoglobin 33 pg (25-35) Mean Corpuscular Hemoglobin Concent 32 g/dL (31-37) Red Cell Distribution Width 14.0 % (11.5-14.5) Platelet Count 215 x10^3/uL (140-400) Neutrophils (%) (Auto) 64 % (31-73) Lymphocytes (%) (Auto) 26 % (24-48) Monocytes (%) (Auto) 7 % (0-9) Eosinophils (%) (Auto) 2 % (0-3) Basophils (%) (Auto) 1 % (0-3) Neutrophils # (Auto) 4.1 x10^3uL (1.8-7.7) Lymphocytes # (Auto) 1.7 x10^3/uL (1.0-4.8) Monocytes # (Auto) 0.4 x10^3/uL (0.0-1.1) Eosinophils # (Auto) 0.1 x10^3/uL (0.0-0.7) Basophils # (Auto) 0.0 x10^3/uL (0.0-0.2) Prothrombin Time 21.3 SEC (11.7-14.0) Prothromb Time International Ratio 1.9 (0.8-1.1) Sodium Level 141 mmol/L (136-145) Potassium Level 4.3 mmol/L (3.5-5.1) Chloride Level 106 mmol/L (98-107) Carbon Dioxide Level 27 mmol/L (21-32) Anion Gap 8 (6-14) Blood Urea Nitrogen 18 mg/dL (7-20) Creatinine 1.6 mg/dL (0.6-1.0) Estimated GFR (Cockcroft-Gault) 39.9 BUN/Creatinine Ratio 11 (6-20) Glucose Level 88 mg/dL (70-99) Calcium Level 9.1 mg/dL (8.5-10.1) Magnesium Level 1.9 mg/dL (1.8-2.4) Total Bilirubin 0.2 mg/dL (0.2-1.0) Aspartate Amino Transf (AST/SGOT) 23 U/L (15-37) Alanine Aminotransferase (ALT/SGPT) 15 U/L (14-59) Alkaline Phosphatase 122 U/L (46-116) Ammonia 35 mcmol/L (11-34) Troponin I Quantitative < 0.017 ng/mL (0.000-0.055) XE-Grd-G-Type Natriuretic Peptide 425 pg/mL (0-124) Total Protein 7.1 g/dL (6.4-8.2) Albumin 2.9 g/dL (3.4-5.0) Albumin/Globulin Ratio 0.7 (1.0-1.7) Urine Collection Type Unknown Urine Color Sofya Urine Clarity Cloudy Urine pH 6.0 Urine Specific [place] 1.025 Urine Protein 100 mg/dL (NEG-TRACE) Urine Glucose (UA) Negative mg/dL (NEG) Urine Ketones (Stick) Negative mg/dL (NEG) Urine Blood Large (NEG) Urine Nitrite Positive (NEG) Urine Bilirubin Small (NEG) Urine Urobilinogen Dipstick 0.2 mg/dL (0.2 mg/dL) Urine Leukocyte Esterase Large (NEG) Urine RBC Tntc /HPF (0-2) Urine WBC Tntc /HPF (0-4) Urine Squamous Epithelial Cells None /LPF Urine Bacteria Many /HPF (0-FEW) Urine Hyaline Casts Few /HPF Urine Mucus Mod /LPF Urine Opiates Screen Pos (NEG) Urine Methadone Screen Neg (NEG) Urine Barbiturates Neg (NEG) Urine Phencyclidine Screen Neg (NEG) Urine Amphetamine/Methamphetamine Neg (NEG) Urine Benzodiazepines Screen Neg (NEG) Urine Cocaine Screen Neg (NEG) Urine Cannabinoids Screen Neg (NEG) Urine Ethyl Alcohol Neg (NEG) Images Images AP chest. HISTORY: Altered mental status, seizure AP view was taken of the chest. Heart is within normal limits in size. The patient's had previous cervical fusion. There is mild left lower lobe atelectasis or infiltrate. Lungs are otherwise clear. IMPRESSION: 1. Left basilar atelectasis or infiltrate. CT brain without contrast. HISTORY: Altered mental status, seizure CT scan of the brain was done without contrast. Comparison is made with a study from July 2017. Ventricles are normal in size. There is no mass or shift of the midline. There is no intracranial hemorrhage. An acute CVA is not identified. Sinuses are clear. IMPRESSION: 1. No intracranial hemorrhage or acute finding noted. VTE Prophylaxis Ordered VTE Prophylaxis Devices: Yes VTE Pharmacological Prophylaxi: Yes (xarelto) Assessment/Plan Assessment/Plan 1. 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 new seizure - Neuro consult, CT head negative 3. UTI/Sepsis with hypotension - fluid challenge - ID consult, she was on po Bactrim, received cipro x 1 this am, awaiting culture results from [facility], allergic to cephalosporins 4. lung infiltrate - possible aspiration/pneumonia - neb tx, add metronidazole, vanco 5. 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 GERD - continue routine meds 8. Hypothyroidism, TSH, continue routine meds 9. depression with ? recent psychosis - may need to adjust meds Gabriella WHITING MD Feb 27, 2018 12:05
[2018-02-27] MEDS: FAMOTIDINE 20 MG TABLET. PO SCH ×2 (12:35→20:07)
[2018-02-27] MEDS: tiZANidine 4 MG TABLET. PO SCH ×3 (12:35→19:14)
[2018-02-27] MEDS: POTASSIUM CHLORIDE 10 MEQ TABLET.ER. PO SCH (12:35)
[2018-02-27] MEDS: POLYETHYLENE GLYCOL 3350 17 GM PACKET. PO SCH ×3 (12:36→20:06)
--- NOTE | 2018-02-27 13:13 | PDOC ---
Infectious Disease Note Vital Sign Vital Signs Vital Signs Date Time Temp Pulse Resp B/P (MAP) Pulse Ox O2 Delivery O2 Flow Rate FiO2 02/27/18 11:50 97 Room Air 02/27/18 11:28 98.7 90 16 91/53 (66) 98.7 02/27/18 10:04 2.0 Labs Lab Laboratory Tests Test 02/27/18 00:55 02/27/18 01:00 White Blood Count 6.5 x10^3/uL (4.0-11.0) Red Blood Count 3.45 x10^6/uL (3.50-5.40) Hemoglobin 11.4 g/dL (12.0-15.5) Hematocrit 35.1 % (36.0-47.0) Mean Corpuscular Volume 102 fL (79-100) Mean Corpuscular Hemoglobin 33 pg (25-35) Mean Corpuscular Hemoglobin Concent 32 g/dL (31-37) Red Cell Distribution Width 14.0 % (11.5-14.5) Platelet Count 215 x10^3/uL (140-400) Neutrophils (%) (Auto) 64 % (31-73) Lymphocytes (%) (Auto) 26 % (24-48) Monocytes (%) (Auto) 7 % (0-9) Eosinophils (%) (Auto) 2 % (0-3) Basophils (%) (Auto) 1 % (0-3) Neutrophils # (Auto) 4.1 x10^3uL (1.8-7.7) Lymphocytes # (Auto) 1.7 x10^3/uL (1.0-4.8) Monocytes # (Auto) 0.4 x10^3/uL (0.0-1.1) Eosinophils # (Auto) 0.1 x10^3/uL (0.0-0.7) Basophils # (Auto) 0.0 x10^3/uL (0.0-0.2) Prothrombin Time 21.3 SEC (11.7-14.0) Prothromb Time International Ratio 1.9 (0.8-1.1) Sodium Level 141 mmol/L (136-145) Potassium Level 4.3 mmol/L (3.5-5.1) Chloride Level 106 mmol/L (98-107) Carbon Dioxide Level 27 mmol/L (21-32) Anion Gap 8 (6-14) Blood Urea Nitrogen 18 mg/dL (7-20) Creatinine 1.6 mg/dL (0.6-1.0) Estimated GFR (Cockcroft-Gault) 39.9 BUN/Creatinine Ratio 11 (6-20) Glucose Level 88 mg/dL (70-99) Calcium Level 9.1 mg/dL (8.5-10.1) Magnesium Level 1.9 mg/dL (1.8-2.4) Total Bilirubin 0.2 mg/dL (0.2-1.0) Aspartate Amino Transf (AST/SGOT) 23 U/L (15-37) Alanine Aminotransferase (ALT/SGPT) 15 U/L (14-59) Alkaline Phosphatase 122 U/L (46-116) Ammonia 35 mcmol/L (11-34) Troponin I Quantitative < 0.017 ng/mL (0.000-0.055) NH-Dxy-P-Type Natriuretic Peptide 425 pg/mL (0-124) Total Protein 7.1 g/dL (6.4-8.2) Albumin 2.9 g/dL (3.4-5.0) Albumin/Globulin Ratio 0.7 (1.0-1.7) Urine Collection Type Unknown Urine Color Sofya Urine Clarity Cloudy Urine pH 6.0 Urine Specific [place] 1.025 Urine Protein 100 mg/dL (NEG-TRACE) Urine Glucose (UA) Negative mg/dL (NEG) Urine Ketones (Stick) Negative mg/dL (NEG) Urine Blood Large (NEG) Urine Nitrite Positive (NEG) Urine Bilirubin Small (NEG) Urine Urobilinogen Dipstick 0.2 mg/dL (0.2 mg/dL) Urine Leukocyte Esterase Large (NEG) Urine RBC Tntc /HPF (0-2) Urine WBC Tntc /HPF (0-4) Urine Squamous Epithelial Cells None /LPF Urine Bacteria Many /HPF (0-FEW) Urine Hyaline Casts Few /HPF Urine Mucus Mod /LPF Urine Opiates Screen Pos (NEG) Urine Methadone Screen Neg (NEG) Urine Barbiturates Neg (NEG) Urine Phencyclidine Screen Neg (NEG) Urine Amphetamine/Methamphetamine Neg (NEG) Urine Benzodiazepines Screen Neg (NEG) Urine Cocaine Screen Neg (NEG) Urine Cannabinoids Screen Neg (NEG) Urine Ethyl Alcohol Neg (NEG) Objective Assessment Encephalopathy Seizure Cath associated UTI Primary lateral sclerosis LOU Plan Plan of Care d/c vanc and flagyl start zosyn check cultures supportive care KELLY SALGUERO MD Feb 27, 2018 13:13
--- NOTE | 2018-02-27 13:41 | PDOC2 ---
NEUROLOGY CONSULT Date of Admission Date of Admission DATE: 02/27/18 TIME: 13:27 Reason for Consult Reason for Consult: New seizure Referring Physician Referring Physician: Dr. Pulido Source Source: Chart review History of Present Illness History of Present Illness The patient is a 58-year-old right-handed female with a diagnosis of primary lateral sclerosis. She has been a custodial resident for the last year. She has a baclofen pump. Over the past few days she has had more confusion and psychosis. She was recently started on topiramate. She had a witnessed seizure and was brought to our emergency department where she has been found to have evidence of urinary tract infection. According the son she may have had a seizure in the past but he knows of no details. He also thinks that she had a stroke at some point but again knows no details. Past Medical History Cardiovascular: HTN Pulmonary: COPD CENTRAL NERVOUS SYSTEM: CVA, Other (primary lateral sclerosis) GI: Constipation, GERD Heme/Onc: Anemia NOS Psych: Depression, Schizophrenia Musculoskeletal: Other (chronic pain, spasticity, cervical spondylosis) Endocrine: Hypothyroidism (s/p radiation for HYPERthyroid) Past Surgical History Past Surgical History: Cholecystectomy, , Hysterectomy, Other ( baclofen pump) Family History Family History: Cancer Social History Social History , custodial resident, quit tobacco years ago, no alcohol Current Medications Current Medications Current Medications Sodium Chloride 1,000 ml @ 1,000 mls/hr 1X ONCE IV Last administered on at 00:50; Start 02/27/18 at 01:00; Stop 02/27/18 at 01:59; Status DC Lorazepam (Ativan) 2 mg 1X ONCE IV Last administered on 02/27/18at 01:49; Start 02/27/18 at 01:45; Stop 02/27/18 at 01:46; Status DC Ciprofloxacin/ Dextrose 200 ml @ 200 mls/hr 1X ONCE IV Last administered on at 02:23; Start 02/27/18 at 02:00; Stop 02/27/18 at 02:59; Status DC Ondansetron HCl (Zofran) 4 mg PRN Q8HRS PRN IV NAUSEA/VOMITING; Start 02/27/18 at 03:15; Stop 02/28/18 at 03:14 Info (FLU VACCINE SCREEN per RX) 1 each 1X ONCE MC ; Start 02/27/18 at 05:30; Stop 02/27/18 at 05:31; Status UNV Influenza Virus Vaccine (Afluria Trivalent [id number] Syringe) 0.5 ml ONCE ONCE VAX IM Last administered on 02/27/18at 12:34; Start 02/27/18 at 09:00; Stop 02/03 at 09:01; Status DC Acetaminophen (Tylenol) 650 mg PRN Q6HRS PRN PO FEVER > 101; Start 02/27/18 at 08:45 Amitriptyline HCl (Elavil) 10 mg BID PO Last administered on 02/27/18at 10:02; Start 02/27/18 at 09:00 Baclofen (Lioresal) 10 mg HS PO ; Start 02/27/18 at 21:00 Fluticasone Propionate (Flonase) 2 spray DAILY NS ; Start 02/27/18 at 09:00 Levothyroxine Sodium (Synthroid) 75 mcg DAILY07 PO Last administered on at 10:02; Start 02/27/18 at 09:00 Metoprolol Tartrate (Lopressor) 12.5 mg BID PO ; Start 02/27/18 at 09:00 Oxycodone/ Acetaminophen (Percocet 7.5/ 325) 1 tab PRN Q6HRS PRN PO PAIN Last administered on 02/27/18at 10:04; Start 02/27/18 at 08:45; Stop 02/27/18 at 13:12 ; Status DC Potassium Chloride (Klor-Con) 10 meq DAILY08 PO Last administered on 02/27/18at 12:35; Start 02/27/18 at 09:00 Rivaroxaban (Xarelto) 20 mg DAILY@1700 PO ; Start 02/27/18 at 17:00 Budesonide (Pulmicort) 0.5 mg RTBID NEB ; Start 02/27/18 at 20:00 Gabapentin (Neurontin) 800 mg TID PO Last administered on 02/27/18at 10:02; Start 02/27/18 at 09:00 Hyoscyamine (Anaspaz) 0.125 mg PRN Q4HRS PRN PO STOMACH CRAMPING; Start at 09:00 Albuterol Sulfate (Ventolin Neb Soln) 2.5 mg PRN Q4HRS PRN NEB SHORTNESS OF BREATH; Start 02/27/18 at 09:15 Polyethylene Glycol (miraLAX PACKET) 17 gm TID PO Last administered on at 12:36; Start 02/27/18 at 09:30 Quetiapine Fumarate (SEROquel) 150 mg DAILY@1300 PO ; Start 02/27/18 at 13:00 Non-Formulary Medication (Quetiapine Fumarate (Seroquel)) 1 tab DAILY13 PO ; Start 02/27/18 at 08:45; Status UNV Famotidine (Pepcid) 20 mg QHS PO Last administered on 02/27/18at 12:35; Start at 09:00 Trimethoprim/ Sulfamethoxazole (Bactrim Ds) 2 tab BID PO ; Start 02/27/18 at 10: 00; Stop 02/27/18 at 11:23; Status DC Tizanidine HCl (Zanaflex) 4 mg TID PO Last administered on 02/27/18at 12:35; Start 02/27/18 at 09:30 Venlafaxine HCl (Effexor) 75 mg TID PO Last administered on 02/27/18at 10:03; Start 02/27/18 at 09:15 Info (Anti-Coagulation Monitoring By Pharmacy) 1 each PRN DAILY PRN MC SEE COMMENTS; Start 02/27/18 at 09:00 Sodium Chloride 1,000 ml @ 100 mls/hr 1X ONCE IV Last administered on at 09:15; Start 02/27/18 at 09:15; Stop 02/27/18 at 19:14 Albuterol Sulfate (Ventolin Neb Soln) 2.5 mg RTQID NEB Last administered on 02/03at 11:48; Start 02/27/18 at 12:00 Vancomycin HCl (Vanco Per Pharmacy) 1 each PRN DAILY PRN MC SEE COMMENTS; Start 02/27/18 at 11:30; Stop 02/27/18 at 13:06; Status DC Vancomycin HCl 1.5 gm/Sodium Chloride 500 ml @ 250 mls/hr 1X ONCE IV Last administered on 02/27/18at 12:31; Start 02/27/18 at 11:45; Stop 02/27/18 at 13:44 Metronidazole 100 ml @ 100 mls/hr Q12HR IV Last administered on 02/27/18at 12: 36; Start 02/27/18 at 12:30; Stop 02/27/18 at 13:06; Status DC Oxycodone/ Acetaminophen (Percocet 7.5/ 325) 1 tab PRN Q6HRS PRN PO PAIN MILD TO MOD; Start 02/27/18 at 13:15 Piperacillin Sod/ Tazobactam Sod 3.375 gm/Sodium Chloride 50 ml @ 100 mls/hr Q6HRS IV ; Start 02/27/18 at 14:00 Oxycodone/ Acetaminophen (Percocet 7.5/ 325) 2 tab PRN Q6HRS PRN PO PAIN SEVERE ; Start 02/27/18 at 13:30 Active Scripts Active Metoprolol Tartrate 25 Mg Tablet 12.5 Mg PO BID 30 Days Tylenol (Acetaminophen) 325 Mg Tablet 650 Mg PO PRN Q6HRS PRN 30 Days Reported Xarelto (Rivaroxaban) 10 Mg Tablet 10 Mg PO BID Synthroid (Levothyroxine Sodium) 75 Mcg Tablet 75 Mcg PO DAILY07 Seroquel (Quetiapine Fumarate) 50 Mg Tablet 50 Mg PO DAILY13 Seroquel (Quetiapine Fumarate) 100 Mg Tablet 1 Tab PO DAILY13 Potassium Chloride 10 Meq Tab.sr.24h 10 Meq PO DAILY Percocet 7.5-325 Mg Tablet (Oxycodone/Acetaminophen) 1 Each Tablet 1 Tab PO PRN Q6HRS PRN Miralax (Polyethylene Glycol 3350) 17 Gm Powd.pack 1 Pkt PO TID Levsin-Sl (Hyoscyamine Sulfate) 0.125 Mg Tab.subl 0.125 Mg SL PRN Q4HRS PRN Bactrim 400-80 Mg Tablet (Sulfamethoxazole/Trimethoprim) 1 Each Tablet 2 Each PO BID 10 Days Baclofen 10 Mg Tablet 10 Mg PO HS Xopenex Hfa (Levalbuterol Tartrate) 15 Gm Hfa.aer.ad 2 Puff IH PRN Q4-6HRS Fluticasone Propionate Nasal Gable (Fluticasone Propionate) 16 Gm Gable.susp 2 Gable NS DAILY Advair 500-50 Diskus (Fluticasone/Salmeterol) 1 Each Disk.w.dev 1 Each IH BID Amitriptyline Hcl 10 Mg Tablet 10 Mg PO BID Zofran Odt (Ondansetron) 8 Mg Tab.rapdis 8 Mg PO PRN Effexor Xr (Venlafaxine Hcl) 150 Mg Cap.er.24h 225 Mg PO DAILY Tizanidine Hcl 2 Mg Capsule 4 Mg PO TID Zantac (Ranitidine Hcl) 150 Mg Tablet 150 Mg PO HS Gabapentin 800 Mg Tablet 800 Mg PO TID Allergies Allergies: Coded Allergies: ibuprofen (Verified Allergy, Intermediate, Hives, 07/28/16) TOLERATES ASPIRIN morphine (Verified Allergy, Intermediate, Nausea and Vomiting, 12/27/14) cefazolin (Verified Adverse Reaction, Intermediate, N/V, 07/28/16) ROS Review of System According to son, negative for fever, chills, weight loss, shortness of breath, chest pain, indigestion, hematochezia, melena, and dysuria. Full 14-point review of systems is negative. Physical Exam Physical Examination General: Well-developed, well-nourished black female in no acute distress HEENT: Normocephalic and�atraumatic. Temporal arteries�pulsatile and nontender.� Neck: Supple without bruit, no meningismus� Musculoskeletal: Stability:�see neurologic. Gait exam:�see neurologic. Tone:�see neurologic.� Strength:�see neurologic.� Neurological: Mental Status:�orientation, memory, attention span/concentration, language, fund of knowledge: Alert, oriented only to name. Cranial Nerves:�Pupils equal and reactive to light, extraocular movements are�intact, visual mc are full to confrontation. Facial sensation is normal. There is no facial asymmetry.. All other cranial related problems are negative except as mentioned before.� Reflexes:�2+ and symmetric with flexor plantar responses. Motor:�3/5 strength with diffusely spastic tone. Coordination:�not cooperative. Gait:�not tested. Sensory:�responds to pinprick in all 4 extremities Vitals VITALS Vital Signs Date Time Temp Pulse Resp B/P (MAP) Pulse Ox O2 Delivery O2 Flow Rate FiO2 02/27/18 11:50 97 Room Air 02/27/18 11:28 98.7 90 16 91/53 (66) 98.7 02/27/18 10:04 2.0 Labs Labs Laboratory Tests Test 02/27/18 00:55 02/27/18 01:00 White Blood Count 6.5 x10^3/uL (4.0-11.0) Red Blood Count 3.45 x10^6/uL (3.50-5.40) Hemoglobin 11.4 g/dL (12.0-15.5) Hematocrit 35.1 % (36.0-47.0) Mean Corpuscular Volume 102 fL (79-100) Mean Corpuscular Hemoglobin 33 pg (25-35) Mean Corpuscular Hemoglobin Concent 32 g/dL (31-37) Red Cell Distribution Width 14.0 % (11.5-14.5) Platelet Count 215 x10^3/uL (140-400) Neutrophils (%) (Auto) 64 % (31-73) Lymphocytes (%) (Auto) 26 % (24-48) Monocytes (%) (Auto) 7 % (0-9) Eosinophils (%) (Auto) 2 % (0-3) Basophils (%) (Auto) 1 % (0-3) Neutrophils # (Auto) 4.1 x10^3uL (1.8-7.7) Lymphocytes # (Auto) 1.7 x10^3/uL (1.0-4.8) Monocytes # (Auto) 0.4 x10^3/uL (0.0-1.1) Eosinophils # (Auto) 0.1 x10^3/uL (0.0-0.7) Basophils # (Auto) 0.0 x10^3/uL (0.0-0.2) Prothrombin Time 21.3 SEC (11.7-14.0) Prothromb Time International Ratio 1.9 (0.8-1.1) Sodium Level 141 mmol/L (136-145) Potassium Level 4.3 mmol/L (3.5-5.1) Chloride Level 106 mmol/L (98-107) Carbon Dioxide Level 27 mmol/L (21-32) Anion Gap 8 (6-14) Blood Urea Nitrogen 18 mg/dL (7-20) Creatinine 1.6 mg/dL (0.6-1.0) Estimated GFR (Cockcroft-Gault) 39.9 BUN/Creatinine Ratio 11 (6-20) Glucose Level 88 mg/dL (70-99) Calcium Level 9.1 mg/dL (8.5-10.1) Magnesium Level 1.9 mg/dL (1.8-2.4) Total Bilirubin 0.2 mg/dL (0.2-1.0) Aspartate Amino Transf (AST/SGOT) 23 U/L (15-37) Alanine Aminotransferase (ALT/SGPT) 15 U/L (14-59) Alkaline Phosphatase 122 U/L (46-116) Ammonia 35 mcmol/L (11-34) Troponin I Quantitative < 0.017 ng/mL (0.000-0.055) HE-Kqf-A-Type Natriuretic Peptide 425 pg/mL (0-124) Total Protein 7.1 g/dL (6.4-8.2) Albumin 2.9 g/dL (3.4-5.0) Albumin/Globulin Ratio 0.7 (1.0-1.7) Thyroid Stimulating Hormone (TSH) 0.166 uIU/mL (0.358-3.74) Urine Collection Type Unknown Urine Color Sofya Urine Clarity Cloudy Urine pH 6.0 Urine Specific Chester 1.025 Urine Protein 100 mg/dL (NEG-TRACE) Urine Glucose (UA) Negative mg/dL (NEG) Urine Ketones (Stick) Negative mg/dL (NEG) Urine Blood Large (NEG) Urine Nitrite Positive (NEG) Urine Bilirubin Small (NEG) Urine Urobilinogen Dipstick 0.2 mg/dL (0.2 mg/dL) Urine Leukocyte Esterase Large (NEG) Urine RBC Tntc /HPF (0-2) Urine WBC Tntc /HPF (0-4) Urine Squamous Epithelial Cells None /LPF Urine Bacteria Many /HPF (0-FEW) Urine Hyaline Casts Few /HPF Urine Mucus Mod /LPF Urine Opiates Screen Pos (NEG) Urine Methadone Screen Neg (NEG) Urine Barbiturates Neg (NEG) Urine Phencyclidine Screen Neg (NEG) Urine Amphetamine/Methamphetamine Neg (NEG) Urine Benzodiazepines Screen Neg (NEG) Urine Cocaine Screen Neg (NEG) Urine Cannabinoids Screen Neg (NEG) Urine Ethyl Alcohol Neg (NEG) Laboratory Tests Test 02/27/18 00:55 02/27/18 01:00 White Blood Count 6.5 x10^3/uL (4.0-11.0) Red Blood Count 3.45 x10^6/uL (3.50-5.40) Hemoglobin 11.4 g/dL (12.0-15.5) Hematocrit 35.1 % (36.0-47.0) Mean Corpuscular Volume 102 fL (79-100) Mean Corpuscular Hemoglobin 33 pg (25-35) Mean Corpuscular Hemoglobin Concent 32 g/dL (31-37) Red Cell Distribution Width 14.0 % (11.5-14.5) Platelet Count 215 x10^3/uL (140-400) Neutrophils (%) (Auto) 64 % (31-73) Lymphocytes (%) (Auto) 26 % (24-48) Monocytes (%) (Auto) 7 % (0-9) Eosinophils (%) (Auto) 2 % (0-3) Basophils (%) (Auto) 1 % (0-3) Neutrophils # (Auto) 4.1 x10^3uL (1.8-7.7) Lymphocytes # (Auto) 1.7 x10^3/uL (1.0-4.8) Monocytes # (Auto) 0.4 x10^3/uL (0.0-1.1) Eosinophils # (Auto) 0.1 x10^3/uL (0.0-0.7) Basophils # (Auto) 0.0 x10^3/uL (0.0-0.2) Prothrombin Time 21.3 SEC (11.7-14.0) Prothromb Time International Ratio 1.9 (0.8-1.1) Sodium Level 141 mmol/L (136-145) Potassium Level 4.3 mmol/L (3.5-5.1) Chloride Level 106 mmol/L (98-107) Carbon Dioxide Level 27 mmol/L (21-32) Anion Gap 8 (6-14) Blood Urea Nitrogen 18 mg/dL (7-20) Creatinine 1.6 mg/dL (0.6-1.0) Estimated GFR (Cockcroft-Gault) 39.9 BUN/Creatinine Ratio 11 (6-20) Glucose Level 88 mg/dL (70-99) Calcium Level 9.1 mg/dL (8.5-10.1) Magnesium Level 1.9 mg/dL (1.8-2.4) Total Bilirubin 0.2 mg/dL (0.2-1.0) Aspartate Amino Transf (AST/SGOT) 23 U/L (15-37) Alanine Aminotransferase (ALT/SGPT) 15 U/L (14-59) Alkaline Phosphatase 122 U/L (46-116) Ammonia 35 mcmol/L (11-34) Troponin I Quantitative < 0.017 ng/mL (0.000-0.055) IL-Ovz-R-Type Natriuretic Peptide 425 pg/mL (0-124) Total Protein 7.1 g/dL (6.4-8.2) Albumin 2.9 g/dL (3.4-5.0) Albumin/Globulin Ratio 0.7 (1.0-1.7) Thyroid Stimulating Hormone (TSH) 0.166 uIU/mL (0.358-3.74) Urine Collection Type Unknown Urine Color Sofya Urine Clarity Cloudy Urine pH 6.0 Urine Specific Chester 1.025 Urine Protein 100 mg/dL (NEG-TRACE) Urine Glucose (UA) Negative mg/dL (NEG) Urine Ketones (Stick) Negative mg/dL (NEG) Urine Blood Large (NEG) Urine Nitrite Positive (NEG) Urine Bilirubin Small (NEG) Urine Urobilinogen Dipstick 0.2 mg/dL (0.2 mg/dL) Urine Leukocyte Esterase Large (NEG) Urine RBC Tntc /HPF (0-2) Urine WBC Tntc /HPF (0-4) Urine Squamous Epithelial Cells None /LPF Urine Bacteria Many /HPF (0-FEW) Urine Hyaline Casts Few /HPF Urine Mucus Mod /LPF Urine Opiates Screen Pos (NEG) Urine Methadone Screen Neg (NEG) Urine Barbiturates Neg (NEG) Urine Phencyclidine Screen Neg (NEG) Urine Amphetamine/Methamphetamine Neg (NEG) Urine Benzodiazepines Screen Neg (NEG) Urine Cocaine Screen Neg (NEG) Urine Cannabinoids Screen Neg (NEG) Urine Ethyl Alcohol Neg (NEG) Images Images CT scan of the brain was done without contrast. Comparison is made with a study from July 2017. Ventricles are normal in size. There is no mass or shift of the midline. There is no intracranial hemorrhage. An acute CVA is not identified. Sinuses are clear. IMPRESSION: 1. No intracranial hemorrhage or acute finding noted. Assessment/Plan Assessment/Plan Impression: New seizure, although she may have had one in the past. This is in the setting of metabolic encephalopathy, urinary tract infection with probable sepsis. 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 Recommendations: Hold on new anticonvulsant, she is on gabapentin. She may also be on topiramate. EEG on 03/01 We would have to drain the baclofen pump to accomplish an MRI, I will hold off on this. I fully discussed with patient's son. Thank you for letting me help with the patient's care. LEENA RAPP MD Feb 27, 2018 13:41
[2018-02-27] MEDS: QUEtiapine 100 MG TABLET. PO SCH (13:57)
[2018-02-27] MEDS: oxyCODONE/APAP 7.5/325 1 TAB TABLET PO PRN (13:57)
[2018-02-27] MEDS: PIPERACILLIN/TAZOBACTAM 3.375 GM in IV NORMAL SALINE 50ML 50 ML IV SCH ×2 (15:31→20:33)
[2018-02-27] MEDS: RIVAROXABAN 10 MG TABLET. PO SCH (17:45)
[2018-02-27] MEDS ORDERED: NALOXONE 0.4 MG/ML VIAL. IV ONE (18:30)
[2018-02-27] MEDS: BACLOFEN 10 MG TABLET. PO SCH (19:14)
[2018-02-27] MEDS: BUDESONIDE 0.5 MG/2 ML NEBU. NEB SCH (19:37)
--- NOTE | 2018-02-27 21:08 | NUR ---
Standing order to transfer to ICU if blood pressures remain unstable acknowledged. Patient has been hypotensive throughout most of previous shift as received in report by previous RN. x1 of 3 NS bolus administered as ordered on current shift. Blood pressure at end of bolus was 126/78. Patient remains drowsy but will arouse when name is called or light touch on arm/shoulder. Will continue to monitor blood pressure/need for ICU transfer. Daughter Tara called at 1900 to get update on patient status. Informed her of completion of NS boluses/patient's current alertness level as well as standing order to transfer to ICU for possible blood pressure support if needed. Voiced understanding.
[2018-02-28] VITALS (7 sets, daily range): BP systolic 106–152; BP diastolic 66–92
[2018-02-28] MEDS: PIPERACILLIN/TAZOBACTAM 3.375 GM in IV NORMAL SALINE 50ML 50 ML IV SCH ×4 (02:34→18:00)
[2018-02-28] MEDS: oxyCODONE/APAP 7.5/325 1 TAB TABLET PO PRN (03:03)
[2018-02-28] MEDS: ACETAMINOPHEN 325 MG TABLET. PO PRN ×2 (03:03→11:22)
--- NOTE | 2018-02-28 03:07 | NUR ---
Last 2 BP's have remained stable and patient remains alert at this time. Upon rounding, patient is discovered to have removed both IV's and gown as well as equipment monitor phototypesetting. Pt clenches fists and digs at self or blood pressure cuff/line. 20g restarted in L FA and mitts applied for safety. Axillary temp of 100.2 recorded; lortab and tylenol administered for pain/fever. court recording monitor replaced as well as gown change. Patient repositioned onto side.
[2018-02-28 04:55] LABS: BASO % 1 % (0-3); EOS # 0.3 x10^3/uL (0.0-0.7); EOS % 4 % (0-3); HEMOGLOBIN 10.4 g/dL (12.0-15.5); LYMPH # 1.6 x10^3/uL (1.0-4.8); LYMPH % 24 % (24-48); MEAN CORPUSCULAR HEMOGLOBIN 34 pg (25-35); MEAN CORPUSCULAR HGB CONC 34 g/dL (31-37); MEAN CORPUSCULAR VOLUME 100 fL (79-100); MONO # 0.6 x10^3/uL (0.0-1.1); MONO % 10 % (0-9); NEUT # 4.1 x10^3uL (1.8-7.7); NEUT % 62 % (31-73); PLATELET COUNT 202 x10^3/uL (140-400); RED BLOOD COUNT 3.09 x10^6/uL (3.50-5.40); RED CELL DISTRIBUTION WIDTH 13.6 % (11.5-14.5); WHITE BLOOD COUNT 6.6 x10^3/uL (4.0-11.0)
[2018-02-28] MEDS: LEVOTHYROXINE 75 MCG TABLET PO SCH (05:08)
[2018-02-28] MEDS: METOPROLOL TART IMMED RELEASE 25 MG TABLET. PO SCH ×2 (05:09→23:02)
[2018-02-28 06:02] LABS: CALCIUM 8.9 mg/dL (8.5-10.1); GFR 68.7; POTASSIUM 3.9 mmol/L (3.5-5.1)
--- NOTE | 2018-02-28 06:24 | NUR ---
Patient has removed 3rd IV this shift. Mitts still in place at this time. Becomes agitated and rigid with any cares provided. IV replaced in R hand- 20g.
--- NOTE | 2018-02-28 07:32 | EKG ---
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
[2018-02-28] MEDS: BUDESONIDE 0.5 MG/2 ML NEBU. NEB SCH ×2 (07:34→20:06)
[2018-02-28] MEDS: ALBUTEROL SULFATE 2.5 MG/3 ML NEBU. NEB SCH ×4 (07:34→20:06)
[2018-02-28] MEDS: POTASSIUM CHLORIDE 10 MEQ TABLET.ER. PO SCH (08:00)
[2018-02-28] MEDS: tiZANidine 4 MG TABLET. PO SCH ×3 (09:00→22:59)
[2018-02-28] MEDS: FLUTICASONE 50MCG/NASAL SPRAY 16GM BOTTLE. NS SCH (09:00)
[2018-02-28] MEDS: POLYETHYLENE GLYCOL 3350 17 GM PACKET. PO SCH ×3 (09:00→23:00)
[2018-02-28] MEDS: GABAPENTIN 400 MG CAPSULE. PO SCH ×3 (11:23→23:02)
[2018-02-28] MEDS: VENLAFAXINE 75 MG TABLET. PO SCH ×3 (11:24→23:00)
[2018-02-28] MEDS: AMITRIPTYLINE HCL 10 MG TABLET. PO SCH ×2 (11:29→23:00)
--- NOTE | 2018-02-28 13:02 | PDOC ---
PROGRESS NOTES Assessment Problems Medical Problems: (1) Altered mental state Status: Acute (2) New onset seizure Status: Acute (3) Postictal state Status: Acute (4) UTI (urinary tract infection) Status: Acute New seizure, may have had one in the past. Metabolic encephalopathy, urinary tract infection with probable sepsis, better. 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 Plan Hold on new anticonvulsant, she is on gabapentin. She may also be on topiramate. EEG on 03/01 We would have to drain the baclofen pump to accomplish an MRI, I will hold off on this. Discussed with patient's family Subjective No complaints Objective Vital Signs Date Time Temp Pulse Resp B/P (MAP) Pulse Ox O2 Delivery O2 Flow Rate FiO2 02/28/18 11:37 92 Room Air 02/28/18 11:00 100.2 95 16 152/92 (112) 100.2 02/28/18 08:00 2.0 Intake and Output 02/28/18 07:01 Intake Total 100 ml Output Total 2850 ml Balance -2750 ml Intake Oral 100 ml Output Urine Total 2850 ml PHYSICAL EXAM Alert. Oriented to person. Much more spontaneous speech PERRL. EOMI. CN: no focal findings. Muscle tone: spastic in all extremities Muscle strength: 3/5 DTR: 2+ Plantar reflex: flexor Gait: not examined in bed. Sensory exam: no abnormal findings. No cerebellar signs elicited. Review of Relevant I have reviewed the following items mimi (where applicable) has been applied. Labs Laboratory Tests Test 02/27/18 00:55 02/27/18 01:00 02/27/18 08:13 02/27/18 17:46 White Blood Count 6.5 x10^3/uL (4.0-11.0) Red Blood Count 3.45 x10^6/uL (3.50-5.40) Hemoglobin 11.4 g/dL (12.0-15.5) Hematocrit 35.1 % (36.0-47.0) Mean Corpuscular Volume 102 fL (79-100) Mean Corpuscular Hemoglobin 33 pg (25-35) Mean Corpuscular Hemoglobin Concent 32 g/dL (31-37) Red Cell Distribution Width 14.0 % (11.5-14.5) Platelet Count 215 x10^3/uL (140-400) Neutrophils (%) (Auto) 64 % (31-73) Lymphocytes (%) (Auto) 26 % (24-48) Monocytes (%) (Auto) 7 % (0-9) Eosinophils (%) (Auto) 2 % (0-3) Basophils (%) (Auto) 1 % (0-3) Neutrophils # (Auto) 4.1 x10^3uL (1.8-7.7) Lymphocytes # (Auto) 1.7 x10^3/uL (1.0-4.8) Monocytes # (Auto) 0.4 x10^3/uL (0.0-1.1) Eosinophils # (Auto) 0.1 x10^3/uL (0.0-0.7) Basophils # (Auto) 0.0 x10^3/uL (0.0-0.2) Prothrombin Time 21.3 SEC (11.7-14.0) Prothromb Time International Ratio 1.9 (0.8-1.1) Sodium Level 141 mmol/L (136-145) Potassium Level 4.3 mmol/L (3.5-5.1) Chloride Level 106 mmol/L (98-107) Carbon Dioxide Level 27 mmol/L (21-32) Anion Gap 8 (6-14) Blood Urea Nitrogen 18 mg/dL (7-20) Creatinine 1.6 mg/dL (0.6-1.0) Estimated GFR (Cockcroft-Gault) 39.9 BUN/Creatinine Ratio 11 (6-20) Glucose Level 88 mg/dL (70-99) Calcium Level 9.1 mg/dL (8.5-10.1) Magnesium Level 1.9 mg/dL (1.8-2.4) Total Bilirubin 0.2 mg/dL (0.2-1.0) Aspartate Amino Transf (AST/SGOT) 23 U/L (15-37) Alanine Aminotransferase (ALT/SGPT) 15 U/L (14-59) Alkaline Phosphatase 122 U/L (46-116) Ammonia 35 mcmol/L (11-34) Troponin I Quantitative < 0.017 ng/mL (0.000-0.055) MB-Fwf-S-Type Natriuretic Peptide 425 pg/mL (0-124) Total Protein 7.1 g/dL (6.4-8.2) Albumin 2.9 g/dL (3.4-5.0) Albumin/Globulin Ratio 0.7 (1.0-1.7) Thyroid Stimulating Hormone (TSH) 0.166 uIU/mL (0.358-3.74) Urine Collection Type Unknown Urine Color Sofya Urine Clarity Cloudy Urine pH 6.0 Urine Specific [place] 1.025 Urine Protein 100 mg/dL (NEG-TRACE) Urine Glucose (UA) Negative mg/dL (NEG) Urine Ketones (Stick) Negative mg/dL (NEG) Urine Blood Large (NEG) Urine Nitrite Positive (NEG) Urine Bilirubin Small (NEG) Urine Urobilinogen Dipstick 0.2 mg/dL (0.2 mg/dL) Urine Leukocyte Esterase Large (NEG) Urine RBC Tntc /HPF (0-2) Urine WBC Tntc /HPF (0-4) Urine Squamous Epithelial Cells None /LPF Urine Bacteria Many /HPF (0-FEW) Urine Hyaline Casts Few /HPF Urine Mucus Mod /LPF Urine Opiates Screen Pos (NEG) Urine Methadone Screen Neg (NEG) Urine Barbiturates Neg (NEG) Urine Phencyclidine Screen Neg (NEG) Urine Amphetamine/Methamphetamine Neg (NEG) Urine Benzodiazepines Screen Neg (NEG) Urine Cocaine Screen Neg (NEG) Urine Cannabinoids Screen Neg (NEG) Urine Ethyl Alcohol Neg (NEG) Nasal Screen MRSA (PCR) Positive (Negative) Glucose (Fingerstick) 84 mg/dL (70-99) Test 02/28/18 04:25 02/28/18 04:30 White Blood Count 6.6 x10^3/uL (4.0-11.0) Red Blood Count 3.09 x10^6/uL (3.50-5.40) Hemoglobin 10.4 g/dL (12.0-15.5) Hematocrit 31.0 % (36.0-47.0) Mean Corpuscular Volume 100 fL (79-100) Mean Corpuscular Hemoglobin 34 pg (25-35) Mean Corpuscular Hemoglobin Concent 34 g/dL (31-37) Red Cell Distribution Width 13.6 % (11.5-14.5) Platelet Count 202 x10^3/uL (140-400) Neutrophils (%) (Auto) 62 % (31-73) Lymphocytes (%) (Auto) 24 % (24-48) Monocytes (%) (Auto) 10 % (0-9) Eosinophils (%) (Auto) 4 % (0-3) Basophils (%) (Auto) 1 % (0-3) Neutrophils # (Auto) 4.1 x10^3uL (1.8-7.7) Lymphocytes # (Auto) 1.6 x10^3/uL (1.0-4.8) Monocytes # (Auto) 0.6 x10^3/uL (0.0-1.1) Eosinophils # (Auto) 0.3 x10^3/uL (0.0-0.7) Basophils # (Auto) 0.0 x10^3/uL (0.0-0.2) Sodium Level 142 mmol/L (136-145) Potassium Level 3.9 mmol/L (3.5-5.1) Chloride Level 109 mmol/L (98-107) Carbon Dioxide Level 24 mmol/L (21-32) Anion Gap 9 (6-14) Blood Urea Nitrogen 6 mg/dL (7-20) Creatinine 1.0 mg/dL (0.6-1.0) Estimated GFR (Cockcroft-Gault) 68.7 Glucose Level 74 mg/dL (70-99) Calcium Level 8.9 mg/dL (8.5-10.1) Laboratory Tests Test 02/27/18 17:46 02/28/18 04:25 02/28/18 04:30 Glucose (Fingerstick) 84 mg/dL (70-99) White Blood Count 6.6 x10^3/uL (4.0-11.0) Red Blood Count 3.09 x10^6/uL (3.50-5.40) Hemoglobin 10.4 g/dL (12.0-15.5) Hematocrit 31.0 % (36.0-47.0) Mean Corpuscular Volume 100 fL (79-100) Mean Corpuscular Hemoglobin 34 pg (25-35) Mean Corpuscular Hemoglobin Concent 34 g/dL (31-37) Red Cell Distribution Width 13.6 % (11.5-14.5) Platelet Count 202 x10^3/uL (140-400) Neutrophils (%) (Auto) 62 % (31-73) Lymphocytes (%) (Auto) 24 % (24-48) Monocytes (%) (Auto) 10 % (0-9) Eosinophils (%) (Auto) 4 % (0-3) Basophils (%) (Auto) 1 % (0-3) Neutrophils # (Auto) 4.1 x10^3uL (1.8-7.7) Lymphocytes # (Auto) 1.6 x10^3/uL (1.0-4.8) Monocytes # (Auto) 0.6 x10^3/uL (0.0-1.1) Eosinophils # (Auto) 0.3 x10^3/uL (0.0-0.7) Basophils # (Auto) 0.0 x10^3/uL (0.0-0.2) Sodium Level 142 mmol/L (136-145) Potassium Level 3.9 mmol/L (3.5-5.1) Chloride Level 109 mmol/L (98-107) Carbon Dioxide Level 24 mmol/L (21-32) Anion Gap 9 (6-14) Blood Urea Nitrogen 6 mg/dL (7-20) Creatinine 1.0 mg/dL (0.6-1.0) Estimated GFR (Cockcroft-Gault) 68.7 Glucose Level 74 mg/dL (70-99) Calcium Level 8.9 mg/dL (8.5-10.1) Microbiology 02/27/18 Blood Culture - Preliminary, Resulted NO GROWTH AFTER 1 DAY Medications Current Medications Sodium Chloride 1,000 ml @ 1,000 mls/hr 1X ONCE IV Last administered on at 00:50; Start 02/27/18 at 01:00; Stop 02/27/18 at 01:59; Status DC Lorazepam (Ativan) 2 mg 1X ONCE IV Last administered on 02/27/18at 01:49; Start 02/27/18 at 01:45; Stop 02/27/18 at 01:46; Status DC Ciprofloxacin/ Dextrose 200 ml @ 200 mls/hr 1X ONCE IV Last administered on at 02:23; Start 02/27/18 at 02:00; Stop 02/27/18 at 02:59; Status DC Ondansetron HCl (Zofran) 4 mg PRN Q8HRS PRN IV NAUSEA/VOMITING; Start 02/27/18 at 03:15; Stop 02/28/18 at 03:14; Status DC Info (FLU VACCINE SCREEN per RX) 1 each 1X ONCE MC ; Start 02/27/18 at 05:30; Stop 02/27/18 at 05:31; Status UNV Influenza Virus Vaccine (Afluria Trivalent [id number] Syringe) 0.5 ml ONCE ONCE VAX IM Last administered on 02/27/18at 12:34; Start 02/27/18 at 09:00; Stop 02/03 at 09:01; Status DC Acetaminophen (Tylenol) 650 mg PRN Q6HRS PRN PO FEVER > 101 Last administered on 02/28/18at 11:22; Start 02/27/18 at 08:45 Amitriptyline HCl (Elavil) 10 mg BID PO Last administered on 02/28/18at 11:29; Start 02/27/18 at 09:00 Baclofen (Lioresal) 10 mg HS PO ; Start 02/27/18 at 21:00 Fluticasone Propionate (Flonase) 2 spray DAILY NS ; Start 02/27/18 at 09:00 Levothyroxine Sodium (Synthroid) 75 mcg DAILY07 PO Last administered on at 05:08; Start 02/27/18 at 09:00 Metoprolol Tartrate (Lopressor) 12.5 mg BID PO Last administered on 02/28/18at 05:09; Start 02/27/18 at 09:00 Oxycodone/ Acetaminophen (Percocet 7.5/ 325) 1 tab PRN Q6HRS PRN PO PAIN Last administered on 02/27/18at 10:04; Start 02/27/18 at 08:45; Stop 02/27/18 at 13:12 ; Status DC Potassium Chloride (Klor-Con) 10 meq DAILY08 PO Last administered on 02/27/18at 12:35; Start 02/27/18 at 09:00 Rivaroxaban (Xarelto) 20 mg DAILY@1700 PO Last administered on 02/27/18at 17:45 ; Start 02/27/18 at 17:00 Budesonide (Pulmicort) 0.5 mg RTBID NEB Last administered on 02/28/18at 07:34; Start 02/27/18 at 20:00 Gabapentin (Neurontin) 800 mg TID PO Last administered on 02/28/18at 11:23; Start 02/27/18 at 09:00 Hyoscyamine (Anaspaz) 0.125 mg PRN Q4HRS PRN PO STOMACH CRAMPING; Start at 09:00 Albuterol Sulfate (Ventolin Neb Soln) 2.5 mg PRN Q4HRS PRN NEB SHORTNESS OF BREATH; Start 02/27/18 at 09:15 Polyethylene Glycol (miraLAX PACKET) 17 gm TID PO Last administered on at 15:31; Start 02/27/18 at 09:30 Quetiapine Fumarate (SEROquel) 150 mg DAILY@1300 PO Last administered on 13:57; Start 02/27/18 at 13:00 Non-Formulary Medication (Quetiapine Fumarate (Seroquel)) 1 tab DAILY13 PO ; Start 02/27/18 at 08:45; Status UNV Famotidine (Pepcid) 20 mg QHS PO Last administered on 02/27/18at 12:35; Start at 09:00 Trimethoprim/ Sulfamethoxazole (Bactrim Ds) 2 tab BID PO ; Start 02/27/18 at 10: 00; Stop 02/27/18 at 11:23; Status DC Tizanidine HCl (Zanaflex) 4 mg TID PO Last administered on 02/27/18at 15:31; Start 02/27/18 at 09:30 Venlafaxine HCl (Effexor) 75 mg TID PO Last administered on 02/28/18at 11:24; Start 02/27/18 at 09:15 Info (Anti-Coagulation Monitoring By Pharmacy) 1 each PRN DAILY PRN MC SEE COMMENTS; Start 02/27/18 at 09:00 Sodium Chloride 1,000 ml @ 100 mls/hr 1X ONCE IV Last administered on at 09:15; Start 02/27/18 at 09:15; Stop 02/27/18 at 19:14; Status DC Albuterol Sulfate (Ventolin Neb Soln) 2.5 mg RTQID NEB Last administered on at 11:37; Start 02/27/18 at 12:00 Vancomycin HCl (Vanco Per Pharmacy) 1 each PRN DAILY PRN MC SEE COMMENTS; Start 02/27/18 at 11:30; Stop 02/27/18 at 13:06; Status DC Vancomycin HCl 1.5 gm/Sodium Chloride 500 ml @ 250 mls/hr 1X ONCE IV Last administered on 02/27/18at 12:31; Start 02/27/18 at 11:45; Stop 02/27/18 at 13:44 ; Status DC Metronidazole 100 ml @ 100 mls/hr Q12HR IV Last administered on 02/27/18at 12: 36; Start 02/27/18 at 12:30; Stop 02/27/18 at 13:06; Status DC Oxycodone/ Acetaminophen (Percocet 7.5/ 325) 1 tab PRN Q6HRS PRN PO PAIN MILD TO MOD Last administered on 02/28/18at 03:03; Start 02/27/18 at 13:15 Piperacillin Sod/ Tazobactam Sod 3.375 gm/Sodium Chloride 50 ml @ 100 mls/hr Q6HRS IV Last administered on 02/28/18at 11:30; Start 02/27/18 at 14:00 Oxycodone/ Acetaminophen (Percocet 7.5/ 325) 2 tab PRN Q6HRS PRN PO PAIN SEVERE ; Start 02/27/18 at 13:30 Naloxone HCl (Narcan) 0.4 mg 1X ONCE IV Last administered on 02/27/18at 18:08; Start 02/27/18 at 18:30; Stop 02/27/18 at 18:31; Status DC Lactobacillus Rhamnosus (Culturelle) 1 cap BID PO ; Start 02/28/18 at 13:00 Active Scripts Active Metoprolol Tartrate 25 Mg Tablet 12.5 Mg PO BID 30 Days Tylenol (Acetaminophen) 325 Mg Tablet 650 Mg PO PRN Q6HRS PRN 30 Days Reported Xarelto (Rivaroxaban) 10 Mg Tablet 10 Mg PO BID Synthroid (Levothyroxine Sodium) 75 Mcg Tablet 75 Mcg PO DAILY07 Seroquel (Quetiapine Fumarate) 50 Mg Tablet 50 Mg PO DAILY13 Seroquel (Quetiapine Fumarate) 100 Mg Tablet 1 Tab PO DAILY13 Potassium Chloride 10 Meq Tab.sr.24h 10 Meq PO DAILY Percocet 7.5-325 Mg Tablet (Oxycodone/Acetaminophen) 1 Each Tablet 1 Tab PO PRN Q6HRS PRN Miralax (Polyethylene Glycol 3350) 17 Gm Powd.pack 1 Pkt PO TID Levsin-Sl (Hyoscyamine Sulfate) 0.125 Mg Tab.subl 0.125 Mg SL PRN Q4HRS PRN Bactrim 400-80 Mg Tablet (Sulfamethoxazole/Trimethoprim) 1 Each Tablet 2 Each PO BID 10 Days Baclofen 10 Mg Tablet 10 Mg PO HS Xopenex Hfa (Levalbuterol Tartrate) 15 Gm Hfa.aer.ad 2 Puff IH PRN Q4-6HRS Fluticasone Propionate Nasal [place] (Fluticasone Propionate) 16 Gm [place].susp 2 [place] NS DAILY Advair 500-50 Diskus (Fluticasone/Salmeterol) 1 Each Disk.w.dev 1 Each IH BID Amitriptyline Hcl 10 Mg Tablet 10 Mg PO BID Zofran Odt (Ondansetron) 8 Mg Tab.rapdis 8 Mg PO PRN Effexor Xr (Venlafaxine Hcl) 150 Mg Cap.er.24h 225 Mg PO DAILY Tizanidine Hcl 2 Mg Capsule 4 Mg PO TID Zantac (Ranitidine Hcl) 150 Mg Tablet 150 Mg PO HS Gabapentin 800 Mg Tablet 800 Mg PO TID Vitals/I & O Vital Sign - Last 24 Hours 02/27/18 02/27/18 02/27/18 02/27/18 13:57 15:17 15:38 19:20 Temp 99.6 97.7 99.6 97.7 Pulse 73 99 Resp 16 16 B/P (MAP) 79/51 (60) 126/78 (94) Pulse Ox 97 95 100 O2 Delivery Nasal Cannula Nasal Cannula Room Air Nasal Cannula O2 Flow Rate 2.0 3.0 3.0 02/27/18 02/27/18 02/27/18 02/28/18 19:39 20:00 23:22 00:49 Temp 97.5 97.5 Pulse 100 116 Resp 16 B/P (MAP) 100/54 (69) 141/82 (101) Pulse Ox 99 100 100 O2 Delivery Nasal Cannula Nasal Cannula Nasal Cannula Room Air O2 Flow Rate 3.0 2.0 3.0 02/28/18 02/28/18 02/28/18 02/28/18 03:03 03:04 04:12 05:03 Temp 100.9 99.4 100.9 99.4 Pulse 116 Resp 20 B/P (MAP) 131/86 (101) Pulse Ox 100 O2 Delivery Room Air Room Air Room Air 02/28/18 02/28/18 02/28/18 02/28/18 05:09 07:00 07:35 08:00 Temp 98.8 98.8 Pulse 116 84 Resp 16 B/P (MAP) 131/86 106/66 (79) Pulse Ox 92 O2 Delivery Room Air Room Air Room Air O2 Flow Rate 2.0 02/28/18 02/28/18 11:00 11:37 Temp 100.2 100.2 Pulse 95 Resp 16 B/P (MAP) 152/92 (112) Pulse Ox 98 92 O2 Delivery Room Air Room Air Intake and Output 02/27/18 02/27/18 02/28/18 15:01 23:01 07:01 Intake Total 100 ml 0 ml 0 ml Output Total 2850 ml Balance 100 ml 0 ml -2850 ml LEENA RAPP MD Feb 28, 2018 13:02
--- NOTE | 2018-02-28 13:50 | PDOC ---
PROGRESS NOTES Subjective She got hypotensive last peter possibly from pain meds but more likely from sepsis , given Narcan and 2 more liters of fluids and better, alert this am, confusion overnight led to her pulling out her IV twice, now with mits and family present. They tell me she was having hallucinations prior to moving into [facility] but she was also depressed as her dog had and she had lost her independence. She is now on Zosyn and not having any itching or rash. Febrile this am to 100.2. WBC and diff normal. MRSA +, ammonia level was borderline high, TSH noted as low per computer reference, mild anemia persists, creatinine back to normal Objective Tmax 100.2 BP: now elevated General: awakens easily but drifts off during conversation, trying to pull off mitts when awake Heart: RRR Lungs: Clear Abd: soft Ext: position WBC: 6.6 Hgb: 10.4 K+: 3.9 Creat: 1.0 Vital Signs Vital Signs Date Time Temp Pulse Resp B/P (MAP) Pulse Ox O2 Delivery O2 Flow Rate FiO2 02/28/18 11:37 92 Room Air 02/28/18 11:00 100.2 95 16 152/92 (112) 100.2 02/28/18 08:00 2.0 I & O Intake and Output 02/28/18 07:01 Intake Total 100 ml Output Total 2850 ml Balance -2750 ml Intake Oral 100 ml Output Urine Total 2850 ml Assessment and Plan A/P (1) Encephalopathy Status: Acute (2) New onset seizure Status: Acute (3) Postictal state Status: Acute (4) UTI (urinary tract infection) Status: Acute 1. primary lateral sclerosis - intrathecal baclofen pump since 2009 - [facility] care pt at [facility] 2. new seizure - Neuro consult, CT head negative 3. UTI/Sepsis with hypotension - resolved after 3 liters fluid bolus - ID consult, she was on po Bactrim, received cipro x 1 this am, awaiting culture results from R, allergic to cephalosporins, febrile this am 4. lung infiltrate - possible aspiration/pneumonia - neb tx, f/u CXR 5. schizophrenia - recently started on Topamax, will resume. continue seroquel 6. COPD - continue meds 7. GERD - continue routine meds 8. Hypothyroidism, TSH slightly suppressed, reduce dose from 75 to 50 mcg 9. depression with psychosis - continue venlafaxine, several were held 10. 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 LOU - resolved with fluids 13. protein malnutrition - nutrition consult Gabriella WHITING MD Feb 28, 2018 13:50
--- NOTE | 2018-02-28 14:26 | PDOC ---
Infectious Disease Note Subjective Subjective Fever Tmax 100.9 Vital Sign Vital Signs Vital Signs Date Time Temp Pulse Resp B/P (MAP) Pulse Ox O2 Delivery O2 Flow Rate FiO2 02/28/18 11:37 92 Room Air 02/28/18 11:00 100.2 95 16 152/92 (112) 100.2 02/28/18 08:00 2.0 Physical Exam PHYSICAL EXAM GENERAL: Lying down, alert, mittens HENT: Oral cavity clear LUNGS: Clear CV: S1 S2 ABDOMEN: Soft, NT, BS active. 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, coop PIV ok Labs Lab Laboratory Tests Test 02/27/18 17:46 02/28/18 04:25 02/28/18 04:30 Glucose (Fingerstick) 84 mg/dL (70-99) White Blood Count 6.6 x10^3/uL (4.0-11.0) Red Blood Count 3.09 x10^6/uL (3.50-5.40) Hemoglobin 10.4 g/dL (12.0-15.5) Hematocrit 31.0 % (36.0-47.0) Mean Corpuscular Volume 100 fL (79-100) Mean Corpuscular Hemoglobin 34 pg (25-35) Mean Corpuscular Hemoglobin Concent 34 g/dL (31-37) Red Cell Distribution Width 13.6 % (11.5-14.5) Platelet Count 202 x10^3/uL (140-400) Neutrophils (%) (Auto) 62 % (31-73) Lymphocytes (%) (Auto) 24 % (24-48) Monocytes (%) (Auto) 10 % (0-9) Eosinophils (%) (Auto) 4 % (0-3) Basophils (%) (Auto) 1 % (0-3) Neutrophils # (Auto) 4.1 x10^3uL (1.8-7.7) Lymphocytes # (Auto) 1.6 x10^3/uL (1.0-4.8) Monocytes # (Auto) 0.6 x10^3/uL (0.0-1.1) Eosinophils # (Auto) 0.3 x10^3/uL (0.0-0.7) Basophils # (Auto) 0.0 x10^3/uL (0.0-0.2) Sodium Level 142 mmol/L (136-145) Potassium Level 3.9 mmol/L (3.5-5.1) Chloride Level 109 mmol/L (98-107) Carbon Dioxide Level 24 mmol/L (21-32) Anion Gap 9 (6-14) Blood Urea Nitrogen 6 mg/dL (7-20) Creatinine 1.0 mg/dL (0.6-1.0) Estimated GFR (Cockcroft-Gault) 68.7 Glucose Level 74 mg/dL (70-99) Calcium Level 8.9 mg/dL (8.5-10.1) Micro Microbiology 02/27/18 Blood Culture - Preliminary, Resulted NO GROWTH AFTER 1 DAY Objective Assessment Fever Encephalopathy Seizure Cath associated UTI Primary lateral sclerosis LOU Positive MRSA screen Plan Plan of Care Zosyn F/u labs/cultures supportive care D/w sister Attending Co-Sign The patient was seen and interviewed as well as examined at the bedside. The chart was reviewed. The case was discussed. Agree with the plan of care. REX TRIVEDI APRN Feb 28, 2018 14:26 KELLY SALGUERO MD Mar 02, 2018 12:29
--- NOTE | 2018-02-28 17:12 | RAD ---
CHEST AP ONLY Clinical Indication: FEVER Comparison: AP chest, prior day. Findings: The cardiomediastinal silhouette is normal. Mild left basilar airspace disease is improved.. There is no pneumothorax. No pleural effusion is appreciated. Spinal catheter is redemonstrated extending to cervical spine fusion hardware. IMPRESSION: Mild left basilar airspace disease is improved from prior study. Electronically signed by: Joaquin Lainez MD (02/28/2018 5:07 PM) [facility]
[2018-02-28] MEDS: QUEtiapine 100 MG TABLET. PO SCH (17:21)
[2018-02-28] MEDS: TOPIRAMATE 25 MG TABLET. PO SCH ×2 (17:22→22:59)
[2018-02-28] MEDS: LACTOBACILLUS RHAMNOSUS GG 1 CAPSULE. PO SCH ×2 (17:22→22:59)
[2018-02-28] MEDS: RIVAROXABAN 10 MG TABLET. PO SCH (17:24)
--- NOTE | 2018-02-28 22:19 | CONS ---
DATE OF CONSULTATION: 02/27/2018 REFERRING PHYSICIAN: Dr. Pulido. REASON FOR CONSULTATION: UTI and pneumonia. HISTORY OF PRESENT ILLNESS: This patient is a 58-year-old -[place] female with a past medical history of ALS, who was sent to the ER for evaluation of altered mental status change and new onset seizure. A head CT showed no intracranial hemorrhage or acute finding noted. She was afebrile with a normal white blood cell count and ammonia level of 35. A urinalysis showed wbc's too numerous to count, leukocyte esterase large, nitrite positive with many bacteria. Urine and blood cultures have been ordered. A chest x-ray showed a left basilar atelectasis or infiltrate. She was dosed with vancomycin, metronidazole and ciprofloxacin. The patient has a chronic suprapubic catheter with a recent history of urinary tract infection, treated with Bactrim. No fevers, vomiting or diarrhea reported. PAST MEDICAL HISTORY: ALS, asthma, COPD, anemia, GERD, depression, psychosis, history of acute renal failure, UTI, hypothyroidism, CVA, cervical spondylosis and spasticity, history of hyperthyroidism status post radiation. PAST SURGICAL HISTORY: Cholecystectomy, , hysterectomy, suprapubic catheter placement, baclofen pump. FAMILY HISTORY: Hypertension, obesity, osteoarthritis, cancer. SOCIAL HISTORY: The patient is a custodial resident. History of 40-pack per year smoker. She is . ALLERGIES: CEFAZOLIN, REACTION UNKNOWN, IBUPROFEN, MORPHINE. MEDICATIONS: Vancomycin, metronidazole, ciprofloxacin x 1 dose, Bactrim. Other medications are available and have been reviewed on the MAR. REVIEW OF SYSTEMS: Unobtainable as the patient is noncommunicative. PHYSICAL EXAMINATION: VITAL SIGNS: Temperature 98.7, blood pressure 91/53, heart rate 90, respiratory rate 16, pulse oximetry 97% on room air. HEENT: Pupils equally round. Oral cavity dry. NECK: Supple. LUNGS: Clear. HEART: S1 and S2. ABDOMEN: Nondistended, soft, no grimace or guarding to palpation. Bowel sounds present. Suprapubic catheter intact (POA). EXTREMITIES: No gross edema or cyanosis. SKIN: Warm without generalized rash. NEUROLOGIC: Awake, confused. LABORATORY DATA: WBC 6.5, hemoglobin 11.4, platelets 215,000. Electrolytes are unremarkable. Creatinine 1.6, glucose 88, BUN 18. Total bilirubin 0.2, AST 23, ALT 15, ammonia 35, albumin 2.9. TSH 0.166. Urine toxicology positive for opiates. Urinalysis per HPI. Urine and blood cultures in process. MRSA screen positive. IMAGING: Per HPI. IMPRESSION: 1. Encephalopathy. 2. Seizure. 3. Catheter associated urinary tract infection (POA). 4. Primary lateral sclerosis. 5. Acute kidney injury. PLAN: Switch antibiotics to Zosyn. Further antibiotic modifications pending culture results and clinical response. Monitor laboratory values and temperature. Supportive care. Thank you, Dr. Pulido, for asking us to participate in this patient's care. Should you have further questions or other concerns, please call. The patient initially seen, examined and plan of care implemented by Dr. Uzair Salguero on 02/27/2018. UZAIR SALGUERO MD DR: TINO/edwina JOB#: [id number] / [id number]
[2018-02-28] MEDS: BACLOFEN 10 MG TABLET. PO SCH (22:59)
[2018-02-28] MEDS: FAMOTIDINE 20 MG TABLET. PO SCH (23:00)
[2018-03-01] MEDS: PIPERACILLIN/TAZOBACTAM 3.375 GM in IV NORMAL SALINE 50ML 50 ML IV SCH ×2 (00:08→05:20)
[2018-03-01 02:34] VITALS: BP 122/83
[2018-03-01] MEDS: oxyCODONE/APAP 7.5/325 1 TAB TABLET PO PRN ×2 (05:20→13:45)
[2018-03-01] MEDS: LEVOTHYROXINE 50 MCG TABLET PO SCH (05:20)
[2018-03-01 07:00] VITALS: BP 120/79
[2018-03-01] MEDS: POTASSIUM CHLORIDE 10 MEQ TABLET.ER. PO SCH ×2 (08:00→08:40)
[2018-03-01] MEDS: BUDESONIDE 0.5 MG/2 ML NEBU. NEB SCH ×2 (08:35→19:38)
[2018-03-01] MEDS: ALBUTEROL SULFATE 2.5 MG/3 ML NEBU. NEB SCH ×4 (08:35→19:38)
[2018-03-01] MEDS: VENLAFAXINE 75 MG TABLET. PO SCH ×3 (08:37→20:19)
[2018-03-01] MEDS: FLUTICASONE 50MCG/NASAL SPRAY 16GM BOTTLE. NS SCH (08:37)
[2018-03-01] MEDS: LACTOBACILLUS RHAMNOSUS GG 1 CAPSULE. PO SCH ×2 (08:37→20:19)
[2018-03-01] MEDS: AMITRIPTYLINE HCL 10 MG TABLET. PO SCH ×2 (08:38→20:20)
[2018-03-01] MEDS: METOPROLOL TART IMMED RELEASE 25 MG TABLET. PO SCH ×2 (08:39→20:23)
[2018-03-01] MEDS: GABAPENTIN 400 MG CAPSULE. PO SCH ×3 (08:40→20:19)
[2018-03-01] MEDS: POLYETHYLENE GLYCOL 3350 17 GM PACKET. PO SCH ×3 (08:40→20:29)
[2018-03-01] MEDS: TOPIRAMATE 25 MG TABLET. PO SCH ×2 (08:40→20:20)
[2018-03-01] MEDS: tiZANidine 4 MG TABLET. PO SCH ×3 (08:41→20:20)
--- NOTE | 2018-03-01 08:42 | NUR ---
I have had care of this pt 02/27 - 03/01. I have held her Tizadine and her miralax. The last time I gave her the muscle relaxer I was not able to get a response from her unless it was painful stimuli like the sternal rub. Since not giving her this medication again she has been alert and awake. Man [place] RN
[2018-03-01 08:51] LABS: BASO % 1 % (0-3); EOS # 0.3 x10^3/uL (0.0-0.7); EOS % 5 % (0-3); HEMATOCRIT 33.6 % (36.0-47.0); HEMOGLOBIN 11.3 g/dL (12.0-15.5); LYMPH # 1.8 x10^3/uL (1.0-4.8); LYMPH % 30 % (24-48); MEAN CORPUSCULAR HEMOGLOBIN 33 pg (25-35); MEAN CORPUSCULAR HGB CONC 34 g/dL (31-37); MEAN CORPUSCULAR VOLUME 99 fL (79-100); MONO # 0.6 x10^3/uL (0.0-1.1); MONO % 11 % (0-9); NEUT # 3.2 x10^3uL (1.8-7.7); NEUT % 53 % (31-73); PLATELET COUNT 237 x10^3/uL (140-400); RED BLOOD COUNT 3.39 x10^6/uL (3.50-5.40); RED CELL DISTRIBUTION WIDTH 13.8 % (11.5-14.5)
--- NOTE | 2018-03-01 08:57 | PDOC ---
PROGRESS NOTES Subjective She was late getting her Zosyn last peter as she pulled out IV, was on 1:1 but better this am, nursing thinks tizanidine makes her too drowsy, good appetite, eating, oriented to person and place. CXR now clear, she is iron deficient, urine culture still pending, blood cx negative, having loose stool, Miralax on hold Objective Tmax 100.2 General: alert, eating Heart: RRR Lungs: CTA Abd: soft Ext: functional Vital Signs Vital Signs Date Time Temp Pulse Resp B/P (MAP) Pulse Ox O2 Delivery O2 Flow Rate FiO2 03/01/18 08:39 72 120/79 03/01/18 08:36 96 Room Air 03/01/18 02:34 98.6 18 98.6 02/28/18 08:00 2.0 I & O Intake and Output 03/01/18 07:01 Intake Total 470 ml Output Total 1300 ml Balance -830 ml Intake Oral 470 ml Output Urine Total 1300 ml # Bowel Movements 3 Assessment and Plan (1) Altered mental state Status: Acute (2) New onset seizure Status: Acute (3) Postictal state Status: Acute (4) UTI (urinary tract infection) Status: Acute 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 new seizure - Neuro consult, CT head negative, EEG ordered 3. UTI/Sepsis with hypotension - resolved after 3 liters fluid bolus - ID consult, she was on po Bactrim, received cipro x 1 this am, awaiting culture results from [facility], allergic to cephalosporins, febrile this am 4. lung infiltrate, resolved on f/u imaging 5. schizophrenia - recently started on Topamax, will resume. continue Seroquel 6. COPD - continue meds 7. GERD - continue routine meds 8. Hypothyroidism, TSH slightly suppressed, reduce dose from 75 to 50 mcg 9. depression with psychosis - continue venlafaxine 10. 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 LOU - resolved with fluids 13. protein malnutrition - nutrition consult 14. iron deficiency anemia - add oral iron Gabriella WHITING MD Mar 01, 2018 08:57
[2018-03-01 09:08] LABS: ALBUMIN/GLOBULIN RATIO 0.8 (1.0-1.7); CALCIUM 9.3 mg/dL (8.5-10.1); CREATININE 0.9 mg/dL (0.6-1.0); GFR 77.5; POTASSIUM 3.6 mmol/L (3.5-5.1); TOTAL BILIRUBIN 0.4 mg/dL (0.2-1.0)
--- NOTE | 2018-03-01 09:30 | NUR ---
Wound Care Pt seen for wound care consulation, known to WCRNs from Outpt wound clinic last year. Pt has a Stage III pressure ulcer on her L elbow, pt repositions and pulls herself up in bed using her elbows. Pt educated on allowing staff to reposition her, wound redressed with Xeroform, foam dressing, ABD and kerlix for padding and a stockinette to prevent pt from pulling dressing off, as wound was ZAHIRA upon assessment. Pt has no other wounds on full skin inspection, previous sacral/coccyx wound is well-healed. L arm elevated on pillow, will continue to follow for wound care needs.
--- NOTE | 2018-03-01 09:49 | NUR ---
IP: Pt is mrsa screen + requiring contact precautions.
[2018-03-01 11:00] VITALS: BP 144/94
[2018-03-01] MEDS: FERROUS SULFATE 325 MG TABLET. PO SCH (11:34)
--- NOTE | 2018-03-01 11:53 | PDOC ---
Infectious Disease Note Subjective Subjective pt is much better, says ready to go home, no complaints ROS ROS no n/v/d/sob Vital Sign Vital Signs Vital Signs Date Time Temp Pulse Resp B/P (MAP) Pulse Ox O2 Delivery O2 Flow Rate FiO2 03/01/18 11:17 Room Air 03/01/18 08:39 72 120/79 03/01/18 08:36 96 03/01/18 08:00 2.0 03/01/18 07:00 97.9 18 97.9 Physical Exam PHYSICAL EXAM GENERAL: Lying down, alert , communicates HENT: Oral cavity clear LUNGS: Clear CV: S1 S2 ABDOMEN: Soft, NT, BS active. 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, coop PIV ok Labs Lab Laboratory Tests Test 03/01/18 08:15 White Blood Count 6.0 x10^3/uL (4.0-11.0) Red Blood Count 3.39 x10^6/uL (3.50-5.40) Hemoglobin 11.3 g/dL (12.0-15.5) Hematocrit 33.6 % (36.0-47.0) Mean Corpuscular Volume 99 fL (79-100) Mean Corpuscular Hemoglobin 33 pg (25-35) Mean Corpuscular Hemoglobin Concent 34 g/dL (31-37) Red Cell Distribution Width 13.8 % (11.5-14.5) Platelet Count 237 x10^3/uL (140-400) Neutrophils (%) (Auto) 53 % (31-73) Lymphocytes (%) (Auto) 30 % (24-48) Monocytes (%) (Auto) 11 % (0-9) Eosinophils (%) (Auto) 5 % (0-3) Basophils (%) (Auto) 1 % (0-3) Neutrophils # (Auto) 3.2 x10^3uL (1.8-7.7) Lymphocytes # (Auto) 1.8 x10^3/uL (1.0-4.8) Monocytes # (Auto) 0.6 x10^3/uL (0.0-1.1) Eosinophils # (Auto) 0.3 x10^3/uL (0.0-0.7) Basophils # (Auto) 0.0 x10^3/uL (0.0-0.2) Sodium Level 144 mmol/L (136-145) Potassium Level 3.6 mmol/L (3.5-5.1) Chloride Level 107 mmol/L (98-107) Carbon Dioxide Level 26 mmol/L (21-32) Anion Gap 11 (6-14) Blood Urea Nitrogen 6 mg/dL (7-20) Creatinine 0.9 mg/dL (0.6-1.0) Estimated GFR (Cockcroft-Gault) 77.5 BUN/Creatinine Ratio 7 (6-20) Glucose Level 96 mg/dL (70-99) Calcium Level 9.3 mg/dL (8.5-10.1) Total Bilirubin 0.4 mg/dL (0.2-1.0) Aspartate Amino Transf (AST/SGOT) 32 U/L (15-37) Alanine Aminotransferase (ALT/SGPT) 16 U/L (14-59) Alkaline Phosphatase 115 U/L (46-116) Total Protein 7.0 g/dL (6.4-8.2) Albumin 3.0 g/dL (3.4-5.0) Albumin/Globulin Ratio 0.8 (1.0-1.7) Micro Microbiology 02/27/18 Blood Culture - Preliminary, Resulted NO GROWTH AFTER 2 DAYS Objective Assessment Encephalopathy Seizure Cath associated UTI Primary lateral sclerosis LOU Plan Plan of Care Zosyn,,, change to po augmentin F/u labs/cultures supportive care KELLY Mckoy MD Mar 01, 2018 11:53
[2018-03-01] MEDS: QUEtiapine 100 MG TABLET. PO SCH (12:37)
[2018-03-01] MEDS: AMOXICILLIN/K CLAV 875/125MG TABLET. PO SCH ×2 (12:37→20:19)
--- NOTE | 2018-03-01 14:58 | NUR ---
ODILIA responding to a referral regarding pt is from [facility]. ODILIA confirmed with Ida at [facility] pt is LTC resident and plan of return upon dc. ODILIA faxed clinicals to [facility]. ODILIA will continue to follow.
[2018-03-01 15:00] VITALS: BP 130/88
--- NOTE | 2018-03-01 16:13 | PDOC ---
PROGRESS NOTES Assessment Assessment IMPRESSION: Seizure or seizure like episode x 1. Metabolic encephalopathy. UTI. Sepsis? Renal failure. HTN. Primary lateral sclerosis. Neurogenic bladder. Baclofen pump in site. RECOMMENDATIONS/PLAN: EEG. Continue Topamax, may increase to 50 mg bid. Continue Neurontin. Lab: T3 T4. Treat medical diseases. Past Medical History Cardiovascular: HTN Pulmonary: COPD CENTRAL NERVOUS SYSTEM: CVA, Other (primary lateral sclerosis) GI: Constipation, GERD Heme/Onc: Anemia NOS Psych: Depression, Schizophrenia Musculoskeletal: Other (chronic pain, spasticity, cervical spondylosis) Endocrine: Hypothyroidism (s/p radiation for HYPERthyroid) Past Surgical History Cholecystectomy, , Hysterectomy, Other (baclofen pump) Family History Cancer? Social History , [facility] resident, quit tobacco years ago, no alcohol Allergies Coded Allergies: Ibuprofen (Verified Allergy, Intermediate, Hives, 07/28/16) TOLERATES ASPIRIN morphine (Verified Allergy, Intermediate, Nausea and Vomiting, 12/27/14) cefazolin (Verified Adverse Reaction, Intermediate, N/V, 07/28/16) ROS According to son, negative for fever, chills, weight loss, shortness of breath, chest pain, indigestion, hematochezia, melena, and dysuria. Full 14-point review of systems is negative. ALLERGY: Reviewed. MEDICATIONS: Refer to [facility] PHYSICAL EXAMINATION: General appearance in subacute distress. HEENT: Normocephalic and nontraumatic. Eyes, nose, ears, and throat are unremarkable. Hearing decrease. Neck is supple. No lymphadenopathy. No Crepitus. Cardiovascular: S1, S2, regular rate and rhythm. Pulmonary: Clear to auscultation bilaterally. Abdomen: Bowel sounds are positive. Abdomen is soft, nontender, and nondistended. Extremities: No rash, lesions, or edema. No restriction of range of motion NEUROLOGICAL EXAMINATION: Awake. Not fully oriented to time, but knew place and person. PERRL. EOMI. CN: no focal findings. Muscle tone: within normal. Muscle strength: 4 DTR: 1-2 Plantar reflex: Neutral response bilaterally Gait: not examined in bed. Sensory exam: no abnormal findings. No cerebellar signs elicited. F-T-N test fine. Objective Objective Vital Signs Date Time Temp Pulse Resp B/P (MAP) Pulse Ox O2 Delivery O2 Flow Rate FiO2 03/01/18 15:10 Room Air 1/14/19 15:00 97.9 78 14 130/88 (102) 96 97.9 03/01/18 08:00 2.0 Intake and Output 03/01/18 07:01 Intake Total 470 ml Output Total 1300 ml Balance -830 ml Intake Oral 470 ml Output Urine Total 1300 ml # Bowel Movements 3 Vitals Signs Vitals VS - Last 72 Hours, by Label Date Time Temp Pulse Resp B/P (MAP) Pulse Ox O2 Delivery O2 Flow Rate FiO2 03/01/18 15:10 Room Air 03/01/18 15:00 97.9 78 14 130/88 (102) 96 Room Air 97.9 03/01/18 14:47 Room Air 03/01/18 13:45 Room Air 03/01/18 11:17 Room Air 03/01/18 11:00 98.2 83 144/94 (111) 97 Room Air 98.2 03/01/18 08:39 72 120/79 03/01/18 08:36 96 Room Air 03/01/18 08:00 Room Air 2.0 03/01/18 07:00 97.9 88 18 120/79 (93) 96 Room Air 97.9 03/01/18 06:33 98 03/01/18 05:20 98 Room Air 03/01/18 02:34 98.6 77 18 122/83 (96) 98 Room Air 98.6 02/28/18 23:43 98.1 103 18 133/87 (102) 97 Room Air 98.1 02/28/18 23:02 105 112/69 02/28/18 20:06 94 Room Air 02/28/18 20:00 Room Air 02/28/18 19:30 99.3 105 18 112/69 (83) 95 Room Air 99.3 02/28/18 15:27 94 Room Air 02/28/18 15:00 100.0 98 16 125/79 (94) 94 Room Air 100.0 02/28/18 11:37 92 Room Air 02/28/18 11:00 100.2 95 16 152/92 (112) 98 Room Air 100.2 02/28/18 08:00 Room Air 2.0 02/28/18 07:35 Room Air 02/28/18 07:00 98.8 84 16 106/66 (79) 92 Room Air 98.8 Laboratory Laboratory Laboratory Tests Test 03/01/18 08:15 White Blood Count 6.0 x10^3/uL (4.0-11.0) Red Blood Count 3.39 x10^6/uL (3.50-5.40) Hemoglobin 11.3 g/dL (12.0-15.5) Hematocrit 33.6 % (36.0-47.0) Mean Corpuscular Volume 99 fL (79-100) Mean Corpuscular Hemoglobin 33 pg (25-35) Mean Corpuscular Hemoglobin Concent 34 g/dL (31-37) Red Cell Distribution Width 13.8 % (11.5-14.5) Platelet Count 237 x10^3/uL (140-400) Neutrophils (%) (Auto) 53 % (31-73) Lymphocytes (%) (Auto) 30 % (24-48) Monocytes (%) (Auto) 11 % (0-9) Eosinophils (%) (Auto) 5 % (0-3) Basophils (%) (Auto) 1 % (0-3) Neutrophils # (Auto) 3.2 x10^3uL (1.8-7.7) Lymphocytes # (Auto) 1.8 x10^3/uL (1.0-4.8) Monocytes # (Auto) 0.6 x10^3/uL (0.0-1.1) Eosinophils # (Auto) 0.3 x10^3/uL (0.0-0.7) Basophils # (Auto) 0.0 x10^3/uL (0.0-0.2) Sodium Level 144 mmol/L (136-145) Potassium Level 3.6 mmol/L (3.5-5.1) Chloride Level 107 mmol/L (98-107) Carbon Dioxide Level 26 mmol/L (21-32) Anion Gap 11 (6-14) Blood Urea Nitrogen 6 mg/dL (7-20) Creatinine 0.9 mg/dL (0.6-1.0) Estimated GFR (Cockcroft-Gault) 77.5 BUN/Creatinine Ratio 7 (6-20) Glucose Level 96 mg/dL (70-99) Calcium Level 9.3 mg/dL (8.5-10.1) Total Bilirubin 0.4 mg/dL (0.2-1.0) Aspartate Amino Transf (AST/SGOT) 32 U/L (15-37) Alanine Aminotransferase (ALT/SGPT) 16 U/L (14-59) Alkaline Phosphatase 115 U/L (46-116) Total Protein 7.0 g/dL (6.4-8.2) Albumin 3.0 g/dL (3.4-5.0) Albumin/Globulin Ratio 0.8 (1.0-1.7) Microbiology 02/27/18 Blood Culture - Preliminary, Resulted NO GROWTH AFTER 2 DAYS Medication Medications Current Medications Amoxicillin/ Clavulanate Potassium (Augmentin 875/ 125mg) 1 tab BID PO Last administered on 03/01/18at 12:37; Start 03/01/18 at 12:30 Ferrous Sulfate (Feosol) 325 mg DAILYWBKFT PO Last administered on 03/01/18at 11 :34; Start 03/01/18 at 09:30 Levothyroxine Sodium (Synthroid) 50 mcg DAILY06 PO Last administered on at 05:20; Start 03/01/18 at 06:00 Comment Review of Relevant I have reviewed the following items mimi (where applicable) has been applied. ZACHERY GARCIA MD Mar 01, 2018 16:13
[2018-03-01 16:47] LABS: FREE T4 0.89 ng/dL (0.76-1.46)
[2018-03-01] MEDS: RIVAROXABAN 10 MG TABLET. PO SCH (16:51)
[2018-03-01 19:00] VITALS: BP 140/88
[2018-03-01] MEDS: BACLOFEN 10 MG TABLET. PO SCH (20:19)
[2018-03-01] MEDS: FAMOTIDINE 20 MG TABLET. PO SCH (20:19)
[2018-03-01 23:00] VITALS: BP 112/70
[2018-03-02 03:00] VITALS: BP 131/80
[2018-03-02] MEDS: LEVOTHYROXINE 50 MCG TABLET PO SCH (06:10)
[2018-03-02 07:00] VITALS: BP 158/97
[2018-03-02] MEDS: ALBUTEROL SULFATE 2.5 MG/3 ML NEBU. NEB SCH ×3 (08:02→16:02)
[2018-03-02] MEDS: BUDESONIDE 0.5 MG/2 ML NEBU. NEB SCH (08:02)
[2018-03-02] MEDS: POLYETHYLENE GLYCOL 3350 17 GM PACKET. PO SCH ×2 (09:00→15:21)
[2018-03-02] MEDS: VENLAFAXINE 75 MG TABLET. PO SCH ×2 (09:40→15:27)
[2018-03-02] MEDS: FERROUS SULFATE 325 MG TABLET. PO SCH (09:40)
[2018-03-02] MEDS: FLUTICASONE 50MCG/NASAL SPRAY 16GM BOTTLE. NS SCH (09:40)
[2018-03-02] MEDS: LACTOBACILLUS RHAMNOSUS GG 1 CAPSULE. PO SCH (09:40)
[2018-03-02] MEDS: METOPROLOL TART IMMED RELEASE 25 MG TABLET. PO SCH (09:41)
[2018-03-02] MEDS: AMOXICILLIN/K CLAV 875/125MG TABLET. PO SCH (09:42)
[2018-03-02] MEDS: AMITRIPTYLINE HCL 10 MG TABLET. PO SCH (09:42)
[2018-03-02] MEDS: GABAPENTIN 400 MG CAPSULE. PO SCH ×2 (09:46→15:27)
[2018-03-02] MEDS: tiZANidine 4 MG TABLET. PO SCH ×2 (09:47→15:27)
[2018-03-02] MEDS: TOPIRAMATE 25 MG TABLET. PO SCH (09:47)
[2018-03-02 11:00] VITALS: BP 140/91
--- NOTE | 2018-03-02 12:39 | PDOC ---
Infectious Disease Note Subjective Subjective pt is much better, says ready to go home, no complaints ROS ROS no n/v/d/ Vital Sign Vital Signs Vital Signs Date Time Temp Pulse Resp B/P (MAP) Pulse Ox O2 Delivery O2 Flow Rate FiO2 03/02/18 12:22 Room Air 03/02/18 11:00 99.0 83 18 140/91 (107) 96 99.0 03/01/18 19:00 2.0 Physical Exam PHYSICAL EXAM GENERAL: Lying down, alert , communicates HENT: Oral cavity clear LUNGS: Clear CV: S1 S2 ABDOMEN: Soft, NT, BS active. 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
--- NOTE | 2018-03-02 13:12 | DISCH ---
DISCHARGE DISCHARGE INFORMATION: DISCHARGE DATE: Mar 02, 2018 FINAL DIAGNOSIS Problems Medical Problems: (1) Altered mental state Status: Acute (2) New onset seizure Status: Acute (3) Postictal state Status: Acute (4) UTI (urinary tract infection) Status: Acute CONDITION ON DISCHARGE: Stable CODE STATUS: Code Status: DNR/DNI POST DISCHARGE ORDERS: ACTIVITY ORDERS: Activity as tolerated, Avoid exertion WEIGHT BEARING STATUS: As tolerated BATHING ORDERS: Shower-keep dressing dry DIET AFTER DISCHARGE: Regular TREATMENT/EQUIPMENT ORDERS: ADAPTIVE EQUIPMENT NEEDED: None DISCHARGE MEDICATIONS: Home Meds Active Scripts Metoprolol Tartrate (METOPROLOL TARTRATE) 25 Mg Tablet, 12.5 MG PO BID for 30 Days, #30 TAB Prov:RISAHBH LUNDBERG MD 08/06/16 Acetaminophen (TYLENOL) 325 Mg Tablet, 650 MG PO PRN Q6HRS PRN for FEVER > 101 for 30 Days, TAB Prov:RISHABH LUNDBERG MD 08/06/16 Reported Medications Rivaroxaban (XARELTO) 10 Mg Tablet, 10 MG PO BID for DVT Prophlyaxix, TAB 02/27/18 Levothyroxine Sodium (SYNTHROID) 75 Mcg Tablet, 75 MCG PO DAILY07 for THYROID SUPPLEMENT, #30 TAB 0 Refills 02/27/18 Quetiapine Fumarate (SEROQUEL) 50 Mg Tablet, 50 MG PO DAILY13 for Schizophrenia , TAB 02/27/18 Quetiapine Fumarate (SEROQUEL) 100 Mg Tablet, 1 TAB PO DAILY13 for Schizophrenia , #30 TAB 02/27/18 Potassium Chloride (POTASSIUM CHLORIDE) 10 Meq Tab.sr.24h, 10 MEQ PO DAILY for Hypokalemia, TAB.SR 02/27/18 Oxycodone/Apap 7.5-325 (PERCOCET 7.5-325 MG TABLET ) 1 Each Tablet, 1 TAB PO PRN Q6HRS PRN for PAIN, TAB 0 Refills 02/27/18 Polyethylene Glycol 3350 (MIRALAX) 17 Gm Powd.pack, 1 PKT PO TID for Constipation, PKT 02/27/18 Hyoscyamine Sulfate (LEVSIN-SL) 0.125 Mg Tab.subl, 0.125 MG SL PRN Q4HRS PRN for cramps, TAB 02/27/18 Sulfamethoxazole/Trimethoprim (BACTRIM 400-80 MG TABLET) 1 Each Tablet, 2 EACH PO BID for UTI for 10 Days, #40 TAB 02/27/18 Baclofen (BACLOFEN) 10 Mg Tablet, 10 MG PO HS for MUSCLE RELAXER, #30 TAB 0 Refills 02/27/18 Levalbuterol Tartrate (XOPENEX HFA) 15 Gm Hfa.aer.ad, 2 PUFF IH PRN Q4-6HRS, # 15 GM 07/27/16 Fluticasone Propionate (FLUTICASONE PROPIONATE NASAL SPRAY) 16 Gm [place]oso.susp, 2 SPRAY NS DAILY, #1 INHALER 11 Refills 07/27/16 Fluticasone/Salmeterol (ADVAIR 500-50 DISKUS) 1 Each Disk.w.dev, 1 EACH IH BID 04/14/13 Amitriptyline Hcl (AMITRIPTYLINE HCL) 10 Mg Tablet, 10 MG PO BID, #2 04/14/13 Ondansetron (ZOFRAN ODT) 8 Mg Tab.rapdis, 8 MG PO PRN 04/14/13 Venlafaxine Hcl (EFFEXOR XR) 150 Mg Cap.er.24h, 225 MG PO DAILY for Depressive Disorder 04/14/13 Tizanidine Hcl (TIZANIDINE HCL) 2 Mg Capsule, 4 MG PO TID for Muscle Relaxer 04/14/13 Ranitidine Hcl (ZANTAC) 150 Mg Tablet, 150 MG PO HS for GERD 04/14/13 Gabapentin (GABAPENTIN) 800 Mg Tablet, 800 MG PO TID 04/14/13 Discontinued Reported Medications Olanzapine (OLANZAPINE) 5 Mg Tablet, 5 MG PO BID, TAB 07/27/16 Oxycodone/Apap 7.5-325 (PERCOCET 7.5-325 MG TABLET ) 1 Each Tablet, 1 EACH PO Q8HRS 04/14/13 Gabriella WHITING MD Mar 02, 2018 13:12
[2018-03-02] MEDS ORDERED: VENL75CA6 PO (14:12)
--- NOTE | 2018-03-02 15:08 | NUR ---
ODILIA following pt. ODILIA phoned and faxed orders to [facility]. Pt will transport via facility arranged transport at 1700. Packet on chart. ODILIA left a voice mail to pt's brother, Luke regarding plan. HUA AHUMADA.
[2018-03-02] MEDS: QUEtiapine 100 MG TABLET. PO SCH (15:29)
[2018-03-02] MEDS ORDERED: RIVAROXABAN 10 MG TABLET. PO SCH (17:00)
--- NOTE | 2018-03-02 17:37 | PDOC3 ---
Discharge Summary [facility] Date of Admission: Feb 27, 2018 Discharge Date: Mar 02, 2018 Admitting Diagnosis seizure, encephalopathy, UTI/sepsis Final Diagnosis 1. primary lateral sclerosis 2. new seizure 3. UTI/Sepsis with hypotension 4. lung infiltrate 5. schizophrenia 6. COPD 7. GERD 8. Hypothyroidism 9. depression with psychosis 10. hypertension 11. MRSA colonization 12. LOU 13. protein malnutrition, moderate 14. iron deficiency anemia 15. Encephalopathy CONSULTS Shayy Colunga Brief Hospital Course Ms. 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 new seizure - Neuro consulted, CT head negative, EEG done, recently started on Topamax, will resume. 3. UTI/Sepsis with hypotension - resolved after 3 liters fluid bolus - ID consulted, she was on po Bactrim, received cipro x 1 in ER, awaiting culture results from [facility], allergic to cephalosporins, tolerated Zosyn and switched to po Augmentin and tolerated so not likely a true cephalosporin allergy 4. lung infiltrate, resolved on f/u imaging 5. schizophrenia - continue Seroquel 6. COPD - continue meds 7. GERD - continue routine meds 8. Hypothyroidism, TSH slightly suppressed, reduced dose from 75 to 50 mcg 9. depression with psychosis - continue venlafaxine 10. hypertension - resumed metoprolol and controlled 11. MRSA colonization - isolation protocol followed 12. LOU - resolved with fluids 13. protein malnutrition - nutrition consult, started eating better by end of hospital stay 14. iron deficiency anemia - added oral iron 15. Encephalopathy, toxic and metabolic - returned to baseline mental function Disposition discharged back to LTC at [facility] CONDITION AT DISCHARGE: Improved, Stable Diet regular Scheduled Amitriptyline Hcl (Amitriptyline Hcl), 10 MG PO BID, (Reported) Baclofen (Baclofen), 10 MG PO HS, (Reported) Fluticasone Propionate (Fluticasone Propionate Nasal [place]), 2 SPRAY NS DAILY, ( Reported) Fluticasone/Salmeterol (Advair 500-50 Diskus), 1 EACH IH BID, (Reported) Gabapentin (Gabapentin), 800 MG PO TID, (Reported) Levalbuterol Tartrate (Xopenex Hfa), 2 PUFF IH PRN Q4-6HRS, (Reported) Levothyroxine Sodium (Synthroid), 75 MCG PO DAILY07, (Reported) Metoprolol Tartrate (Metoprolol Tartrate), 12.5 MG PO BID Polyethylene Glycol 3350 (Miralax), 1 PKT PO TID, (Reported) Potassium Chloride (Potassium Chloride), 10 MEQ PO DAILY, (Reported) Quetiapine Fumarate (Seroquel), 1 TAB PO DAILY13, (Reported) Quetiapine Fumarate (Seroquel), 50 MG PO DAILY13, (Reported) Ranitidine Hcl (Zantac), 150 MG PO HS, (Reported) Rivaroxaban (Xarelto), 10 MG PO DAILYWSUP, (Reported) Sulfamethoxazole/Trimethoprim (Bactrim 400-80 Mg Tablet), 2 EACH PO BID, ( Reported) Tizanidine Hcl (Tizanidine Hcl), 4 MG PO TID, (Reported) Venlafaxine Hcl (Venlafaxine Hcl Er), 225 MG PO DAILY, (Reported) Scheduled PRN Acetaminophen (Tylenol), 650 MG PO PRN Q6HRS PRN for FEVER > 101 Hyoscyamine Sulfate (Levsin-Sl), 0.125 MG SL PRN Q4HRS PRN for cramps, (Reported ) Ondansetron (Zofran Odt), 8 MG PO, (Reported) Oxycodone/Apap 7.5-325 (Percocet 7.5-325 Mg Tablet ), 1 TAB PO PRN Q6HRS PRN for PAIN, (Reported) Discontinued Medications Olanzapine (Olanzapine), 5 MG PO BID, (Reported) Oxycodone/Apap 7.5-325 (Percocet 7.5-325 Mg Tablet ), 1 EACH PO Q8HRS, ( Reported) Venlafaxine Hcl (Effexor Xr), 225 MG PO DAILY, (Reported) Discontinued Reason: Prescription changed Follow Up at [facility] physician Gabriella WHITING MD Mar 02, 2018 5:37 pm
--- NOTE | 2018-03-02 17:46 | PDOC ---
PROGRESS NOTES Assessment Assessment Seizure or seizure like episode x 1. Metabolic encephalopathy. UTI. Sepsis? Renal failure. HTN. Primary lateral sclerosis. Neurogenic bladder. Baclofen pump in site. RECOMMENDATIONS/PLAN: Continue Topamax, may increase to 50 mg bid. Continue Neurontin. Treat medical diseases. OT/PT. Discussed with her sister at bedside on 03/02/18. Past Medical History Cardiovascular: HTN Pulmonary: COPD CENTRAL NERVOUS SYSTEM: CVA, Other (primary lateral sclerosis) GI: Constipation, GERD Heme/Onc: Anemia NOS Psych: Depression, Schizophrenia Musculoskeletal: Other (chronic pain, spasticity, cervical spondylosis) Endocrine: Hypothyroidism (s/p radiation for HYPERthyroid) Past Surgical History Cholecystectomy, , Hysterectomy, Other (baclofen pump) Family History Cancer? Social History , intermediate resident, quit tobacco years ago, no alcohol Allergies Coded Allergies: Ibuprofen (Verified Allergy, Intermediate, Hives, 07/28/16) TOLERATES ASPIRIN morphine (Verified Allergy, Intermediate, Nausea and Vomiting, 12/27/14) cefazolin (Verified Adverse Reaction, Intermediate, N/V, 07/28/16) ROS According to son, negative for fever, chills, weight loss, shortness of breath, chest pain, indigestion, hematochezia, melena, and dysuria. Full 14-point review of systems is negative. ALLERGY: Reviewed. MEDICATIONS: Refer to [facility] PHYSICAL EXAMINATION: General appearance in subacute distress. HEENT: Normocephalic and nontraumatic. Eyes, nose, ears, and throat are unremarkable. Hearing decrease. Neck is supple. No lymphadenopathy. No Crepitus. Cardiovascular: S1, S2, regular rate and rhythm. Pulmonary: Clear to auscultation bilaterally. Abdomen: Bowel sounds are positive. Abdomen is soft, nontender, and nondistended. Extremities: No rash, lesions, or edema. No restriction of range of motion NEUROLOGICAL EXAMINATION: Awake. Partially oriented to time, but knew place and person. PERRL. EOMI. CN: no focal findings. Muscle tone: within normal. Muscle strength: 4+ DTR: 1-2 Plantar reflex: Neutral response bilaterally Gait: not examined in bed. Sensory exam: no abnormal findings. No cerebellar signs elicited. F-T-N test fine. Objective Objective Vital Signs Date Time Temp Pulse Resp B/P (MAP) Pulse Ox O2 Delivery O2 Flow Rate FiO2 1/15/19 16:03 Room Air 03/02/18 11:00 99.0 83 18 140/91 (107) 96 99.0 03/01/18 19:00 2.0 Intake and Output 03/02/18 07:01 Intake Total 750 ml Output Total 3250 ml Balance -2500 ml Intake Oral 750 ml Output Urine Total 2950 ml Stool Total 300 ml # Bowel Movements 4 Vitals Signs Vitals VS - Last 72 Hours, by Label Date Time Temp Pulse Resp B/P (MAP) Pulse Ox O2 Delivery O2 Flow Rate FiO2 03/02/18 16:03 Room Air 03/02/18 12:22 Room Air 03/02/18 11:00 99.0 83 18 140/91 (107) 96 Room Air 99.0 03/02/18 09:41 77 158/97 03/02/18 08:03 96 Room Air 03/02/18 08:00 Room Air 03/02/18 07:00 98.2 77 16 158/97 (117) 96 Room Air 98.2 03/02/18 03:00 97.9 74 16 131/80 (97) 98 Room Air 97.9 03/01/18 23:00 97.7 78 18 112/70 (84) 100 Room Air 97.7 03/01/18 20:23 65 140/88 03/01/18 20:17 Room Air 03/01/18 19:20 93 Room Air 03/01/18 19:00 98.4 65 140/88 (105) 96 Room Air 2.0 98.4 03/01/18 15:10 Room Air 03/01/18 15:00 97.9 78 14 130/88 (102) 96 Room Air 97.9 03/01/18 14:47 Room Air 03/01/18 13:45 Room Air 03/01/18 11:17 Room Air 03/01/18 11:00 98.2 83 144/94 (111) 97 Room Air 98.2 03/01/18 08:39 72 120/79 03/01/18 08:36 96 Room Air 03/01/18 08:00 Room Air 2.0 03/01/18 07:00 97.9 88 18 120/79 (93) 96 Room Air 97.9 Laboratory Laboratory Microbiology 02/27/18 Blood Culture - Preliminary, Resulted NO GROWTH AFTER 3 DAYS Medication Medications Current Medications Rivaroxaban (Xarelto) 10 mg DAILY@1700 PO Last administered on 03/02/18at 17:22 ; Start 03/02/18 at 17:00 Comment Review of Relevant I have reviewed the following items mimi (where applicable) has been applied. ZACHERY GARCIA MD Mar 02, 2018 17:46
--- NOTE | 2018-03-02 20:18 | EEG ---
DATE OF SERVICE: 03/01/2018 EEG NUMBER: OBJECTIVE: This is a 58-year-old -[place] female patient with history of seizure or seizure-like episodes. EEG was requested to evaluate seizure activity. METHODS: Twenty electrodes were applied according to the international 10-20 electrode placement system. EKG monitoring, hyperventilation, intermittent photic stimulation, monopolar and bipolar montages are routinely utilized. The record was obtained on a digital system with video monitoring. FINDINGS: 1. Background: The patient was recorded in the awake, drowsy, and sleep states. The overall background amplitude is 5-10 microvolts. No clear well-organized posterior dominant rhythm is observed. The overall background rhythm is with diffuse slowing in the theta and delta frequencies, but mainly in the theta frequency. 2. Abnormalities: No specific epileptiform discharge or electrographic seizure is seen. Diffuse slowing mainly in the theta frequency is throughout the entire recording. 3. Activation: Hyperventilation was performed with fair efforts and normal response. Intermittent photic stimulation was performed with photic driving. No specific epileptiform discharge or electrographic seizure induced. IMPRESSION: This EEG is an abnormal study for the awake, drowsy, and sleep states. No well-organized posterior dominant rhythm is observed. The overall background rhythm is with slowing mainly in the theta frequency. No focal, lateralizing, specific epileptiform discharge or electrographic seizure is seen. This pattern of EEG may suggest encephalopathy. ZACHERY GARCIA MD DR: BECKI/edwina JOB#: [id number] / [id number] GELY
== END 2018-03-02 17:00 | disposition home or self-care (01) | DRG 698 ==
LOC: ER 00:48 → 6 SOUTH 03:29
PROVIDERS: ADMIT Family Medicine; ATTEND Family Medicine
DX: T83.518A Infection and inflammatory reaction due to other urinary catheter, initial encounter (principal); A41.9 Sepsis, unspecified organism; J69.0 Pneumonitis due to inhalation of food and vomit; G92 Toxic encephalopathy; N39.0 Urinary tract infection, site not specified; E44.0 Moderate protein-calorie malnutrition; G12.23 Primary lateral sclerosis; J44.0 Chronic obstructive pulmonary disease with (acute) lower respiratory infection; J98.11 Atelectasis; N17.9 Acute kidney failure, unspecified; D50.9 Iron deficiency anemia, unspecified; E89.0 Postprocedural hypothyroidism; F20.9 Schizophrenia, unspecified; I10 Essential (primary) hypertension; K21.9 Gastro-esophageal reflux disease without esophagitis; N31.9 Neuromuscular dysfunction of bladder, unspecified; Z96.89 Presence of other specified functional implants; Y84.6 Urinary catheterization as the cause of abnormal reaction of the patient, or of later complication, without mention of misadventure at the time of the procedure; Z22.322 Carrier or suspected carrier of Methicillin resistant Staphylococcus aureus; Z79.899 Other long term (current) drug therapy; Z82.49 Family history of ischemic heart disease and other diseases of the circulatory system; Z86.73 Personal history of transient ischemic attack (TIA), and cerebral infarction without residual deficits; Z87.440 Personal history of urinary (tract) infections; Z87.891 Personal history of nicotine dependence; Z88.1 Allergy status to other antibiotic agents; Z90.710 Acquired absence of both cervix and uterus; Z93.59 Other cystostomy status; Z98.1 Arthrodesis status; F32.9 Major depressive disorder, single episode, unspecified; G43.909 Migraine, unspecified, not intractable, without status migrainosus; G89.29 Other chronic pain; R56.9 Unspecified convulsions
CPT/HCPCS: 36415; 70450; 71045; 80048; 80053; 80307; 81001; 82140; 82607; 82962; 83540; 83550; 83735; 83880; 84439; 84443; 84481; 84484; 85025; 85610; 87040; 87086; 87186; 87641; 90471; 90756; 93005; 94640; 94760; 95816; 96361; 96365; J0744; J2060; J2310; J2543; J3370; J3490; J7030; J7040; J7613; J7626; 99285-25; G0378; Q2035

== ENCOUNTER 2018-05-06 10:29 | Inpatient (IN) | payer MEDICARE, OTHER ==
[2018-05-06] VITALS (11 sets, daily range): BP systolic 74–141; BP diastolic 57–81
[~2018-05-06] VITALS: Ht 154.9 cm; Wt 50.5 kg
[~2018-05-06 10:29] MED LIST changes: +HYOS0.1265 SL; +LEVO75TA PO; +PANT40TA3 PO; -PANT40TA77 PO; +POLY17PO29 PO; +POTA10TA12 PO; +QUET100T4 PO; +QUET50TA5 PO; +RIVA10TA PO; +SULF1TAB23 PO; +VENL75CA6 PO
[2018-05-06] MEDS ORDERED: IV NORMAL SALINE 1000ML BAG 1,000 ML IV ONE (11:00)
[2018-05-06 11:08] LABS: BILIRUBIN,URINE NEGATIVE (NEG); CLARITY,URINE CLOUDY; COLOR,URINE AMBER; NITRITE,URINE POSITIVE (NEG); PH,URINE 5.5; PROTEIN,URINE 30 mg/dL (NEG-TRACE); UROBILINOGEN,URINE 0.2 mg/dL (0.2 mg/dL)
--- NOTE | 2018-05-06 11:11 | PHYS DOC ---
Past Medical History Past Medical History: Anemia, Asthma, COPD, Depression, Hyperthyroid, Migraines , Schizophrenia, Other Additional Past Medical Histor: PLS, BACLOFEN PUMP, ALS Past Surgical History: Cholecystectomy, Hysterectomy Smoking: Cigarettes Alcohol Use: None Drug Use: None, Opiates Adult General Chief Complaint Chief Complaint: low bp HPI HPI This is a pleasant 58-year-old female presenting the emergency department today with low blood pressures at the [facility]. This started today. The patient has a history of urinary tract infections and nursing staff reports that typically her blood pressure will drop when she starts getting urinary tract infection. The patient complains of pain but describes the pain is all over. She describes it as a cramping throbbing nonradiating pain and cannot localize it. She denies dysuria or hematuria. She denies a cough or recent influenza exposure. Review of systems is negative for abdominal pain vomiting fevers chills back pain headache or neck stiffness. All other review of systems is negative unless otherwise noted in history of present illness. ED course: 58-year-old female presenting the emergency department today with low blood pressure at the [facility]. On arrival here the patient' s blood pressure was low. Her heart rate is within normal limits. She does not have a beta corinna listed on her medication list from the outside facility. She is afebrile here alert and answers questions appropriately. She is nontoxic appearing. Her abdomen is soft nontender without rebound tenderness or guarding. Urine is dark but not particularly cloudy. We will send it for analysis along with blood work and a chest x-ray. IV fluids initiated along with IV broad-spectrum antibiotics. I considered sepsis in this case given a history of UTI and her drop in blood pressure. The patient does not have tachycardia, she is not febrile she is breathing at less than 20 times a minute. She does not demonstrate SIRS criteria at this time. The time is now 11 AM. Review of Systems Review of Systems SEE ABOVE. Current Medications Current Medications Current Medications Medications (Trade) Dose Ordered Sig/Estelle Start Time Stop Time Status Last Admin Dose Admin Levofloxacin/ Dextrose 150 ml @ 100 mls/hr 1X ONCE 05/06/18 11:15 05/06/18 12:44 DC 05/06/18 11:25 100 MLS/HR Norepinephrine Bitartrate 250 ml @ 1.875 mls/ hr CONT PRN 05/06/18 12:00 Sodium Chloride 1,000 ml @ 1,770 mls/hr Q34M 05/06/18 11:53 05/06/18 12:53 DC 05/06/18 12:39 1,770 MLS/HR Vancomycin HCl (Vanco Per Pharmacy) 1 each PRN DAILY PRN 05/06/18 11:15 Vancomycin HCl 1.5 gm/Sodium Chloride 500 ml @ 250 mls/hr 1X ONCE 05/06/18 12:00 05/06/18 13:59 DC Allergies Allergies Allergies Coded Allergies Type Severity Reaction Last Updated Verified ibuprofen Allergy Intermediate Hives 07/28/16 Yes I S O L A T I O N *CONTACT* Allergy Unknown 03/01/18 Yes cefazolin Adverse Reaction Intermediate N/V 07/28/16 Yes morphine Adverse Reaction Intermediate Nausea and Vomiting 05/06/18 Yes Physical Exam Physical Exam SEE ABOVE Constitutional: Well developed, well nourished, no acute distress, non-toxic appearance. [] HENT: Normocephalic, atraumatic, bilateral external ears normal, oropharynx moist, no oral exudates, nose normal. [] Eyes: PERRLA, EOMI, conjunctiva normal, no discharge. [] Neck: Normal range of motion, no tenderness, supple, no stridor. [] Cardiovascular:Heart rate regular rhythm, no murmur [] Lungs & Thorax: Bilateral breath sounds clear to auscultation [] Abdomen: Bowel sounds normal, soft, no tenderness, no masses, no pulsatile masses. [] Skin: Warm, dry, no erythema, no rash. [] Back: No tenderness, no CVA tenderness. [] Extremities: No tenderness, no cyanosis, no clubbing, ROM intact, no edema. [] Neurologic: Alert and oriented X 3, normal motor function, normal sensory function, no focal deficits noted. [] Psychologic: Affect normal, judgement normal, mood normal. [] Current Patient Data Vital Signs Vital Signs Date Time Temp Pulse Resp B/P (MAP) Pulse Ox O2 Delivery O2 Flow Rate FiO2 05/06/18 12:02 64 18 100/61 (74) 98 Room Air 05/06/18 10:41 97.7 97.7 Lab Values Laboratory Tests Test 05/06/18 10:48 05/06/18 11:05 Urine Collection Type Unknown Urine Color Sofya Urine Clarity Cloudy Urine pH 5.5 Urine Specific [place] 1.025 Urine Protein 30 mg/dL (NEG-TRACE) Urine Glucose (UA) Negative mg/dL (NEG) Urine Ketones (Stick) Negative mg/dL (NEG) Urine Blood Moderate (NEG) Urine Nitrite Positive (NEG) Urine Bilirubin Negative (NEG) Urine Urobilinogen Dipstick 0.2 mg/dL (0.2 mg/dL) Urine Leukocyte Esterase Large (NEG) Urine RBC Fobs /HPF (0-2) Urine WBC Tntc /HPF (0-4) Urine Bacteria Many /HPF (0-FEW) Urine Hyaline Casts Few /HPF White Blood Count 4.6 x10^3/uL (4.0-11.0) Red Blood Count 3.12 x10^6/uL (3.50-5.40) L Hemoglobin 9.9 g/dL (12.0-15.5) L Hematocrit 30.7 % (36.0-47.0) L Mean Corpuscular Volume 98 fL (79-100) Mean Corpuscular Hemoglobin 32 pg (25-35) Mean Corpuscular Hemoglobin Concent 32 g/dL (31-37) Red Cell Distribution Width 13.4 % (11.5-14.5) Platelet Count 246 x10^3/uL (140-400) Neutrophils (%) (Auto) 33 % (31-73) Lymphocytes (%) (Auto) 47 % (24-48) Monocytes (%) (Auto) 14 % (0-9) H Eosinophils (%) (Auto) 6 % (0-3) H Basophils (%) (Auto) 0 % (0-3) Neutrophils # (Auto) 1.5 x10^3uL (1.8-7.7) L Lymphocytes # (Auto) 2.1 x10^3/uL (1.0-4.8) Monocytes # (Auto) 0.6 x10^3/uL (0.0-1.1) Eosinophils # (Auto) 0.3 x10^3/uL (0.0-0.7) Basophils # (Auto) 0.0 x10^3/uL (0.0-0.2) Sodium Level 143 mmol/L (136-145) Potassium Level 4.0 mmol/L (3.5-5.1) Chloride Level 106 mmol/L (98-107) Carbon Dioxide Level 33 mmol/L (21-32) H Anion Gap 4 (6-14) L Blood Urea Nitrogen 9 mg/dL (7-20) Creatinine 0.9 mg/dL (0.6-1.0) Estimated GFR (Cockcroft-Gault) 77.5 Glucose Level 85 mg/dL (70-99) Lactic Acid Level 1.2 mmol/L (0.4-2.0) Calcium Level 8.7 mg/dL (8.5-10.1) Total Bilirubin 0.2 mg/dL (0.2-1.0) Direct Bilirubin < 0.1 mg/dL (0.0-0.2) Aspartate Amino Transferase (AST) 17 U/L (15-37) Alanine Aminotransferase (ALT) 13 U/L (14-59) L Alkaline Phosphatase 87 U/L (46-116) Troponin I Quantitative < 0.017 ng/mL (0.000-0.055) CG-Btw-K-Type Natriuretic Peptide 639 pg/mL (0-124) H Total Protein 6.2 g/dL (6.4-8.2) L Albumin 3.0 g/dL (3.4-5.0) L Lipase 72 U/L (73-393) L Laboratory Tests 05/06/18 11:05 Laboratory Tests 05/06/18 11:05 EKG EKG [] Radiology/Procedures Radiology/Procedures [] Course & Med Decision Making Course & Med Decision Making Pertinent Labs and Imaging studies reviewed. (See chart for details) [] Dragon Disclaimer Dragon Disclaimer This electronic medical record was generated, in whole or in part, using a voice recognition dictation system. Departure Departure Impression: Primary Impression: Hypotension Additional Impression: UTI (urinary tract infection) Disposition: ADMITTED INPATIENT Admitting Physician: Other (adelaida) Condition: STABLE Referrals: RISHABH LUNDBERG MD (PCP) Critical Care Time Critical care time spent was 45 minutes exclusive of procedures. Time was spent evaluating the patient, ordering the administration of medications, reevaluating the patient, discussing with the admitting provider and documenting. Problem Qualifiers BELEM JARAMILLO MD May 06, 2018 11:11
[2018-05-06] MEDS ORDERED: IV NORMAL SALINE 1000ML BAG 1,000 ML IV SCH (11:13)
[2018-05-06 11:15] LABS: BASO % 0 % (0-3); EOS # 0.3 x10^3/uL (0.0-0.7); EOS % 6 % (0-3); HEMATOCRIT 30.7 % (36.0-47.0); HEMOGLOBIN 9.9 g/dL (12.0-15.5); LYMPH # 2.1 x10^3/uL (1.0-4.8); LYMPH % 47 % (24-48); MEAN CORPUSCULAR HEMOGLOBIN 32 pg (25-35); MEAN CORPUSCULAR HGB CONC 32 g/dL (31-37); MEAN CORPUSCULAR VOLUME 98 fL (79-100); MONO # 0.6 x10^3/uL (0.0-1.1); MONO % 14 % (0-9); NEUT # 1.5 x10^3uL (1.8-7.7); NEUT % 33 % (31-73); PLATELET COUNT 246 x10^3/uL (140-400); RED BLOOD COUNT 3.12 x10^6/uL (3.50-5.40); RED CELL DISTRIBUTION WIDTH 13.4 % (11.5-14.5); WHITE BLOOD COUNT 4.6 x10^3/uL (4.0-11.0)
[2018-05-06 11:21] LABS: BACTERIA,URINE MANY /HPF (0-FEW); WBC,URINE TNTC /HPF (0-4)
[2018-05-06 11:22] LABS: HYALINE CASTS, URINE FEW /HPF; RBC,URINE FOBS /HPF (0-2)
--- NOTE | 2018-05-06 11:22 | RAD ---
EXAM: CHEST 1 VIEW History: Hypotension COMPARISON: 02/28/2018 TECHNIQUE: Single portable radiograph of the chest FINDINGS: The cardiac silhouette is unremarkable. The lungs are clear bilaterally. The costophrenic sulci are clear and well demarcated. IMPRESSION: No radiographic evidence of an acute cardiopulmonary process. Electronically signed by: Ryan Renee MD (05/06/2018 11:19 AM) [id number]
[2018-05-06 11:31] LABS: ANION GAP 4 (6-14); BLOOD UREA NITROGEN 9 mg/dL (7-20); CALCIUM 8.7 mg/dL (8.5-10.1); CARBON DIOXIDE 33 mmol/L (21-32); CHLORIDE 106 mmol/L (98-107); CREATININE 0.9 mg/dL (0.6-1.0); GFR 77.5; GLUCOSE 85 mg/dL (70-99); SODIUM 143 mmol/L (136-145)
[2018-05-06 11:36] LABS: ALK PHOS 87 U/L (46-116); ALT (SGPT) 13 U/L (14-59); AST (SGOT) 17 U/L (15-37); DIRECT BILIRUBIN < 0.1 mg/dL (0.0-0.2); LIPASE 72 U/L (73-393); TOTAL BILIRUBIN 0.2 mg/dL (0.2-1.0); TOTAL PROTEIN 6.2 g/dL (6.4-8.2)
--- NOTE | 2018-05-06 11:38 | PDOC1 ---
History and Physical Date of Admission Date of Admission DATE: 05/06/18 TIME: 11:37 Identification/Chief Complaint Chief Complaint Hypotension Source Source: Caregiver, Chart review, Patient History of Present Illness History of Present Illness 58-year-old female SNF resident ([facility]) w/ PMHx HTN, prior CVA, Primary Lateral Sclerosis, asthma with COPD, anemia, GERD, depression, psychosis (schizophrenia) , recurrent UTI, hypothyroidism, CVA, cervical spondylosis and spasticity s/p placement of Baclofen and Prialt pain pump, hyperthyroidism s/p radiation who has presented to the emergency department today with low blood pressure at the [facility]. On arrival here the patient's blood pressure was low and urinalysis consistent with pyuria, large leukocyte esterase and nitrites and blood positive. She notes leaking from her suprapubic catheter site and drainage and foul smell. Her heart rate is within normal limits. She is afebrile here alert, no leukocytosis and answers questions appropriately. She is nontoxic appearing, but does appear chronically ill. IV fluids initiated along with IV broad-spectrum antibiotics given for her persistent hypotension, has h/o MRSA UTI this past February. Past Medical History Cardiovascular: HTN Pulmonary: COPD CENTRAL NERVOUS SYSTEM: CVA, Other GI: Constipation, GERD Heme/Onc: Anemia NOS Psych: Depression, Schizophrenia Musculoskeletal: Other Infectious disease: Other Renal/: Acute renal failure, UTI Endocrine: Hypothyroidism Past Surgical History Past Surgical History: Cholecystectomy, , Hysterectomy, Other Family History Family History: Hypertension, Obesity, Osteo Arthiritis Social History Smoke: No ALCOHOL: none Drugs: None Current Medications Current Medications Current Medications Sodium Chloride 1,000 ml @ 1,000 mls/hr 1X ONCE IV Last administered on at 11:25; Start 05/06/18 at 11:00; Stop 05/06/18 at 11:59 Levofloxacin/ Dextrose 150 ml @ 100 mls/hr 1X ONCE IV Last administered on at 11:25; Start 05/06/18 at 11:15; Stop 05/06/18 at 12:44 Sodium Chloride 1,000 ml @ 100 mls/hr Q10H IV ; Start 05/06/18 at 11:13; Stop 05/06/18 at 15:12 Vancomycin HCl (Vanco Per Pharmacy) 1 each PRN DAILY PRN MC SEE COMMENTS; Start 05/06/18 at 11:15; Status UNV Vancomycin HCl 1.5 gm/Sodium Chloride 500 ml @ 250 mls/hr 1X ONCE IV ; Start 05/06/18 at 12:00; Stop 05/06/18 at 13:59 Active Scripts Active Metoprolol Tartrate 25 Mg Tablet 12.5 Mg PO BID 30 Days Tylenol (Acetaminophen) 325 Mg Tablet 650 Mg PO PRN Q6HRS PRN 30 Days Reported Venlafaxine Hcl Er (Venlafaxine Hcl) 75 Mg Cap.er.24h 225 Mg PO DAILY Xarelto (Rivaroxaban) 10 Mg Tablet 10 Mg PO DAILYWSUP Synthroid (Levothyroxine Sodium) 75 Mcg Tablet 75 Mcg PO DAILY07 Seroquel (Quetiapine Fumarate) 50 Mg Tablet 50 Mg PO DAILY13 Seroquel (Quetiapine Fumarate) 100 Mg Tablet 1 Tab PO DAILY13 Potassium Chloride 10 Meq Tab.sr.24h 10 Meq PO DAILY Percocet 7.5-325 Mg Tablet (Oxycodone/Acetaminophen) 1 Each Tablet 1 Tab PO PRN Q6HRS PRN Miralax (Polyethylene Glycol 3350) 17 Gm Powd.pack 1 Pkt PO TID Levsin-Sl (Hyoscyamine Sulfate) 0.125 Mg Tab.subl 0.125 Mg SL PRN Q4HRS PRN Bactrim 400-80 Mg Tablet (Sulfamethoxazole/Trimethoprim) 1 Each Tablet 2 Each PO BID 10 Days Baclofen 10 Mg Tablet 10 Mg PO HS Xopenex Hfa (Levalbuterol Tartrate) 15 Gm Hfa.aer.ad 2 Puff IH PRN Q4-6HRS Fluticasone Propionate Nasal [place] (Fluticasone Propionate) 16 Gm [place].susp 2 [place] NS DAILY Advair 500-50 Diskus (Fluticasone/Salmeterol) 1 Each Disk.w.dev 1 Each IH BID Amitriptyline Hcl 10 Mg Tablet 10 Mg PO BID Zofran Odt (Ondansetron) 8 Mg Tab.rapdis 8 Mg PO PRN Tizanidine Hcl 2 Mg Capsule 4 Mg PO TID Zantac (Ranitidine Hcl) 150 Mg Tablet 150 Mg PO HS Gabapentin 800 Mg Tablet 800 Mg PO TID Allergies Allergies: Coded Allergies: ibuprofen (Verified Allergy, Intermediate, Hives, 07/28/16) TOLERATES ASPIRIN I S O L A T I O N *CONTACT* (Verified Allergy, Unknown, 03/01/18) mrsa cefazolin (Verified Adverse Reaction, Intermediate, N/V, 07/28/16) morphine (Verified Adverse Reaction, Intermediate, Nausea and Vomiting, ) ROS General: YES: Chills, Fatigue, Malaise, Appetite; No: Night Sweats, Other PSYCHOLOGICAL ROS: YES: Anxiety; No: Behavioral Disorder, Concentration difficultie, Decreased libido, Depression, Disorientation, Hallucinations, Hostility, Irritablity, Memory difficulties, Mood Swings, Obsessive thoughts, Physical abuse, Sexual abuse, Sleep disturbances, Suicidal ideation, Other Eyes: No Blurry vision, No Decreased vision, No Double vision, No Dry eyes, No Excessive tearing, No Eye Pain, No Itchy Eyes, No Loss of vision, No Photophobia , No Scotomata, No Uses contacts, No Uses glasses, No Other HEENT: No: Heacaches, Visual Changes, Hearing change, Nasal congestion, Nasal discharge, Oral lesions, Sinus pain, Sore Throat, Epistaxis, Sneezing, Snoring, Tinnitus, Vertigo, Vocal changes, Other ALLERGY AND IMMUNOLOGY: No: Hives, Insect Bite Sensitivity, Itchy/Watery Eyes, Nasal Congestion, Post Nasal Drip, Seasonal Allergies, Other Hematological and Lymphatic: No: Bleeding Problems, Blood Clots, Blood Transfusions, Brusing, Night Sweats, Pallor, Swollen Lymph Nodes, Other ENDOCRINE: No: Breast Changes, Galactorrhea, Hair Pattern Changes, Hot Flashes , Malaise/lethargy, Mood Swings, Palpitations, Polydipsia/polyuria, Skin Changes , Temperature Intolerance, Unexpected Weight Changes, Other Breast: No New/Changing Breast Lumps, No Nipple changes, No Nipple discharge, No Other Respiratory: No: Cough, Hemoptysis, Orthopnea, Pleuritic Pain, Shortness of breath, SOB with excertion, Sputum Changes, Stridor, Tachypnea, Wheezing, Other Cardiovascular: No Chest Pain, No Palpitations, No Orthopnea, No Paroxysmal Noc. Dyspnea, No Edema, No Lt Headedness, No Other Gastrointestinal: Yes Nausea; No Vomiting, No Abdominal Pain, No Diarrhea, No Constipation, No Melena, No Hematochezia, No Other Genitourinary: YES Other (Leaking from suprapubic site) Physical Exam General: Alert, Oriented X3, Cooperative, No acute distress HEENT: Atraumatic, PERRLA, EOMI, Mucous membr. moist/pink Lungs: Clear to auscultation, Normal air movement Heart: S1S2, RRR, no gallops, no murmurs Abdomen: Normal bowel sounds, Soft, No tenderness, No hepatosplenomegaly, No masses, Other (Suprapubic catheter with drainage) Extremities: No clubbing, No cyanosis, No edema, Normal pulses, No tenderness/ swelling Skin: No rashes, No breakdown, No significant lesion Neuro: Other (Decreased tone in all muscle groups, worse in bilateral LE) Psych/Mental Status: Mental status NL, Mood NL Vitals Vitals Vital Signs Date Time Temp Pulse Resp B/P (MAP) Pulse Ox O2 Delivery O2 Flow Rate FiO2 05/06/18 10:41 97.7 73 18 77/51 (60) 97 Room Air 97.7 Labs Labs Laboratory Tests Test 05/06/18 10:48 05/06/18 11:05 Urine Collection Type Unknown Urine Color Sofya Urine Clarity Cloudy Urine pH 5.5 Urine Specific [place] 1.025 Urine Protein 30 mg/dL (NEG-TRACE) Urine Glucose (UA) Negative mg/dL (NEG) Urine Ketones (Stick) Negative mg/dL (NEG) Urine Blood Moderate (NEG) Urine Nitrite Positive (NEG) Urine Bilirubin Negative (NEG) Urine Urobilinogen Dipstick 0.2 mg/dL (0.2 mg/dL) Urine Leukocyte Esterase Large (NEG) Urine RBC Fobs /HPF (0-2) Urine WBC Tntc /HPF (0-4) Urine Bacteria Many /HPF (0-FEW) Urine Hyaline Casts Few /HPF White Blood Count 4.6 x10^3/uL (4.0-11.0) Red Blood Count 3.12 x10^6/uL (3.50-5.40) Hemoglobin 9.9 g/dL (12.0-15.5) Hematocrit 30.7 % (36.0-47.0) Mean Corpuscular Volume 98 fL (79-100) Mean Corpuscular Hemoglobin 32 pg (25-35) Mean Corpuscular Hemoglobin Concent 32 g/dL (31-37) Red Cell Distribution Width 13.4 % (11.5-14.5) Platelet Count 246 x10^3/uL (140-400) Neutrophils (%) (Auto) 33 % (31-73) Lymphocytes (%) (Auto) 47 % (24-48) Monocytes (%) (Auto) 14 % (0-9) Eosinophils (%) (Auto) 6 % (0-3) Basophils (%) (Auto) 0 % (0-3) Neutrophils # (Auto) 1.5 x10^3uL (1.8-7.7) Lymphocytes # (Auto) 2.1 x10^3/uL (1.0-4.8) Monocytes # (Auto) 0.6 x10^3/uL (0.0-1.1) Eosinophils # (Auto) 0.3 x10^3/uL (0.0-0.7) Basophils # (Auto) 0.0 x10^3/uL (0.0-0.2) Sodium Level 143 mmol/L (136-145) Potassium Level 4.0 mmol/L (3.5-5.1) Chloride Level 106 mmol/L (98-107) Carbon Dioxide Level 33 mmol/L (21-32) Anion Gap 4 (6-14) Blood Urea Nitrogen 9 mg/dL (7-20) Creatinine 0.9 mg/dL (0.6-1.0) Estimated GFR (Cockcroft-Gault) 77.5 Glucose Level 85 mg/dL (70-99) Calcium Level 8.7 mg/dL (8.5-10.1) Total Bilirubin 0.2 mg/dL (0.2-1.0) Direct Bilirubin < 0.1 mg/dL (0.0-0.2) Aspartate Amino Transf (AST/SGOT) 17 U/L (15-37) Alanine Aminotransferase (ALT/SGPT) 13 U/L (14-59) Alkaline Phosphatase 87 U/L (46-116) Total Protein 6.2 g/dL (6.4-8.2) Albumin 3.0 g/dL (3.4-5.0) Lipase 72 U/L (73-393) Laboratory Tests Test 05/06/18 10:48 05/06/18 11:05 Urine Collection Type Unknown Urine Color Sofya Urine Clarity Cloudy Urine pH 5.5 Urine Specific [place] 1.025 Urine Protein 30 mg/dL (NEG-TRACE) Urine Glucose (UA) Negative mg/dL (NEG) Urine Ketones (Stick) Negative mg/dL (NEG) Urine Blood Moderate (NEG) Urine Nitrite Positive (NEG) Urine Bilirubin Negative (NEG) Urine Urobilinogen Dipstick 0.2 mg/dL (0.2 mg/dL) Urine Leukocyte Esterase Large (NEG) Urine RBC Fobs /HPF (0-2) Urine WBC Tntc /HPF (0-4) Urine Bacteria Many /HPF (0-FEW) Urine Hyaline Casts Few /HPF White Blood Count 4.6 x10^3/uL (4.0-11.0) Red Blood Count 3.12 x10^6/uL (3.50-5.40) Hemoglobin 9.9 g/dL (12.0-15.5) Hematocrit 30.7 % (36.0-47.0) Mean Corpuscular Volume 98 fL (79-100) Mean Corpuscular Hemoglobin 32 pg (25-35) Mean Corpuscular Hemoglobin Concent 32 g/dL (31-37) Red Cell Distribution Width 13.4 % (11.5-14.5) Platelet Count 246 x10^3/uL (140-400) Neutrophils (%) (Auto) 33 % (31-73) Lymphocytes (%) (Auto) 47 % (24-48) Monocytes (%) (Auto) 14 % (0-9) Eosinophils (%) (Auto) 6 % (0-3) Basophils (%) (Auto) 0 % (0-3) Neutrophils # (Auto) 1.5 x10^3uL (1.8-7.7) Lymphocytes # (Auto) 2.1 x10^3/uL (1.0-4.8) Monocytes # (Auto) 0.6 x10^3/uL (0.0-1.1) Eosinophils # (Auto) 0.3 x10^3/uL (0.0-0.7) Basophils # (Auto) 0.0 x10^3/uL (0.0-0.2) Sodium Level 143 mmol/L (136-145) Potassium Level 4.0 mmol/L (3.5-5.1) Chloride Level 106 mmol/L (98-107) Carbon Dioxide Level 33 mmol/L (21-32) Anion Gap 4 (6-14) Blood Urea Nitrogen 9 mg/dL (7-20) Creatinine 0.9 mg/dL (0.6-1.0) Estimated GFR (Cockcroft-Gault) 77.5 Glucose Level 85 mg/dL (70-99) Calcium Level 8.7 mg/dL (8.5-10.1) Total Bilirubin 0.2 mg/dL (0.2-1.0) Direct Bilirubin < 0.1 mg/dL (0.0-0.2) Aspartate Amino Transf (AST/SGOT) 17 U/L (15-37) Alanine Aminotransferase (ALT/SGPT) 13 U/L (14-59) Alkaline Phosphatase 87 U/L (46-116) Total Protein 6.2 g/dL (6.4-8.2) Albumin 3.0 g/dL (3.4-5.0) Lipase 72 U/L (73-393) Images Images CXR - No radiographic evidence of an acute cardiopulmonary process. VTE Prophylaxis Ordered VTE Prophylaxis Devices: Yes VTE Pharmacological Prophylaxi: Yes Assessment/Plan Assessment/Plan A/P: Hypotension - possibly medication related or PLS related, also with what appears to be a UTI UTI - with pyuria, prior MRSA UTI. ID to see whether this needs continued treatment or is asymptomatic. Given her hypotension I must err on the side of treating currently. Vancomycin to cover S/p suprapubic catheter - will asses when it was last changed, have urology to see as it appears to have drainage of urine and purulent discharge HTN - hold meds for hypotension Primary Lateral Sclerosis - I am uncertain of how this is being treated, though she does have baclofen/Prialt pump which seems to assuage her symptoms. I have asked her not to utilize it while she is so hypotensive Asthma with COPD - nebs prn Anemia - likely 2/2 chronic disease GERD - on PPI Depression with h/o psychosis (schizophrenia) - cont her mood stabilizers Recurrent UTI - likely 2/2 her PLS with suprapubic catheter. ID to see tomorrow morning Hypothyroidism - s/p ablation, cont meds Cervical spondylosis and spasticity - from her Primary Lateral Sclerosis - s/p placement of Baclofen and Prialt pain pump FEN - General diet PPX - Lovenox FULL CODE ICU for hypotension requiring pressors. Likely inpatient at least 2 midnights. CONNIE HUBER MD May 06, 2018 11:38
[2018-05-06] MEDS ORDERED: VANCOMYCIN 1.5 GM in IV NORMAL SALINE 500ML BAG 500 ML IV ONE (12:00)
[2018-05-06] MEDS ORDERED: NOREPINEPHRIN 8MG/250ML PREMIX 250 ML IV PRN (12:00)
[2018-05-06] MEDS: IV NORMAL SALINE 1000ML BAG 1,000 ML IV SCH ×2 (12:27→12:39)
--- NOTE | 2018-05-06 14:11 | EKG ---
[facility] [address] [place] [address] Test Date: 2018-05-06 Test Time: 10:50:39 Pat Name: NAKUL HER Department: Room: 109 1 Gender: F Director Information Security: : 1960 Requested By: BELEM JARAMILLO Order Number: [id number] Reading MD: Jonathan Stevens MD Measurements Intervals [place] Rate: 69 P: 54 GA: 190 QRS: -14 QRSD: 98 T: 36 QT: 434 QTc: 467 Interpretive Statements SINUS RHYTHM ANTEROSEPTAL INFARCT ANTEROLATERAL TWI LAD BASELINE ARTIFACT Electronically Signed On 05-07-2018 17:24:52 CDT by Jonathan Stevens MD
[2018-05-06] MEDS ORDERED: ACETAMINOPHEN 325 MG TABLET. PO PRN (16:15)
[2018-05-06] MEDS: ALBUTEROL SULFATE 2.5 MG/3 ML NEBU. NEB SCH ×2 (16:30→20:26)
[2018-05-06] MEDS: VANCOMYCIN PER PHARMACY MC PRN (16:47)
--- NOTE | 2018-05-06 16:47 | NUR ---
Pharmacy Vancomycin Dosing Note S:Consulted to monitor and dose vancomycin started 05/06/18. O:NAKUL HER is a 58 year old F with UTI. Height: 5 feet, 1 inches Weight: 50.5kg Dosing Weight: Actual Other Antibiotics: N/A LABS: Last BUN: 9 Last Creatinine: 0.9 Creatinine Clearance: 59 mL/min Last WBC: 4.6 Tmax (past 24 hours): 98.6 Microbiology: BLOOD AND URINE CX PENDING I/O: 1150/no output documented A: Patient requires vancomycin for UTI, has h/o MRSA UTI. Goal trough 10-20 mcg/ml. Patient's SCr is 0.9 with an eCrCl of 59 ml/min. Initiate below dosing based on patient's vancomycin regimens from past admissions: P: 1. Initiate Vancomycin 1500 mg IV x 1 dose, then 1000 mg IV q12h 2. Follow up Trough level on 05/08/18 at 0330 3. Pharmacy will continue to monitor, follow and adjust therapy as needed. JAY JAY JONES, [facility], 05/06/18 [id number]
[2018-05-06] MEDS: oxyCODONE/APAP 7.5/325 1 TAB TABLET PO PRN ×2 (17:01→23:02)
[2018-05-06] MEDS: BUDESONIDE 0.5 MG/2 ML NEBU. NEB SCH (20:26)
[2018-05-06] MEDS ORDERED: NON FORMULARY ITEM (Fluticasone/Salmeterol (Advair 500-50 Diskus) 1 EACH) IH SCH (21:00)
[2018-05-06] MEDS ORDERED: VANCOMYCIN 1 GM in IV NORMAL SALINE 250ML 250 ML IV SCH (21:00)
[2018-05-06] MEDS: ENOXAPARIN 40 MG/0.4 ML SYRINGE. SQ SCH (23:00)
[2018-05-06] MEDS: GABAPENTIN 400 MG CAPSULE. PO SCH (23:01)
[2018-05-07] VITALS (12 sets, daily range): BP systolic 121–154; BP diastolic 62–94
[2018-05-07] MEDS ORDERED: VANCOMYCIN 750 MG in IV NORMAL SALINE 250ML 250 ML IV SCH (04:00)
[2018-05-07] MEDS: VANCOMYCIN 1 GM in IV NORMAL SALINE 250ML 250 ML IV SCH ×2 (04:03→15:50)
[2018-05-07 05:34] LABS: BASO # 0.1 x10^3/uL (0.0-0.2); BASO % 1 % (0-3); EOS # 0.3 x10^3/uL (0.0-0.7); EOS % 4 % (0-3); HEMATOCRIT 29.1 % (36.0-47.0); HEMOGLOBIN 9.5 g/dL (12.0-15.5); LYMPH # 3.2 x10^3/uL (1.0-4.8); LYMPH % 50 % (24-48); MEAN CORPUSCULAR HEMOGLOBIN 32 pg (25-35); MEAN CORPUSCULAR HGB CONC 33 g/dL (31-37); MEAN CORPUSCULAR VOLUME 99 fL (79-100); MONO # 0.7 x10^3/uL (0.0-1.1); MONO % 10 % (0-9); NEUT # 2.3 x10^3uL (1.8-7.7); NEUT % 35 % (31-73); PLATELET COUNT 223 x10^3/uL (140-400); RED BLOOD COUNT 2.95 x10^6/uL (3.50-5.40); RED CELL DISTRIBUTION WIDTH 13.3 % (11.5-14.5); WHITE BLOOD COUNT 6.5 x10^3/uL (4.0-11.0)
[2018-05-07 05:52] LABS: CALCIUM 8.3 mg/dL (8.5-10.1); CREATININE 0.8 mg/dL (0.6-1.0); GFR 88.8; POTASSIUM 3.8 mmol/L (3.5-5.1)
[2018-05-07] MEDS: ALBUTEROL SULFATE 2.5 MG/3 ML NEBU. NEB SCH ×4 (08:00→19:37)
[2018-05-07] MEDS: BUDESONIDE 0.5 MG/2 ML NEBU. NEB SCH ×2 (08:00→19:37)
[2018-05-07] MEDS: POLYETHYLENE GLYCOL 3350 17 GM PACKET. PO SCH (08:17)
[2018-05-07] MEDS: GABAPENTIN 400 MG CAPSULE. PO SCH ×3 (08:17→20:25)
[2018-05-07] MEDS: FLUTICASONE 50MCG/NASAL SPRAY 16GM BOTTLE. NS SCH (08:17)
[2018-05-07] MEDS: LEVOTHYROXINE 75 MCG TABLET PO SCH (08:17)
[2018-05-07] MEDS: QUEtiapine 50 MG TAB.ER.24H. PO SCH (08:18)
[2018-05-07] MEDS: VENLAFAXINE XR 37.5 MG CAP.ER.24H. PO SCH (08:18)
--- NOTE | 2018-05-07 08:28 | PDOC ---
Infectious Disease Note Vital Sign Vital Signs Vital Signs Date Time Temp Pulse Resp B/P (MAP) Pulse Ox O2 Delivery O2 Flow Rate FiO2 05/07/18 06:00 96 12 124/76 (92) 94 Room Air 05/07/18 04:00 98.8 98.8 Labs Lab Laboratory Tests Test 05/06/18 10:48 05/06/18 11:05 05/06/18 12:43 05/07/18 04:00 Urine Collection Type Unknown Urine Color Sofya Urine Clarity Cloudy Urine pH 5.5 Urine Specific [place] 1.025 Urine Protein 30 mg/dL (NEG-TRACE) Urine Glucose (UA) Negative mg/dL (NEG) Urine Ketones (Stick) Negative mg/dL (NEG) Urine Blood Moderate (NEG) Urine Nitrite Positive (NEG) Urine Bilirubin Negative (NEG) Urine Urobilinogen Dipstick 0.2 mg/dL (0.2 mg/dL) Urine Leukocyte Esterase Large (NEG) Urine RBC Fobs /HPF (0-2) Urine WBC Tntc /HPF (0-4) Urine Bacteria Many /HPF (0-FEW) Urine Hyaline Casts Few /HPF White Blood Count 4.6 x10^3/uL (4.0-11.0) 6.5 x10^3/uL (4.0-11.0) Red Blood Count 3.12 x10^6/uL (3.50-5.40) 2.95 x10^6/uL (3.50-5.40) Hemoglobin 9.9 g/dL (12.0-15.5) 9.5 g/dL (12.0-15.5) Hematocrit 30.7 % (36.0-47.0) 29.1 % (36.0-47.0) Mean Corpuscular Volume 98 fL (79-100) 99 fL (79-100) Mean Corpuscular Hemoglobin 32 pg (25-35) 32 pg (25-35) Mean Corpuscular Hemoglobin Concent 32 g/dL (31-37) 33 g/dL (31-37) Red Cell Distribution Width 13.4 % (11.5-14.5) 13.3 % (11.5-14.5) Platelet Count 246 x10^3/uL (140-400) 223 x10^3/uL (140-400) Neutrophils (%) (Auto) 33 % (31-73) 35 % (31-73) Lymphocytes (%) (Auto) 47 % (24-48) 50 % (24-48) Monocytes (%) (Auto) 14 % (0-9) 10 % (0-9) Eosinophils (%) (Auto) 6 % (0-3) 4 % (0-3) Basophils (%) (Auto) 0 % (0-3) 1 % (0-3) Neutrophils # (Auto) 1.5 x10^3uL (1.8-7.7) 2.3 x10^3uL (1.8-7.7) Lymphocytes # (Auto) 2.1 x10^3/uL (1.0-4.8) 3.2 x10^3/uL (1.0-4.8) Monocytes # (Auto) 0.6 x10^3/uL (0.0-1.1) 0.7 x10^3/uL (0.0-1.1) Eosinophils # (Auto) 0.3 x10^3/uL (0.0-0.7) 0.3 x10^3/uL (0.0-0.7) Basophils # (Auto) 0.0 x10^3/uL (0.0-0.2) 0.1 x10^3/uL (0.0-0.2) Sodium Level 143 mmol/L (136-145) 142 mmol/L (136-145) Potassium Level 4.0 mmol/L (3.5-5.1) 3.8 mmol/L (3.5-5.1) Chloride Level 106 mmol/L (98-107) 107 mmol/L (98-107) Carbon Dioxide Level 33 mmol/L (21-32) 29 mmol/L (21-32) Anion Gap 4 (6-14) 6 (6-14) Blood Urea Nitrogen 9 mg/dL (7-20) 5 mg/dL (7-20) Creatinine 0.9 mg/dL (0.6-1.0) 0.8 mg/dL (0.6-1.0) Estimated GFR (Cockcroft-Gault) 77.5 88.8 Glucose Level 85 mg/dL (70-99) 84 mg/dL (70-99) Lactic Acid Level 1.2 mmol/L (0.4-2.0) 1.2 mmol/L (0.4-2.0) Calcium Level 8.7 mg/dL (8.5-10.1) 8.3 mg/dL (8.5-10.1) Total Bilirubin 0.2 mg/dL (0.2-1.0) Direct Bilirubin < 0.1 mg/dL (0.0-0.2) Aspartate Amino Transf (AST/SGOT) 17 U/L (15-37) Alanine Aminotransferase (ALT/SGPT) 13 U/L (14-59) Alkaline Phosphatase 87 U/L (46-116) Troponin I Quantitative < 0.017 ng/mL (0.000-0.055) JH-[id number]-U-Type Natriuretic Peptide 639 pg/mL (0-124) Total Protein 6.2 g/dL (6.4-8.2) Albumin 3.0 g/dL (3.4-5.0) Lipase 72 U/L (73-393) Objective Assessment Low BP Low grade fever Cath associated UTI COPD Plan Plan of Care vanc and cefepime supportive care check cultures KELLY SALGUERO MD May 07, 2018 08:28
--- NOTE | 2018-05-07 09:39 | NUR ---
IP: Pt has a hx of + mrsa screen and mrsa + urine on 02/27/18. Pt to be in contact precautions until there are 2 negatives from each source 7 days apart.
--- NOTE | 2018-05-07 09:57 | PDOC2 ---
LUPE NEIL Renay [employer] 05/07/18 0957: UROLOGY CONSULT Date of Consult Date of Consult DATE: 05/07/18 TIME: 09:50 Source Source: Caregiver, Chart review, Patient History of Present Illness Reason for Visit: Pleasant 58 year old female SNF resident with a history of multiple medical problems to include HTN, prior CVA, Primary Lateral Sclerosis, asthma with COPD , anemia, GERD, depression, psychosis (schizophrenia), recurrent UTI, hypothyroidism, CVA, cervical spondylosis and spasticity s/p placement of Baclofen and Prialt pain pump, hyperthyroidism s/p radiation who has presented to the emergency department today with low blood pressure at the long-term care facility. . She was admitted to ICU for hypotension and pyuria and is currently receiving treatment for this she has h/o MRSA UTI this past February. She relates a history of having her SP tube for "about two months" although she is not completely sure. She also cannot remember why they put the SP tube in in the first place, but does remember difficulty with "my bladder getting full. " She has a home health nurse who comes and changes this out as well as helps her with other things and her SP was last changed two weeks ago, she thinks, but is not sure. She does relate a history of bladder spasms and urine leaking which was bothering her last night, but is not a big problem today; still this "varies." Overall a poor historian. Past Medical History Cardiovascular: HTN Pulmonary: COPD CENTRAL NERVOUS SYSTEM: CVA, Other GI: Constipation, GERD Heme/Onc: Anemia NOS Psych: Depression, Schizophrenia Musculoskeletal: Other Infectious disease: Other Renal/: Acute renal failure, UTI, Other (SP tube leakage) Endocrine: Hypothyroidism Past Surgical History Past Surgical History: Cholecystectomy, , Hysterectomy, Other Family History Family History: Hypertension, Obesity, Osteo Arthiritis Social History No ALCOHOL: none Drugs: None Lives: with Family Current Problem List Problems: (1) Urinary tract infection Current Medications Current Medications Current Medications Acetaminophen (Tylenol) 650 mg PRN Q6HRS PRN PO FEVER > 101; Start 05/06/18 at 16:15 Albuterol Sulfate (Ventolin Neb Soln) 2.5 mg RTQID NEB Last administered on at 20:26; Start 05/06/18 at 16:30 Budesonide (Pulmicort) 0.5 mg RTBID NEB Last administered on 05/06/18 20:26; Start 05/06/18 at 20:00 Cefepime HCl (Maxipime) 1 gm Q12HR IVP ; Start 05/07/18 at 09:00 Enoxaparin Sodium (Lovenox 40mg Syringe) 40 mg Q24H SQ Last administered on at 23:00; Start 05/06/18 at 16:45 Fluticasone Propionate (Flonase) 2 spray DAILY NS Last administered on at 08:17; Start 05/07/18 at 09:00 Gabapentin (Neurontin) 800 mg TID PO Last administered on 05/07/18 08:17; Start 05/06/18 at 23:00 Levofloxacin/ Dextrose 150 ml @ 100 mls/hr 1X ONCE IV Last administered on 11:25; Start 05/06/18 at 11:15; Stop 05/06/18 at 12:44; Status DC Levothyroxine Sodium (Synthroid) 75 mcg DAILY07 PO Last administered on 08:17; Start 05/07/18 at 07:00 Non-Formulary Medication (Fluticasone/ Salmeterol (Advair 500-50 Diskus)) 1 each BID IH ; Start 05/06/18 at 21:00; Status UNV Norepinephrine Bitartrate 250 ml @ 1.875 mls/ hr CONT PRN IV PER PROTOCOL; Start 05/06/18 at 12:00 Oxycodone/ Acetaminophen (Percocet 7.5/ 325) 1 tab PRN Q6HRS PRN PO PAIN Last administered on 05/06/18at 23:02; Start 05/06/18 at 16:15 Polyethylene Glycol (miraLAX PACKET) 17 gm DAILY PO Last administered on 08:17; Start 05/07/18 at 09:00 Quetiapine Fumarate (SEROquel XR) 50 mg DAILY PO Last administered on 08:18; Start 05/07/18 at 09:00 Sodium Chloride 1,000 ml @ 100 mls/hr Q10H IV Last administered on 05/06/18at 11:13; Start 05/06/18 at 11:13; Stop 05/06/18 at 15:12; Status DC Sodium Chloride 1,000 ml @ 1,000 mls/hr 1X ONCE IV Last administered on at 11:25; Start 05/06/18 at 11:00; Stop 05/06/18 at 11:59; Status DC Sodium Chloride 1,000 ml @ 1,770 mls/hr Q34M IV Last administered on at 12:39; Start 05/06/18 at 11:53; Stop 05/06/18 at 12:53; Status DC Vancomycin HCl (Vanco Per Pharmacy) 1 each PRN DAILY PRN MC SEE COMMENTS Last administered on 05/06/18at 16:47; Start 05/06/18 at 11:15 Vancomycin HCl (Vancomycin Trough Level) 1 each 1X ONCE MC ; Start 05/08/18 at 03:30; Stop 05/08/18 at 03:31 Vancomycin HCl 1.5 gm/Sodium Chloride 500 ml @ 250 mls/hr 1X ONCE IV Last administered on 05/06/18at 16:27; Start 05/06/18 at 12:00; Stop 05/06/18 at 13:59 ; Status DC Vancomycin HCl 750 mg/Sodium Chloride 250 ml @ 250 mls/hr Q12H IV ; Start 05/07 at 04:00; Status Cancel Vancomycin HCl 1 gm/Sodium Chloride 250 ml @ 250 mls/hr Q12H IV ; Start at 21:00; Stop 05/06/18 at 21:00; Status DC Vancomycin HCl 1 gm/Sodium Chloride 250 ml @ 250 mls/hr Q12H IV Last administered on 05/07/18at 04:03; Start 05/07/18 at 04:00 Venlafaxine HCl (Effexor Xr) 225 mg DAILY PO Last administered on 05/07/18at 08: 18; Start 05/07/18 at 09:00 Allergies Allergies: Coded Allergies: ibuprofen (Verified Allergy, Intermediate, Hives, 07/28/16) TOLERATES ASPIRIN I S O L A T I O N *CONTACT* (Verified Allergy, Unknown, 03/01/18) mrsa cefazolin (Verified Adverse Reaction, Intermediate, N/V, 07/28/16) morphine (Verified Adverse Reaction, Intermediate, Nausea and Vomiting, ) ROS Review Of Systems: CONSTITUTIONAL: No fever or chills EYES: No recent changes SKIN: No rash or itching CARDIOVASCULAR: No chest pain, syncope, palpitations, or edema RESPIRATORY: No SOB or cough GASTROINTESTINAL: + Generalized pain throughout abdomen NEUROLOGICAL: No headaches or weakness ENDOCRINE: No cold or heat intolerance GENITOURINARY: + SP tube, spasms. MUSCULOSKELETAL: + Generalized pain everywhere LYMPHATICS: No enlarged lymph nodes PSYCHIATRIC: No anxiety or depression Physical Exam Physical Exam: General: Pleasant, no acute distress, well groomed Eyes: conjunctiva anicteric, eyes full range of motion ENT: moist oral mucosa, missing some teeth Neck: Trachea midline, no masses Respiratory: unlabored breathing, not using accessory muscles, Abdomen: Generalized tenderness throughout abdomen with SP tube site in place and catheter draining purulent yellow urine. Site has scant amount of drainage about SP site. Skin: no rashes or skin lesions on visualized skin Psych: normal mood, affect. Alert and oriented x 3. Vitals VITALS Vital Signs Date Time Temp Pulse Resp B/P (MAP) Pulse Ox O2 Delivery O2 Flow Rate FiO2 05/07/18 08:25 99.2 99 144/84 (104) 94 Room Air 99.2 05/07/18 06:00 12 Labs Labs Laboratory Tests Test 05/06/18 10:48 05/06/18 11:05 05/06/18 12:43 05/07/18 04:00 Urine Collection Type Unknown Urine Color [place] Urine Clarity Cloudy Urine pH 5.5 Urine Specific [place] 1.025 Urine Protein 30 mg/dL (NEG-TRACE) Urine Glucose (UA) Negative mg/dL (NEG) Urine Ketones (Stick) Negative mg/dL (NEG) Urine Blood Moderate (NEG) Urine Nitrite Positive (NEG) Urine Bilirubin Negative (NEG) Urine Urobilinogen Dipstick 0.2 mg/dL (0.2 mg/dL) Urine Leukocyte Esterase Large (NEG) Urine RBC Fobs /HPF (0-2) Urine WBC Tntc /HPF (0-4) Urine Bacteria Many /HPF (0-FEW) Urine Hyaline Casts Few /HPF White Blood Count 4.6 x10^3/uL (4.0-11.0) 6.5 x10^3/uL (4.0-11.0) Red Blood Count 3.12 x10^6/uL (3.50-5.40) 2.95 x10^6/uL (3.50-5.40) Hemoglobin 9.9 g/dL (12.0-15.5) 9.5 g/dL (12.0-15.5) Hematocrit 30.7 % (36.0-47.0) 29.1 % (36.0-47.0) Mean Corpuscular Volume 98 fL (79-100) 99 fL (79-100) Mean Corpuscular Hemoglobin 32 pg (25-35) 32 pg (25-35) Mean Corpuscular Hemoglobin Concent 32 g/dL (31-37) 33 g/dL (31-37) Red Cell Distribution Width 13.4 % (11.5-14.5) 13.3 % (11.5-14.5) Platelet Count 246 x10^3/uL (140-400) 223 x10^3/uL (140-400) Neutrophils (%) (Auto) 33 % (31-73) 35 % (31-73) Lymphocytes (%) (Auto) 47 % (24-48) 50 % (24-48) Monocytes (%) (Auto) 14 % (0-9) 10 % (0-9) Eosinophils (%) (Auto) 6 % (0-3) 4 % (0-3) Basophils (%) (Auto) 0 % (0-3) 1 % (0-3) Neutrophils # (Auto) 1.5 x10^3uL (1.8-7.7) 2.3 x10^3uL (1.8-7.7) Lymphocytes # (Auto) 2.1 x10^3/uL (1.0-4.8) 3.2 x10^3/uL (1.0-4.8) Monocytes # (Auto) 0.6 x10^3/uL (0.0-1.1) 0.7 x10^3/uL (0.0-1.1) Eosinophils # (Auto) 0.3 x10^3/uL (0.0-0.7) 0.3 x10^3/uL (0.0-0.7) Basophils # (Auto) 0.0 x10^3/uL (0.0-0.2) 0.1 x10^3/uL (0.0-0.2) Sodium Level 143 mmol/L (136-145) 142 mmol/L (136-145) Potassium Level 4.0 mmol/L (3.5-5.1) 3.8 mmol/L (3.5-5.1) Chloride Level 106 mmol/L (98-107) 107 mmol/L (98-107) Carbon Dioxide Level 33 mmol/L (21-32) 29 mmol/L (21-32) Anion Gap 4 (6-14) 6 (6-14) Blood Urea Nitrogen 9 mg/dL (7-20) 5 mg/dL (7-20) Creatinine 0.9 mg/dL (0.6-1.0) 0.8 mg/dL (0.6-1.0) Estimated GFR (Cockcroft-Gault) 77.5 88.8 Glucose Level 85 mg/dL (70-99) 84 mg/dL (70-99) Lactic Acid Level 1.2 mmol/L (0.4-2.0) 1.2 mmol/L (0.4-2.0) Calcium Level 8.7 mg/dL (8.5-10.1) 8.3 mg/dL (8.5-10.1) Total Bilirubin 0.2 mg/dL (0.2-1.0) Direct Bilirubin < 0.1 mg/dL (0.0-0.2) Aspartate Amino Transf (AST/SGOT) 17 U/L (15-37) Alanine Aminotransferase (ALT/SGPT) 13 U/L (14-59) Alkaline Phosphatase 87 U/L (46-116) Troponin I Quantitative < 0.017 ng/mL (0.000-0.055) AY-Kbo-X-Type Natriuretic Peptide 639 pg/mL (0-124) Total Protein 6.2 g/dL (6.4-8.2) Albumin 3.0 g/dL (3.4-5.0) Lipase 72 U/L (73-393) Laboratory Tests Test 05/06/18 10:48 05/06/18 11:05 05/06/18 12:43 05/07/18 04:00 Urine Collection Type Unknown Urine Color [place] Urine Clarity Cloudy Urine pH 5.5 Urine Specific [place] 1.025 Urine Protein 30 mg/dL (NEG-TRACE) Urine Glucose (UA) Negative mg/dL (NEG) Urine Ketones (Stick) Negative mg/dL (NEG) Urine Blood Moderate (NEG) Urine Nitrite Positive (NEG) Urine Bilirubin Negative (NEG) Urine Urobilinogen Dipstick 0.2 mg/dL (0.2 mg/dL) Urine Leukocyte Esterase Large (NEG) Urine RBC Fobs /HPF (0-2) Urine WBC Tntc /HPF (0-4) Urine Bacteria Many /HPF (0-FEW) Urine Hyaline Casts Few /HPF White Blood Count 4.6 x10^3/uL (4.0-11.0) 6.5 x10^3/uL (4.0-11.0) Red Blood Count 3.12 x10^6/uL (3.50-5.40) 2.95 x10^6/uL (3.50-5.40) Hemoglobin 9.9 g/dL (12.0-15.5) 9.5 g/dL (12.0-15.5) Hematocrit 30.7 % (36.0-47.0) 29.1 % (36.0-47.0) Mean Corpuscular Volume 98 fL (79-100) 99 fL (79-100) Mean Corpuscular Hemoglobin 32 pg (25-35) 32 pg (25-35) Mean Corpuscular Hemoglobin Concent 32 g/dL (31-37) 33 g/dL (31-37) Red Cell Distribution Width 13.4 % (11.5-14.5) 13.3 % (11.5-14.5) Platelet Count 246 x10^3/uL (140-400) 223 x10^3/uL (140-400) Neutrophils (%) (Auto) 33 % (31-73) 35 % (31-73) Lymphocytes (%) (Auto) 47 % (24-48) 50 % (24-48) Monocytes (%) (Auto) 14 % (0-9) 10 % (0-9) Eosinophils (%) (Auto) 6 % (0-3) 4 % (0-3) Basophils (%) (Auto) 0 % (0-3) 1 % (0-3) Neutrophils # (Auto) 1.5 x10^3uL (1.8-7.7) 2.3 x10^3uL (1.8-7.7) Lymphocytes # (Auto) 2.1 x10^3/uL (1.0-4.8) 3.2 x10^3/uL (1.0-4.8) Monocytes # (Auto) 0.6 x10^3/uL (0.0-1.1) 0.7 x10^3/uL (0.0-1.1) Eosinophils # (Auto) 0.3 x10^3/uL (0.0-0.7) 0.3 x10^3/uL (0.0-0.7) Basophils # (Auto) 0.0 x10^3/uL (0.0-0.2) 0.1 x10^3/uL (0.0-0.2) Sodium Level 143 mmol/L (136-145) 142 mmol/L (136-145) Potassium Level 4.0 mmol/L (3.5-5.1) 3.8 mmol/L (3.5-5.1) Chloride Level 106 mmol/L (98-107) 107 mmol/L (98-107) Carbon Dioxide Level 33 mmol/L (21-32) 29 mmol/L (21-32) Anion Gap 4 (6-14) 6 (6-14) Blood Urea Nitrogen 9 mg/dL (7-20) 5 mg/dL (7-20) Creatinine 0.9 mg/dL (0.6-1.0) 0.8 mg/dL (0.6-1.0) Estimated GFR (Cockcroft-Gault) 77.5 88.8 Glucose Level 85 mg/dL (70-99) 84 mg/dL (70-99) Lactic Acid Level 1.2 mmol/L (0.4-2.0) 1.2 mmol/L (0.4-2.0) Calcium Level 8.7 mg/dL (8.5-10.1) 8.3 mg/dL (8.5-10.1) Total Bilirubin 0.2 mg/dL (0.2-1.0) Direct Bilirubin < 0.1 mg/dL (0.0-0.2) Aspartate Amino Transf (AST/SGOT) 17 U/L (15-37) Alanine Aminotransferase (ALT/SGPT) 13 U/L (14-59) Alkaline Phosphatase 87 U/L (46-116) Troponin I Quantitative < 0.017 ng/mL (0.000-0.055) SV-Vaz-Q-Type Natriuretic Peptide 639 pg/mL (0-124) Total Protein 6.2 g/dL (6.4-8.2) Albumin 3.0 g/dL (3.4-5.0) Lipase 72 U/L (73-393) Assessment/Plan Assessment/Plan SP tube- Continue q 2 week changes. Nursing is currently investigating the last time it was changed. Please get records from [facility] where she [facility] resides. UTI: so far records of only 1 prior UTI; however will get long term records. If records show history of multiple UTIs in the past year, then consider weekly SP tube hand washout with 500 NS using irrigation syringe. . Ditropan 5 mg TID for bladder spasms/leakage. Wound care for SP tube: cleanse around tube with Betadine, then apply antibacterial ointment and split gauze dressing on top of this. Secure with Medipore tape. Nursing orders entered for this care. Dr. Catalan to round on patient over the weekend. SABIHA CATALAN MD 05/08/18 1140: UROLOGY CONSULT Assessment/Plan Assessment/Plan Hypotonic bladder. May change cath q4-6 weeks. ditropan as outlined. local hygiene for SPT. LUPE NEIL APRN May 07, 2018 09:57 SABIHA CATALAN MD May 08, 2018 11:40
--- NOTE | 2018-05-07 10:17 | PDOC ---
PROGRESS NOTES Chief Complaint Chief Complaint History of Present Illness 58-year-old female SNF resident ([facility]) w/ PMHx HTN, prior CVA, Primary Lateral Sclerosis, asthma with COPD, anemia, GERD, depression, psychosis (schizophrenia) , recurrent UTI, hypothyroidism, CVA, cervical spondylosis and spasticity s/p placement of Baclofen and Prialt pain pump, hyperthyroidism s/p radiation who has presented to the emergency department today with low blood pressure at the long-term care facility. On arrival here the patient's blood pressure was low and urinalysis consistent with pyuria, large leukocyte esterase and nitrites and blood positive. WAS leaking from her suprapubic catheter site and drainage and foul smell. History of Present Illness History of Present Illness Assessment/Plan Assessment/Plan A/P: ACUTE SEPSIS Hypotension - possibly medication related or PLS related, //UTI UTI - with pyuria, prior MRSA UTI. ID to see whether this needs continued treatment or is asymptomatic. Given her hypotension I must err on the side of treating currently. Vancomycin to cover S/p suprapubic catheter - purulent discharge HTN - hold meds for hypotension Primary Lateral Sclerosis - does have baclofen/Prialt pump Asthma with COPD - nebs prn Anemia - likely 2/2 chronic disease GERD - on PPI Depression with h/o psychosis (schizophrenia) - // mood stabilizers Recurrent UTI - likely 2/2 her PLS with suprapubic catheter. ID to see Hypothyroidism - s/p ablation, cont meds Cervical spondylosis and spasticity - from her Primary Lateral Sclerosis - s/p placement of Baclofen and Prialt pain pump FEN - General diet PPX - Lovenox FULL CODE vanc and cefepime IV ICU for hypotension requiring pressors. Likely inpatient at least 2 midnights. 33 MIN CC TIME Vitals Vitals Vital Signs Date Time Temp Pulse Resp B/P (MAP) Pulse Ox O2 Delivery O2 Flow Rate FiO2 05/07/18 08:25 99.2 99 144/84 (104) 94 Room Air 99.2 05/07/18 06:00 12 Physical Exam General: Alert, Oriented X3, Cooperative, No acute distress Heart: Regular rate Lungs: Clear Abdomen: Normal bowel sounds, Soft, No tenderness, No hepatosplenomegaly, No masses, Other (Suprapubic catheter with drainage) Extremities: No clubbing, No cyanosis, No edema, Normal pulses, No tenderness/ swelling Skin: No rashes, No breakdown, No significant lesion Labs LABS EXAM: CHEST 1 VIEW History: Hypotension COMPARISON: 02/28/2018 TECHNIQUE: Single portable radiograph of the chest FINDINGS: The cardiac silhouette is unremarkable. The lungs are clear bilaterally. The costophrenic sulci are clear and well demarcated. IMPRESSION: No radiographic evidence of an acute cardiopulmonary process. Electronically signed by: Ryan Renee MD (05/06/2018 11:19 AM) [id number] DICTATED and SIGNED BY: RYAN RENEE MD Laboratory Tests Test 05/06/18 10:48 05/06/18 11:05 05/06/18 12:43 05/07/18 04:00 Urine Collection Type Unknown Urine Color Sofya Urine Clarity Cloudy Urine pH 5.5 Urine Specific Driver 1.025 Urine Protein 30 mg/dL (NEG-TRACE) Urine Glucose (UA) Negative mg/dL (NEG) Urine Ketones (Stick) Negative mg/dL (NEG) Urine Blood Moderate (NEG) Urine Nitrite Positive (NEG) Urine Bilirubin Negative (NEG) Urine Urobilinogen Dipstick 0.2 mg/dL (0.2 mg/dL) Urine Leukocyte Esterase Large (NEG) Urine RBC Fobs /HPF (0-2) Urine WBC Tntc /HPF (0-4) Urine Bacteria Many /HPF (0-FEW) Urine Hyaline Casts Few /HPF White Blood Count 4.6 x10^3/uL (4.0-11.0) 6.5 x10^3/uL (4.0-11.0) Red Blood Count 3.12 x10^6/uL (3.50-5.40) 2.95 x10^6/uL (3.50-5.40) Hemoglobin 9.9 g/dL (12.0-15.5) 9.5 g/dL (12.0-15.5) Hematocrit 30.7 % (36.0-47.0) 29.1 % (36.0-47.0) Mean Corpuscular Volume 98 fL (79-100) 99 fL (79-100) Mean Corpuscular Hemoglobin 32 pg (25-35) 32 pg (25-35) Mean Corpuscular Hemoglobin Concent 32 g/dL (31-37) 33 g/dL (31-37) Red Cell Distribution Width 13.4 % (11.5-14.5) 13.3 % (11.5-14.5) Platelet Count 246 x10^3/uL (140-400) 223 x10^3/uL (140-400) Neutrophils (%) (Auto) 33 % (31-73) 35 % (31-73) Lymphocytes (%) (Auto) 47 % (24-48) 50 % (24-48) Monocytes (%) (Auto) 14 % (0-9) 10 % (0-9) Eosinophils (%) (Auto) 6 % (0-3) 4 % (0-3) Basophils (%) (Auto) 0 % (0-3) 1 % (0-3) Neutrophils # (Auto) 1.5 x10^3uL (1.8-7.7) 2.3 x10^3uL (1.8-7.7) Lymphocytes # (Auto) 2.1 x10^3/uL (1.0-4.8) 3.2 x10^3/uL (1.0-4.8) Monocytes # (Auto) 0.6 x10^3/uL (0.0-1.1) 0.7 x10^3/uL (0.0-1.1) Eosinophils # (Auto) 0.3 x10^3/uL (0.0-0.7) 0.3 x10^3/uL (0.0-0.7) Basophils # (Auto) 0.0 x10^3/uL (0.0-0.2) 0.1 x10^3/uL (0.0-0.2) Sodium Level 143 mmol/L (136-145) 142 mmol/L (136-145) Potassium Level 4.0 mmol/L (3.5-5.1) 3.8 mmol/L (3.5-5.1) Chloride Level 106 mmol/L (98-107) 107 mmol/L (98-107) Carbon Dioxide Level 33 mmol/L (21-32) 29 mmol/L (21-32) Anion Gap 4 (6-14) 6 (6-14) Blood Urea Nitrogen 9 mg/dL (7-20) 5 mg/dL (7-20) Creatinine 0.9 mg/dL (0.6-1.0) 0.8 mg/dL (0.6-1.0) Estimated GFR (Cockcroft-Gault) 77.5 88.8 Glucose Level 85 mg/dL (70-99) 84 mg/dL (70-99) Lactic Acid Level 1.2 mmol/L (0.4-2.0) 1.2 mmol/L (0.4-2.0) Calcium Level 8.7 mg/dL (8.5-10.1) 8.3 mg/dL (8.5-10.1) Total Bilirubin 0.2 mg/dL (0.2-1.0) Direct Bilirubin < 0.1 mg/dL (0.0-0.2) Aspartate Amino Transf (AST/SGOT) 17 U/L (15-37) Alanine Aminotransferase (ALT/SGPT) 13 U/L (14-59) Alkaline Phosphatase 87 U/L (46-116) Troponin I Quantitative < 0.017 ng/mL (0.000-0.055) RS-Fld-P-Type Natriuretic Peptide 639 pg/mL (0-124) Total Protein 6.2 g/dL (6.4-8.2) Albumin 3.0 g/dL (3.4-5.0) Lipase 72 U/L (73-393) Assessment and Plan Assessmemt and Plan Problems Medical Problems: (1) Hypotension Status: Acute (2) UTI (urinary tract infection) Status: Acute Comment Review of Relevant I have reviewed the following items mimi (where applicable) has been applied. Labs Laboratory Tests Test 05/06/18 10:48 05/06/18 11:05 05/06/18 12:43 05/07/18 04:00 Urine Collection Type Unknown Urine Color Sofya Urine Clarity Cloudy Urine pH 5.5 Urine Specific Driver 1.025 Urine Protein 30 mg/dL (NEG-TRACE) Urine Glucose (UA) Negative mg/dL (NEG) Urine Ketones (Stick) Negative mg/dL (NEG) Urine Blood Moderate (NEG) Urine Nitrite Positive (NEG) Urine Bilirubin Negative (NEG) Urine Urobilinogen Dipstick 0.2 mg/dL (0.2 mg/dL) Urine Leukocyte Esterase Large (NEG) Urine RBC Fobs /HPF (0-2) Urine WBC Tntc /HPF (0-4) Urine Bacteria Many /HPF (0-FEW) Urine Hyaline Casts Few /HPF White Blood Count 4.6 x10^3/uL (4.0-11.0) 6.5 x10^3/uL (4.0-11.0) Red Blood Count 3.12 x10^6/uL (3.50-5.40) 2.95 x10^6/uL (3.50-5.40) Hemoglobin 9.9 g/dL (12.0-15.5) 9.5 g/dL (12.0-15.5) Hematocrit 30.7 % (36.0-47.0) 29.1 % (36.0-47.0) Mean Corpuscular Volume 98 fL (79-100) 99 fL (79-100) Mean Corpuscular Hemoglobin 32 pg (25-35) 32 pg (25-35) Mean Corpuscular Hemoglobin Concent 32 g/dL (31-37) 33 g/dL (31-37) Red Cell Distribution Width 13.4 % (11.5-14.5) 13.3 % (11.5-14.5) Platelet Count 246 x10^3/uL (140-400) 223 x10^3/uL (140-400) Neutrophils (%) (Auto) 33 % (31-73) 35 % (31-73) Lymphocytes (%) (Auto) 47 % (24-48) 50 % (24-48) Monocytes (%) (Auto) 14 % (0-9) 10 % (0-9) Eosinophils (%) (Auto) 6 % (0-3) 4 % (0-3) Basophils (%) (Auto) 0 % (0-3) 1 % (0-3) Neutrophils # (Auto) 1.5 x10^3uL (1.8-7.7) 2.3 x10^3uL (1.8-7.7) Lymphocytes # (Auto) 2.1 x10^3/uL (1.0-4.8) 3.2 x10^3/uL (1.0-4.8) Monocytes # (Auto) 0.6 x10^3/uL (0.0-1.1) 0.7 x10^3/uL (0.0-1.1) Eosinophils # (Auto) 0.3 x10^3/uL (0.0-0.7) 0.3 x10^3/uL (0.0-0.7) Basophils # (Auto) 0.0 x10^3/uL (0.0-0.2) 0.1 x10^3/uL (0.0-0.2) Sodium Level 143 mmol/L (136-145) 142 mmol/L (136-145) Potassium Level 4.0 mmol/L (3.5-5.1) 3.8 mmol/L (3.5-5.1) Chloride Level 106 mmol/L (98-107) 107 mmol/L (98-107) Carbon Dioxide Level 33 mmol/L (21-32) 29 mmol/L (21-32) Anion Gap 4 (6-14) 6 (6-14) Blood Urea Nitrogen 9 mg/dL (7-20) 5 mg/dL (7-20) Creatinine 0.9 mg/dL (0.6-1.0) 0.8 mg/dL (0.6-1.0) Estimated GFR (Cockcroft-Gault) 77.5 88.8 Glucose Level 85 mg/dL (70-99) 84 mg/dL (70-99) Lactic Acid Level 1.2 mmol/L (0.4-2.0) 1.2 mmol/L (0.4-2.0) Calcium Level 8.7 mg/dL (8.5-10.1) 8.3 mg/dL (8.5-10.1) Total Bilirubin 0.2 mg/dL (0.2-1.0) Direct Bilirubin < 0.1 mg/dL (0.0-0.2) Aspartate Amino Transf (AST/SGOT) 17 U/L (15-37) Alanine Aminotransferase (ALT/SGPT) 13 U/L (14-59) Alkaline Phosphatase 87 U/L (46-116) Troponin I Quantitative < 0.017 ng/mL (0.000-0.055) XH-Uli-V-Type Natriuretic Peptide 639 pg/mL (0-124) Total Protein 6.2 g/dL (6.4-8.2) Albumin 3.0 g/dL (3.4-5.0) Lipase 72 U/L (73-393) Laboratory Tests Test 05/06/18 10:48 05/06/18 11:05 05/06/18 12:43 05/07/18 04:00 Urine Collection Type Unknown Urine Color Sofya Urine Clarity Cloudy Urine pH 5.5 Urine Specific Driver 1.025 Urine Protein 30 mg/dL (NEG-TRACE) Urine Glucose (UA) Negative mg/dL (NEG) Urine Ketones (Stick) Negative mg/dL (NEG) Urine Blood Moderate (NEG) Urine Nitrite Positive (NEG) Urine Bilirubin Negative (NEG) Urine Urobilinogen Dipstick 0.2 mg/dL (0.2 mg/dL) Urine Leukocyte Esterase Large (NEG) Urine RBC Fobs /HPF (0-2) Urine WBC Tntc /HPF (0-4) Urine Bacteria Many /HPF (0-FEW) Urine Hyaline Casts Few /HPF White Blood Count 4.6 x10^3/uL (4.0-11.0) 6.5 x10^3/uL (4.0-11.0) Red Blood Count 3.12 x10^6/uL (3.50-5.40) 2.95 x10^6/uL (3.50-5.40) Hemoglobin 9.9 g/dL (12.0-15.5) 9.5 g/dL (12.0-15.5) Hematocrit 30.7 % (36.0-47.0) 29.1 % (36.0-47.0) Mean Corpuscular Volume 98 fL (79-100) 99 fL (79-100) Mean Corpuscular Hemoglobin 32 pg (25-35) 32 pg (25-35) Mean Corpuscular Hemoglobin Concent 32 g/dL (31-37) 33 g/dL (31-37) Red Cell Distribution Width 13.4 % (11.5-14.5) 13.3 % (11.5-14.5) Platelet Count 246 x10^3/uL (140-400) 223 x10^3/uL (140-400) Neutrophils (%) (Auto) 33 % (31-73) 35 % (31-73) Lymphocytes (%) (Auto) 47 % (24-48) 50 % (24-48) Monocytes (%) (Auto) 14 % (0-9) 10 % (0-9) Eosinophils (%) (Auto) 6 % (0-3) 4 % (0-3) Basophils (%) (Auto) 0 % (0-3) 1 % (0-3) Neutrophils # (Auto) 1.5 x10^3uL (1.8-7.7) 2.3 x10^3uL (1.8-7.7) Lymphocytes # (Auto) 2.1 x10^3/uL (1.0-4.8) 3.2 x10^3/uL (1.0-4.8) Monocytes # (Auto) 0.6 x10^3/uL (0.0-1.1) 0.7 x10^3/uL (0.0-1.1) Eosinophils # (Auto) 0.3 x10^3/uL (0.0-0.7) 0.3 x10^3/uL (0.0-0.7) Basophils # (Auto) 0.0 x10^3/uL (0.0-0.2) 0.1 x10^3/uL (0.0-0.2) Sodium Level 143 mmol/L (136-145) 142 mmol/L (136-145) Potassium Level 4.0 mmol/L (3.5-5.1) 3.8 mmol/L (3.5-5.1) Chloride Level 106 mmol/L (98-107) 107 mmol/L (98-107) Carbon Dioxide Level 33 mmol/L (21-32) 29 mmol/L (21-32) Anion Gap 4 (6-14) 6 (6-14) Blood Urea Nitrogen 9 mg/dL (7-20) 5 mg/dL (7-20) Creatinine 0.9 mg/dL (0.6-1.0) 0.8 mg/dL (0.6-1.0) Estimated GFR (Cockcroft-Gault) 77.5 88.8 Glucose Level 85 mg/dL (70-99) 84 mg/dL (70-99) Lactic Acid Level 1.2 mmol/L (0.4-2.0) 1.2 mmol/L (0.4-2.0) Calcium Level 8.7 mg/dL (8.5-10.1) 8.3 mg/dL (8.5-10.1) Total Bilirubin 0.2 mg/dL (0.2-1.0) Direct Bilirubin < 0.1 mg/dL (0.0-0.2) Aspartate Amino Transf (AST/SGOT) 17 U/L (15-37) Alanine Aminotransferase (ALT/SGPT) 13 U/L (14-59) Alkaline Phosphatase 87 U/L (46-116) Troponin I Quantitative < 0.017 ng/mL (0.000-0.055) VL-Qcp-U-Type Natriuretic Peptide 639 pg/mL (0-124) Total Protein 6.2 g/dL (6.4-8.2) Albumin 3.0 g/dL (3.4-5.0) Lipase 72 U/L (73-393) Medications Current Medications Sodium Chloride 1,000 ml @ 1,000 mls/hr 1X ONCE IV Last administered on 11:25; Start 05/06/18 at 11:00; Stop 05/06/18 at 11:59; Status DC Levofloxacin/ Dextrose 150 ml @ 100 mls/hr 1X ONCE IV Last administered on 11:25; Start 05/06/18 at 11:15; Stop 05/06/18 at 12:44; Status DC Sodium Chloride 1,000 ml @ 100 mls/hr Q10H IV Last administered on 05/06/18 11:13; Start 05/06/18 at 11:13; Stop 05/06/18 at 15:12; Status DC Vancomycin HCl (Vanco Per Pharmacy) 1 each PRN DAILY PRN MC SEE COMMENTS Last administered on 05/06/18at 16:47; Start 05/06/18 at 11:15 Vancomycin HCl 1.5 gm/Sodium Chloride 500 ml @ 250 mls/hr 1X ONCE IV Last administered on 05/06/18 16:27; Start 05/06/18 at 12:00; Stop 05/06/18 at 13:59 ; Status DC Norepinephrine Bitartrate 250 ml @ 1.875 mls/ hr CONT PRN IV PER PROTOCOL; Start 05/06/18 at 12:00 Sodium Chloride 1,000 ml @ 1,770 mls/hr Q34M IV Last administered on 3/21/ 19at 12:39; Start 05/06/18 at 11:53; Stop 05/06/18 at 12:53; Status DC Acetaminophen (Tylenol) 650 mg PRN Q6HRS PRN PO FEVER > 101; Start 05/06/18 at 16:15 Fluticasone Propionate (Flonase) 2 spray DAILY NS Last administered on 08:17; Start 05/07/18 at 09:00 Levothyroxine Sodium (Synthroid) 75 mcg DAILY07 PO Last administered on 08:17; Start 05/07/18 at 07:00 Oxycodone/ Acetaminophen (Percocet 7.5/ 325) 1 tab PRN Q6HRS PRN PO PAIN Last administered on 05/06/18 23:02; Start 05/06/18 at 16:15 Non-Formulary Medication (Fluticasone/ Salmeterol (Advair 500-50 Diskus)) 1 each BID IH ; Start 05/06/18 at 21:00; Status UNV Polyethylene Glycol (miraLAX PACKET) 17 gm DAILY PO Last administered on 08:17; Start 05/07/18 at 09:00 Quetiapine Fumarate (SEROquel XR) 50 mg DAILY PO Last administered on 08:18; Start 05/07/18 at 09:00 Venlafaxine HCl (Effexor Xr) 225 mg DAILY PO Last administered on 05/07/18 08: 18; Start 05/07/18 at 09:00 Budesonide (Pulmicort) 0.5 mg RTBID NEB Last administered on 05/06/18 20:26; Start 05/06/18 at 20:00 Albuterol Sulfate (Ventolin Neb Soln) 2.5 mg RTQID NEB Last administered on 20:26; Start 05/06/18 at 16:30 Vancomycin HCl 1 gm/Sodium Chloride 250 ml @ 250 mls/hr Q12H IV ; Start at 21:00; Stop 05/06/18 at 21:00; Status DC Enoxaparin Sodium (Lovenox 40mg Syringe) 40 mg Q24H SQ Last administered on at 23:00; Start 05/06/18 at 16:45 Vancomycin HCl 750 mg/Sodium Chloride 250 ml @ 250 mls/hr Q12H IV ; Start 05/07 at 04:00; Status Cancel Vancomycin HCl (Vancomycin Trough Level) 1 each 1X ONCE MC ; Start 05/08/18 at 03:30; Stop 05/08/18 at 03:31 Vancomycin HCl 1 gm/Sodium Chloride 250 ml @ 250 mls/hr Q12H IV Last administered on 05/07/18at 04:03; Start 05/07/18 at 04:00 Gabapentin (Neurontin) 800 mg TID PO Last administered on 05/07/18at 08:17; Start 05/06/18 at 23:00 Cefepime HCl (Maxipime) 1 gm Q12HR IVP ; Start 05/07/18 at 09:00 Oxybutynin Chloride (Ditropan) 5 mg [id number] PO ; Start 05/07/18 at 14:00 Active Scripts Active Metoprolol Tartrate 25 Mg Tablet 12.5 Mg PO BID 30 Days Tylenol (Acetaminophen) 325 Mg Tablet 650 Mg PO PRN Q6HRS PRN 30 Days Reported Venlafaxine Hcl Er (Venlafaxine Hcl) 75 Mg Cap.er.24h 225 Mg PO DAILY Xarelto (Rivaroxaban) 10 Mg Tablet 10 Mg PO DAILYWSUP Synthroid (Levothyroxine Sodium) 75 Mcg Tablet 75 Mcg PO DAILY07 Seroquel (Quetiapine Fumarate) 50 Mg Tablet 50 Mg PO DAILY13 Seroquel (Quetiapine Fumarate) 100 Mg Tablet 1 Tab PO DAILY13 Potassium Chloride 10 Meq Tab.sr.24h 10 Meq PO DAILY Percocet 7.5-325 Mg Tablet (Oxycodone/Acetaminophen) 1 Each Tablet 1 Tab PO PRN Q6HRS PRN Miralax (Polyethylene Glycol 3350) 17 Gm Powd.pack 1 Pkt PO TID Levsin-Sl (Hyoscyamine Sulfate) 0.125 Mg Tab.subl 0.125 Mg SL PRN Q4HRS PRN Bactrim 400-80 Mg Tablet (Sulfamethoxazole/Trimethoprim) 1 Each Tablet 2 Each PO BID 10 Days Baclofen 10 Mg Tablet 10 Mg PO HS Xopenex Hfa (Levalbuterol Tartrate) 15 Gm Hfa.aer.ad 2 Puff IH PRN Q4-6HRS Fluticasone Propionate Nasal [place] (Fluticasone Propionate) 16 Gm [place].susp 2 [place] NS DAILY Advair 500-50 Diskus (Fluticasone/Salmeterol) 1 Each Disk.w.dev 1 Each IH BID Amitriptyline Hcl 10 Mg Tablet 10 Mg PO BID Zofran Odt (Ondansetron) 8 Mg Tab.rapdis 8 Mg PO PRN Tizanidine Hcl 2 Mg Capsule 4 Mg PO TID Zantac (Ranitidine Hcl) 150 Mg Tablet 150 Mg PO HS Gabapentin 800 Mg Tablet 800 Mg PO TID Vitals/I & O Vital Sign - Last 24 Hours 05/06/18 05/06/18 05/06/18 05/06/18 10:39 10:41 10:42 10:51 Temp 97.7 97.7 Pulse 72 73 68 70 Resp 18 18 18 17 B/P (MAP) 70/50 (57) 77/51 (60) 77/53 (61) 76/51 (59) Pulse Ox 98 97 98 96 O2 Delivery Room Air Room Air Room Air Room Air 05/06/18 05/06/18 05/06/18 05/06/18 11:02 11:22 11:25 11:42 Pulse 66 64 71 66 Resp 19 18 18 18 B/P (MAP) 76/52 (60) 76/53 (61) 81/59 (66) 87/57 (67) Pulse Ox 97 98 96 99 O2 Delivery Room Air Room Air Room Air Room Air 05/06/18 05/06/18 05/06/18 05/06/18 12:02 12:11 12:22 12:42 Pulse 64 64 62 66 Resp 18 19 18 18 B/P (MAP) 100/61 (74) 97/55 (69) 118/74 (89) 116/72 (87) Pulse Ox 98 95 99 99 O2 Delivery Room Air Room Air Room Air Room Air 05/06/18 05/06/18 05/06/18 05/06/18 13:30 14:00 15:00 16:00 Temp 98.6 99.5 98.6 99.5 Pulse 70 76 90 90 Resp 18 16 17 16 B/P (MAP) 113/66 (82) 104/66 (79) 104/57 (73) 103/63 (76) Pulse Ox 99 98 99 95 O2 Delivery Room Air Room Air Room Air Room Air 05/06/18 05/06/18 05/06/18 05/06/18 17:00 17:01 18:00 19:00 Pulse 86 90 91 Resp 16 12 16 16 B/P (MAP) 128/81 (97) 114/66 (82) 122/73 (89) Pulse Ox 100 100 100 95 O2 Delivery Room Air Room Air Room Air Room Air 05/06/18 05/06/18 05/06/18 05/06/18 20:00 20:28 20:29 21:00 Temp 99.1 99.1 Pulse 96 112 Resp 16 16 B/P (MAP) 74/72 (73) 120/72 (88) Pulse Ox 100 97 97 100 O2 Delivery Room Air Room Air Room Air Room Air 05/06/18 05/06/18 05/06/18 05/07/18 22:00 23:00 23:02 00:01 Temp 98.9 98.9 Pulse 101 102 98 Resp 14 14 12 12 B/P (MAP) 141/72 (95) 118/70 (86) 122/77 (92) Pulse Ox 94 93 97 93 O2 Delivery Room Air Room Air Room Air 05/07/18 05/07/18 05/07/18 05/07/18 00:02 01:00 02:00 03:00 Pulse 100 96 93 Resp 12 12 12 12 B/P (MAP) 126/62 (83) 125/69 (87) 121/71 (88) Pulse Ox 92 92 92 92 O2 Delivery Room Air Room Air Room Air 05/07/18 05/07/18 05/07/18 05/07/18 04:00 05:00 06:00 08:25 Temp 98.8 99.2 98.8 99.2 Pulse 96 94 96 99 Resp 12 12 12 B/P (MAP) 131/78 (95) 136/81 (99) 124/76 (92) 144/84 (104) Pulse Ox 92 92 94 94 O2 Delivery Room Air Room Air Room Air Room Air Intake and Output 05/06/18 05/06/18 05/07/18 15:00 23:00 07:00 Intake Total 1150 ml 250 ml Output Total 600 ml 1200 ml Balance 1150 ml -600 ml -950 ml Nutrition Consultation Dietary Evaluation: Recommendations by RD: Increase Calorie Intake, Protein supplementation Comments: Continue regular diet as ordered, assist pt w/feeding and meal orders as needed REC Ensure (chocolate) TID Expected Outcomes/Goals: PO intake to meet >75% est needs Interpretation of weight loss: >7.5% in 3 months Malnutrition Findings: Food and Nutrition Intake (Mod: <75% est energy req 7days Weight Status: Appropriate YAMILETH RODRIGUEZ MD May 07, 2018 10:17
[2018-05-07] MEDS: CEFEPIME HCL IV Push 1 GM VIAL. IVP SCH ×2 (12:00→20:25)
--- NOTE | 2018-05-07 12:43 | NUR ---
SS following for discharge planning. SS received [facility] that [facility], ; fax [phone]. SS contacted the [facility] to verify pt's previous [facility] from there facility and was able to return when medically stable. [facility] stated that they would like to bring pt back skilled. PT/OT ordered.
[2018-05-07] MEDS: VANCOMYCIN PER PHARMACY MC PRN (13:55)
--- NOTE | 2018-05-07 14:05 | NUR ---
POLANCO COLLECTION BAG CHANGED TODAY AT 1400.
[2018-05-07] MEDS: OXYBUTYNIN CHLORIDE 5 MG TABLET PO SCH ×2 (14:10→20:25)
[2018-05-07] MEDS: ENOXAPARIN 40 MG/0.4 ML SYRINGE. SQ SCH (15:49)
[2018-05-07] MEDS: LACTOBACILLUS RHAMNOSUS GG 1 CAPSULE. PO SCH (20:25)
--- NOTE | 2018-05-07 21:01 | CONS ---
DATE OF CONSULTATION: 05/07/2018 REQUESTING PHYSICIAN: Dr. Martinez. REASON FOR CONSULTATION: Low blood pressure, fever and UTI. HISTORY OF PRESENT ILLNESS: This is a 58-year-old female who came in from senior care facility. The patient evidently had a low blood pressure, hence she was transferred. The patient did not have any dizziness, did not have any passing out sensation. The patient did have a low grade fever when she came in here and she does have abnormal urinalysis, although she does have suprapubic catheter. The patient denies any nausea, vomiting or diarrhea. Denies any chest pain, shortness of breath, abdominal pain, urinary symptoms or bowel symptoms. PAST MEDICAL HISTORY: Positive for COPD, hypothyroidism, schizophrenia, asthma, anemia. PAST SURGICAL HISTORY: Has had cholecystectomy, hysterectomy. SOCIAL HISTORY: Positive for smoking. Negative for alcohol use or drug use. ALLERGIES: LISTED ALLERGIC TO CEFAZOLIN, UNCLEAR WHAT HAPPENED. REVIEW OF SYSTEMS: As per HPI, all other systems reviewed are negative. PHYSICAL EXAMINATION: GENERAL: Alert, oriented female, not in distress. VITAL SIGNS: Stable, T-max is 99.5. HEENT: Anicteric. NECK: Supple, no JVP, no lymphadenopathy. LUNGS: Clear. HEART: S1, S2 regular. ABDOMEN: Benign. EXTREMITIES: No edema or cyanosis. 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 SKIN: Unremarkable. NEUROLOGIC: The patient is neurologically intact. LABORATORY DATA: White count is normal. BUN and creatinine is normal. Lactic acid is normal. Urinalysis showed too numerous to count WBC. Cultures pending. Chest x-ray unremarkable. IMPRESSION: 1. Catheter-associated urinary tract infection. 2. Low grade fever. 3. Low blood pressure. 4. Chronic obstructive pulmonary disease. 5. Asthma. RECOMMENDATIONS: Continue vancomycin. No need for Levaquin. I would add cefepime. Supportive care. We will check cultures and we will continue to follow. Thank you very much, Dr. Martinez, for giving me the opportunity to participate in this patient's care. KELLY SALGUERO MD DR: CANDELARIO/edwina JOB#: [id number] / [id number]
[2018-05-07] MEDS: oxyCODONE/APAP 7.5/325 1 TAB TABLET PO PRN (22:37)
[2018-05-08 03:00] VITALS: BP 145/89
[2018-05-08 03:43] LABS: VANC TR 15.9 mcg/mL (10.0-20.0)
[2018-05-08] MEDS: VANCOMYCIN 1 GM in IV NORMAL SALINE 250ML 250 ML IV SCH ×2 (04:15→16:08)
[2018-05-08 04:41] LABS: CREATININE 0.8 mg/dL (0.6-1.0); GFR 88.8
[2018-05-08] MEDS: VANCOMYCIN PER PHARMACY MC PRN ×2 (04:50→14:06)
--- NOTE | 2018-05-08 04:51 | NUR ---
Pharmacy Vancomycin Dosing Note S: Consulted to monitor and dose vancomycin started 05/06/18. O: NAKUL HER is a 58 year old F with UTI, . Other Antibiotics: CEFEPIME 1G IV Q12HRS LABS: Last BUN: 5 Last Creatinine: 0.8 Creatinine Clearance: 59 mL/min Last WBC: 6.5 Last Procalcitonin: - Tmax (past 24 hours): 98.6 Microbiology: BLOOD CX (05/06): NGTD URINE CX IN PROCESS I/O: 1400/1800 Drug Levels: Last Trough level: 15.9 on 05/08/18 at 0330 Last dose given 05/07/18 at 1550 Vancomycin Dosing: Dosing Weight: Actual Target Trough: 10-20 A: Based on: Trough, Actual Wt and CrCl P: 1. 05/08/18 Continue Vancomycin 1000 mg IV q12h 2. Follow up Trough level in 5 to 7 days as needed 3. Pharmacy will continue to monitor, follow and adjust therapy as needed. KAL GLYNN RPH, 05/08/18 045 Signed: 05/08/18 at 0452 by KAL GLYNN RPH PHA
[2018-05-08] MEDS: LEVOTHYROXINE 75 MCG TABLET PO SCH (05:42)
[2018-05-08 07:00] VITALS: BP 160/95
[2018-05-08] MEDS: GABAPENTIN 400 MG CAPSULE. PO SCH ×3 (07:56→20:31)
[2018-05-08] MEDS: oxyCODONE/APAP 7.5/325 1 TAB TABLET PO PRN ×2 (07:56→13:16)
[2018-05-08] MEDS: LACTOBACILLUS RHAMNOSUS GG 1 CAPSULE. PO SCH ×2 (07:56→20:32)
[2018-05-08] MEDS: QUEtiapine 50 MG TAB.ER.24H. PO SCH (07:56)
[2018-05-08] MEDS: CEFEPIME HCL IV Push 1 GM VIAL. IVP SCH ×2 (07:57→20:32)
[2018-05-08] MEDS: OXYBUTYNIN CHLORIDE 5 MG TABLET PO SCH ×3 (07:57→20:32)
[2018-05-08] MEDS: VENLAFAXINE XR 37.5 MG CAP.ER.24H. PO SCH (07:57)
[2018-05-08] MEDS: FLUTICASONE 50MCG/NASAL SPRAY 16GM BOTTLE. NS SCH (07:58)
[2018-05-08] MEDS: POLYETHYLENE GLYCOL 3350 17 GM PACKET. PO SCH ×2 (07:58→09:00)
[2018-05-08] MEDS: BUDESONIDE 0.5 MG/2 ML NEBU. NEB SCH ×2 (08:00→20:42)
[2018-05-08] MEDS: ALBUTEROL SULFATE 2.5 MG/3 ML NEBU. NEB SCH ×4 (08:00→20:42)
--- NOTE | 2018-05-08 10:45 | PDOC ---
Infectious Disease Note Subjective Subjective Feeling alright this morning Didn't want to eat breakfast, but drinking her ensure Denies pain/F/C/N/V/D ROS ROS per HPI Vital Sign Vital Signs Vital Signs Date Time Temp Pulse Resp B/P (MAP) Pulse Ox O2 Delivery O2 Flow Rate FiO2 05/08/18 08:00 Room Air 05/08/18 07:00 98.5 107 18 160/95 (116) 90 98.5 Physical Exam PHYSICAL EXAM GENERAL: Propped up in bed, alert, smiling HEENT: Oral cavity clear NECK: Supple LUNGS: Clear. HEART: S1, S2 ABDOMEN: Soft and nontender : [place] EXTREMITIES: No edema or cyanosis. 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 SKIN: without rash NEUROLOGIC: Alert, responds appropriately PIV x 2 Labs Lab Laboratory Tests Test 05/08/18 03:00 Blood Urea Nitrogen 9 mg/dL (7-20) Creatinine 0.8 mg/dL (0.6-1.0) Estimated GFR (Cockcroft-Gault) 88.8 Procalcitonin < 0.10 ng/mL (0.00-0.10) Vancomycin Level Trough 15.9 mcg/mL (10.0-20.0) Vancomycin Last Dose Date 05/07/18 Vancomycin Last Dose Time 1600 Micro 05/06/18 Blood Culture - Preliminary, Resulted NO GROWTH AFTER 1 DAY Objective Assessment Catheter-associated urinary tract infection. UC pending. Low grade fever,,,improved Low blood pressure,,,improved Chronic obstructive pulmonary disease. Asthma. h/o MRSA Plan Plan of Care vanc and cefepime Probiotics f/u cultures monitor labs/renal function closely Patient seen, examined, I agree with above. Assessment and plan was formulated with PRODUCT ENGINEER. REX TRIVEDI APRN May 08, 2018 10:45 NEETU SALGUERO MD May 08, 2018 15:12
[2018-05-08 11:00] VITALS: BP 106/73
--- NOTE | 2018-05-08 11:09 | PDOC ---
PROGRESS NOTES Chief Complaint Chief Complaint Catheter-associated urinary tract infection. UC pending. Low grade fever,,,improved Low blood pressure,,,improved Chronic obstructive pulmonary disease. Asthma. h/o MRSA [facility] resident History hypertension prior CVA GERD History schizophrenia , psychosis History hypothyroidism History of cervical spondylosis primary lateral sclerosis on baclofen and other meds History of Present Illness History of Present Illness She is concerned about some home meds Poor appetite Otherwise no complaints ID on board for catheter related UTI and history of recurrent UTI Pressure now on the high side 160-status post the Levophed-was hypotensive on admission Plan : home meds I have reconciled, including pain meds baclofen and BP meds Follow-up urine culture She does not see Dr. Pratt anymore Vitals Vitals Vital Signs Date Time Temp Pulse Resp B/P (MAP) Pulse Ox O2 Delivery O2 Flow Rate FiO2 05/08/18 08:00 Room Air 05/08/18 07:00 98.5 107 18 160/95 (116) 90 98.5 Physical Exam Physical Exam GENERAL: Propped up in bed, alert, smiling HEENT: Oral cavity clear NECK: Supple LUNGS: Clear. HEART: S1, S2 ABDOMEN: Soft and nontender : Yancey EXTREMITIES: No edema or cyanosis. 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 SKIN: without rash NEUROLOGIC: Alert, responds appropriately PIV x 2 General: Alert, Oriented X3, Cooperative, No acute distress Heart: Regular rate Lungs: Clear Abdomen: Normal bowel sounds, Soft, No tenderness, No hepatosplenomegaly, No masses, Other (Suprapubic catheter with drainage) Extremities: No clubbing, No cyanosis, No edema, Normal pulses, No tenderness/ swelling Skin: No rashes, No breakdown, No significant lesion Labs LABS Laboratory Tests Test 05/08/18 03:00 Blood Urea Nitrogen 9 mg/dL (7-20) Creatinine 0.8 mg/dL (0.6-1.0) Estimated GFR (Cockcroft-Gault) 88.8 Procalcitonin < 0.10 ng/mL (0.00-0.10) Vancomycin Level Trough 15.9 mcg/mL (10.0-20.0) Vancomycin Last Dose Date 05/07/18 Vancomycin Last Dose Time 1600 Review of Systems Review of Systems Weak, poor by mouth, the rest of ROS 14 point negative Assessment and Plan Assessmemt and Plan Problems Medical Problems: (1) Hypotension Status: Acute (2) UTI (urinary tract infection) Status: Acute Comment Review of Relevant I have reviewed the following items mimi (where applicable) has been applied. Labs Laboratory Tests Test 05/06/18 12:43 05/07/18 04:00 05/08/18 03:00 Lactic Acid Level 1.2 mmol/L (0.4-2.0) White Blood Count 6.5 x10^3/uL (4.0-11.0) Red Blood Count 2.95 x10^6/uL (3.50-5.40) Hemoglobin 9.5 g/dL (12.0-15.5) Hematocrit 29.1 % (36.0-47.0) Mean Corpuscular Volume 99 fL (79-100) Mean Corpuscular Hemoglobin 32 pg (25-35) Mean Corpuscular Hemoglobin Concent 33 g/dL (31-37) Red Cell Distribution Width 13.3 % (11.5-14.5) Platelet Count 223 x10^3/uL (140-400) Neutrophils (%) (Auto) 35 % (31-73) Lymphocytes (%) (Auto) 50 % (24-48) Monocytes (%) (Auto) 10 % (0-9) Eosinophils (%) (Auto) 4 % (0-3) Basophils (%) (Auto) 1 % (0-3) Neutrophils # (Auto) 2.3 x10^3uL (1.8-7.7) Lymphocytes # (Auto) 3.2 x10^3/uL (1.0-4.8) Monocytes # (Auto) 0.7 x10^3/uL (0.0-1.1) Eosinophils # (Auto) 0.3 x10^3/uL (0.0-0.7) Basophils # (Auto) 0.1 x10^3/uL (0.0-0.2) Sodium Level 142 mmol/L (136-145) Potassium Level 3.8 mmol/L (3.5-5.1) Chloride Level 107 mmol/L (98-107) Carbon Dioxide Level 29 mmol/L (21-32) Anion Gap 6 (6-14) Blood Urea Nitrogen 5 mg/dL (7-20) 9 mg/dL (7-20) Creatinine 0.8 mg/dL (0.6-1.0) 0.8 mg/dL (0.6-1.0) Estimated GFR (Cockcroft-Gault) 88.8 88.8 Glucose Level 84 mg/dL (70-99) Calcium Level 8.3 mg/dL (8.5-10.1) Procalcitonin < 0.10 ng/mL (0.00-0.10) Vancomycin Level Trough 15.9 mcg/mL (10.0-20.0) Vancomycin Last Dose Date 05/07/18 Vancomycin Last Dose Time 1600 Laboratory Tests Test 05/08/18 03:00 Blood Urea Nitrogen 9 mg/dL (7-20) Creatinine 0.8 mg/dL (0.6-1.0) Estimated GFR (Cockcroft-Gault) 88.8 Procalcitonin < 0.10 ng/mL (0.00-0.10) Vancomycin Level Trough 15.9 mcg/mL (10.0-20.0) Vancomycin Last Dose Date 05/07/18 Vancomycin Last Dose Time 1600 Microbiology 05/06/18 Blood Culture - Preliminary, Resulted NO GROWTH AFTER 1 DAY Medications Current Medications Sodium Chloride 1,000 ml @ 1,000 mls/hr 1X ONCE IV Last administered on at 11:25; Start 05/06/18 at 11:00; Stop 05/06/18 at 11:59; Status DC Levofloxacin/ Dextrose 150 ml @ 100 mls/hr 1X ONCE IV Last administered on at 11:25; Start 05/06/18 at 11:15; Stop 05/06/18 at 12:44; Status DC Sodium Chloride 1,000 ml @ 100 mls/hr Q10H IV Last administered on 05/06/18at 11:13; Start 05/06/18 at 11:13; Stop 05/06/18 at 15:12; Status DC Vancomycin HCl (Vanco Per Pharmacy) 1 each PRN DAILY PRN MC SEE COMMENTS Last administered on 05/08/18at 04:50; Start 05/06/18 at 11:15 Vancomycin HCl 1.5 gm/Sodium Chloride 500 ml @ 250 mls/hr 1X ONCE IV Last administered on 05/06/18at 16:27; Start 05/06/18 at 12:00; Stop 05/06/18 at 13:59 ; Status DC Norepinephrine Bitartrate 250 ml @ 1.875 mls/ hr CONT PRN IV PER PROTOCOL; Start 05/06/18 at 12:00; Stop 05/07/18 at 16:44; Status DC Sodium Chloride 1,000 ml @ 1,770 mls/hr Q34M IV Last administered on at 12:39; Start 05/06/18 at 11:53; Stop 05/06/18 at 12:53; Status DC Acetaminophen (Tylenol) 650 mg PRN Q6HRS PRN PO FEVER > 101; Start 05/06/18 at 16:15 Fluticasone Propionate (Flonase) 2 spray DAILY NS Last administered on 07:58; Start 05/07/18 at 09:00 Levothyroxine Sodium (Synthroid) 75 mcg DAILY07 PO Last administered on 05:42; Start 05/07/18 at 07:00 Oxycodone/ Acetaminophen (Percocet 7.5/ 325) 1 tab PRN Q6HRS PRN PO PAIN Last administered on 05/08/18 07:56; Start 05/06/18 at 16:15 Non-Formulary Medication (Fluticasone/ Salmeterol (Advair 500-50 Diskus)) 1 each BID IH ; Start 05/06/18 at 21:00; Status UNV Polyethylene Glycol (miraLAX PACKET) 17 gm DAILY PO Last administered on 07:58; Start 05/07/18 at 09:00 Quetiapine Fumarate (SEROquel XR) 50 mg DAILY PO Last administered on 07:56; Start 05/07/18 at 09:00 Venlafaxine HCl (Effexor Xr) 225 mg DAILY PO Last administered on 05/08/18 07: 57; Start 05/07/18 at 09:00 Budesonide (Pulmicort) 0.5 mg RTBID NEB Last administered on 05/07/18 19:37; Start 05/06/18 at 20:00 Albuterol Sulfate (Ventolin Neb Soln) 2.5 mg RTQID NEB Last administered on 19:37; Start 05/06/18 at 16:30 Vancomycin HCl 1 gm/Sodium Chloride 250 ml @ 250 mls/hr Q12H IV ; Start at 21:00; Stop 05/06/18 at 21:00; Status DC Enoxaparin Sodium (Lovenox 40mg Syringe) 40 mg Q24H SQ Last administered on at 15:49; Start 05/06/18 at 16:45 Vancomycin HCl 750 mg/Sodium Chloride 250 ml @ 250 mls/hr Q12H IV ; Start 05/07 at 04:00; Status Cancel Vancomycin HCl (Vancomycin Trough Level) 1 each 1X ONCE MC Last administered on 05/08/18at 03:30; Start 05/08/18 at 03:30; Stop 05/08/18 at 03:31; Status DC Vancomycin HCl 1 gm/Sodium Chloride 250 ml @ 250 mls/hr Q12H IV Last administered on 05/08/18at 04:15; Start 05/07/18 at 04:00 Gabapentin (Neurontin) 800 mg TID PO Last administered on 05/08/18at 07:56; Start 05/06/18 at 23:00 Cefepime HCl (Maxipime) 1 gm Q12HR IVP Last administered on 05/08/18at 07:57; Start 05/07/18 at 09:00 Oxybutynin Chloride (Ditropan) 5 mg [id number] PO Last administered on 05/08/18at 07 :57; Start 05/07/18 at 14:00 Lactobacillus Rhamnosus (Culturelle) 1 cap BID PO Last administered on at 07:56; Start 05/07/18 at 21:00 Active Scripts Active Metoprolol Tartrate 25 Mg Tablet 12.5 Mg PO BID 30 Days Tylenol (Acetaminophen) 325 Mg Tablet 650 Mg PO PRN Q6HRS PRN 30 Days Reported Venlafaxine Hcl Er (Venlafaxine Hcl) 75 Mg Cap.er.24h 225 Mg PO DAILY Xarelto (Rivaroxaban) 10 Mg Tablet 10 Mg PO DAILYWSUP Synthroid (Levothyroxine Sodium) 75 Mcg Tablet 75 Mcg PO DAILY07 Seroquel (Quetiapine Fumarate) 50 Mg Tablet 50 Mg PO DAILY13 Seroquel (Quetiapine Fumarate) 100 Mg Tablet 1 Tab PO DAILY13 Potassium Chloride 10 Meq Tab.sr.24h 10 Meq PO DAILY Percocet 7.5-325 Mg Tablet (Oxycodone/Acetaminophen) 1 Each Tablet 1 Tab PO PRN Q6HRS PRN Miralax (Polyethylene Glycol 3350) 17 Gm Powd.pack 1 Pkt PO TID Levsin-Sl (Hyoscyamine Sulfate) 0.125 Mg Tab.subl 0.125 Mg SL PRN Q4HRS PRN Bactrim 400-80 Mg Tablet (Sulfamethoxazole/Trimethoprim) 1 Each Tablet 2 Each PO BID 10 Days Baclofen 10 Mg Tablet 10 Mg PO HS Xopenex Hfa (Levalbuterol Tartrate) 15 Gm Hfa.aer.ad 2 Puff IH PRN Q4-6HRS Fluticasone Propionate Nasal [place] (Fluticasone Propionate) 16 Gm [place].susp 2 [place] NS DAILY Advair 500-50 Diskus (Fluticasone/Salmeterol) 1 Each Disk.w.dev 1 Each IH BID Amitriptyline Hcl 10 Mg Tablet 10 Mg PO BID Zofran Odt (Ondansetron) 8 Mg Tab.rapdis 8 Mg PO PRN Tizanidine Hcl 2 Mg Capsule 4 Mg PO TID Zantac (Ranitidine Hcl) 150 Mg Tablet 150 Mg PO HS Gabapentin 800 Mg Tablet 800 Mg PO TID Vitals/I & O Vital Sign - Last 24 Hours 05/07/18 05/07/18 05/07/18 05/07/18 14:51 16:23 19:00 19:20 Temp 98.1 98.8 98.1 98.8 Pulse 96 101 Resp 18 18 B/P (MAP) 154/94 (114) 130/92 (105) Pulse Ox 95 92 O2 Delivery Room Air Room Air Room Air Room Air 05/07/18 05/07/18 05/07/18 05/07/18 19:40 22:37 23:00 23:37 Temp 98.5 98.5 Pulse 102 Resp 18 B/P (MAP) 147/92 (110) Pulse Ox 99 99 94 94 O2 Delivery Room Air Room Air Room Air Room Air 05/08/18 05/08/18 05/08/18 05/08/18 03:00 07:00 07:56 08:00 Temp 98.8 98.5 98.8 98.5 Pulse 101 107 Resp 18 18 B/P (MAP) 145/89 (107) 160/95 (116) Pulse Ox 90 90 O2 Delivery Room Air Room Air Room Air Room Air Intake and Output 05/07/18 05/07/18 05/08/18 14:59 22:59 06:59 Intake Total 470 ml 490 ml Output Total 1555 ml 650 ml 875 ml Balance -1555 ml -180 ml -385 ml Nutrition Consultation Dietary Evaluation: Recommendations by RD: Increase Calorie Intake, Protein supplementation Comments: Continue regular diet as ordered, assist pt w/feeding and meal orders as needed REC Ensure (chocolate) TID Expected Outcomes/Goals: PO intake to meet >75% est needs Interpretation of weight loss: >7.5% in 3 months Malnutrition Findings: Food and Nutrition Intake (Mod: <75% est energy req 7days Weight Status: Appropriate MARI CALDERON MD May 08, 2018 11:08
[2018-05-08] MEDS ORDERED: HYOSCYAMINE 0.125 MG TAB.RAPDIS PO PRN (11:15)
[2018-05-08] MEDS ORDERED: NON FORMULARY ITEM (Levalbuterol Tartrate (Xopenex Hfa) 2 PUFF) IH SCH (11:15)
[2018-05-08] MEDS ORDERED: LABETALOL 20 MG/4 ML DISP.SYRIN. IVP PRN (11:15)
[2018-05-08] MEDS ORDERED: ANTI-COAG MONITOR BY PHARMACY. MC PRN (11:30)
[2018-05-08] MEDS ORDERED: tiZANidine 4 MG TABLET. PO PRN (11:30)
--- NOTE | 2018-05-08 12:18 | PDOC ---
Progress Note Subjective Subjective no acute event, patrick clear urine. ROS ROS No nausea No vomiting No pain No rash Vital Sign Vital Signs Vital Signs Date Time Temp Pulse Resp B/P (MAP) Pulse Ox O2 Delivery O2 Flow Rate FiO2 05/08/18 11:32 Room Air 05/08/18 07:00 98.5 107 18 160/95 (116) 90 98.5 Physical Exam PHYSICAL EXAM GENERAL: Propped up in bed, alert, smiling HEENT: Oral cavity clear NECK: Supple LUNGS: Clear. HEART: S1, S2 ABDOMEN: Soft and nontender : Patrick yellow, spt with cath related mucus EXTREMITIES: No edema or cyanosis. 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 SKIN: without rash NEUROLOGIC: Alert, responds appropriately PIV x 2 Labs Lab Laboratory Tests Test 05/08/18 03:00 Blood Urea Nitrogen 9 mg/dL (7-20) Creatinine 0.8 mg/dL (0.6-1.0) Estimated GFR (Cockcroft-Gault) 88.8 Procalcitonin < 0.10 ng/mL (0.00-0.10) Vancomycin Level Trough 15.9 mcg/mL (10.0-20.0) Vancomycin Last Dose Date 05/07/18 Vancomycin Last Dose Time 1600 Objective Assessment hypotonic bladder, managed with SPT. Plan Plan of Care local hygiene change cath q4-6 weeks Nutrition Consultation Dietary Evaluation: Recommendations by RD: Increase Calorie Intake, Protein supplementation Comments: Continue regular diet as ordered, assist pt w/feeding and meal orders as needed REC Ensure (chocolate) TID Expected Outcomes/Goals: PO intake to meet >75% est needs Interpretation of weight loss: >7.5% in 3 months Malnutrition Findings: Food and Nutrition Intake (Mod: <75% est energy req 7days Weight Status: Appropriate SABIHA TURNER MD May 08, 2018 12:18
[2018-05-08] MEDS: METOPROLOL TART IMMED RELEASE 25 MG TABLET. PO SCH ×2 (13:15→20:32)
[2018-05-08] MEDS: POTASSIUM CHLORIDE 10 MEQ TABLET.ER. PO SCH (13:15)
[2018-05-08] MEDS ORDERED: GABAPENTIN 400 MG CAPSULE. PO SCH (14:00)
[2018-05-08 15:00] VITALS: BP 140/90
[2018-05-08] MEDS: RIVAROXABAN 10 MG TABLET. PO SCH (16:53)
[2018-05-08 19:31] VITALS: BP 130/92
[2018-05-08] MEDS: BACLOFEN 10 MG TABLET. PO SCH (20:31)
[2018-05-08] MEDS: AMITRIPTYLINE HCL 10 MG TABLET. PO SCH (20:32)
[2018-05-08] MEDS ORDERED: QUEtiapine 100 MG TABLET. PO ONE (21:00)
[2018-05-08] MEDS ORDERED: FAMOTIDINE 20 MG TABLET. PO SCH (21:00)
[2018-05-08 23:08] VITALS: BP 115/76
[2018-05-09] VITALS (9 sets, daily range): BP systolic 69–143; BP diastolic 42–85
[2018-05-09] MEDS: VANCOMYCIN 1 GM in IV NORMAL SALINE 250ML 250 ML IV SCH ×2 (03:49→16:32)
[2018-05-09] MEDS: LEVOTHYROXINE 75 MCG TABLET PO SCH (05:36)
[2018-05-09 05:37] LABS: CALCIUM 9.5 mg/dL (8.5-10.1); CREATININE 0.7 mg/dL (0.6-1.0); GFR 103.6; POTASSIUM 3.7 mmol/L (3.5-5.1)
[2018-05-09] MEDS: ALBUTEROL SULFATE 2.5 MG/3 ML NEBU. NEB SCH ×4 (07:48→20:00)
[2018-05-09] MEDS: BUDESONIDE 0.5 MG/2 ML NEBU. NEB SCH ×2 (07:48→11:26)
[2018-05-09] MEDS: GABAPENTIN 400 MG CAPSULE. PO SCH ×3 (08:16→21:24)
[2018-05-09] MEDS: LACTOBACILLUS RHAMNOSUS GG 1 CAPSULE. PO SCH ×2 (08:16→21:23)
[2018-05-09] MEDS: POTASSIUM CHLORIDE 10 MEQ TABLET.ER. PO SCH (08:16)
[2018-05-09] MEDS: PANTOPRAZOLE 40 MG TABLET.DR. PO SCH (08:16)
[2018-05-09] MEDS: POLYETHYLENE GLYCOL 3350 17 GM PACKET. PO SCH (08:17)
[2018-05-09] MEDS: METOPROLOL TART IMMED RELEASE 25 MG TABLET. PO SCH ×2 (08:17→21:26)
[2018-05-09] MEDS: FLUTICASONE 50MCG/NASAL SPRAY 16GM BOTTLE. NS SCH (08:17)
[2018-05-09] MEDS: OXYBUTYNIN CHLORIDE 5 MG TABLET PO SCH ×3 (08:17→21:24)
[2018-05-09] MEDS: AMITRIPTYLINE HCL 10 MG TABLET. PO SCH ×2 (08:17→21:24)
[2018-05-09] MEDS: VENLAFAXINE XR 37.5 MG CAP.ER.24H. PO SCH (08:20)
[2018-05-09] MEDS: CEFEPIME HCL IV Push 1 GM VIAL. IVP SCH (08:20)
--- NOTE | 2018-05-09 10:11 | PDOC ---
Infectious Disease Note Subjective Subjective Comfortable Bowels moving Decrease vision, left eye since last exam over a year ago, denies pain/drainage Denies F/C/S ROS ROS per HPI otherwise neg Vital Sign Vital Signs Vital Signs Date Time Temp Pulse Resp B/P (MAP) Pulse Ox O2 Delivery O2 Flow Rate FiO2 05/09/18 08:17 77 130/83 05/09/18 07:00 98.8 14 93 Room Air 98.8 Physical Exam PHYSICAL EXAM GENERAL: Propped up in bed, alert, smiling HEENT: Pupils equal, Oral cavity clear NECK: Supple LUNGS: Clear. HEART: S1, S2 ABDOMEN: Soft and nontender : SPT with cath related mucus (changed 05/07) EXTREMITIES: No edema or cyanosis. SKIN: without rash NEUROLOGIC: Alert, responds appropriately PIV x 1 Labs Lab Laboratory Tests Test 05/09/18 04:00 Sodium Level 140 mmol/L (136-145) Potassium Level 3.7 mmol/L (3.5-5.1) Chloride Level 103 mmol/L (98-107) Carbon Dioxide Level 31 mmol/L (21-32) Anion Gap 6 (6-14) Blood Urea Nitrogen 10 mg/dL (7-20) Creatinine 0.7 mg/dL (0.6-1.0) Estimated GFR (Cockcroft-Gault) 103.6 Glucose Level 88 mg/dL (70-99) Calcium Level 9.5 mg/dL (8.5-10.1) Micro 05/06/18 Blood Culture - Preliminary, Resulted NO GROWTH AFTER 2 DAY Objective Assessment Catheter-associated urinary tract infection. UC pending. Low grade fever,,,improved Low blood pressure,,,improved Chronic obstructive pulmonary disease. Asthma. h/o MRSA Hypotonic bladder, managed with SPT. 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 Assessment and plan was formulated with PARCEL POST CLERK. REX TRIVEDI APRN May 09, 2018 10:11 NEETU SALGUERO MD May 09, 2018 15:44
--- NOTE | 2018-05-09 10:25 | PDOC ---
PROGRESS NOTES Chief Complaint Chief Complaint Catheter-associated urinary tract infection. UC pending. Urinary retention-chronic catheter at [facility] Low grade fever,,,improved Low blood pressure,,,improved Chronic obstructive pulmonary disease. Asthma. 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 Kyphosis/scoliosis Chronic pain History of Present Illness History of Present Illness In culture still pending ID on board for complicated UTI, chronic catheter Y[place]y has been changed No fevers No white count Relays to be orthostatic hypotension-can get symptoms \ Complains of pain all over, history of primary lateral sclerosis and follows up with neurology [facility] Plan: Await urine culture Continue IV abx per ID Abdominal binder for orthostatic hypotension Recheck TSH T3-T4, last check was over 2 months ago - low TSH but t3 AND t4 were normal Blood pressure was okay upon supine or sitting up Heavy education counseling done about slowly getting upright, treatment for chronic pain for primary lateral sclerosis, [place] FOR ORTHOSTATIC HYPOTEnsion she also follows with pain clinic baclofen pump etc. 30 minutes in the room, RN at bedside Vitals Vitals Vital Signs Date Time Temp Pulse Resp B/P (MAP) Pulse Ox O2 Delivery O2 Flow Rate FiO2 05/09/18 08:17 77 130/83 05/09/18 07:00 98.8 14 93 Room Air 98.8 Physical Exam Physical Exam GENERAL: Propped up in bed, alert, smiling HEENT: Pupils equal, Oral cavity clear NECK: Supple LUNGS: Clear. HEART: S1, S2 ABDOMEN: Soft and nontender : SPT with cath related mucus (changed 05/07) EXTREMITIES: No edema or cyanosis. SKIN: without rash NEUROLOGIC: Alert, responds appropriately PIV x 1 General: Alert, Oriented X3, Cooperative, No acute distress Heart: Regular rate Lungs: Clear Abdomen: Normal bowel sounds, Soft, No tenderness, No hepatosplenomegaly, No masses, Other (Suprapubic catheter with drainage) Extremities: No clubbing, No cyanosis, No edema, Normal pulses, No tenderness/ swelling Skin: No rashes, No breakdown, No significant lesion Labs LABS Laboratory Tests Test 05/09/18 04:00 Sodium Level 140 mmol/L (136-145) Potassium Level 3.7 mmol/L (3.5-5.1) Chloride Level 103 mmol/L (98-107) Carbon Dioxide Level 31 mmol/L (21-32) Anion Gap 6 (6-14) Blood Urea Nitrogen 10 mg/dL (7-20) Creatinine 0.7 mg/dL (0.6-1.0) Estimated GFR (Cockcroft-Gault) 103.6 Glucose Level 88 mg/dL (70-99) Calcium Level 9.5 mg/dL (8.5-10.1) Review of Systems Review of Systems Pain all over, the rest of ROS 14 point negative Assessment and Plan Assessmemt and Plan Problems Medical Problems: (1) Hypotension Status: Acute (2) UTI (urinary tract infection) Status: Acute Comment Review of Relevant I have reviewed the following items mimi (where applicable) has been applied. Labs Laboratory Tests Test 05/08/18 03:00 05/09/18 04:00 Blood Urea Nitrogen 9 mg/dL (7-20) 10 mg/dL (7-20) Creatinine 0.8 mg/dL (0.6-1.0) 0.7 mg/dL (0.6-1.0) Estimated GFR (Cockcroft-Gault) 88.8 103.6 Procalcitonin < 0.10 ng/mL (0.00-0.10) Vancomycin Level Trough 15.9 mcg/mL (10.0-20.0) Vancomycin Last Dose Date 05/07/18 Vancomycin Last Dose Time 1600 Sodium Level 140 mmol/L (136-145) Potassium Level 3.7 mmol/L (3.5-5.1) Chloride Level 103 mmol/L (98-107) Carbon Dioxide Level 31 mmol/L (21-32) Anion Gap 6 (6-14) Glucose Level 88 mg/dL (70-99) Calcium Level 9.5 mg/dL (8.5-10.1) Laboratory Tests Test 05/09/18 04:00 Sodium Level 140 mmol/L (136-145) Potassium Level 3.7 mmol/L (3.5-5.1) Chloride Level 103 mmol/L (98-107) Carbon Dioxide Level 31 mmol/L (21-32) Anion Gap 6 (6-14) Blood Urea Nitrogen 10 mg/dL (7-20) Creatinine 0.7 mg/dL (0.6-1.0) Estimated GFR (Cockcroft-Gault) 103.6 Glucose Level 88 mg/dL (70-99) Calcium Level 9.5 mg/dL (8.5-10.1) Microbiology 05/06/18 Blood Culture - Preliminary, Resulted NO GROWTH AFTER 2 DAYS Medications Current Medications Sodium Chloride 1,000 ml @ 1,000 mls/hr 1X ONCE IV Last administered on at 11:25; Start 05/06/18 at 11:00; Stop 05/06/18 at 11:59; Status DC Levofloxacin/ Dextrose 150 ml @ 100 mls/hr 1X ONCE IV Last administered on at 11:25; Start 05/06/18 at 11:15; Stop 05/06/18 at 12:44; Status DC Sodium Chloride 1,000 ml @ 100 mls/hr Q10H IV Last administered on 05/06/18at 11:13; Start 05/06/18 at 11:13; Stop 05/06/18 at 15:12; Status DC Vancomycin HCl (Vanco Per Pharmacy) 1 each PRN DAILY PRN MC SEE COMMENTS Last administered on 05/08/18at 14:06; Start 05/06/18 at 11:15 Vancomycin HCl 1.5 gm/Sodium Chloride 500 ml @ 250 mls/hr 1X ONCE IV Last administered on 05/06/18at 16:27; Start 05/06/18 at 12:00; Stop 05/06/18 at 13:59 ; Status DC Norepinephrine Bitartrate 250 ml @ 1.875 mls/ hr CONT PRN IV PER PROTOCOL; Start 05/06/18 at 12:00; Stop 05/07/18 at 16:44; Status DC Sodium Chloride 1,000 ml @ 1,770 mls/hr Q34M IV Last administered on at 12:39; Start 05/06/18 at 11:53; Stop 05/06/18 at 12:53; Status DC Acetaminophen (Tylenol) 650 mg PRN Q6HRS PRN PO FEVER > 101; Start 05/06/18 at 16:15 Fluticasone Propionate (Flonase) 2 spray DAILY NS Last administered on at 08:17; Start 05/07/18 at 09:00 Levothyroxine Sodium (Synthroid) 75 mcg DAILY07 PO Last administered on 05:36; Start 05/07/18 at 07:00 Oxycodone/ Acetaminophen (Percocet 7.5/ 325) 1 tab PRN Q6HRS PRN PO PAIN Last administered on 05/08/18 13:16; Start 05/06/18 at 16:15 Non-Formulary Medication (Fluticasone/ Salmeterol (Advair 500-50 Diskus)) 1 each BID IH ; Start 05/06/18 at 21:00; Status UNV Polyethylene Glycol (miraLAX PACKET) 17 gm DAILY PO Last administered on 08:17; Start 05/07/18 at 09:00 Quetiapine Fumarate (SEROquel XR) 50 mg DAILY PO Last administered on 07:56; Start 05/07/18 at 09:00; Stop 05/08/18 at 11:41; Status DC Venlafaxine HCl (Effexor Xr) 225 mg DAILY PO Last administered on 05/09/18 08: 20; Start 05/07/18 at 09:00 Budesonide (Pulmicort) 0.5 mg RTBID NEB Last administered on 05/08/18 20:42; Start 05/06/18 at 20:00 Albuterol Sulfate (Ventolin Neb Soln) 2.5 mg RTQID NEB Last administered on at 20:42; Start 05/06/18 at 16:30 Vancomycin HCl 1 gm/Sodium Chloride 250 ml @ 250 mls/hr Q12H IV ; Start at 21:00; Stop 05/06/18 at 21:00; Status DC Enoxaparin Sodium (Lovenox 40mg Syringe) 40 mg Q24H SQ Last administered on at 15:49; Start 05/06/18 at 16:45; Stop 05/08/18 at 11:22; Status DC Vancomycin HCl 750 mg/Sodium Chloride 250 ml @ 250 mls/hr Q12H IV ; Start 05/07 at 04:00; Status Cancel Vancomycin HCl (Vancomycin Trough Level) 1 each 1X ONCE MC Last administered on 05/08/18 03:30; Start 05/08/18 at 03:30; Stop 05/08/18 at 03:31; Status DC Vancomycin HCl 1 gm/Sodium Chloride 250 ml @ 250 mls/hr Q12H IV Last administered on 05/09/18 03:49; Start 05/07/18 at 04:00 Gabapentin (Neurontin) 800 mg TID PO Last administered on 05/09/18 08:16; Start 05/06/18 at 23:00 Cefepime HCl (Maxipime) 1 gm Q12HR IVP Last administered on 05/09/18 08:20; Start 05/07/18 at 09:00 Oxybutynin Chloride (Ditropan) 5 mg [id number] PO Last administered on 05/09/18 08 :17; Start 05/07/18 at 14:00 Lactobacillus Rhamnosus (Culturelle) 1 cap BID PO Last administered on 08:16; Start 05/07/18 at 21:00 Amitriptyline HCl (Elavil) 10 mg BID PO Last administered on 05/09/18 08:17; Start 05/08/18 at 21:00 Baclofen (Lioresal) 10 mg HS PO Last administered on 05/08/18 20:31; Start at 21:00 Metoprolol Tartrate (Lopressor) 12.5 mg BID PO Last administered on 05/09/18 08:17; Start 05/08/18 at 12:00 Potassium Chloride (Klor-Con) 10 meq DAILY PO Last administered on 05/09/18 08 :16; Start 05/08/18 at 12:00 Rivaroxaban (Xarelto) 10 mg DAILYWSUP PO Last administered on 05/08/18 16:53; Start 05/08/18 at 17:00 Gabapentin (Neurontin) 800 mg TID PO ; Start 05/08/18 at 14:00; Status Cancel Hyoscyamine (Anaspaz) 0.125 mg PRN Q4HRS PRN PO STOMACH CRAMPING; Start at 11:15 Non-Formulary Medication (Levalbuterol Tartrate (Xopenex Hfa)) 2 puff PRN Q4- 6HRS IH ; Start 05/08/18 at 11:15; Status UNV Quetiapine Fumarate (SEROquel) 150 mg QHS PO ; Start 05/09/18 at 21:00 Famotidine (Pepcid) 20 mg HS PO ; Start 05/08/18 at 21:00; Stop 05/08/18 at 21: 00; Status DC Tizanidine HCl (Zanaflex) 4 mg PRN Q8HRS PRN PO MUSCLE SPASMS; Start 05/08/18 at 11:30 Labetalol HCl (Normodyne Iv Push) 10 mg PRN Q2HR PRN IVP HYPERTENSION, SEE COMMENTS; Start 05/08/18 at 11:15 Pantoprazole Sodium (Protonix) 40 mg DAILYAC PO Last administered on 05/09/18at 08:16; Start 05/09/18 at 07:30 Info (Anti-Coagulation Monitoring By Pharmacy) 1 each PRN DAILY PRN MC SEE COMMENTS; Start 05/08/18 at 11:30 Quetiapine Fumarate (SEROquel) 100 mg ONCE ONCE PO Last administered on at 20:32; Start 05/08/18 at 21:00; Stop 05/08/18 at 21:01; Status DC Active Scripts Active Metoprolol Tartrate 25 Mg Tablet 12.5 Mg PO BID 30 Days Tylenol (Acetaminophen) 325 Mg Tablet 650 Mg PO PRN Q6HRS PRN 30 Days Reported Venlafaxine Hcl Er (Venlafaxine Hcl) 75 Mg Cap.er.24h 225 Mg PO DAILY Xarelto (Rivaroxaban) 10 Mg Tablet 10 Mg PO DAILYWSUP Synthroid (Levothyroxine Sodium) 75 Mcg Tablet 75 Mcg PO DAILY07 Seroquel (Quetiapine Fumarate) 50 Mg Tablet 50 Mg PO HS Seroquel (Quetiapine Fumarate) 100 Mg Tablet 1 Tab PO HS Potassium Chloride 10 Meq Tab.sr.24h 10 Meq PO DAILY Percocet 7.5-325 Mg Tablet (Oxycodone/Acetaminophen) 1 Each Tablet 1 Tab PO PRN Q6HRS PRN Miralax (Polyethylene Glycol 3350) 17 Gm Powd.pack 1 Pkt PO TID Levsin-Sl (Hyoscyamine Sulfate) 0.125 Mg Tab.subl 0.125 Mg SL PRN Q4HRS PRN Bactrim 400-80 Mg Tablet (Sulfamethoxazole/Trimethoprim) 1 Each Tablet 2 Each PO BID 10 Days Baclofen 10 Mg Tablet 10 Mg PO HS Xopenex Hfa (Levalbuterol Tartrate) 15 Gm Hfa.aer.ad 2 Puff IH PRN Q4-6HRS Fluticasone Propionate Nasal [place] (Fluticasone Propionate) 16 Gm [place].susp 2 [place] NS DAILY Advair 500-50 Diskus (Fluticasone/Salmeterol) 1 Each Disk.w.dev 1 Each IH BID Amitriptyline Hcl 10 Mg Tablet 10 Mg PO BID Zofran Odt (Ondansetron) 8 Mg Tab.rapdis 8 Mg PO PRN Tizanidine Hcl 2 Mg Capsule 4 Mg PO TID Zantac (Ranitidine Hcl) 150 Mg Tablet 150 Mg PO HS Gabapentin 800 Mg Tablet 800 Mg PO TID Vitals/I & O Vital Sign - Last 24 Hours 05/08/18 05/08/18 05/08/18 05/08/18 11:00 11:32 13:15 13:16 Temp 98.0 98.0 Pulse 103 103 Resp 17 B/P (MAP) 106/73 (84) 106/73 Pulse Ox 93 O2 Delivery Room Air Room Air Room Air 05/08/18 05/08/18 05/08/18 05/08/18 14:16 15:00 15:35 19:15 Temp 98.4 98.4 Pulse 74 Resp 17 B/P (MAP) 140/90 (107) Pulse Ox 93 O2 Delivery Room Air Room Air Room Air Room Air 05/08/18 05/08/18 05/08/18 05/08/18 19:31 20:32 20:45 20:48 Temp 98.4 98.4 Pulse 86 82 Resp 18 B/P (MAP) 130/92 (105) 130/92 Pulse Ox 91 98 O2 Delivery Room Air Room Air Room Air 05/08/18 05/09/18 05/09/18 05/09/18 23:08 03:59 07:00 08:17 Temp 98.3 98.3 98.8 98.3 98.3 98.8 Pulse 90 77 77 77 Resp 19 18 14 B/P (MAP) 115/76 (89) 124/80 (95) 130/83 (99) 130/83 Pulse Ox 94 91 93 O2 Delivery Room Air Room Air Room Air Intake and Output 05/08/18 05/08/18 05/09/18 15:00 23:00 07:00 Intake Total 360 ml 356 ml 370 ml Output Total 950 ml 1200 ml Balance 360 ml -594 ml -830 ml Nutrition Consultation Dietary Evaluation: Recommendations by RD: Increase Calorie Intake, Protein supplementation Comments: Continue regular diet as ordered, assist pt w/feeding and meal orders as needed REC Ensure (chocolate) TID Expected Outcomes/Goals: PO intake to meet >75% est needs Interpretation of weight loss: >7.5% in 3 months Malnutrition Findings: Food and Nutrition Intake (Mod: <75% est energy req 7days Weight Status: Appropriate MARI CALDERON MD May 09, 2018 10:25
[2018-05-09 10:59] LABS: FREE T4 0.94 ng/dL (0.76-1.46); THYROID STIM HORMONE (TSH) 1.489 uIU/mL (0.358-3.74)
[2018-05-09 13:13] LABS: INFLUENZA A PATIENT NEGATIVE (NEGATIVE); INFLUENZA B PATIENT NEGATIVE (NEGATIVE)
[2018-05-09] MEDS: VANCOMYCIN PER PHARMACY MC PRN (16:29)
[2018-05-09] MEDS: oxyCODONE/APAP 7.5/325 1 TAB TABLET PO PRN (16:32)
[2018-05-09] MEDS: RIVAROXABAN 10 MG TABLET. PO SCH (16:32)
[2018-05-09] MEDS ORDERED: QUEtiapine 100 MG TABLET. PO SCH (21:00)
[2018-05-09] MEDS: BACLOFEN 10 MG TABLET. PO SCH (21:25)
--- NOTE | 2018-05-09 21:29 | NUR ---
Patient denied need for baclofen PO states she has a pain pump with baclofen in it. Metoprolol held at this time due to SBP < 100 will reassess at 2300. Continue to monitor.
[2018-05-09] MEDS ORDERED: IV NORMAL SALINE 1000ML BAG 1,000 ML IV ONE (22:45)
[2018-05-10] MEDS ORDERED: IV NORMAL SALINE 1000ML BAG 1,000 ML IV ONE (02:00)
[2018-05-10 03:00] VITALS: BP 96/64
[2018-05-10] MEDS ORDERED: IV NORMAL SALINE 1000ML BAG 1,000 ML IV SCH (03:00)
[2018-05-10] MEDS: VANCOMYCIN 1 GM in IV NORMAL SALINE 250ML 250 ML IV SCH (03:14)
[2018-05-10] MEDS: LEVOTHYROXINE 75 MCG TABLET PO SCH (06:47)
[2018-05-10 07:00] VITALS: BP 114/68
[2018-05-10] MEDS: BUDESONIDE 0.5 MG/2 ML NEBU. NEB SCH ×2 (07:18→11:38)
[2018-05-10] MEDS: ALBUTEROL SULFATE 2.5 MG/3 ML NEBU. NEB SCH ×2 (07:18→11:38)
[2018-05-10] MEDS: FLUTICASONE 50MCG/NASAL SPRAY 16GM BOTTLE. NS SCH (08:06)
[2018-05-10] MEDS: LACTOBACILLUS RHAMNOSUS GG 1 CAPSULE. PO SCH (08:08)
[2018-05-10] MEDS: PANTOPRAZOLE 40 MG TABLET.DR. PO SCH (08:08)
[2018-05-10] MEDS: OXYBUTYNIN CHLORIDE 5 MG TABLET PO SCH ×2 (08:09→14:15)
[2018-05-10] MEDS: VENLAFAXINE XR 37.5 MG CAP.ER.24H. PO SCH (08:10)
[2018-05-10] MEDS: METOPROLOL TART IMMED RELEASE 25 MG TABLET. PO SCH (08:11)
[2018-05-10] MEDS: POTASSIUM CHLORIDE 10 MEQ TABLET.ER. PO SCH (08:11)
[2018-05-10] MEDS: AMITRIPTYLINE HCL 10 MG TABLET. PO SCH (08:11)
[2018-05-10] MEDS: POLYETHYLENE GLYCOL 3350 17 GM PACKET. PO SCH (08:12)
[2018-05-10] MEDS: GABAPENTIN 400 MG CAPSULE. PO SCH ×2 (08:12→14:15)
--- NOTE | 2018-05-10 08:34 | NUR ---
SW following pt. SW faxed updated clinicals to [facility]. Will continue to follow.
[2018-05-10] MEDS ORDERED: OXYC1TAB19 PO (09:13)
[2018-05-10] MEDS ORDERED: OXYB5TAB7 PO (09:13)
--- NOTE | 2018-05-10 10:33 | PDOC ---
Infectious Disease Note Subjective: Subjective Comfortable Bowels moving Decrease vision, left eye since last exam over a year ago, denies pain/drainage Denies F/C/S eager for dc back to [facility] ROS: ROS Negative except for above. Vital Signs: Vital Signs Vital Signs Date Time Temp Pulse Resp B/P (MAP) Pulse Ox O2 Delivery O2 Flow Rate FiO2 05/10/18 08:11 78 96/64 05/10/18 08:00 Room Air 05/10/18 07:19 90 05/10/18 07:00 97.7 16 97.7 Physical Exam: PHYSICAL EXAM GENERAL: Propped up in bed, alert, smiling HEENT: Pupils equal, Oral cavity clear NECK: Supple LUNGS: Clear. HEART: S1, S2 ABDOMEN: Soft and nontender : SPT with cath related mucus (changed 05/07) EXTREMITIES: No edema or cyanosis. SKIN: without rash NEUROLOGIC: Alert, responds appropriately PIV x 1 Medications: Inpatient Meds: Current Medications Medications (Trade) Dose Ordered Sig/Estelle Start Time Stop Time Status Last Admin Dose Admin Acetaminophen (Tylenol) 650 mg PRN Q6HRS PRN 05/06/18 16:15 Albuterol Sulfate (Ventolin Neb Soln) 2.5 mg RTQID 05/06/18 16:30 05/10/18 07:18 2.5 MG Amitriptyline HCl (Elavil) 10 mg BID 05/08/18 21:00 05/10/18 08:11 10 MG Baclofen (Lioresal) 10 mg HS 05/08/18 21:00 05/08/18 20:31 10 MG Budesonide (Pulmicort) 0.5 mg RTBID 05/06/18 20:00 05/10/18 07:18 0.5 MG Cefepime HCl (Maxipime) 1 gm Q12HR 05/07/18 09:00 05/09/18 16:09 DC 05/09/18 08:20 1 GM Enoxaparin Sodium (Lovenox 40mg Syringe) 40 mg Q24H 05/06/18 16:45 05/08/18 11:22 DC 05/07/18 15:49 40 MG Famotidine (Pepcid) 20 mg HS 05/08/18 21:00 05/08/18 21:00 DC Fluticasone Propionate (Flonase) 2 spray DAILY 05/07/18 09:00 05/10/18 08:06 2 SPRAY Gabapentin (Neurontin) 800 mg TID 05/08/18 14:00 Cancel Hyoscyamine (Anaspaz) 0.125 mg PRN Q4HRS PRN 05/08/18 11:15 Info (Anti-Coagulation Monitoring By Pharmacy) 1 each PRN DAILY PRN 05/08/18 11:30 Labetalol HCl (Normodyne Iv Push) 10 mg PRN Q2HR PRN 05/08/18 11:15 Lactobacillus Rhamnosus (Culturelle) 1 cap BID 05/07/18 21:00 05/10/18 08:08 1 CAP Levofloxacin/ Dextrose 150 ml @ 100 mls/hr 1X ONCE 05/06/18 11:15 05/06/18 12:44 DC 05/06/18 11:25 100 MLS/HR Levothyroxine Sodium (Synthroid) 75 mcg DAILY07 05/07/18 07:00 05/10/18 06:47 75 MCG Metoprolol Tartrate (Lopressor) 12.5 mg BID 05/08/18 12:00 05/09/18 08:17 12.5 MG Non-Formulary Medication (Fluticasone/ Salmeterol (Advair 500-50 Diskus)) 1 each BID 05/06/18 21:00 UNV Non-Formulary Medication (Levalbuterol Tartrate (Xopenex Hfa)) 2 puff PRN Q4-6HRS 05/08/18 11:15 UNV Norepinephrine Bitartrate 250 ml @ 1.875 mls/ hr CONT PRN 05/06/18 12:00 05/07/18 16:44 DC Oxybutynin Chloride (Ditropan) 5 mg [id number] 05/07/18 14:00 05/10/18 08:09 5 MG Oxycodone/ Acetaminophen (Percocet 7.5/ 325) 1 tab PRN Q6HRS PRN 05/06/18 16:15 05/09/18 16:32 1 TAB Pantoprazole Sodium (Protonix) 40 mg DAILYAC 05/09/18 07:30 05/10/18 08:08 40 MG Polyethylene Glycol (miraLAX PACKET) 17 gm DAILY 05/07/18 09:00 05/09/18 08:17 17 GM Potassium Chloride (Klor-Con) 10 meq DAILY 05/08/18 12:00 05/10/18 08:11 10 MEQ Quetiapine Fumarate (SEROquel XR) 50 mg DAILY 05/07/18 09:00 05/08/18 11:41 DC 05/08/18 07:56 50 MG Quetiapine Fumarate (SEROquel) 100 mg ONCE ONCE 05/08/18 21:00 05/08/18 21:01 DC 05/08/18 20:32 100 MG Rivaroxaban (Xarelto) 10 mg DAILYWSUP 05/08/18 17:00 05/09/18 16:32 10 MG Sodium Chloride 1,000 ml @ 100 mls/hr Q10H 05/10/18 03:00 05/10/18 10:29 DC 05/10/18 03:14 100 MLS/HR Tizanidine HCl (Zanaflex) 4 mg PRN Q8HRS PRN 05/08/18 11:30 Vancomycin HCl (Vanco Per Pharmacy) 1 each PRN DAILY PRN 05/06/18 11:15 05/09/18 16:29 1 EACH Vancomycin HCl (Vancomycin Trough Level) 1 each 1X ONCE 05/08/18 03:30 05/08/18 03:31 DC 05/08/18 03:30 1 EACH Vancomycin HCl 1.5 gm/Sodium Chloride 500 ml @ 250 mls/hr 1X ONCE 05/06/18 12:00 05/06/18 13:59 DC 05/06/18 16:27 250 MLS/HR Vancomycin HCl 750 mg/Sodium Chloride 250 ml @ 250 mls/hr Q12H 05/07/18 04:00 Cancel Vancomycin HCl 1 gm/Sodium Chloride 250 ml @ 250 mls/hr Q12H 05/07/18 04:00 05/10/18 03:14 250 MLS/HR Venlafaxine HCl (Effexor Xr) 225 mg DAILY 05/07/18 09:00 05/10/18 08:10 225 MG Labs: Lab Laboratory Tests Test 05/09/18 12:30 Influenza Type A Antigen Negative (NEGATIVE) Influenza Type B Antigen Negative (NEGATIVE) Objective: Assessment: Catheter-associated urinary tract infection. MRSA. Low grade fever resolved Low blood pressure,,resolved Chronic obstructive pulmonary disease. Asthma. h/o MRSA Hypotonic bladder, managed with SPT. 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
--- NOTE | 2018-05-10 10:35 | PDOC ---
SUBJECTIVE Subjective Patient doing well, no problems this am. Was told she will likely go back to facility later today. OBJECTIVE Objective Physical Exam: General appearance: Alert and Oriented Head: Normocephalic, without obvious abnormality Eyes: conjunctivae/corneas clear. PERRL, EOM's intact. Fundi benign Lungs: Regular respirations, non labored breathing Abdomen: soft, slight generalized tenderness throughout during exam. + SP tube in place draining clear yellow urine. Site is covered by Split guaze dressing that is CDI. Site beneath dressing is CDI without signs/symptoms of infection. Vital Signs Vital Signs Date Time Temp Pulse Resp B/P (MAP) Pulse Ox O2 Delivery O2 Flow Rate FiO2 05/10/18 08:11 78 96/64 05/10/18 08:00 Room Air 05/10/18 07:19 90 Room Air 05/10/18 07:00 97.7 81 16 114/68 (83) 90 Room Air 97.7 05/10/18 03:00 98.6 78 19 96/64 (75) 94 Room Air 98.6 05/09/18 23:48 91/56 (68) 05/09/18 22:55 98.9 111 17 69/42 (51) 96 Room Air 98.9 05/09/18 21:26 111 93/50 05/09/18 20:36 100 Room Air 05/09/18 20:26 111 20 93/50 (64) Room Air 05/09/18 20:25 102 18 109/73 (85) Room Air 05/09/18 19:35 Room Air 05/09/18 19:00 99.0 90 18 119/75 (90) 94 Room Air 99.0 05/09/18 17:41 Room Air 05/09/18 16:32 Room Air 05/09/18 15:32 Room Air 05/09/18 15:00 99.5 81 16 143/85 (104) 94 Room Air 99.5 05/09/18 11:26 100 Room Air 05/09/18 11:00 99.4 81 16 121/75 (90) 90 Room Air 99.4 I & O Intake and Output 05/10/18 06:59 Intake Total 2994 ml Output Total 1850 ml Balance 1144 ml Intake Oral 620 ml IV Total 2374 ml Output Urine Total 1850 ml # Bowel Movements 1 PHYSICAL EXAM Physical Exam Physical Exam: General appearance: Alert and Oriented Head: Normocephalic, without obvious abnormality Eyes: conjunctivae/corneas clear. PERRL, EOM's intact. Fundi benign Lungs: Regular respirations, non labored breathing Abdomen: soft, slight generalized tenderness throughout during exam. + SP tube in place draining clear yellow urine. Site is covered by Split guaze dressing that is CDI. Site beneath dressing is CDI without signs/symptoms of infection. ASSESSMENT/PLAN Assessment/Plan Continue local hygiene of SP tube change cath q4-6 weeks. Ok from a Urology perspective, to return to SNF/LTC facility whenever medical team is ready. Problems: (1) UTI (urinary tract infection) COMMENT Lab Laboratory Tests Test 05/09/18 12:30 Influenza Type A Antigen Negative (NEGATIVE) Influenza Type B Antigen Negative (NEGATIVE) Nutrition Consultation Dietary Evaluation: Recommendations by RD: Increase Calorie Intake, Protein supplementation Comments: Continue regular diet as ordered, assist pt w/feeding and meal orders as needed REC Ensure (chocolate) TID Expected Outcomes/Goals: PO intake to meet >75% est needs Interpretation of weight loss: >7.5% in 3 months Malnutrition Findings: Food and Nutrition Intake (Mod: <75% est energy req 7days Weight Status: Appropriate LUPE NEIL APRN May 10, 2018 10:35
[2018-05-10] MEDS ORDERED: LINE600T PO (10:56)
--- NOTE | 2018-05-10 10:57 | SNU/HH DC ---
DISCHARGE ORDERS DISCHARGE INFORMATION: DISCHARGE DATE: May 10, 2018 FINAL DIAGNOSIS Problems Medical Problems: (1) Hypotension Status: Acute (2) UTI (urinary tract infection) Status: Acute CONDITION ON DISCHARGE: Stable CODE STATUS: Code Status: Full CARE HOME: SNF STAY <30 DAYS: No HOSPICE: HOSPICE: No HOSPICE EVAL & TREAT: No LTAC: ADMIT TO LTAC: No POST DISCHARGE ORDERS: ACTIVITY ORDERS: Activity as tolerated, Avoid exertion WEIGHT BEARING STATUS: As tolerated BATHING ORDERS: Shower-keep dressing dry DIET AFTER DISCHARGE: Regular CHECKS AFTER DISCHARGE: CHECKS AFTER DISCHARGE: Check blood press - daily TREATMENT/EQUIPMENT ORDERS: ADAPTIVE EQUIPMENT NEEDED: None Physical Therapy For: Evalulation/Treatment Occupational Therapy For: Evaluation/Treatment DISCHARGE MEDICATIONS: Home Meds Active Scripts Linezolid (ZYVOX) 600 Mg Tablet, 600 MG PO BID for MRSA urine for 10 Days, #20 TAB Prov:MARI CALDERON MD 05/10/18 Oxybutynin Chloride (OXYBUTYNIN CHLORIDE) 5 Mg Tablet, 5 MG PO [id number] for urineary MDD 1, #90 TAB Prov:MARI CALDERON MD 05/10/18 Oxycodone/Apap 7.5-325 (PERCOCET 7.5-325 MG TABLET ) 1 Each Tablet, 1 TAB PO PRN Q6HRS PRN for PAIN MDD 1, #30 TAB 0 Refills Prov:MARI CALDERON MD 05/10/18 Metoprolol Tartrate (METOPROLOL TARTRATE) 25 Mg Tablet, 12.5 MG PO BID for 30 Days, #30 TAB Prov:RISHABH LUNDBERG MD 08/06/16 Acetaminophen (TYLENOL) 325 Mg Tablet, 650 MG PO PRN Q6HRS PRN for FEVER > 101 for 30 Days, TAB Prov:RISHABH LUNDBERG MD 08/06/16 Reported Medications Venlafaxine Hcl (VENLAFAXINE HCL ER) 75 Mg Cap.er.24h, 225 MG PO DAILY, CAP.SR 03/02/18 Rivaroxaban (XARELTO) 10 Mg Tablet, 10 MG PO DAILYWSUP for DVT Prophlyaxix, TAB 02/27/18 Levothyroxine Sodium (SYNTHROID) 75 Mcg Tablet, 75 MCG PO DAILY07 for THYROID SUPPLEMENT, #30 TAB 0 Refills 02/27/18 Quetiapine Fumarate (SEROQUEL) 50 Mg Tablet, 50 MG PO HS for Schizophrenia, TAB 02/27/18 Quetiapine Fumarate (SEROQUEL) 100 Mg Tablet, 1 TAB PO HS for Schizophrenia, # 30 TAB 02/27/18 Potassium Chloride (POTASSIUM CHLORIDE) 10 Meq Tab.sr.24h, 10 MEQ PO DAILY for Hypokalemia, TAB.SR 02/27/18 Polyethylene Glycol 3350 (MIRALAX) 17 Gm Powd.pack, 1 PKT PO TID for Constipation, PKT 02/27/18 Hyoscyamine Sulfate (LEVSIN-SL) 0.125 Mg Tab.subl, 0.125 MG SL PRN Q4HRS PRN for cramps, TAB 02/27/18 Sulfamethoxazole/Trimethoprim (BACTRIM 400-80 MG TABLET) 1 Each Tablet, 2 EACH PO BID for UTI for 10 Days, #40 TAB 02/27/18 Baclofen (BACLOFEN) 10 Mg Tablet, 10 MG PO HS for MUSCLE RELAXER, #30 TAB 0 Refills 02/27/18 Levalbuterol Tartrate (XOPENEX HFA) 15 Gm Hfa.aer.ad, 2 PUFF IH PRN Q4-6HRS, # 15 GM 07/27/16 Fluticasone Propionate (FLUTICASONE PROPIONATE NASAL SPRAY) 16 Gm [place].susp, 2 SPRAY NS DAILY, #1 INHALER 11 Refills 07/27/16 Fluticasone/Salmeterol (ADVAIR 500-50 DISKUS) 1 Each Disk.w.dev, 1 EACH IH BID 04/14/13 Amitriptyline Hcl (AMITRIPTYLINE HCL) 10 Mg Tablet, 10 MG PO BID, #2 04/14/13 Ondansetron (ZOFRAN ODT) 8 Mg Tab.rapdis, 8 MG PO PRN 04/14/13 Tizanidine Hcl (TIZANIDINE HCL) 2 Mg Capsule, 4 MG PO TID for Muscle Relaxer 04/14/13 Ranitidine Hcl (ZANTAC) 150 Mg Tablet, 150 MG PO HS for GERD 04/14/13 Gabapentin (GABAPENTIN) 800 Mg Tablet, 800 MG PO TID 04/14/13 MARI CALDERON MD May 10, 2018 10:57
--- NOTE | 2018-05-10 11:01 | PDOC3 ---
Discharge Summary Visit Information Date of Admission: May 06, 2018 Date of Discharge: May 10, 2018 Admitting Diagnosis Comment: MRSA UTI-sensitive to Bactrim and Zyvox Catheter-associated urinary tract infection. complicated UTI Urinary retention-chronic catheter at [facility] Low grade fever,,,improved Low blood pressure,,,improved. orthostatic hypotension-abdominal binder. DC beta corinna Chronic obstructive pulmonary disease. 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 Kyphosis/scoliosis Chronic pain Final Diagnosis Problems Medical Problems: (1) Hypotension Status: Acute (2) UTI (urinary tract infection) Status: Acute Brief Hospital Course Allergies Allergies Coded Allergies Type Severity Reaction Last Updated Verified ibuprofen Allergy Intermediate Hives 07/28/16 Yes I S O L A T I O N *CONTACT* Allergy Unknown 03/01/18 Yes cefazolin Adverse Reaction Intermediate N/V 07/28/16 Yes morphine Adverse Reaction Intermediate Nausea and Vomiting 05/06/18 Yes Vital Signs Vital Signs Date Time Temp Pulse Resp B/P (MAP) Pulse Ox O2 Delivery O2 Flow Rate FiO2 05/10/18 08:11 78 96/64 05/10/18 08:00 Room Air 05/10/18 07:19 90 05/10/18 07:00 97.7 16 97.7 Lab Results Laboratory Tests Test 05/09/18 04:00 05/09/18 12:30 Sodium Level 140 mmol/L (136-145) Potassium Level 3.7 mmol/L (3.5-5.1) Chloride Level 103 mmol/L (98-107) Carbon Dioxide Level 31 mmol/L (21-32) Anion Gap 6 (6-14) Blood Urea Nitrogen 10 mg/dL (7-20) Creatinine 0.7 mg/dL (0.6-1.0) Estimated GFR (Cockcroft-Gault) 103.6 Glucose Level 88 mg/dL (70-99) Calcium Level 9.5 mg/dL (8.5-10.1) Thyroid Stimulating Hormone (TSH) 1.489 uIU/mL (0.358-3.74) Free Thyroxine 0.94 ng/dL (0.76-1.46) Free Triiodothyronine (T3) pg/mL 2.00 pg/mL (2.18-3.98) Influenza Type A Antigen Negative (NEGATIVE) Influenza Type B Antigen Negative (NEGATIVE) Laboratory Tests Test 05/09/18 12:30 Influenza Type A Antigen Negative (NEGATIVE) Influenza Type B Antigen Negative (NEGATIVE) Brief Hospital Course Ms. Baltazar is a 58 old [place] female came from [facility] has chronic indwelling catheter for the past few months because of urinary retention. History of MRSA. Comes in because of sepsis, complicated UTI which turned out to be MRSA UTI sensitive to Bactrim and Zyvox among others. I have attached on chart her urine culture and sensitivities. Comanage with ID. We are discharging on by mouth Zyvox 600 twice a day for 10 days. Continue indwelling catheter and has a follow-up or at least urology was following up. I did advise voiding trial in the office to include the catheter so that she can get rid of, complicated UTI recurrences. Course remarkable for orthostatic hypotension. On beta corinna. Can get symptomatic and weak. I did abdominal binder. Fludrocortisone can be an option of hypotension persists at SNU, She always has pain complaints because of history of primary lateral sclerosis follows with [facility] and on baclofen pump etc. follows with pain management Dr. Dillan Duran Medications back to [facility] on Zyvox. Follow-up with [facility] for primary lateral sclerosis. I did advise urology follow-up for voiding trial. Maintain catheter and be changed once a month Consults performed urology, infectious disease. Procedures performed changed the Yancey catheter Discharge disposition to [facility] Time 40 minutes discharging Discharge Information Condition at Discharge: Improved, Stable Disposition/Orders: Other (snu) Scheduled Amitriptyline Hcl (Amitriptyline Hcl) 10 Mg Tablet, 10 MG PO BID, #2 (Reported) Entered as Reported by: KEESHA ONEILL on 04/14/13 1329 Last Action: Continued on 05/08/18 1106 by MARI CALDERON Baclofen (Baclofen) 10 Mg Tablet, 10 MG PO HS for MUSCLE RELAXER, #30 Ref 0 ( Reported) Entered as Reported by: JULY REEDER on 02/27/18 0646 Last Action: Continued on 05/08/18 1106 by MARI CALDERON Fluticasone Propionate (Fluticasone Propionate Nasal [place]) 16 Gm [place].susp, 2 SPRAY NS DAILY, #1 Ref 11 (Reported) Entered as Reported by: Lucrecia Major on 07/27/162242 Last Action: Continued on 05/06/181615 by CONNIE HUBER MD Fluticasone/Salmeterol (Advair 500-50 Diskus) 1 Each Disk.w.dev, 1 EACH IH BID, (Reported) Entered as Reported by: KEESHA ONEILL on 04/14/13 1332 Last Action: Converted on 05/06/181615 by CONNIE HUBER MD Gabapentin (Gabapentin) 800 Mg Tablet, 800 MG PO TID, (Reported) Entered as Reported by: KEESHA ONEILL on 04/14/13 1321 Last Action: Converted on 05/08/181105 by MARI CALDERON Levalbuterol Tartrate (Xopenex Hfa) 15 Gm Hfa.aer.ad, 2 PUFF IH PRN Q4-6HRS, #15 (Reported) Entered as Reported by: Lucrecia Major on 07/27/162242 Last Action: Converted on 05/08/181105 by MARI CALDERON Levothyroxine Sodium (Synthroid) 75 Mcg Tablet, 75 MCG PO DAILY07 for THYROID SUPPLEMENT, #30 Ref 0 (Reported) Entered as Reported by: JULY REEDER on 02/27/18 0646 Last Action: Continued on 05/06/181615 by CONNIE HUBER MD Linezolid (Zyvox) 600 Mg Tablet, 600 MG PO BID for MRSA urine for 10 Days, #20 Prescribed by: MARI CALDERON on 05/10/18 1056 Metoprolol Tartrate (Metoprolol Tartrate) 25 Mg Tablet, 12.5 MG PO BID for 30 Days, #30 Prescribed by: RISHABH LUNDBERG on 08/06/16 0824 Last Action: Continued on 05/08/181105 by MARI CALDERON Oxybutynin Chloride (Oxybutynin Chloride) 5 Mg Tablet, 5 MG PO [id number] for urineary MDD 1, #90 Prescribed by: MARI CALDERON on 05/10/18 0913 Polyethylene Glycol 3350 (Miralax) 17 Gm Powd.pack, 1 PKT PO TID for Constipation, (Reported) Entered as Reported by: JULY REEDER on 02/27/18645 Last Action: Converted on 05/06/181615 by CONNIE HUBER MD Potassium Chloride (Potassium Chloride) 10 Meq Tab.sr.24h, 10 MEQ PO DAILY for Hypokalemia, (Reported) Entered as Reported by: JULY REEDER on 02/27/18645 Last Action: Continued on 05/08/181105 by MARI CALDERON Quetiapine Fumarate (Seroquel) 100 Mg Tablet, 1 TAB PO HS for Schizophrenia, #30 (Reported) Entered as Reported by: JULY REEDER on 02/27/18645 Last Action: Edited on 05/08/181138 by UNIQUE PINA Quetiapine Fumarate (Seroquel) 50 Mg Tablet, 50 MG PO HS for Schizophrenia, ( Reported) Entered as Reported by: JULY REEDER on 02/27/18645 Last Action: Edited on 05/08/181138 by UNIQUE PINA Ranitidine Hcl (Zantac) 150 Mg Tablet, 150 MG PO HS for GERD, (Reported) Entered as Reported by: KEESHA ONEILL on 04/14/13 1322 Last Action: Converted on 05/08/181105 by MARI CALDERON Rivaroxaban (Xarelto) 10 Mg Tablet, 10 MG PO DAILYWSUP for DVT Prophlyaxix, ( Reported) Entered as Reported by: JULY REEDER on 02/27/18645 Last Action: Continued on 05/08/181105 by MARI CALDERON Sulfamethoxazole/Trimethoprim (Bactrim 400-80 Mg Tablet) 1 Each Tablet, 2 EACH PO BID for UTI for 10 Days, #40 (Reported) Entered as Reported by: JULY REEDER on 02/27/18645 Last Action: HELD on 05/08/181105 by MARI CALDERON Tizanidine Hcl (Tizanidine Hcl) 2 Mg Capsule, 4 MG PO TID for Muscle Relaxer, ( Reported) Entered as Reported by: KEESHA ONEILL on 04/14/13 1323 Last Action: Converted on 05/08/181105 by MARI CALDERON Venlafaxine Hcl (Venlafaxine Hcl Er) 75 Mg Cap.er.24h, 225 MG PO DAILY, ( Reported) Entered as Reported by: Bonnie Mendoza RPH on 03/02/18 1412 Last Action: Converted on 05/06/181615 by CONNIE HUBER MD Scheduled PRN Acetaminophen (Tylenol) 325 Mg Tablet, 650 MG PO PRN Q6HRS PRN for FEVER > 101 for 30 Days Prescribed by: RISHABH LUNDBERG on 08/06/16 0824 Last Action: Continued on 05/06/181615 by CONNIE HUBER MD Hyoscyamine Sulfate (Levsin-Sl) 0.125 Mg Tab.subl, 0.125 MG SL PRN Q4HRS PRN for cramps, (Reported) Entered as Reported by: JULY REEDER on 02/27/18 0646 Last Action: Converted on 05/08/18 1106 by MARI CALDERON Ondansetron (Zofran Odt) 8 Mg Tab.rapdis, 8 MG PO, (Reported) Entered as Reported by: KEESHA ONEILL on 04/14/13 1328 Oxycodone/Apap 7.5-325 (Percocet 7.5-325 Mg Tablet ) 1 Each Tablet, 1 TAB PO PRN Q6HRS PRN for PAIN MDD 1, #30 Ref 0 Prescribed by: MARI CALDERON on 05/10/18 0913 MARI CALDERON MD May 10, 2018 11:01
[2018-05-10 11:09] VITALS: BP 118/66
[2018-05-10] MEDS: VANCOMYCIN PER PHARMACY MC PRN (12:30)
--- NOTE | 2018-05-10 13:02 | NUR ---
SW following pt. Orders faxed to [facility] and Packet on chart. Pt will transport via [facility] at 1500. ODILIA left a voice mail to pt's son, regarding discharge plan. RN notified.
--- NOTE | 2018-05-10 16:10 | NUR ---
Discharge report called to Janay at [facility]. Pt dismissed to [facility] with all belongings per ambulance at 1530. Discharge paper work sent with drivers.
== END 2018-05-10 15:30 | DRG 698 ==
LOC: ER 10:29 → 1 WEST ICU 12:10 → 5 NORTH 05-07 14:22
PROVIDERS: ADMIT Internal Medicine; ATTEND Internal Medicine
DX: T83.518A Infection and inflammatory reaction due to other urinary catheter, initial encounter (principal); A41.9 Sepsis, unspecified organism; G12.23 Primary lateral sclerosis; N39.0 Urinary tract infection, site not specified; I10 Essential (primary) hypertension; J44.9 Chronic obstructive pulmonary disease, unspecified; D63.8 Anemia in other chronic diseases classified elsewhere; B95.62 Methicillin resistant Staphylococcus aureus infection as the cause of diseases classified elsewhere; E87.6 Hypokalemia; E89.0 Postprocedural hypothyroidism; F20.9 Schizophrenia, unspecified; F32.9 Major depressive disorder, single episode, unspecified; G89.29 Other chronic pain; I95.1 Orthostatic hypotension; K21.9 Gastro-esophageal reflux disease without esophagitis; K59.00 Constipation, unspecified; M41.9 Scoliosis, unspecified; M47.812 Spondylosis without myelopathy or radiculopathy, cervical region; N31.2 Flaccid neuropathic bladder, not elsewhere classified; N32.89 Other specified disorders of bladder; Y84.6 Urinary catheterization as the cause of abnormal reaction of the patient, or of later complication, without mention of misadventure at the time of the procedure; Z79.890 Hormone replacement therapy; Z79.01 Long term (current) use of anticoagulants; Z79.899 Other long term (current) drug therapy; Z82.49 Family history of ischemic heart disease and other diseases of the circulatory system; Z86.14 Personal history of Methicillin resistant Staphylococcus aureus infection; Z86.73 Personal history of transient ischemic attack (TIA), and cerebral infarction without residual deficits; Z87.440 Personal history of urinary (tract) infections; Z87.891 Personal history of nicotine dependence; Z90.49 Acquired absence of other specified parts of digestive tract; Z90.710 Acquired absence of both cervix and uterus; G43.909 Migraine, unspecified, not intractable, without status migrainosus
CPT/HCPCS: 36415; 71045; 80048; 80076; 80202; 81001; 82565; 83605; 83690; 83880; 84145; 84439; 84443; 84481; 84484; 84520; 85025; 87040; 87086; 87186; 87641; 87804; 93005; 94640; 94760; 96365; 96366; J0692; J1650; J1956; J3370; J7030; J7040; J7050; J7613; J7626; 99291-25

== ENCOUNTER 2018-05-19 11:44 | Emergency (ER) | payer MEDICARE, OTHER ==
[~2018-05-19] VITALS: Ht 157.5 cm; Wt 52.6 kg
[~2018-05-19 11:44] MED LIST changes: +LINE600T PO; +OXYB5TAB7 PO
[2018-05-19] MEDS ORDERED: NALOXONE 2 MG/2 ML DISP.SYRIN. ONE (11:49)
[2018-05-19] MEDS ORDERED: IV NORMAL SALINE 500ML BAG 500 ML IV ONE (12:00)
[2018-05-19 12:06] LABS: BASO % 0 % (0-3); EOS # 0.4 x10^3/uL (0.0-0.7); EOS % 10 % (0-3); HEMATOCRIT 31.9 % (36.0-47.0); HEMOGLOBIN 10.3 g/dL (12.0-15.5); LYMPH # 2.6 x10^3/uL (1.0-4.8); LYMPH % 59 % (24-48); MEAN CORPUSCULAR HEMOGLOBIN 32 pg (25-35); MEAN CORPUSCULAR HGB CONC 32 g/dL (31-37); MEAN CORPUSCULAR VOLUME 100 fL (79-100); MONO # 0.6 x10^3/uL (0.0-1.1); MONO % 15 % (0-9); NEUT # 0.7 x10^3uL (1.8-7.7); NEUT % 17 % (31-73); PLATELET COUNT 285 x10^3/uL (140-400); RED BLOOD COUNT 3.18 x10^6/uL (3.50-5.40); RED CELL DISTRIBUTION WIDTH 13.8 % (11.5-14.5); WHITE BLOOD COUNT 4.3 x10^3/uL (4.0-11.0)
[2018-05-19 12:14] LABS: BILIRUBIN,URINE SMALL (NEG); CLARITY,URINE CLEAR; COLOR,URINE YELLOW; NITRITE,URINE NEGATIVE (NEG); PROTEIN,URINE NEGATIVE (NEG-TRACE); UROBILINOGEN,URINE 0.2 mg/dL (0.2 mg/dL)
[2018-05-19 12:15] LABS: HYALINE CASTS, URINE MANY /HPF; PROTHROMBIN TIME PATIENT 15.5 SEC (11.7-14.0); SQUAMOUS EPITHELIAL CELL,UR FEW /LPF
[2018-05-19 12:17] LABS: CALCIUM 8.9 mg/dL (8.5-10.1); GFR 68.7; POTASSIUM 4.1 mmol/L (3.5-5.1)
[2018-05-19 12:21] LABS: BACTERIA,URINE FEW /HPF (0-FEW)
[2018-05-19 12:23] LABS: ALBUMIN 3.1 g/dL (3.4-5.0); ALBUMIN/GLOBULIN RATIO 0.9 (1.0-1.7); TOTAL BILIRUBIN 0.1 mg/dL (0.2-1.0); TOTAL PROTEIN 6.6 g/dL (6.4-8.2)
[2018-05-19 12:27] LABS: % ATYL 2 % (0-0); % EOS 10 % (0-5); % LYMPHS 59 % (24-48); % MONOS 12 % (0-10); % SEGS 17 % (35-66); PLT ESTIMATE ADEQUATE (ADEQUATE)
[2018-05-19 12:28] LABS: OVALOCYTES FEW
--- NOTE | 2018-05-19 12:29 | RAD ---
EXAM: Chest, single view. HISTORY: Altered mental status. COMPARISON: 05/06/2018 FINDINGS: A frontal view of the chest is obtained. There is suspected bilateral lower lobe predominant atelectasis. There is no consolidation, pleural effusion or pneumothorax. The cardiac silhouette is within normal in size for portable technique. IMPRESSION: Suspected bilateral lower lobe predominant atelectasis. Electronically signed by: Jhoana Travis MD (05/19/2018 12:26 PM) [place] [id number]
[2018-05-19] MEDS ORDERED: NALOXONE 2 MG/2 ML DISP.SYRIN. IV ONE (12:30)
--- NOTE | 2018-05-19 12:49 | PHYS DOC ---
Past Medical History Past Medical History: Anemia, Asthma, COPD, Depression, Hyperthyroid, Migraines , Schizophrenia, Other Additional Past Medical Histor: PLS, BACLOFEN PUMP, ALS Past Surgical History: Cholecystectomy, Hysterectomy, Other Additional Past Surgical Histo: RT INDEX FINGER AMP. Alcohol Use: None Drug Use: None, Opiates Adult General Chief Complaint Chief Complaint: ALTERED MENTAL STATUS HPI HPI Patient is a 58 year old female brought in by ambulance from the healthcare resort apparently was found unresponsive approximately half an hour ago she took her last dose of oxycodone at 4 AM she takes the baclofen pump she had a fall at around 7 AM this was witnessed apparently after the fall she was alert and at her baseline which is mild confusion according to nursing staff but then they could not wake her up so they called 911 for EMS blood sugar was 102 blood pressure was in the 90s on further questioning from the family it sounds like she may she gotten pain medication at 7 AM as well the exact timeline is actually unclear at this point in the emergency room. Apparently last time she was like this she had sepsis according to the medics Review of Systems Review of Systems Limited by the patient's mental status Current Medications Current Medications Current Medications Medications (Trade) Dose Ordered Sig/Estelle Start Time Stop Time Status Last Admin Dose Admin Lorazepam (Ativan) 0.5 mg 1X ONCE 05/19/18 12:00 05/19/18 12:03 DC 05/19/18 11:58 0.5 MG Naloxone HCl (Narcan) 2 mg 1X ONCE 05/19/18 12:30 05/19/18 12:31 DC 05/19/18 11:50 2 MG Sodium Chloride 500 ml @ 500 mls/hr 1X ONCE 05/19/18 12:00 05/19/18 12:59 DC 05/19/18 11:45 500 MLS/HR Allergies Allergies Allergies Coded Allergies Type Severity Reaction Last Updated Verified ibuprofen Allergy Intermediate Hives 07/28/16 Yes I S O L A T I O N *CONTACT* Allergy Unknown 03/01/18 Yes cefazolin Adverse Reaction Intermediate N/V 07/28/16 Yes morphine Adverse Reaction Intermediate Nausea and Vomiting 05/06/18 Yes Physical Exam Physical Exam Constitutional: Obtunded HENT: Normocephalic, abrasion to the chin noted, bilateral external ears normal , oropharynx moist, no oral exudates, nose normal. [] Eyes: Eyes do not open to painful stiffness but they are 3 mm and reactive Neck: Normal range of motion, no tenderness, supple, no stridor. [] Cardiovascular:Heart rate regular rhythm, murmur []2 2/6 murmur noted Lungs & Thorax: Decreased respiratory effort Abdomen: Bowel sounds normal, soft, no tenderness, no masses, no pulsatile masses. [] Baclofen pump noted Skin: Warm, dry, no erythema, no rash. [] Back: No tenderness, no CVA tenderness. [] Extremities: No tenderness, no cyanosis, no clubbing, ROM intact, no edema. [] Neurologic: Andrade Coma Scale was a 3 Current Patient Data Vital Signs Vital Signs Date Time Temp Pulse Resp B/P (MAP) Pulse Ox O2 Delivery O2 Flow Rate FiO2 05/19/18 14:05 92 16 94 05/19/18 11:44 94.2 108/71 (83) Room Air 94.2 Lab Values Laboratory Tests Test 05/19/18 11:52 White Blood Count 4.3 x10^3/uL (4.0-11.0) Red Blood Count 3.18 x10^6/uL (3.50-5.40) L Hemoglobin 10.3 g/dL (12.0-15.5) L Hematocrit 31.9 % (36.0-47.0) L Mean Corpuscular Volume 100 fL (79-100) Mean Corpuscular Hemoglobin 32 pg (25-35) Mean Corpuscular Hemoglobin Concent 32 g/dL (31-37) Red Cell Distribution Width 13.8 % (11.5-14.5) Platelet Count 285 x10^3/uL (140-400) Neutrophils (%) (Auto) 17 % (31-73) L Lymphocytes (%) (Auto) 59 % (24-48) H Monocytes (%) (Auto) 15 % (0-9) H Eosinophils (%) (Auto) 10 % (0-3) H Basophils (%) (Auto) 0 % (0-3) Neutrophils # (Auto) 0.7 x10^3uL (1.8-7.7) L Lymphocytes # (Auto) 2.6 x10^3/uL (1.0-4.8) Monocytes # (Auto) 0.6 x10^3/uL (0.0-1.1) Eosinophils # (Auto) 0.4 x10^3/uL (0.0-0.7) Basophils # (Auto) 0.0 x10^3/uL (0.0-0.2) Segmented Neutrophils % 17 % (35-66) L Lymphocytes % 59 % (24-48) H Atypical Lymphocytes % (Manual) 2 % (0-0) H Monocytes % 12 % (0-10) H Eosinophils % 10 % (0-5) H Platelet Estimate Adequate (ADEQUATE) Macrocytosis Slight Ovalocytes Few Prothrombin Time 15.5 SEC (11.7-14.0) H Prothrombin Time INR 1.3 (0.8-1.1) H Urine Collection Type U cath Urine Color Yellow Urine Clarity Clear Urine pH 5.0 Urine Specific [place] 1.020 Urine Protein Negative mg/dL (NEG-TRACE) Urine Glucose (UA) Negative mg/dL (NEG) Urine Ketones (Stick) Negative mg/dL (NEG) Urine Blood Trace (NEG) Urine Nitrite Negative (NEG) Urine Bilirubin Small (NEG) Urine Urobilinogen Dipstick 0.2 mg/dL (0.2 mg/dL) Urine Leukocyte Esterase Small (NEG) Urine RBC 3-5 /HPF (0-2) Urine WBC 5-10 /HPF (0-4) Urine Squamous Epithelial Cells Few /LPF Urine Bacteria Few /HPF (0-FEW) Urine Hyaline Casts Many /HPF Urine Mucus Marked /LPF Sodium Level 145 mmol/L (136-145) Potassium Level 4.1 mmol/L (3.5-5.1) Chloride Level 107 mmol/L (98-107) Carbon Dioxide Level 31 mmol/L (21-32) Anion Gap 7 (6-14) Blood Urea Nitrogen 8 mg/dL (7-20) Creatinine 1.0 mg/dL (0.6-1.0) Estimated GFR (Cockcroft-Gault) 68.7 BUN/Creatinine Ratio 8 (6-20) Glucose Level 108 mg/dL (70-99) H Lactic Acid Level 2.2 mmol/L (0.4-2.0) H Calcium Level 8.9 mg/dL (8.5-10.1) Total Bilirubin 0.1 mg/dL (0.2-1.0) L Aspartate Amino Transferase (AST) 18 U/L (15-37) Alanine Aminotransferase (ALT) 12 U/L (14-59) L Alkaline Phosphatase 82 U/L (46-116) Troponin I Quantitative < 0.017 ng/mL (0.000-0.055) Total Protein 6.6 g/dL (6.4-8.2) Albumin 3.1 g/dL (3.4-5.0) L Albumin/Globulin Ratio 0.9 (1.0-1.7) L Ethyl Alcohol Level < 10 mg/dL (0-10) Laboratory Tests 05/19/18 11:52 Laboratory Tests 05/19/18 11:52 EKG EKG []Suspect sinus rhythm poor baseline rate 97 poor R-wave progression anteriorly it's some lateral T-wave changes no acute STEMI Radiology/Procedures Radiology/Procedures [] Impressions: FINDINGS: A frontal view of the chest is obtained. There is suspected bilateral lower lobe predominant atelectasis. There is no consolidation, pleural effusion or pneumothorax. The cardiac silhouette is within normal in size for portable technique. IMPRESSION: Suspected bilateral lower lobe predominant atelectasis. Electronically signed by: Jhoana Genao MD (05/19/2018 12:26 PM) [place] [id number] DICTATED and SIGNED BY: JHOANA GENAO MD DATE: 05/19/18 1226 anglia calcifications are noted. IMPRESSION: No acute intracranial abnormality is detected. CT of the cervical spine without contrast, 05/19/2018: Noncontrast scans were obtained with multiplanar reconstructions produced. Comparison is made to a study from 08/07/2017. There has been a previous anterior spinal fusion from C4 through C7 with an anterior fixation plate and multiple screws in place. There is a linear opacity in the upper thoracic spinal canal extending into the anterior aspect of the lower cervical spinal canal compatible with a spinal stimulator lead or infusion catheter. At C3-4 there is severe degenerative change at the disc space and the facet joints, worse on the left, with an associated grade 2 spondylolisthesis. There is chronic appearing fragmentation of the left C3-4 facet joint. This anterolisthesis appears anxious to have worsened slightly, however, this may be due to the fact that the neck is more flexed on the current exam. Prevertebral soft tissue thickening is present through this region. This may also be accentuated by the neck flexion. There are mild to moderate degenerative changes at other scattered levels in the cervical spine. No acute fracture is identified. IMPRESSION: 1. Previous anterior spinal fusion and instrumentation from C4 through C7. 2. Moderate multilevel degenerative change. 3. Grade 2 spondylolisthesis at C3-4 related to severe left-sided facet joint arthropathy. This has worsened slightly since 08/07/2017, although flexion of the neck may be contributing to this difference. 3. Moderate prevertebral soft tissue swelling raising the possibility of soft tissue injury. Electronically signed by: Chad Wayne MD (05/19/2018 1:38 PM) [facility] Course & Med Decision Making Course & Med Decision Making Pertinent Labs and Imaging studies reviewed. (See chart for details) []58-year-old female multiple medical problems chronic pain with a baclofen pump Jose Maria admission for sepsis UTI hypothyroidism who is brought in by medics from a residential for altered mental status initially she had a GCS of 3 hours very worried about intracranial injury due to the fact that she is on Xarelto and she did have a fall however we did give her 2 mg dose of Narcan as soon as she got into the emergency room and she woke up immediately she did become a little low but tachycardic and appeared mildly uncomfortable. Treated that with a small amount of Ativan which helped her. On reevaluation she was at her baseline mental status she was much more awake and alert we are planning on a head CT anyway to rule out acute cranial hemorrhage but that seems less likely. Mild elevation lactic acid to be from mild dehydration she does have 5- 10 white cells in her urine but she has an indwelling Yancey chest x-ray shows no pneumonia labs are otherwise fairly stable overall vital signs do not suggest sepsis at this time I reviewed the CT C-spine and examined the patient there really is no neck tenderness she is moving her neck with minimal difficulty she is moving all extremities on reevaluation without difficulty a do not think that she has had an acute vertebral injury at this time. I spoke in detail with the family about the likely diagnosis which is likely narcotic overdose. There is no obvious evidence of sepsis at this time on reevaluation blood pressure is 144 systolic urinalysis given the indwelling Yancey was not really consistent with symptomatic UTI. Chest x-ray showed no evidence of pneumonia given the very vigorous and complete resolution of her altered mental status with Narcan I do think that oversedation from narcotic medication was the likely culprit I recommended close monitoring with staff at her nursing facility to make sure that appropriate doses of pain medication are provided. Family is okay with this plan son is comfortable as well and she will be discharged back to the nursing facility at this time she was observed in the emergency room for several hours and remained stable from a mental status perspective Dragon Disclaimer Dragon Disclaimer This electronic medical record was generated, in whole or in part, using a voice recognition dictation system. Departure Departure Impression: Primary Impression: Narcotic overdose Disposition: 03 TRANSFER SNF Condition: STABLE Referrals: RISHABH LUNDBERG MD (PCP) YOANA AGUILERA MD May 19, 2018 12:49
--- NOTE | 2018-05-19 13:09 | EKG ---
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
--- NOTE | 2018-05-19 13:41 | RAD ---
CT of the head without contrast, 05/19/2018: HISTORY: Confusion, possible fall Comparison is made to a study from 02/27/2018. The ventricles are within normal limits in size. There is no shift of the midline structures. There is no evidence of acute intracranial hemorrhage or mass effect. Bilateral basal ganglia calcifications are noted. IMPRESSION: No acute intracranial abnormality is detected. CT of the cervical spine without contrast, 05/19/2018: Noncontrast scans were obtained with multiplanar reconstructions produced. Comparison is made to a study from 08/07/2017. There has been a previous anterior spinal fusion from C4 through C7 with an anterior fixation plate and multiple screws in place. There is a linear opacity in the upper thoracic spinal canal extending into the anterior aspect of the lower cervical spinal canal compatible with a spinal stimulator lead or infusion catheter. At C3-4 there is severe degenerative change at the disc space and the facet joints, worse on the left, with an associated grade 2 spondylolisthesis. There is chronic appearing fragmentation of the left C3-4 facet joint. This anterolisthesis appears to have worsened slightly, however, this may be due to the fact that the neck is more flexed on the current exam. Prevertebral soft tissue thickening is present through this region. This may also be accentuated by the neck flexion. There are mild to moderate degenerative changes at other scattered levels in the cervical spine. No acute fracture is identified. IMPRESSION: 1. Previous anterior spinal fusion and instrumentation from C4 through C7. 2. Moderate multilevel degenerative change. 3. Grade 2 spondylolisthesis at C3-4 related to severe left-sided facet joint arthropathy. This has worsened slightly since 08/07/2017, although flexion of the neck may be contributing to this difference. 3. Moderate prevertebral soft tissue swelling raising the possibility of soft tissue injury. Electronically signed by: Chad Wayne MD (05/19/2018 1:38 PM) [facility]
[2018-05-19 14:05] VITALS: BP 124/73
== END 2018-05-19 16:01 | disposition home or self-care (01) ==
LOC: ER 11:44
DX: T40.601A Poisoning by unspecified narcotics, accidental (unintentional), initial encounter (principal); R41.0 Disorientation, unspecified; R41.82 Altered mental status, unspecified; J44.9 Chronic obstructive pulmonary disease, unspecified; G43.909 Migraine, unspecified, not intractable, without status migrainosus; F20.9 Schizophrenia, unspecified; F32.9 Major depressive disorder, single episode, unspecified; Z91.041 Radiographic dye allergy status; Z88.5 Allergy status to narcotic agent; Z88.8 Allergy status to other drugs, medicaments and biological substances; Y92.89 Other specified places as the place of occurrence of the external cause
CPT/HCPCS: 36415; 51702; 70450; 71045; 72125; 80053; 81001; 83605; 84484; 85007; 85025; 85610; 87040; 87086; 93005; 96361; 96374; 96375; 99284; G0480; J2060; J2310; J7040

== ENCOUNTER 2018-11-26 08:11 | Emergency (ER) | payer MEDICARE, MEDICAID ==
[~2018-11-26] VITALS: Ht 157.5 cm; Wt 54.4 kg
[~2018-11-26 08:11] MED LIST changes: -LINE600T PO; +LINE600T12 PO; +OXYB5TAB10 PO; -OXYB5TAB7 PO; -PANT40TA3 PO; +PANT40TA77 PO
--- NOTE | 2018-11-26 08:32 | PHYS DOC ---
Past Medical History Past Medical History: Anemia, Asthma, COPD, Depression, Hyperthyroid, Lazaro derek, Schizophrenia, Other Additional Past Medical Histor: PLS, BACLOFEN PUMP, ALS Past Surgical History: Cholecystectomy, Hysterectomy, Other Additional Past Surgical Histo: RT INDEX FINGER AMP. Alcohol Use: None Drug Use: None, Opiates Adult General HPI HPI 50-year-old female presents to the emergency department with suprapubic catheter dysfunction. Patient states she's had the catheter for a number of years. She woke this morning with the catheter displaced. Patient denies any complaints at this time. She denies any nausea, vomiting, chest pain, shortness of breath, abdominal pain. Patient has chronic pain. All other ROS negative unless documented in HPI Review of Systems Review of Systems See Above Allergies Allergies Allergies Coded Allergies Type Severity Reaction Last Updated Verified ibuprofen Allergy Intermediate Hives 07/28/16 Yes I S O L A T I O N *CONTACT* Allergy Unknown 03/01/18 Yes cefazolin Adverse Reaction Intermediate N/V 07/28/16 Yes morphine Adverse Reaction Intermediate Nausea and Vomiting 05/06/18 Yes Physical Exam Physical Exam See Above Constitutional: Well developed, well nourished, no acute distress, non-toxic appearance. [] Cardiovascular:Heart rate regular rhythm, no murmur [] Lungs & Thorax: Bilateral breath sounds clear to auscultation [] Abdomen: Bowel sounds normal, soft, no tenderness, no masses, no pulsatile masses. suprapubic catheter displaced, no active bleeding appreciated[] Skin: Warm, dry, no erythema, no rash. [] Back: No tenderness, no CVA tenderness. [] Extremities: No tenderness, no cyanosis, no edema. [] Neurologic: Alert and oriented X 3, no focal deficits noted. [] Psychologic: Affect normal, judgement normal, mood normal. [] EKG EKG [] Radiology/Procedures Radiology/Procedures [] Course & Med Decision Making Course & Med Decision Making Pertinent Labs and Imaging studies reviewed. (See chart for details) []58-year-old female presents to the emergency department with suprapubic catheter dysfunction. Patient states she's had the catheter for a number of years. She woke this morning with the catheter displaced. Patient denies any complaints at this time. She denies any nausea, vomiting, chest pain, shortness of breath, abdominal pain. Patient has chronic pain. Suprapubic catheter replaced via sterile technique at bedside, urine present in patrick bag Recommend dc back to nursing facility Dragon Disclaimer Dragon Disclaimer This electronic medical record was generated, in whole or in part, using a voice recognition dictation system. Departure Departure Impression: Primary Impression: Suprapubic catheter dysfunction Disposition: 03 TRANSFER SNF Condition: STABLE Referrals: RISHABH LUNDBERG MD (PCP) Patient Instructions: Suprapubic Catheter Replacement Additional Instructions: Recommend follow up with PCP 3 - 5 days Return to the ER with worsening symptoms, intractable pain, fever, altered mental status Tylenol/Motrin as needed for pain Problem Qualifiers Primary Impression: Suprapubic catheter dysfunction Encounter type: initial encounter Qualified Codes: T83.010A - Breakdown (mechanical) of cystostomy catheter, initial encounter ALICE LEE MD Nov 26, 2018 08:32
[2018-11-26 10:10] VITALS: BP 95/64
== END 2018-11-26 10:18 | disposition home or self-care (01) ==
LOC: ER 08:11
DX: T83.010A Breakdown (mechanical) of cystostomy catheter, initial encounter (principal); J44.9 Chronic obstructive pulmonary disease, unspecified; F32.9 Major depressive disorder, single episode, unspecified; G43.909 Migraine, unspecified, not intractable, without status migrainosus; E05.90 Thyrotoxicosis, unspecified without thyrotoxic crisis or storm; Z90.49 Acquired absence of other specified parts of digestive tract; Z90.710 Acquired absence of both cervix and uterus; Z88.6 Allergy status to analgesic agent; Z88.1 Allergy status to other antibiotic agents; Z88.5 Allergy status to narcotic agent; Z91.041 Radiographic dye allergy status
CPT/HCPCS: 51705; 99284

== ENCOUNTER 2020-08-11 09:26 | Emergency (ER) | payer MEDICARE, MEDICAID ==
[~2020-08-11] VITALS: Ht 154.9 cm; Wt 59.1 kg
[~2020-08-11 09:26] MED LIST changes: +ALBU2.5V5 NEB; +AMMO120C TP; +AMOX1TAB11 PO; +AMOX1TAB58 PO; -ASPI-612 PO; +ASPI-630 PO; +ASPI-886 PO; +CEFD300C PO; +CITA10TA4 PO; +CLON0.1T PO; +DIVA-53 PO; -ETOD400T PO; +ETOD400T3 PO; +HALO2TAB PO; +HALOPERIDOL LACTATE IM; -LEVO75TA PO; +LEVO75TA90 PO; +LISI10TA16 PO; -LISI10TA2 PO; +MAGN24003 PO; +MELA5TAB20 PO; +OXYC5CAP PO; +SENN1TAB99 PO; +SERT-267 PO
[2020-08-11] MEDS ORDERED: IV NORMAL SALINE 1000ML BAG 1,000 ML IV ONE (10:00)
[2020-08-11 10:31] LABS: BASO # 0.1 x10^3/uL (0.0-0.2); BASO % 1 % (0-3); EOS # 0.4 x10^3/uL (0.0-0.7); EOS % 9 % (0-3); HEMATOCRIT 34.6 % (36.0-47.0); HEMOGLOBIN 11.6 g/dL (12.0-15.5); LYMPH # 1.8 x10^3/uL (1.0-4.8); LYMPH % 39 % (24-48); MEAN CORPUSCULAR HEMOGLOBIN 32 pg (25-35); MEAN CORPUSCULAR HGB CONC 34 g/dL (31-37); MEAN CORPUSCULAR VOLUME 96 fL (79-100); MONO # 0.6 x10^3/uL (0.0-1.1); MONO % 12 % (0-9); NEUT # 1.8 x10^3/uL (1.8-7.7); NEUT % 40 % (31-73); PLATELET COUNT 229 x10^3/uL (140-400); RED CELL DISTRIBUTION WIDTH 13.4 % (11.5-14.5); WHITE BLOOD COUNT 4.6 x10^3/uL (4.0-11.0)
[2020-08-11 11:31] LABS: CALCIUM 8.6 mg/dL (8.5-10.1); CREATININE 0.9 mg/dL (0.6-1.0); POTASSIUM 4.1 mmol/L (3.5-5.1)
[2020-08-11 11:36] LABS: ALBUMIN 3.3 g/dL (3.4-5.0); ALBUMIN/GLOBULIN RATIO 1.1 (1.0-1.7); MAGNESIUM 1.8 mg/dL (1.8-2.4); TOTAL BILIRUBIN 0.3 mg/dL (0.2-1.0); TOTAL PROTEIN 6.4 g/dL (6.4-8.2)
[2020-08-11 12:23] LABS: BILIRUBIN,URINE NEGATIVE (NEG); CLARITY,URINE CLEAR; COLOR,URINE YELLOW; NITRITE,URINE NEGATIVE (NEG); PH,URINE 7.5 (<5.0-8.0); PROTEIN,URINE NEGATIVE (NEG-TRACE); UROBILINOGEN,URINE 0.2 mg/dL (0.2 mg/dL)
[2020-08-11 12:30] LABS: BARBITURATES NEG (NEG); BENZODIAZEPINES NEG (NEG); CANNABINOIDS NEG (NEG); COCAINE NEG (NEG); METHADONE NEG (NEG); OPIATES NEG (NEG); PHENCYCLIDINE NEG (NEG)
[2020-08-11 12:36] LABS: HYALINE CASTS, URINE FEW /HPF; RBC,URINE >40 /HPF (0-2)
[2020-08-11 12:37] LABS: BACTERIA,URINE MODERATE /HPF (0-FEW); WBC,URINE 20-40 /HPF (0-4)
[2020-08-11 12:51] LABS: AMPHETAMINE/METHAMPHETAMINE NEG (NEG)
[2020-08-11] MEDS ORDERED: LEVO500T8 PO (14:28)
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
[2020-08-11 16:30] VITALS: BP 135/87
== END 2020-08-11 16:49 | disposition home or self-care (01) ==
LOC: ER 09:26
DX: F91.9 Conduct disorder, unspecified (principal); N39.0 Urinary tract infection, site not specified; J44.9 Chronic obstructive pulmonary disease, unspecified; I10 Essential (primary) hypertension; G43.909 Migraine, unspecified, not intractable, without status migrainosus; F20.9 Schizophrenia, unspecified; G89.29 Other chronic pain; Z90.49 Acquired absence of other specified parts of digestive tract; Z90.710 Acquired absence of both cervix and uterus; Z91.041 Radiographic dye allergy status; Z88.8 Allergy status to other drugs, medicaments and biological substances; Z88.5 Allergy status to narcotic agent
CPT/HCPCS: 36415; 80053; 80307; 81001; 83605; 83735; 85025; 87040; 87086; 96360; 99283; J7030